=== PATIENT | male | born 1955 | race Caucasian/White ===

== ENCOUNTER 2016-07-27 09:09 | Inpatient (IN) | payer MEDICARE, BC ==
[2016-07-27] MEDS ORDERED: LORazepam 2 MG/ML SYRINGE IV STA ×2 (09:24→11:32)
[2016-07-27] MEDS ORDERED: SODIUM CHLORIDE 0.9% 1,000 ML IV STA ×2 (09:24)
[2016-07-27] MEDS ORDERED: SODIUM CHLORIDE 0.9% 500 ML IV STA ×2 (09:24→11:32)
[2016-07-27] MEDS ORDERED: THIAMINE 100 MG/ML 2 ML VIAL IVPB STA (09:24)
[2016-07-27] MEDS ORDERED: ONDANSETRON 4 MG/2 ML VIAL IVP STA (09:25)
[2016-07-27] MEDS ORDERED: PANTOPRAZOLE 40 MG/10 ML VIAL IVP STA (09:25)
[2016-07-27] MEDS ORDERED: DILTIAZEM 5 MG/ML 5 ML VIAL IVP STA ×2 (09:27→11:32)
--- NOTE | 2016-07-27 09:27 | ED ---
General Adult HPI - General Chief complaint: Alcohol Stated complaint: Depression Time Seen by Provider: 07/27/16 09:23 Source: patient, EMS, RN notes reviewed, old records reviewed Mode of arrival: EMS Limitations: no limitations - History of Present Illness Initial comments: This is a 61-year-old male to the ER for evaluation of occult withdrawal. Patient states he wants help with his drinking. Not feeling well nausea vomiting that eating well - Related Data Home Medications Medication Instructions Recorded Confirmed Allopurinol [Zyloprim] 300 mg PO DAILY 05/17/16 07/27/16 PARoxetine HCL [Paxil] 40 mg PO DAILY 05/17/16 07/27/16 Pantoprazole Sodium [Protonix] 40 mg PO DAILY 05/17/16 07/27/16 Tamsulosin HCl [Flomax] 0.4 mg PO HS 05/17/16 07/27/16 Colchicine [Colcrys] 0.6 mg PO DAILY 07/27/16 07/27/16 Diazepam [Valium] 10 mg PO DAILY PRN 07/27/16 07/27/16 Fluticasone Nasal [place] [Flonase 1 spr EA NOSTRIL DAILY PRN 07/27/16 07/27/16 Nasal [place]] Hydrochlorothiazide [Hydrodiuril] 25 mg PO DAILY 07/27/16 07/27/16 LORazepam [Ativan] 1 mg PO DAILY PRN 07/27/16 07/27/16 Lisinopril [Zestril] 40 mg PO DAILY 07/27/16 07/27/16 Meloxicam [Mobic] 15 mg PO DAILY 07/27/16 07/27/16 Metoprolol Tartrate [Lopressor] 50 mg PO DAILY 07/27/16 07/27/16 Pravastatin Sodium [Pravachol] 40 mg PO HS 07/27/16 07/27/16 Tamsulosin HCl [Flomax] 0.4 mg PO DAILY 07/27/16 07/27/16 Venlafaxine HCl [Effexor] 100 mg PO BID 07/27/16 07/27/16 tiZANidine HCL [Zanaflex] 2 mg PO TID PRN 07/27/16 07/27/16 traZODone HCL [Desyrel] 100 mg PO BID 07/27/16 07/27/16 Previous Rx's Medication Instructions Recorded LORazepam [Ativan] 1 mg PO Q4HR PRN #30 tab 05/21/16 Allergies Allergy/AdvReac Type Severity Reaction Status Date / Time No Known Allergies Allergy Verified 07/27/16 09:19 Review of Systems ROS Statement: Those systems with pertinent positive or pertinent negative responses have been documented in the HPI. ROS Other: All systems not noted in ROS Statement are negative. Past Medical History Past Medical History: Hyperlipidemia, Hypertension Additional Past Medical History / Comment(s): ETOH History of Any Multi-Drug Resistant Organisms: None Reported Past Surgical History: Back Surgery, Orthopedic Surgery Additional Past Surgical History / Comment(s): hernia repair umbilical and inguinal Past Psychological History: Anxiety, Depression Smoking Status: Former smoker Past Alcohol Use History: Daily, Heavy Past Drug Use History: None Reported General Exam Limitations: no limitations General appearance: alert, in no apparent distress, anxious Head exam: Present: atraumatic, normocephalic, normal inspection Eye exam: Present: normal appearance, PERRL, EOMI. Absent: scleral icterus, conjunctival injection, periorbital swelling ENT exam: Present: mucous membranes dry, mucous membranes moist Neck exam: Present: normal inspection. Absent: tenderness, meningismus, lymphadenopathy Respiratory exam: Present: normal lung sounds bilaterally. Absent: respiratory distress, wheezes, rales, rhonchi, stridor Cardiovascular Exam: Present: tachycardia, irregular rhythm, normal heart sounds. Absent: systolic murmur, diastolic murmur, rubs, gallop, clicks GI/Abdominal exam: Present: soft, normal bowel sounds. Absent: distended, tenderness, guarding, rebound, rigid Extremities exam: Present: normal inspection, full ROM, normal capillary refill. Absent: tenderness, pedal edema, joint swelling, calf tenderness Back exam: Present: normal inspection Neurological exam: Present: alert, oriented X3, CN II-XII intact Psychiatric exam: Present: normal affect, normal mood Skin exam: Present: warm, dry, intact, normal color. Absent: rash Course Vital Signs 07/27/16 07/27/16 07/27/16 09:14 09:43 10:03 Temperature 97.2 F L Pulse Rate 157 H 153 H 144 H Respiratory 0 L 20 22 Rate Blood Pressure 167/117 227/94 129/79 O2 Sat by Pulse 96 96 96 Oximetry - Reevaluation(s) Reevaluation #1: 07/27/16 11:40 Patient remained in A. fib with RVR, heart rate in the 150s, agitated with full body pain. EKG Findings - EKG Comments: EKG Findings:: EKG shows A. fib with RVR rate of 137, QRS 82, QTC 422 Medical Decision Making - Medical Decision Making 61 male here for evaluation of weakness, restlessness, lying to quit alcohol, patient is still with elevated alcohol level but noted palpitations with A. fib with RVR, patient will be admitted for evaluation of A. fib with RVR pending alcohol withdrawal DTs, patient's placed on rate control medication as well as anticoagulation, patient will be admitted for cardiopulmonary resuscitation and hemodynamic monitoring - Lab Data Result diagrams: 07/27/16 09:20 07/27/16 10:10 Lab Results 07/27/16 07/27/16 07/27/16 Range/Units 09:20 10:10 10:10 WBC 7.8 (3.8-10.6) k/uL RBC 5.42 (4.30-5.90) m/uL Hgb 16.7 (13.0-17.5) gm/dL Hct 51.3 (39.0-53.0) % MCV 94.8 (80.0-100.0) fL MCH 30.9 (25.0-35.0) pg MCHC 32.6 (31.0-37.0) g/dL RDW 16.2 H (11.5-15.5) % Plt Count 164 (150-450) k/uL Neutrophils % 68 % Lymphocytes % 20 % Monocytes % 7 % Eosinophils % 2 % Basophils % 1 % Neutrophils # 5.3 (1.3-7.7) k/uL Lymphocytes # 1.5 (1.0-4.8) k/uL Monocytes # 0.5 (0-1.0) k/uL Eosinophils # 0.2 (0-0.7) k/uL Basophils # 0.1 (0-0.2) k/uL Anisocytosis Slight PT 11.6 (9.0-12.0) sec INR 1.2 (<1.1) APTT 28.9 (22.0-30.0) sec Sodium 148 H (137-145) mmol/L Potassium 4.0 (3.5-5.1) mmol/L Chloride 106 (98-107) mmol/L Carbon Dioxide 18 L (22-30) mmol/L Anion Gap 24 mmol/L BUN 11 (9-20) mg/dL Creatinine 0.80 (0.66-1.25) mg/dL Est GFR (MDRD) Af Amer >60 (>60 ml/min/1.73 sqM) Est GFR (MDRD) Non-Af >60 (>60 ml/min/1.73 sqM) Glucose 94 (74-99) mg/dL Calcium 8.8 (8.4-10.2) mg/dL Magnesium 1.7 (1.6-2.3) mg/dL Total Bilirubin 1.2 (0.2-1.3) mg/dL AST 37 (17-59) U/L ALT 43 (21-72) U/L Alkaline Phosphatase 87 (38-126) U/L Total Protein 7.7 (6.3-8.2) g/dL Albumin 4.8 (3.5-5.0) g/dL Lipase 54 (23-300) U/L Serum Alcohol 125 mg/dL - Radiology Data Radiology results: report reviewed (Chest x-ray is negative for acute disease), image reviewed Critical Care Time Critical Care Time: Yes Total Critical Care Time: 31 Disposition Clinical Impression: Alcohol withdrawal syndrome, Atrial fibrillation with RVR Disposition: ADMITTED IP TO THIS [facility] Condition: Serious Referrals: Harvey Kumari MD [Primary Care Provider] - 1-2 days
[2016-07-27] MEDS ORDERED: MULTIVITAMINS, THERA 1 EACH TAB PO STA (09:29)
[2016-07-27 09:48] LABS: Anisocytosis Slight; Basophils # (A) 0.1 k/uL (0-0.2); Basophils % (A) 1 %; CH 31.5; CHCM 33.5; Eosinophils # (A) 0.2 k/uL (0-0.7); Eosinophils % (A) 2 %; HCT 51.3 % (39.0-53.0); HDW 3.31; HGB 16.7 gm/dL (13.0-17.5); Luc % (Auto) 3; Lymphocytes # (A) 1.5 k/uL (1.0-4.8); Lymphocytes % (A) 20 %; MCH 30.9 pg (25.0-35.0); MCHC 32.6 g/dL (31.0-37.0); MCV 94.8 fL (80.0-100.0); Mean Platelet Volume 8.6; Monocytes # (A) 0.5 k/uL (0-1.0); Monocytes % (A) 7 %; Neutrophils # (A) 5.3 k/uL (1.3-7.7); Neutrophils % (A) 68 %; RBC 5.42 m/uL (4.30-5.90); RDW 16.2 % (11.5-15.5); WBC 7.8 k/uL (3.8-10.6); WBC (Perox) 7.85
[2016-07-27] MEDS ORDERED: MORPHINE SULFATE 4 MG/ML SYRINGE IVP STA (09:49)
[2016-07-27] MEDS ORDERED: THIAMINE 100 MG/ML 2 ML VIAL IVP STA (09:59)
[2016-07-27 10:43] LABS: INR 1.2 (<1.1); Partial Thromboplastin Time 28.9 sec (22.0-30.0); Prothrombin Time 11.6 sec (9.0-12.0)
[2016-07-27 10:47] LABS: ALT 43 U/L (21-72); AST 37 U/L (17-59); Alkaline Phosphatase 87 U/L (38-126); Anion Gap 24 mmol/L; Blood Urea Nitrogen 11 mg/dL (9-20); Calcium 8.8 mg/dL (8.4-10.2); Carbon Dioxide 18 mmol/L (22-30); Chloride 106 mmol/L (98-107); Glucose 94 mg/dL (74-99); Magnesium 1.7 mg/dL (1.6-2.3); Non-African American GFR(MDRD) >60 (>60 ml/min/1.73 sqM); Sodium 148 mmol/L (137-145); Total Bilirubin 1.2 mg/dL (0.2-1.3); Total Protein 7.7 g/dL (6.3-8.2)
[2016-07-27 10:50] LABS: Alcohol 125 mg/dL
--- NOTE | 2016-07-27 11:14 | XR ---
EXAMINATION TYPE: XR chest 2V DATE OF EXAM: 07/27/2016 10:54 AM COMPARISON: None HISTORY: 61-year-old male low back pain TECHNIQUE: Frontal and lateral views FINDINGS: Heart is upper limits of normal in size. Mild interstitial prominence main part relate to technique. No consolidation or pleural effusion. IMPRESSION: Suspect some underlying senescent changes, possible chronic bronchitis/asthma. Otherwise, no acute pr ocess seen.
[2016-07-27] MEDS ORDERED: DILTIAZEM 125 MG in SODIUM CHLORIDE 0.9% 100 ML IV ONE (11:33)
[2016-07-27] MEDS ORDERED: ASPIRIN 81 MG CHEW PO STA (11:35)
[2016-07-27] MEDS ORDERED: MORPHINE SULFATE 4 MG/ML SYRINGE IV PRN (11:35)
[2016-07-27] MEDS ORDERED: HEPARIN SODIUM,PORCINE 5,000 UNIT/ML 1 ML VIAL IV ONE (11:35)
[2016-07-27] MEDS ORDERED: LORazepam 2 MG/ML SYRINGE IV PRN (11:38)
[2016-07-27] MEDS ORDERED: THIAMINE 100 MG/ML 2 ML VIAL IM STA (11:38)
[2016-07-27] MEDS ORDERED: HEPARIN SODIUM,PORCINE/D5W PMX 25,000 UNIT in DEXTROSE/WATER 1 500ML.BAG IV SCH (11:45)
[2016-07-27] MEDS ORDERED: DIAZEPAM 5 MG/ML 2 ML SYRINGE IVP SCH (12:00)
[2016-07-27] MEDS: SODIUM CHLORIDE 0.9% 1,000 ML IV SCH ×2 (12:15→21:02)
--- NOTE | 2016-07-27 13:56 | P.PN ---
Progress Note - Text this is an addendum to the dictated cardiology consultation. The patient has a history of hypertension and unfortunately chronic alcohol abuse who presented with symptoms of chest discomfort and was found to be in atrial fibrillation and rapid ventricular response. He is back in sinus mechanism at this time.he denies any prior cardiac history. He has mild dyspnea on exertion related to a sinus but he has no history of exertional chest discomfort and no knowledge of prior arrhythmia. He drinks on a daily basis up to a fifth a day. His physical examination shows no evidence of lung congestion, he is in sinus mechanism. His EKG is consistent with atrial fibrillation rapid ventricle response with nonspecific ST-T wave changes. I discussed with him the importance of alcohol cessation. I would increase the dose of his beta austen and stop his IV Cardizem. We will obtain an echocardiogram with Doppler. At this time I will withhold anticoagulation because of the history of chronic alcoholism. Depending on the results of his lab data and his echocardiogram further recommendations will be made. Thank you for this consult we will follow with you.
--- NOTE | 2016-07-27 13:56 | P.CRDCN ---
History of Present Illness Consult date: 07/27/16 Requesting physician: Jim Huggins Consult reason: atrial fibrillation Chief complaint: Chest pain and heart racing History of present illness: This is a 61-year-old gentleman with history of hypertension, hyperlipidemia, family history of premature coronary artery disease, anxiety and depression, EtOH abuse, who presented to the hospital with symptoms of chest pain, and feeling his heart racing fast. Overall he states he hasn't been feeling well, having episodes of nausea and vomiting. Patient states that he drinks a fifth of alcohol a day and has been doing this for quite some time. His alcohol level on admission was 125. EKG on arrival atrial fibrillation with a rapid ventricular response, initiated on IV heparin and Cardizem, has now converted to normal sinus rhythm. Chest x-ray reveals some underlying senescent changes, possible chronic bronchitis/asthma. Laboratory data was reviewed, WBC 7.8, hemoglobin 16.7, platelet count 164. Sodium 148, potassium 4.0, BUN 11, creatinine 0.8. The pressure on arrival 167/117, heart rate on arrival 150s, heart rate currently 90 normal sinus rhythm. Past Medical History Past Medical History: Hyperlipidemia, Hypertension, Osteoarthritis (OA), Prostate Disorder Additional Past Medical History / Comment(s): Alcoholism, bronchitis, ulcerative colitis, rectal bleed, gout in bilateral feet, unsteady gait, balance issues, "blppd shot" eyes which he has been told is dur to dry eyes, arthritis multiple joints, BPH. History of Any Multi-Drug Resistant Organisms: None Reported Past Surgical History: Back Surgery, Hernia Repair, Joint Replacement, Orthopedic Surgery, Tonsillectomy Additional Past Surgical History / Comment(s): Lumbar back surgery x 3, total L knee, hernia repair umbilical and left inguinal, colonoscopy. Past Anesthesia/Blood Transfusion Reactions: No Reported Reaction, Motion Sickness Additional Past Anesthesia/Blood Transfusion Reaction / Comment(s): Pt gets sea sick. Past Psychological History: Anxiety, Depression Additional Psychological History / Comment(s): t resides alone. He uses a walker to ambulate. He drives. He states he has hx of depression and it has been more severe over the past few weeks. He states he recently got after 33 yrs of marriage and his kids "won't talk to me." He stated that over the past two weeks he has had brief thoughts of suicide but no plan and states he is not suicidal at this time. " I want to live." He stated that when he is feeting this emotional, he stops taking his medication and drinks alcohol more. Smoking Status: Former smoker Past Alcohol Use History: Daily, Heavy Additional Past Alcohol Use History / Comment(s): Pt states he started smoking in 1968 and was a 3-4 ppd smoker. He quit smoking in 1978. He states he drinks 1/5 of whiskey mixed with coke each day. Past Drug Use History: None Reported - Past Family History Mother Additional Family Medical History / Comment(s): Mother "battled" depression all of her life. She was 82 yrs old when she . Father Additional Family Medical History / Comment(s): Father was an alcoholic. He at the age of 72 yrs. Medications and Allergies Home Medications Medication Instructions Recorded Confirmed Type Allopurinol [Zyloprim] 300 mg PO DAILY 05/17/16 07/27/16 History PARoxetine HCL [Paxil] 40 mg PO DAILY 05/17/16 07/27/16 History Pantoprazole Sodium [Protonix] 40 mg PO DAILY 05/17/16 07/27/16 History Tamsulosin HCl [Flomax] 0.4 mg PO HS 05/17/16 07/27/16 History Colchicine [Colcrys] 0.6 mg PO DAILY 07/27/16 07/27/16 History Diazepam [Valium] 10 mg PO DAILY PRN 07/27/16 07/27/16 History Fluticasone Nasal [place] [Flonase 1 spr EA NOSTRIL DAILY PRN 07/27/16 07/27/16 History Nasal [place]] Hydrochlorothiazide [Hydrodiuril] 25 mg PO DAILY 07/27/16 07/27/16 History LORazepam [Ativan] 1 mg PO DAILY PRN 07/27/16 07/27/16 History Lisinopril [Zestril] 40 mg PO DAILY 07/27/16 07/27/16 History Meloxicam [Mobic] 15 mg PO DAILY 07/27/16 07/27/16 History Metoprolol Tartrate [Lopressor] 50 mg PO DAILY 07/27/16 07/27/16 History Pravastatin Sodium [Pravachol] 40 mg PO HS 07/27/16 07/27/16 History Tamsulosin HCl [Flomax] 0.4 mg PO DAILY 07/27/16 07/27/16 History Venlafaxine HCl [Effexor] 100 mg PO BID 07/27/16 07/27/16 History tiZANidine HCL [Zanaflex] 2 mg PO TID PRN 07/27/16 07/27/16 History traZODone HCL [Desyrel] 100 mg PO BID 07/27/16 07/27/16 History Allergies Allergy/AdvReac Type Severity Reaction Status Date / Time No Known Allergies Allergy Verified 07/27/16 09:19 Physical Exam Vitals: Vital Signs Temp Pulse Pulse Resp BP BP Pulse Ox 07/27/16 12:45 97.3 F L 87 18 175/79 97 07/27/16 12:28 98.4 F 92 18 152/74 94 L 07/27/16 12:15 94 18 143/77 94 L Intake and Output 07/26/16 07/27/16 07/27/16 22:59 06:59 14:59 Intake Total 1999 Balance 1999 Intake: Amount of Fluid Infused ( 2000 ml) PHYSICAL EXAMINATION: HEENT: [Head is atraumatic, normocephalic. Pupils equal, round. Neck is supple. There is no elevated jugular venous pressure.] HEART EXAMINATION: [Heart S1, S2 normal. No murmur or gallop heard.] CHEST EXAMINATION:[ Lungs are clear to auscultation and precussion. No chest wall tenderness is noted on palpation or with deep breathing.] ABDOMEN: [ Soft, nontender. Bowel sounds are heard. No organomegaly noted]. EXTREMITIES:[ 2+ peripheral pulses with no evidence of peripheral edema and no calf tenderness noted]. NEUROLOGIC [patient is awake, alert and oriented -3.] . Results 07/27/16 09:20 07/27/16 10:10 Current Medications Generic Name Dose Route Start Last Admin Trade Name Freq PRN Reason Stop Dose Admin Aspirin 325 mg 07/28/16 09:00 Aspirin PO DAILY WALKER Diazepam 5 mg 07/27/16 12:00 07/27/16 13:26 Valium IVP Not Given Q8HR [facility] Heparin Sodium (Porcine) 0 unit 07/27/16 18:00 Heparin IV Q6HR PRN Low PTT Protocol Sodium Chloride 1,000 mls @ 100 mls/hr 07/27/16 09:24 07/27/16 11:56 Saline 0.9% IV 07/27/16 19:23 100 mls/hr .Q10H STA Administration Diltiazem HCl 125 mg/ Sodium 125 mls @ 5 mls/hr 07/27/16 11:33 07/27/16 12:03 Chloride IV 07/28/16 11:32 5 mg/hr .Q24H ONE 5 mls/hr 5 MG/HR Administration Heparin Sodium/Dextrose 25,000 500 mls @ 20 mls/hr 07/27/16 11:45 07/27/16 12 :13 unit/ IV Solution IV 7.6 units/kg/hr .Q24H WALKER 19.99 mls/hr Protocol Administration Sodium Chloride 1,000 mls @ 100 mls/hr 07/27/16 11:45 07/27/16 12:15 Saline 0.9% IV 100 mls/hr .Q10H WALKER Administration Lorazepam 1 mg 07/27/16 11:38 Ativan IV Q2HR PRN CIWA 8 or 9 Lorazepam 1 mg 07/27/16 11:38 Ativan IV Q1HR PRN CIWA 10 to 15 Lorazepam 2 mg 07/27/16 11:38 Ativan IV Q1HR PRN CIWA 16 or higher Morphine Sulfate 4 mg 07/27/16 11:35 Morphine Sulfate (Inj) IV Q4HR PRN Chest Pain Thiamine HCl 100 mg 07/27/16 17:00 Vitamin B-1 PO BID@1200,1700 WALKER Intake and Output 07/26/16 07/27/16 07/27/16 22:59 06:59 14:59 Intake Total 1999 Balance 1999 Intake: Amount of Fluid Infused ( 2000 ml) EKG Interpretations (text) EKG on admission showed atrial fibrillation with a rapid ventricular response Assessment and Plan Plan: Assessment and plan #1 atrial fibrillation with rapid ventricular response, paroxysmal, new onset, currently in normal sinus rhythm. #2 hypertension #3 hyperlipidemia #4 family history of premature coronary artery disease #5 EtOH abuse Plan We will obtain an echocardiogram with Doppler study along with free T4 and TSH. IV Cardizem drip has been discontinued. Dose of beta austen has been increased to 50 mg one tablet by mouth twice a day. Patient has been advised regarding the importance of EtOH cessation. Not a candidate for anticoagulation because of the EtOH abuse. Further recommendations to follow. DNP note has been reviewed, I agree with a documented findings and plan of care. Patient was seen and examined.
[2016-07-27 14:58] VITALS: BMI 40.4
[2016-07-27] MEDS: LORazepam 2 MG/ML SYRINGE IV PRN ×5 (14:59→23:39)
[2016-07-27] MEDS: LISINOPRIL 20 MG TAB PO SCH (15:00)
[2016-07-27] MEDS: THIAMINE 100 MG TAB PO SCH (15:00)
[2016-07-27 15:24] LABS: Troponin I 0.012 ng/mL (0.000-0.034)
[2016-07-27 15:29] LABS: Creatine Kinase MB 8.5 ng/mL (0.0-2.4)
[2016-07-27 15:39] LABS: Amorphous Sediment,Urine Rare /hpf; Appearance,Urine Clear (Clear); Bilirubin,Urine Negative (Negative); Glucose,Urine (UA) Negative (Negative); Ketones,Urine 2+ (Negative); Leukocyte Esterase,Urine Negative (Negative); Mucus,Urine Occasional /hpf; Nitrite,Urine Negative (Negative); PH, Urine 5.5 (5.0-8.0); Particle Count 3042; Protein,Urine 2+ (Negative); RBC,Urine 1 /hpf (0-5); Specific Gravity,Urine 1.013 (1.001-1.035); Squamous Epithelial Cell,Urine 1 /hpf (0-4); UA Billing (MACRO vs. MICRO) MICRO; Urobilinogen,Urine <2.0 mg/dL (<2.0); WBC,Urine 6 /hpf (0-5)
[2016-07-27 16:35] LABS: Troponin I 0.028 ng/mL (0.000-0.034)
[2016-07-27 16:38] LABS: Creatine Kinase MB 11.2 ng/mL (0.0-2.4)
[2016-07-27] MEDS ORDERED: HEPARIN SODIUM,PORCINE 5,000 UNIT/ML 1 ML VIAL IV PRN (18:00)
[2016-07-27] MEDS: METOPROLOL TARTRATE 50 MG TAB PO SCH (21:01)
[2016-07-27] MEDS: PRAVASTATIN SODIUM 40 MG TAB PO SCH (21:01)
[2016-07-27 23:23] LABS: Troponin I 0.038 ng/mL (0.000-0.034)
[2016-07-27 23:24] LABS: Creatine Kinase MB 8.1 ng/mL (0.0-2.4)
[2016-07-28] MEDS: LORazepam 2 MG/ML SYRINGE IV PRN ×4 (04:29→21:08)
[2016-07-28 05:59] LABS: Mean Platelet Volume 6.6
[2016-07-28 06:10] LABS: Cholesterol 222 mg/dL (<200); HDL Cholesterol 75 mg/dL (40-60); Triglycerides 103 mg/dL (<150)
[2016-07-28] MEDS ORDERED: ASPIRIN 325 MG TAB PO SCH (09:00)
[2016-07-28] MEDS: METOPROLOL TARTRATE 50 MG TAB PO SCH ×2 (09:06→21:08)
[2016-07-28] MEDS: LISINOPRIL 20 MG TAB PO SCH (09:06)
[2016-07-28] MEDS: SODIUM CHLORIDE 0.9% 1,000 ML IV SCH ×2 (09:07→18:08)
[2016-07-28] MEDS: amLODIPine 5 MG TAB PO SCH (10:53)
--- NOTE | 2016-07-28 11:16 | ECHOF ---
Referral Reason:afib MEASUREMENTS -------- HEIGHT: 180.3 cm WEIGHT: 131.5 kg BP: 175/79 RVIDd: 2.6 cm (< 3.3) IVSd: 1.1 cm (0.6 - 1.1) LVIDd: 5.1 cm (3.9 - 5.3) LVPWd: 1.2 cm (0.6 - 1.1) IVSs: 2.2 cm LVIDs: 3.4 cm LVPWs: 1.8 cm LA Diam: 3.2 cm (2.7 - 3.8) LAESV Index (A-L): 16.49 ml/m Ao Diam: 3.3 cm (2.0 - 3.7) AV Cusp: 1.9 cm (1.5 - 2.6) LA Diam: 3.1 cm (2.7 - 3.8) MV EXCURSION: 12.148 mm (> 18.000) MV EF SLOPE: 39 mm/s (70 - 150) EPSS: 1.0 cm MV E Santo: 1.02 m/s MV DecT: 240 ms MV A Santo: 0.94 m/s MV E/A Ratio: 1.08 FINDINGS -------- Undetermined rhythm. This was a technically adequate study. There is borderline concentric left ventricular hypertrophy. Overall left ventricular systolic function is normal with, an EF between 55 - 60 %. The right ventricle is normal in size. Normal LA size by volume 22+/-6 ml/m2. The right atrium is normal in size. Aortic valve is trileaflet and is mildly thickened. Mild mitral annular calcification present. There is trace mitral regurgitation. Trace tricuspid regurgitation present. Right ventricular systolic pressure is normal at < 35 mmHg. Pulmonic valve appears structurally normal. The aortic root size is normal. Normal inferior vena cava with normal inspiratory collapse consistent with estimated right atrial pressure of 5 mmHg. There is a small, generalized pericardial effusion present. CONCLUSIONS -------- 1. Undetermined rhythm. 2. There is trace mitral regurgitation. 3. Trace tricuspid regurgitation present. 4. Right ventricular systolic pressure is normal at < 35 mmHg. 5. Pulmonic valve appears structurally normal. 6. The aortic root size is normal. 7. There is a small, generalized pericardial effusion present. 8. This was a technically adequate study. 9. There is borderline concentric left ventricular hypertrophy. 10. Overall left ventricular systolic function is normal with, an EF between 55 - 60 %. 11. The right ventricle is normal in size. 12. Normal LA size by volume 22+/-6 ml/m2. 13. The right atrium is normal in size. 14. Aortic valve is trileaflet and is mildly thickened. 15. Mild mitral annular calcification present. HAND CROWN POUNCER: Quyen Krishna RDCS
[2016-07-28] MEDS ORDERED: LORazepam 1 MG TAB PO PRN (11:36)
[2016-07-28] MEDS ORDERED: PARoxetine 20 MG TAB PO SCH (11:45)
[2016-07-28] MEDS ORDERED: traZODone HCL 100 MG TAB PO SCH ×2 (11:45→21:00)
[2016-07-28] MEDS ORDERED: TAMSULOSIN 0.4 MG CAP.ER.24H PO SCH ×2 (11:45→21:00)
[2016-07-28] MEDS: DIAZEPAM 5 MG TAB PO SCH ×3 (13:08→23:02)
[2016-07-28] MEDS: HYDROCHLOROTHIAZIDE 25 MG TAB PO SCH (13:09)
[2016-07-28] MEDS: PANTOPRAZOLE 40 MG TABLET PO SCH (13:10)
[2016-07-28] MEDS: THIAMINE 100 MG TAB PO SCH ×2 (13:10→16:01)
[2016-07-28] MEDS: ALLOPURINOL 300 MG TAB PO SCH (13:10)
--- NOTE | 2016-07-28 13:15 | HP ---
DATE OF ADMISSION: 07/27/2016 PRESENTING COMPLAINT: Shaky and anxious. HISTORY OF PRESENTING COMPLAINT: This is a 61-year-old of Dr. Kumari. Patient's chronic stable medical conditions include: Benign prostatic hypertrophy, depression, hyperuricemia, hypertension, chronic alcohol use. The patient in middle of May was in the psychiatry unit and diagnosed to have major depressive disorder. Patient drinks 1 to 2 pints whiskey a day. Lasting for 2 days ago. Patient started feeling very shaky. Heart rate racing. Not feeling well. Decided to come in, depressed, found to have A. fib with rapid ventricular rate. Patient in the ER was given IV Cardizem and some Ativan and admitted to the medical floor. Overnight patient switched over to sinus rhythm. Patient is still very depressed, shaky and was concerned about his family. He lost his family especially his kids after a divorce. Patient's other chronic ( ) patient's blood pressure is running a bit high this morning and was started on Norvasc. REVIEW OF SYSTEMS: CONSTITUTIONAL: Tired. HEENT: None. RESPIRATORY: None. CARDIOVASCULAR: Heart racing. GASTROINTESTINAL: None. GENITOURINARY: None. MUSCULOSKELETAL: None. Dermatologic: None. HEMATOLOGIC: None. LYMPHATIC: None. PSYCHIATRY: Anxiety, depressed. NEUROLOGICAL: Numbness, tingling in hands and feet. Past medical history of major depression, benign prostatic hypertrophy, peripheral neuropathy, alcoholism, hypertension. PAST SURGICAL HISTORY: Back surgery, hernia repair, joint replacement, tonsillectomy, lumbar back surgery x3. Left knee surgery, umbilical, left and right umbilical hernia repair. SOCIAL HISTORY: Recently got after 32 years of marriage. The patient smoked for 10 years; stopped in 1978. He drinks at least a fifth of whiskey mixed with coke every day. FAMILY HISTORY: Reviewed, noncontributory to the presentation. HOME MEDICATIONS: 1. Effexor 100 mg p.o. b.i.d. 2. Flomax 0.4 mg p.o. daily. 3. Zanaflex 2 mg p.o. daily p.r.n. 4. Desyrel 100 mg p.o. b.i.d. 5. Flomax 0.4 mg p.o. q.h.s. 6. Pravachol 40 mg q.h.s. 7. Protonix 40 mg p.o. daily. 8. Paxil 40 mg daily. 9. Lopressor 50 mg p.o. daily. 10. Mobic 15 mg p.o. daily. 11. Zestril 40 mg p.o. daily. 12. Ativan q.4 1 mg p.r.n. 13. Hydrochlorothiazide 25 mg daily. 14. Flonase one spray each nostril daily p.r.n. 15. Valium 10 mg daily p.r.n. 16. Colchicine 0.6 mg p.o. daily. 17. Allopurinol 300 mg daily. ALLERGIES: None. On examination vital signs on presentation: Temperature 97.4, pulse 90, respiration 18, blood pressure initially was 165/85, pulse ox 97% on room air and then gone up 190/91. GENERAL APPEARANCE: Obese; morbidly obese, BMI 40.5, sitting up, tired -appearing. EYES: Pupils equal. Conjunctivae normal. HEENT: External appearance of nose and ears normal. Oral cavity normal. NECK: JVD not raised. Mass not palpable. RESPIRATORY: Effort normal. LUNGS: Slightly decreased breath sounds. CARDIOVASCULAR: First and second sounds normal. No edema. ABDOMEN: Distended. Soft. Liver and spleen not palpable. LYMPHATIC: No lymph nodes palpable in neck or axillae. PSYCHIATRY: Alert and oriented x3. Mood and affect depressed appearing. NEUROLOGICAL: Pupils equal. Cranial nerves grossly intact. Power and sensation grossly intact. INVESTIGATIONS: White count 7.8, hemoglobin 16.5. Potassium 4.9. BUN and creatinine are normal. ( ) normal 1.2. Urine drug screen positive for opiates and benzodiazepine. Serum alcohol 125. EKG atrial fibrillation with rapid ventricular response. ASSESSMENT: 1. Paroxysmal atrial fibrillation with rapid ventricular rate, lasting for less than 24 hours in a patient who is an alcoholic. Given history of alcoholism, the patient may not be the best candidate for anticoagulation. 2. Alcohol withdrawal manifesting as tachycardia, high blood pressure. Patient also somewhat shaky. 3. Major depression with probable recurrence and anxiety. 4. Chronic alcohol dependence. 5. Morbid obesity. Body mass index 40.5. 6. Peripheral neuropathy from chronic alcoholism. 7. Essential hypertension. 8. Benign prostatic hypertrophy. PLAN: For alcohol withdrawal we will start the patient on the Valium 5 mg q.8. The patient blood pressures are being adjusted. We will get psychiatry involved. Home medications are resumed. We will cut back the dose of aspirin to 81 mg. I do not think patient is a good candidate for anticoagulation given his social situation and his mental status and he continues to drink. Cardiology was consulted. The patient wants to move to a family doctor closer to the [facility] as he lives in [place] and is requesting for one and we will discuss this with the patient again. Copy to Dr. Kumari.
--- NOTE | 2016-07-28 15:34 | P.PN ---
Subjective Principal diagnosis: Kinjal le This is a 61-year-old gentleman with history of hypertension, hyperlipidemia, family history of premature coronary artery disease, anxiety and depression, EtOH abuse, who presented to the hospital with symptoms of chest pain, and feeling his heart racing fast. Overall he states he hasn't been feeling well, having episodes of nausea and vomiting. Patient states that he drinks a fifth of alcohol a day and has been doing this for quite some time. His alcohol level on admission was 125. EKG on arrival atrial fibrillation with a rapid ventricular response Objective - Vital Signs Vital signs: Vital Signs Temp 98.4 F 07/28/16 12:00 Pulse 74 07/28/16 12:00 Resp 18 07/28/16 12:00 BP 190/92 07/28/16 12:00 Pulse Ox 97 07/28/16 12:00 Intake & Output 07/27/16 07/28/16 07/28/16 18:59 06:59 18:59 Intake Total 2100 480 840 Output Total 2193 1600 450 Balance -93 -1120 390 Weight 131.542 kg 131.7 kg Intake: IV 600 Sodium Chloride 0.9% 1, 600 000 ml @ 100 mls/hr IV . Q10H WALKER Rx#:[id number] Amount of Fluid Infused ( 2000 ml) Oral 100 480 240 Output: Urine 1200 1600 450 Straight 1200 800 Post Void Residual 993 Other: Voiding Method Urinal Urinal Urinal # Voids 0 1 # Bowel Movements 1 - Exam PHYSICAL EXAMINATION: HEENT: [Head is atraumatic, normocephalic. Pupils equal, round. Neck is supple. There is no elevated jugular venous pressure.] HEART EXAMINATION: [Heart S1, S2 normal. No murmur or gallop heard.] CHEST EXAMINATION:[ Lungs are clear to auscultation and precussion. No chest wall tenderness is noted on palpation or with deep breathing.] ABDOMEN: [ Soft, nontender. Bowel sounds are heard. No organomegaly noted]. EXTREMITIES:[ 2+ peripheral pulses with no evidence of peripheral edema and no calf tenderness noted]. NEUROLOGIC [patient is awake, alert and oriented -3.] . - Labs CBC & Chem 7: 07/28/16 05:29 07/27/16 10:10 Labs: Abnormal Lab Results - Last 24 Hours (Table) 07/27/16 07/27/1607/27/17 Range/Units 15:10 15:36 22:25 Plt Count (150-450) k/uL Total Creatine Kinase 551 H 487 H (55-170) U/L CK-MB (CK-2) 11.2 H* 8.1 H* (0.0-2.4) ng/mL Troponin I 0.038 H* (0.000-0.034) ng/mL Cholesterol (<200) mg/dL LDL Cholesterol, Calc (0-99) mg/dL HDL Cholesterol (40-60) mg/dL Urine Protein 2+ H (Negative) Urine Ketones 2+ H (Negative) Urine Blood Moderate H (Negative) Urine WBC 6 H (0-5) /hpf Amorphous Sediment Rare H (None) /hpf Hyaline Casts 23 H (0-2) /lpf Urine Mucus Occasional H (None) /hpf Urine Opiates Screen Detected H (NotDetected) U Benzodiazepines Scrn Detected H (NotDetected) 07/28/16 07/28/16 Range/Units 05:29 05:29 Plt Count 148 L (150-450) k/uL Total Creatine Kinase (55-170) U/L CK-MB (CK-2) (0.0-2.4) ng/mL Troponin I (0.000-0.034) ng/mL Cholesterol 222 H (<200) mg/dL LDL Cholesterol, Calc 126 H (0-99) mg/dL HDL Cholesterol 75 H (40-60) mg/dL Urine Protein (Negative) Urine Ketones (Negative) Urine Blood (Negative) Urine WBC (0-5) /hpf Amorphous Sediment (None) /hpf Hyaline Casts (0-2) /lpf Urine Mucus (None) /hpf Urine Opiates Screen (NotDetected) U Benzodiazepines Scrn (NotDetected) Assessment and Plan Plan: Assessment and plan #1 atrial fibrillation with rapid ventricular response, paroxysmal, new onset, currently in normal sinus rhythm. #2 hypertension #3 hyperlipidemia #4 family history of premature coronary artery disease #5 EtOH abuse Plan Echocardiogram with Doppler study was performed today which revealed an ejection fraction of 55-60%. Blood pressure 190/90. Norvasc 5 mg daily along with hydrochlorothiazide has been added to the medication regime. Free T4 and TSH were normal. We will continue to monitor blood pressure for another 24 hours. plastics worker consultation regarding patient's EtOH abuse also requested. DNP note has been reviewed, I agree with a documented findings and plan of care. Patient was seen and examined.
[2016-07-28] MEDS: TAMSULOSIN 0.4 MG CAP.ER.24H PO SCH (19:04)
--- NOTE | 2016-07-28 20:44 | CONS ---
DATE OF CONSULTATION: REASON FOR CONSULTATION: Depression. I did review the medical record and I had interviewed the patient. HISTORY OF PRESENT ILLNESS: Patient is 61 -year-old white male who was currently living on his own, has extensive history of alcohol abuse and chronic depression due to his drinking as he said, "I know that my alcohol is not helping my depression". Patient stated that he did stop the antidepressant medication as he was getting nausea especially with his daily alcohol use. He did try different antidepressant medication :Trazodone ,Paxil , his primary care physician started him on Effexor, but he did admit that he has been noncompliant with the medication as prescribed. Patient stated that he has been feeling lonely, easily agitated, and he is not able to stop drinking. Patient stated that he is missing his children as there is no contact with them since the divorce "because of my drinking, I lost my marriage and also the children does not want to check on me." Past Psychiatric History: Patient was hospitalized in psychiatric unit 3 times and the last admission was here on the mental health unit in May 18, 2016. Prior to this there is two admissions at [facility]. Each time he did verbalize suicidal ideation while he was intoxicated. He stated that he did try multiple antidepressant medication, but he never had been compliant with it as prescribed. Vital signs at the time of the admission: Temperature 97.2 pulse 157, respirations 22, blood pressure 167/117. Allergies. There is no known allergy. His home medications: 1. Paxil 40 mg daily. 2. Allopurinol 300 mg daily. 3. ( ). 4. Flomax. 5. Colchicine. 6. Valium 10 mg p.r.n. 7. Ativan 1 mg daily p.r.n. 8. Zestril. 9. Mobic. 10. Lopressor. 11. Pravachol. 12. Trazodone 100 mg twice a day. 13. Zanaflex. 14. Effexor 100 mg twice a day. Substance abuse history: According to the patient, he started drinking at age 5. He stated that he did taste it when his father was drinking in front of him. He stated he is able to tolerate up to a pint of hard liquor a day. Since his divorce 9 years ago he has been drinking on a daily basis. He never had been in any rehab program. According to him he did go to AA meeting. He describes that he has withdrawal symptoms in the form of a lot of tremors, feeling shaky. Family history of psychiatric illness. Patient's father was alcoholic. Mother had history of depression. There is no history of suicide in the family. SOCIAL HISTORY: Patient is the second of four siblings. Patient graduated from high school. 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 He was for almost 31 years and ended by divorce 9 years ago and he has 3 grownup children, as he said one daughter is an lease out man, the other is chemical process engineer and the third did not finish high school and she is working in fast food restaurant. Currently he is living on his own. Very limited social support system due to his drinking. He stated that he moved to [place] from [place] to be close to his siblings. MENTAL STATUS EXAMINATION: Patient is overweight white male who is cooperative. Good eye contact. He was depressed and tearful throughout the interview. He did admit that his drinking is not helping his depression. He denied any hypomanic symptoms. He denied any psychotic symptoms. He denied any active suicidal or homicide ideation. Stated mood is depressed and anxious. Memory is grossly intact, insight and judgment are fair. DISCHARGE DIAGNOSES: 1. Major depression, recurrent, mild to moderate without psychotic feature. 2. Alcohol abuse and dependence. 3. Rule out mood disorder due to substance abuse. PLAN: Currently I will put the patient on one antidepressant and I will continue him on Paxil 30 mg a day and trazodone only as needed for sleep. We will continue alcohol detox. I will continue to follow up to see the patient. Currently he denied any suicidal or homicide ideation. Patient does not meet criteria for the inpatient hospitalization. I do recommend inpatient substance abuse as he has extensive history of alcohol abuse for more than 40 years. Thank you for the consultation. JUNO
[2016-07-28] MEDS ORDERED: FUROSEMIDE 10 MG/ML 4 ML VIAL IV STA (20:59)
[2016-07-28] MEDS ORDERED: VENLAFAXINE HCL 50 MG TAB PO SCH (21:00)
[2016-07-28] MEDS: PRAVASTATIN SODIUM 40 MG TAB PO SCH (21:08)
[2016-07-29] MEDS: LORazepam 2 MG/ML SYRINGE IV PRN (05:56)
[2016-07-29 07:33] VITALS: BP 158/77; PULSE 65; RESP 16; TEMP 97.1
[2016-07-29] MEDS: METOPROLOL TARTRATE 50 MG TAB PO SCH (07:54)
[2016-07-29] MEDS: LISINOPRIL 20 MG TAB PO SCH (07:54)
[2016-07-29] MEDS: PANTOPRAZOLE 40 MG TABLET PO SCH (07:54)
[2016-07-29] MEDS: amLODIPine 5 MG TAB PO SCH (07:55)
[2016-07-29] MEDS: ALLOPURINOL 300 MG TAB PO SCH (07:55)
[2016-07-29] MEDS: HYDROCHLOROTHIAZIDE 25 MG TAB PO SCH (07:56)
[2016-07-29 07:57] LABS: Mean Platelet Volume 7.5
[2016-07-29] MEDS: DIAZEPAM 5 MG TAB PO SCH (07:58)
[2016-07-29] MEDS ORDERED: PARoxetine 10 MG TAB PO SCH (09:00)
[2016-07-29] MEDS: THIAMINE 100 MG TAB PO SCH ×2 (12:54→16:41)
[2016-07-29] MEDS ORDERED: DIAZEPAM 5 MG TAB PO SCH (13:32)
[2016-07-29] MEDS ORDERED: DIAZEPAM 5 MG TAB PO STA (13:37)
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
[2016-07-29] MEDS: TAMSULOSIN 0.4 MG CAP.ER.24H PO SCH (16:41)
[2016-07-29] MEDS ORDERED: MIRTAZAPINE 15 MG TAB PO SCH (21:00)
--- NOTE | 2016-07-30 20:12 | DS ---
DATE OF ADMISSION: 07/27/2016 DATE OF DISCHARGE: 07/29/2016 FINAL DIAGNOSES: 1. Paroxysmal atrial fibrillation with rapid ventricular rate, lasting less than 24 hours, present on admission. 2. Alcohol withdrawal syndrome, present on admission. 3. Major depression, recurrent, with element of anxiety. 4. Chronic alcohol dependence. 5. Morbid obesity, body mass index 40.5. 6. Peripheral neuropathy from chronic alcoholism. 7. Essential hypertension. 8. Benign prostatic hypertrophy. HOSPITAL COURSE: This patient is having family issues. Present depressed with alcohol withdrawal symptoms, hypoxic respiratory fibrillation, atrial fibrillation that went back into sinus rhythm. Patient was put on Valium. The patient was seen by Dr. Forrest who adjusted his medication. Also seen by Cardiology, Dr. Forrest. The patient's 2-D echocardiogram showed preserved LV function. I did want to keep the patient one more day, but seemed extremely anxious to go home, actually wanted to go home and drink alcohol. I told her the importance of staying away from alcohol and starting tapering dose of Valium. On examination: LUNGS: Fair air entry. CARDIOVASCULAR: First and second sounds are normal. DISCHARGE MEDICATIONS: 1. Allopurinol 300 mg a day. 2. Paxil 40 mg a day. 3. Protonix 40 mg a day. 4. Colchicine 0.6 mg a day. 5. Hydrochlorothiazide 25 mg a day. 6. Ativan 1 mg b.i.d. p.r.n. 7. Zestril 40 mg daily. 8. Mobic 50 mg a day. 9. Pravachol 40 mg at bedtime. 10. Zanaflex 2 mg p.o. t.i.d. p.r.n. 11. Valium taper. 12. Lopressor 50 mg p.o. t.i.d. 13. Remeron 15 mg at bedtime. 14. Flomax 0.8 mg at bedtime. 15. Norvasc 5 mg a day. Follow up with the psychiatrist in one week, follow up with Dr. Althea Kumari in 2 days. Patient was told again not to drink alcohol. Discharge planning more than 35 minutes.
== END 2016-07-29 18:30 | disposition home or self-care (01) | DRG 309 ==
LOC: EC 09:09 → 6SEL 11:38 → 5MS5E 07-28 18:22
PROVIDERS: ADMIT Hospitalist; ATTEND Hospitalist
DX: I48.0 Paroxysmal atrial fibrillation (principal); F10.239 Alcohol dependence with withdrawal, unspecified; R45.851 Suicidal ideations; F33.1 Major depressive disorder, recurrent, moderate; K51.90 Ulcerative colitis, unspecified, without complications; I10 Essential (primary) hypertension; E78.5 Hyperlipidemia, unspecified; F41.9 Anxiety disorder, unspecified; G62.9 Polyneuropathy, unspecified; M10.9 Gout, unspecified; N40.0 Benign prostatic hyperplasia without lower urinary tract symptoms; Y90.6 Blood alcohol level of 120-199 mg/100 ml; Z79.899 Other long term (current) drug therapy; Z81.1 Family history of alcohol abuse and dependence; Z81.8 Family history of other mental and behavioral disorders; Z82.49 Family history of ischemic heart disease and other diseases of the circulatory system; Z87.891 Personal history of nicotine dependence; Z91.14 Patient's other noncompliance with medication regimen; R09.02 Hypoxemia
CPT/HCPCS: 36415; 71020; 80053; 80061; 80306; 80320; 81001; 82075; 82550; 82553; 83690; 83735; 84439; 84443; 84484; 85025; 85049; 85610; 85730; 93005; 93306; 96361; 96365; 96367; 96375; 96376; 99285

== ENCOUNTER 2016-08-18 09:51 | Inpatient (IN) | payer MEDICARE, BC ==
[2016-08-18] MEDS ORDERED: KETOROLAC 60 MG/2 ML VIAL IM STA (10:16)
--- NOTE | 2016-08-18 10:30 | ED ---
General Adult HPI - General Chief complaint: Psychiatric Symptoms Stated complaint: Suicidal Time Seen by Provider: 08/18/16 10:00 Source: patient, EMS, RN notes reviewed Mode of arrival: EMS - History of Present Illness Initial comments: This is a 61-year-old male presents emergency Department complaining of chronic back pain. Patient states she's medicating himself with alcohol because of back pain is so bad. Patient states today he told his sister to be better off because the pain is too much for him to handle. Patient states he has been drinking heavily and he has taken some [place] as well. Patient states he thinks of acute rib pain he might not be so depressed. Patient states he also is supposed to have past but has not taken it. Patient denies any other physical complaints today. Patient denies any numbness weakness. Patient denies any difficulty urinating or urinary incontinence. Patient denies any recent fever or chills or cough. Patient denies any chest pain difficulty breathing or shortness of breath. Patient denies any abdominal pain. Patient denies headache patient denies numbness weakness - Related Data Home Medications Medication Instructions Recorded Confirmed Allopurinol [Zyloprim] 300 mg PO DAILY 05/17/16 08/18/16 PARoxetine HCL [Paxil] 40 mg PO DAILY 05/17/16 08/18/16 Pantoprazole Sodium [Protonix] 40 mg PO DAILY 05/17/16 08/18/16 Colchicine [Colcrys] 0.6 mg PO DAILY 07/27/16 08/18/16 Hydrochlorothiazide [Hydrodiuril] 25 mg PO DAILY 07/27/16 08/18/16 LORazepam [Ativan] 1 mg PO DAILY PRN 07/27/16 08/18/16 Lisinopril [Zestril] 40 mg PO DAILY 07/27/16 08/18/16 Meloxicam [Mobic] 15 mg PO DAILY 07/27/16 08/18/16 Pravastatin Sodium [Pravachol] 40 mg PO HS 07/27/16 08/18/16 tiZANidine HCL [Zanaflex] 2 mg PO TID PRN 07/27/16 08/18/16 Diazepam [Valium] 5 mg PO BID PRN 08/18/16 08/18/16 Previous Rx's Medication Instructions Recorded Metoprolol Tartrate [Lopressor] 50 mg PO BID #0 07/29/16 Mirtazapine [Remeron] 15 mg PO HS #30 tab 07/29/16 Tamsulosin HCl [Flomax] 0.4 mg PO HS #30 cap.er.24h 07/29/16 amLODIPine [Norvasc] 5 mg PO DAILY #30 tab 07/29/16 Allergies Allergy/AdvReac Type Severity Reaction Status Date / Time No Known Allergies Allergy Verified 08/18/16 11:16 Review of Systems ROS Statement: Those systems with pertinent positive or pertinent negative responses have been documented in the HPI. ROS Other: All systems not noted in ROS Statement are negative. Past Medical History Past Medical History: Hyperlipidemia, Hypertension, Osteoarthritis (OA), Prostate Disorder Additional Past Medical History / Comment(s): Alcoholism, bronchitis, ulcerative colitis, rectal bleed, gout in bilateral feet, unsteady gait, balance issues, "blppd shot" eyes which he has been told is dur to dry eyes, arthritis multiple joints, BPH. History of Any Multi-Drug Resistant Organisms: None Reported Past Surgical History: Back Surgery, Hernia Repair, Joint Replacement, Orthopedic Surgery, Tonsillectomy Additional Past Surgical History / Comment(s): Lumbar back surgery x 3, total L knee, hernia repair umbilical and left inguinal, colonoscopy. Past Anesthesia/Blood Transfusion Reactions: No Reported Reaction, Motion Sickness Additional Past Anesthesia/Blood Transfusion Reaction / Comment(s): Pt gets sea sick. Past Psychological History: Anxiety, Depression Additional Psychological History / Comment(s): t resides alone. He uses a walker to ambulate. He drives. He states he has hx of depression and it has been more severe over the past few weeks. He states he recently got after 33 yrs of marriage and his kids "won't talk to me." He stated that over the past two weeks he has had brief thoughts of suicide but no plan and states he is not suicidal at this time. " I want to live." He stated that when he is feeting this emotional, he stops taking his medication and drinks alcohol more. Smoking Status: Former smoker Past Alcohol Use History: Daily, Heavy Additional Past Alcohol Use History / Comment(s): Pt states he started smoking in 1968 and was a 3-4 ppd smoker. He quit smoking in 1978. He states he drinks 1/5 of whiskey mixed with coke each day. Past Drug Use History: None Reported - Past Family History Mother Additional Family Medical History / Comment(s): Mother "battled" depression all of her life. She was 82 yrs old when she . Father Additional Family Medical History / Comment(s): Father was an alcoholic. He at the age of 72 yrs. General Exam - General Exam Comments Initial Comments: GENERAL: Patient is well-developed and well-nourished. Patient is nontoxic and well- hydrated and is in no acute distress. ENT: Neck is soft and supple. No significant lymphadenopathy is noted. Oropharynx is clear. Moist mucous membranes. Neck has full range of motion without eliciting any pain. EYES: The sclera were anicteric and conjunctiva were pink and moist. Extraocular movements were intact and pupils were equal round and reactive to light. Eyelids were unremarkable. PULMONARY: Unlabored respirations. Good breath sounds bilaterally. No audible rales rhonchi or wheezing was noted. CARDIOVASCULAR: There is a regular rate and rhythm without any murmurs gallops or rubs. ABDOMEN: Soft and nontender with normal bowel sounds. No palpable organomegaly was noted. There is no palpable pulsatile mass. SKIN: Skin is clear with no lesions or rashes and otherwise unremarkable. NEUROLOGIC: Patient is alert and oriented x3. Cranial nerves II through XII are grossly intact. Motor and sensory are also intact. Normal speech, volume and content. Symmetrical smile. MUSCULOSKELETAL: Normal extremities with adequate strength and full range of motion. No lower extremity swelling or edema. No calf tenderness. LYMPHATICS: No significant lymphadenopathy is noted PSYCHIATRIC: Patient does appear depressed in somewhat tearful during the conversation. Patient states he admitted in stating that he would rather be earlier in the day. She states she's not sure if he still feels that way but the back pain is was hurting him. Course Vital Signs 08/18/16 09:52 Temperature 97.3 F L Pulse Rate 89 Respiratory 20 Rate Blood Pressure 187/96 O2 Sat by Pulse 97 Oximetry Medical Decision Making - Medical Decision Making EPS came down and evaluated the patient and decided to admit the patient. - Lab Data Lab Results 08/18/16 Range/Units 14:58 Urine Opiates Screen Detected H (NotDetected) Ur Oxycodone Screen Not Detected (NotDetected) Urine Methadone Screen Not Detected (NotDetected) Ur Propoxyphene Screen Not Detected (NotDetected) Ur Barbiturates Screen Not Detected (NotDetected) U Tricyclic Antidepress Not Detected (NotDetected) Ur Phencyclidine Scrn Not Detected (NotDetected) Ur Amphetamines Screen Not Detected (NotDetected) U Methamphetamines Scrn Not Detected (NotDetected) U Benzodiazepines Scrn Detected H (NotDetected) Urine Cocaine Screen Not Detected (NotDetected) U Marijuana (THC) Screen Not Detected (NotDetected) Disposition Clinical Impression: Suicidal ideation, Depression, Alcohol intoxication Disposition: ADMITTED IP TO THIS HOSP Time of Disposition: 15:35
[2016-08-18] MEDS ORDERED: HYDROcodone/APAP 5-325MG 1 EACH TAB PO STA (14:38)
[2016-08-18] MEDS ORDERED: MAGNESIUM HYDROXIDE 2,400 MG/10 ML CUP PO PRN (16:27)
[2016-08-18] MEDS ORDERED: ACETAMINOPHEN TAB 325 MG TAB PO PRN (16:27)
[2016-08-18] MEDS ORDERED: MAG HYDROX/AL HYDROX/SIMETH 30 ML CUP PO PRN (16:27)
[2016-08-18] MEDS ORDERED: LORazepam 1 MG TAB PO PRN (16:38)
[2016-08-18] MEDS ORDERED: ZIPRASIDONE 20 MG VIAL IM PRN (16:42)
[2016-08-18] MEDS ORDERED: LORazepam 2 MG/ML SYRINGE IM SCH (16:45)
[2016-08-18 16:48] LABS: Appearance,Urine Clear (Clear); Bacteria,Urine Rare /hpf; Bilirubin,Urine Negative (Negative); Glucose,Urine (UA) Negative (Negative); Ketones,Urine 2+ (Negative); Leukocyte Esterase,Urine Negative (Negative); Mucus,Urine Rare /hpf; Nitrite,Urine Negative (Negative); Particle Count 1935; Protein,Urine 2+ (Negative); RBC,Urine 1 /hpf (0-5); Specific Gravity,Urine 1.014 (1.001-1.035); UA Billing (MACRO vs. MICRO) MICRO; Urobilinogen,Urine <2.0 mg/dL (<2.0); WBC,Urine 1 /hpf (0-5)
[2016-08-18] MEDS: LORazepam 1 MG TAB PO SCH ×2 (17:09→20:30)
[2016-08-18] MEDS ORDERED: LORazepam 1 MG TAB PO STA (18:37)
[2016-08-18] MEDS ORDERED: LOPERAMIDE 2 MG CAP PO PRN (18:38)
[2016-08-18] MEDS: METOPROLOL TARTRATE 50 MG TAB PO SCH (20:30)
[2016-08-18] MEDS: TAMSULOSIN 0.4 MG CAP.ER.24H PO SCH (20:30)
[2016-08-18] MEDS: PRAVASTATIN SODIUM 40 MG TAB PO SCH (20:30)
[2016-08-18] MEDS ORDERED: MIRTAZAPINE 15 MG TAB PO SCH (21:00)
[2016-08-19] MEDS: MELOXICAM 7.5 MG TAB PO SCH (08:39)
[2016-08-19] MEDS: PANTOPRAZOLE 40 MG TABLET PO SCH (08:39)
[2016-08-19] MEDS: LORazepam 1 MG TAB PO SCH (08:39)
[2016-08-19] MEDS: COLCHICINE 0.6 MG TAB PO SCH ×2 (08:39→08:53)
[2016-08-19] MEDS: LISINOPRIL 20 MG TAB PO SCH (08:39)
[2016-08-19] MEDS: amLODIPine 5 MG TAB PO SCH (08:41)
[2016-08-19] MEDS: HYDROCHLOROTHIAZIDE 25 MG TAB PO SCH (08:41)
[2016-08-19] MEDS: METOPROLOL TARTRATE 50 MG TAB PO SCH ×2 (08:41→21:22)
[2016-08-19] MEDS: ALLOPURINOL 300 MG TAB PO SCH ×2 (08:41→08:52)
[2016-08-19] MEDS: FOLIC ACID-VIT B COMPLEX-VIT C 1 CAP PO SCH (08:42)
[2016-08-19] MEDS ORDERED: ONDANSETRON 4 MG TAB PO PRN (08:52)
[2016-08-19] MEDS ORDERED: PARoxetine 20 MG TAB PO SCH (09:00)
[2016-08-19] MEDS: DULoxetine HCL 30 MG CAPSULE.DR PO SCH (09:59)
[2016-08-19 10:25] LABS: Basophils # (A) 0.1 k/uL (0-0.2); Basophils % (A) 1 %; CH 32.1; CHCM 33.9; Eosinophils # (A) 0.1 k/uL (0-0.7); Eosinophils % (A) 1 %; HCT 49.9 % (39.0-53.0); HDW 2.81; HGB 16.5 gm/dL (13.0-17.5); Luc % (Auto) 1; Lymphocytes # (A) 0.6 k/uL (1.0-4.8); Lymphocytes % (A) 9 %; MCH 31.4 pg (25.0-35.0); MCV 95.3 fL (80.0-100.0); Mean Platelet Volume 7.2; Monocytes # (A) 0.3 k/uL (0-1.0); Monocytes % (A) 4 %; Neutrophils # (A) 5.9 k/uL (1.3-7.7); Neutrophils % (A) 84 %; RBC 5.24 m/uL (4.30-5.90); RDW 15.4 % (11.5-15.5); WBC 7.1 k/uL (3.8-10.6); WBC (Perox) 7.29
[2016-08-19 10:51] LABS: Anion Gap 19 mmol/L; Calcium 9.3 mg/dL (8.4-10.2); Carbon Dioxide 25 mmol/L (22-30); Chloride 95 mmol/L (98-107); Glucose 190 mg/dL (74-99); Non-African American GFR(MDRD) >60 (>60 ml/min/1.73 sqM); Sodium 139 mmol/L (137-145); Total Bilirubin 3.5 mg/dL (0.2-1.3)
[2016-08-19 11:21] LABS: Potassium 4.5 mmol/L (3.5-5.1)
[2016-08-19 11:22] LABS: ALT 113 U/L (21-72); AST 84 U/L (17-59); Alkaline Phosphatase 74 U/L (38-126); Blood Urea Nitrogen 16 mg/dL (9-20); Total Protein 8.4 g/dL (6.3-8.2)
[2016-08-19] MEDS: THIAMINE 100 MG TAB PO SCH (12:05)
--- NOTE | 2016-08-19 13:15 | CONS ---
DATE OF CONSULTATION: 08/19/2016 REASON FOR CONSULTATION: Medical management requested by Dr. Pugh. CONSULTATION: This is a 61-year-old patient of Dr. Kumari known to me from prior admissions. Patient's chronic stable medical conditions include atrial fibrillation, peripheral nephropathy, hypertension, BPH. The patient has had 2 or 3 lower back surgeries out of [place]. Patient for 2 weeks has been having increasingly low back pain and patient tried to drink for the same. Patient apparently states he apparently did go to his family doctor, but he is not happy about certain situation about the same. He is not clear about it and became very depressed about the whole situation. Patient's last alcohol about a fifth was yesterday. Patient told his sister he felt he is better off as pain is becoming too much for him to handle and he started drinking heavily. He started taking his [place] and patient, hence, was brought in through the ER. REVIEW OF SYSTEMS: CONSTITUTIONAL: Tired. HEENT: None. RESPIRATORY: None. CARDIOVASCULAR: None. GASTROINTESTINAL: None. GENITOURINARY: None. MUSCULOSKELETAL: Back pain in the left hip area. LYMPHATIC: None. PSYCHIATRY: Very depressed. NEUROLOGICAL: Numbness and tingling in the feet. Past medical history of hyperlipidemia, hypertension, osteoarthritis, prostate disorder, chronic alcoholism, ulcerative colitis, gout, arthritis, BPH. PAST SURGICAL HISTORY: Back surgery x2 or 3, joint replacement, tonsillectomy, lumbar back surgery x3, left total knee, hernia repair umbilical and left inguinal hernia repair. SOCIAL HISTORY: Lives alone, uses a walker. Patient got recently after 33 years of marriage and children will not talk to him. Patient smoked for about 30 years about 3 to 4 packs a day; stopped in 1978. He is drinking at least one fifth of whiskey with coke every day. FAMILY HISTORY: Mother had depression. HOME MEDICATIONS: 1. Zanaflex 2 mg p.o. t.i.d. p.r.n. 2. Norvasc 5 mg p.o. daily. 3. Flomax 0.4 mg p.o. q.h.s. 4. Pravachol 40 mg p.o. q.h.s. 5. Protonix 40 mg p.o. daily. 6. Paxil 40 mg p.o. daily. 7. Remeron 15 mg p.o. q.h.s. 8. Lopressor 50 mg p.o. b.i.d. 9. Mobic 15 mg p.o. daily. 10. Zestril 40 mg p.o. daily. 11. Ativan 1 mg p.o. daily p.r.n. 12. Hydrochlorothiazide 25 mg p.o. daily. 13. Valium 5 mg p.o. b.i.d. p.r.n. 14. Colchicine 0.6 mg p.o. daily. 15. Allopurinol 300 mg p.o. daily. ALLERGIES: None. ON EXAMINATION: VITAL SIGNS ON PRESENTATION: Temperature 97.3, pulse 89, respiration 20, blood pressure 187/96, pulse ox 97% on room air. Repeat blood pressure 157/99. GENERAL APPEARANCE: Well built, BMI of 37.7, sitting up on chair, tired appearing. EYES: Pupils equal. Conjunctivae normal. HENT: External appearance of nose and ears normal. Oral cavity normal. NECK: JVD not raised. Mass not palpable. RESPIRATORY: Effort normal. LUNGS: Diminished breath sounds. CARDIOVASCULAR: First and second sounds normal. No edema. ABDOMEN: Soft, nontender. Liver and spleen not palpable. LYMPHATIC: No lymph node palpable in neck or axillae. PSYCHIATRY: Alert and oriented x3. Mood and affect low appearing. NEUROLOGICALLY: Pupils equal. Cranial nerves grossly intact. Power and sensation decreased distally. MUSCULOSKELETAL: Patient has got incision of the lower spine and patient points to tenderness in the left sacroiliac area. INVESTIGATIONS: White count 7.1, hemoglobin 16.5. Potassium 4.5. AST 84, ALT 113. Urine drug screen positive for opiates and benzodiazepines. ASSESSMENT: 1. Major depression, recurrent. No evidence of psychosis. 2. Obesity, body mass index of 37.7. 3. Paroxysmal atrial fibrillation. 4. Chronic alcohol dependence. 5. Alcoholic hepatitis. 6. Peripheral neuropathy from probably chronic alcoholism. 7. Gait dysfunction from arthritis. Patient uses a walker. 8. Essential hypertension. 9. Benign prostatic hypertrophy. PLAN: Patient's home medications will be resumed. Will consult Dr. James from orthopedics given history of surgical interventions in the past. Patient is only taking Mobic at home. Watch for DTs. Patient ( ) Ativan. If patient has breakthrough then Valium could be used as longer acting. Care was discussed with the patient. The patient is contemplating changing his family doctor because of driving inconvenience. Thank you, Dr. Pugh.
--- NOTE | 2016-08-19 14:49 | HP ---
DATE OF ADMISSION: IDENTIFYING DATA: Patient is a 61, male, currently living on his own in his own apartment. Patient presented to the unit on voluntary basis for suicidal ideation. HISTORY OF PRESENT ILLNESS: Patient presented to the emergency room with chief complaint of "I'm drinking heavily and I don't care about living or not." Patient stated that yesterday he told his sister that he will be better off because the pain is too much for him to handle. Patient was recently at [facility] for alcohol abuse and rehab for 28 days and he just was released a couple of days ago. He stated that he did relapse right away after his discharge. Patient was not able to come to my office, so I saw him in his room. He has a lot of physical complaints, upset stomach, nausea, tremors in both hands. However, he was able to cooperate with the interview. Patient endorses poor sleep, increased appetite, feeling lonely, hopeless, helpless, easily agitated, feeling that "no one cares about me." Patient also stated that he does not have any pleasure to do any activity. He is tired and fatigued most of the daytime. He denied any auditory or visual hallucination. He denied any idea of reference or focus broadcasting, but he describes increased anxiety characterized by racing thought, restless feeling, irritability and feeling on edge. He denied any symptoms of panic attack. He denied any obsessive or compulsive behavior. He stated that he is very disappointed as he is not able to stop drinking and he describes that he has been drinking on a daily basis since he was discharged from [facility]. He was somewhat vague about the amount and frequency of his alcohol use for the last couple of days, but he has been complaining of alcohol withdrawal symptoms including increased heart beat, hand tremors, increased sweating, and nausea. PAST PSYCHIATRIC HISTORY: Patient is known to me as I saw him in consultation liaison in July 2016 and I did refer him to inpatient substance abuse at [facility]. This is his fourth psychiatric hospitalization for depression. Prior to this he was here in May 18, 2016 on the mental health unit for suicidal ideation. Patient has history of poor compliance with antidepressant medication. According to him, "nothing did help me except Ativan." Patient tried Effexor, Paxil, trazodone, Remeron. He does not have any outpatient counseling and his primary care physician is the one prescribing the psychotropic medication. His home medication: 1. Allopurinol 300 mg daily. 2. Paxil 40 mg daily. 3. Protonix 40 mg daily. 4. Colchicine 0.6 mg daily. 5. Hydrochlorothiazide 25 mg daily. 6. Ativan 1 mg daily p.r.n. 7. Zestril 40 mg daily. 8. Mobic 15 mg daily. 9. Pravachol 40 mg at bedtime. 10. Zanaflex 2 mg 3 times a day p.r.n. 11. Valium 5 mg twice a day p.r.n. ALLERGIES: There is no drug allergy. PAST MEDICAL HISTORY: Hyperlipidemia, hypertension, osteoarthritis, ulcerative colitis, gout in bilateral feet, unsteady gait or balance issue, benign prostatic hypertrophy. PAST SURGICAL HISTORY: Back surgery, hernia repair, joint replacement. Patient has 3 lumbar back surgeries. Patient uses a walker to ambulate. SUBSTANCE ABUSE HISTORY: 1. Alcohol. He started drinking at age 5. Patient did attend at least 3 substance abuse rehab inpatient 4 weeks each and he never had been able to maintain his sobriety. He is able to tolerate up to 1 pint of hard liquor a day. The longest period of sobriety was 9 months just prior to his divorce, but since his divorce, he stated that he never had been able to stay clean. He was recently discharged from 28 day inpatient chemical dependency at [facility]. He denied having DT, but he described having "bad withdrawal symptoms in the form of tremor, shaky, increased sweating and nausea." 2. Sedative hypnotic. Patient has been on two benzodiazepines prescribed by his primary care physician, Valium as muscle relaxant and Ativan p.r.n. for anxiety and he did admit that he has been using at times, especially Ativan more than prescribed. Family history of psychiatric illness: Father was alcoholic. Mother had history of depression. There is no history of suicide in the family. SOCIAL HISTORY: Patient is the second of 4 siblings. Patient graduated from high school. He used to work as a field machinist. Patient moved to [facility] from [place] to be close to his sister who is his main support. Patient was for almost 31 years and ended by divorce 9 years ago due to his drinking. Patient has 3 grownup children but he does not have any contact with them due to his drinking. Patient denied any legal problem. MENTAL STATUS EXAMINATION: Patient is morbid, obese, male who was sitting on his recliner, very cooperative, has good eye contact, has a lot of withdrawal symptoms from alcohol and from benzodiazepine. He made good eye contact and he appeared to attend to the interview. He had a distressed facial expression. He was alert, oriented to the person, place and time. His speech is nonspontaneous. His affect was dysphoric with mixture of anxiety and depression. He described passive suicidal ideation and wish. He denied any homicidal ideation. He expressed depressive features including feeling lonely, helpless, and worthless. He did not express any hallucination or idea of reference or paranoia. His thinking is concrete. His insight regarding his extensive history of alcohol abuse is slightly better than my previous encounter as he stated that he is willing to go to extended residential treatment when he is medically cleared. COGNITIVE FUNCTION: Patient is alert, oriented to person, place and time. He did recall 2 from 3 objects after a couple of minutes. INTELLECTUAL FUNCTION: Average. STRENGTHS: Patient has his own income. WEAKNESS: Limited social support system. Substance abuse problems and poor compliance with medication. DIAGNOSES: 1. Major depression, recurrent, without psychotic feature, moderate to severe. 2. Alcohol use disorder, continuous. 3. Chronic pain syndrome. 4. Psychosocial dysfunction due to symptoms of depression, alcohol use and chronic pain. PLAN: The patient has been admitted to the mental health unit on a voluntary basis. I did review his symptoms with him and the medication option. He did agree to discontinue his current antidepressant including Paxil and Remeron and to start him on Cymbalta to target his pain and his depression. I will cover him for alcohol detox. Will request a routine medical consultation. [employer] will meet with his sister for collateral information and to begin discharge planning. Patient did agree when he is stable and not suicidal and less depressed to pursue a long-term inpatient residential treatment for alcohol abuse. Will monitor him for safety and encourage him to participate in group.
[2016-08-19] MEDS: LORazepam 0.5 MG TAB PO SCH ×2 (15:17→21:22)
--- NOTE | 2016-08-19 18:50 | XR ---
EXAMINATION TYPE: XR pelvis AP view DATE OF EXAM: 08/19/2016 6:45 PM COMPARISON: NONE HISTORY: Pain and weakness TECHNIQUE: 1 AP view FINDINGS: The bones and joints and soft tissues are unremarkable. IMPRESSION: Negative examination.
--- NOTE | 2016-08-19 18:54 | XR ---
EXAMINATION TYPE: XR lumbar spine 2 or 3V DATE OF EXAM: 08/19/2016 6:45 PM COMPARISON: NONE HISTORY: Pain and weakness TECHNIQUE: 3 views FINDINGS: The orthopedic hardware is intact. There is no fracture or focal skeletal finding. The bowel gas pattern is markedly prominent - with gas dilation of at least 2 large loops of bowel., with etiology unclear. Would recommend abdominal pelvic CT at this time. This can be obtained without contrast, all with intravenous contrast alone. IMPRESSION: ABNORMAL BOWEL GAS PATTERN FOR WHICH CT IS RECOMMENDED AT THIS TIME.
[2016-08-19] MEDS: predniSONE 20 MG TAB PO SCH (19:13)
--- NOTE | 2016-08-19 19:31 | P.CNOR ---
History of Present Illness - [facility] Consult date: 08/19/16 Requesting physician: Jim Huggins Consult reason: low back pain (Exacerbation of chronic low back pain) History of present illness: Patient is a pleasant 61-year-old male who is seen and examined in the psychiatric department after we are consulted for exacerbation of chronic low back pain. Patient is known to have previously undergone 3 lumbar surgeries in [place], [place]. The last was performed approximately 5 years ago. He states he is unsure exactly what his surgeries were, but states he does have hardware in his lumbar spine. Following his last surgical intervention, he states he has had some residual ongoing low back pain and bilateral lower extremity numbness and tingling with generalized weakness. He states over the past 3 weeks his symptoms have been worsening with no known injury. His low back pain is most significant on the left and at the left sacroiliac joint. He states his lower extremity radiculopathy and weakness is general. He ambulates in a flexed forward position and ambulates with the assistance of a walker. He states he was previously prescribed Petroleum months ago by his primary care provider but rarely takes them. He states rather than narcotic pain medication , he heavily relies on alcohol to mask his pain. He states he drinks the fifth of alcohol every day and has been doing so for significant period of time. He states he knows this is not an appropriate thing to do but he is not sure how also deal with this pain. His symptoms became so severe yesterday he took some Petroleum while drinking a 5th of alcohol and told his sister he would be better off . He then voluntarily presented to the emergency department for further evaluation. Patient states while drinking, if his back pain is not controlled, he feels one more drink may help control the pain. Lately, he has been unable to control his pain. He states he's had some difficulty seeing his primary care provider because his office is in [place]. He states he lives on [facility] [address] and is looking for a primary care provider who is more local and easier for him to see for appointments. He states he is not currently working due to low back pain and depression. He states his chronic low back pain has been quite depressing and he has had difficulty dealing with it. He states he has not recently had any further treatment in regards to his lumbar spine. He states he previously took a steroid taper, but it was significant period of time ago. He denies diabetes but states he does have some decreased sensation below the knees bilaterally. Denies any recent falls, accidents, or injuries. He has not consulted with pain management or undergone any injections to the lumbosacral spine following his last lumbar surgery approximate 5 years ago. He denies having a pacemaker. Per the H&P note, he recently was at [facility] for alcohol abuse and rehab for approximately 28 days and was released. He has been unable to stop drinking alcohol even with rehab. He has a history of a previous left total knee arthroplasty. He is starting to have some alcohol withdrawal symptoms. Past Medical History Past Medical History: Hyperlipidemia, Hypertension, Osteoarthritis (OA), Prostate Disorder Additional Past Medical History / Comment(s): Alcoholism, bronchitis, ulcerative colitis, rectal bleed, gout in bilateral feet, unsteady gait, balance issues, "blppd shot" eyes which he has been told is dur to dry eyes, arthritis multiple joints, BPH. History of Any Multi-Drug Resistant Organisms: None Reported Past Surgical History: Back Surgery, Hernia Repair, Joint Replacement, Orthopedic Surgery, Tonsillectomy Additional Past Surgical History / Comment(s): Lumbar back surgery x 3, total L knee, hernia repair umbilical and left inguinal, colonoscopy. Past Anesthesia/Blood Transfusion Reactions: No Reported Reaction, Motion Sickness Additional Past Anesthesia/Blood Transfusion Reaction / Comm: Pt gets sea sick. Past Psychological History: Anxiety, Depression Additional Psychological History / Comment(s): t resides alone. He uses a walker to ambulate. He drives. He states he has hx of depression and it has been more severe over the past few weeks. He states he recently got after 33 yrs of marriage and his kids "won't talk to me." He stated that over the past two weeks he has had brief thoughts of suicide but no plan and states he is not suicidal at this time. " I want to live." He stated that when he is feeting this emotional, he stops taking his medication and drinks alcohol more. Smoking Status: Former smoker Past Alcohol Use History: Daily, Heavy Additional Past Alcohol Use History / Comment(s): Pt states he started smoking in 1968 and was a 3-4 ppd smoker. He quit smoking in 1978. He states he drinks 1/5 of whiskey mixed with coke each day. Past Drug Use History: None Reported - Past Family History Mother Additional Family Medical History / Comment(s): Mother "battled" depression all of her life. She was 82 yrs old when she . Father Additional Family Medical History / Comment(s): Father was an alcoholic. He at the age of 72 yrs. Medications and Allergies Home Medications Medication Instructions Recorded Confirmed Type Allopurinol [Zyloprim] 300 mg PO DAILY 05/17/16 08/18/16 History PARoxetine HCL [Paxil] 40 mg PO DAILY 05/17/16 08/18/16 History Pantoprazole Sodium [Protonix] 40 mg PO DAILY 05/17/16 08/18/16 History Colchicine [Colcrys] 0.6 mg PO DAILY 07/27/16 08/18/16 History Hydrochlorothiazide [Hydrodiuril] 25 mg PO DAILY 07/27/16 08/18/16 History LORazepam [Ativan] 1 mg PO DAILY PRN 07/27/16 08/18/16 History Lisinopril [Zestril] 40 mg PO DAILY 07/27/16 08/18/16 History Meloxicam [Mobic] 15 mg PO DAILY 07/27/16 08/18/16 History Pravastatin Sodium [Pravachol] 40 mg PO HS 07/27/16 08/18/16 History tiZANidine HCL [Zanaflex] 2 mg PO TID PRN 07/27/16 08/18/16 History Diazepam [Valium] 5 mg PO BID PRN 08/18/16 08/18/16 History Allergies Allergy/AdvReac Type Severity Reaction Status Date / Time No Known Allergies Allergy Verified 08/18/16 11:16 Physical Examination Physical exam: Patient is awake, alert, and oriented 3 Vital signs stable; patient is visibly sweating Good chest excursion with deep inspiration and expiration Abdomen soft nontender Examination of lumbar spine reveals skin is intact with no abrasions, lacerations, or bruises; no erythema, purulence or signs of infection Evidence of a large well-healed incision along the midline of the lumbar spine Pain with palpation along the midline of the lumbar spine and over the left sacroiliac joint Dorsiflexion, plantarflexion, and extensor hallucis longus positive sustained bilaterally Significant bilateral weakness with hip flexion, knee abduction, and knee abduction No lower extremity hyperreflexia bilaterally Straight leg test negative bilateral lower extremities Negative Lasegue's test bilaterally No signs or symptoms of DVT; no calf pain Decreased sensation of the bilateral lower extremities from the bilateral knees distally Evidence of a a well-healed incision over the left knee No pain with internal and external rotation of the hips bilaterally Neurovascularly intact Patient stands any flex forward position and uses a wheeled walker to aid in ambulation Results Pertinent studies: X-rays lumbar spine taken on 08/19/2016: Jacob and screws appear to be in good alignment and good position and L34 and L4-5; transforaminal lumbar interbody fusions appear to be in good placement and L3-4 and L4-5; no evidence of hardware fracture, loosening, or fatigue; evidence of good bony fusion in the lateral gutter; overall alignment of the lumbosacral spine appears to be at the maintained; adjacent levels appear to be adequate the maintained without significant degenerative disc disease; no evidence of vertebral body compression fracture; bowel gas pattern is markedly prominent with gas dilation of at least 2 large loops of bowel with etiology unclear and would recommend abdominal pelvic CT at this time X-ray of the pelvis taken on 08/19/2016: X-rays spacing the sacroiliac joint space appears to be adequately maintained bilaterally; no evidence of fracture or dislocation - Labs Labs: Abnormal Lab Results - Last 24 Hours (Table) 08/19/16 08/19/16 Range/Units 09:45 09:45 Lymphocytes # 0.6 L (1.0-4.8) k/uL Chloride 95 L (98-107) mmol/L Glucose 190 H (74-99) mg/dL Total Bilirubin 3.5 H (0.2-1.3) mg/dL AST 84 H (17-59) U/L ALT 113 H (21-72) U/L Total Protein 8.4 H (6.3-8.2) g/dL Albumin 5.1 H (3.5-5.0) g/dL H & H 08/19/16 Range/Units 09:45 Hgb 16.5 (13.0-17.5) gm/dL Hct 49.9 (39.0-53.0) % Result Diagrams: 08/19/16 09:45 08/19/16 09:45 Assessment and Plan (1) Chronic low back pain Status: Acute (2) Muscle weakness of lower extremity Status: Acute (3) Numbness and tingling of both legs Status: Acute (4) Alcohol abuse Status: Acute (5) Alcohol dependency Status: Acute (6) History of lumbar surgery Status: Acute (7) Depression Status: Acute (8) Suicidal ideation Status: Acute (9) Alcohol withdrawal syndrome Status: Acute Plan: Assessment: Exacerbation of chronic low back pain Generalized lower extremity weakness Lower extremity numbness and tingling Left sacroiliac pain Alcohol abuse and dependency Alcohol withdrawal syndrome Depression History of multiple lumbar surgeries Suicidal ideation Markedly prominent bowel gas pattern with at least 2 large loops of bowel Plan: 1. Currently there is no imaging in the system in regards to his lumbosacral spine. We will currently planned to obtain x-rays the lumbar spine as well as the pelvis for further evaluation. Imaging has become available during dictation. Jacob and screws and transforaminal lumbar interbody fusions appear to be in good alignment and good position and L3-4 and L4-5 with good bony fusion. There is not obvious evidence of lumbar malalignment or fracture. Adjacent levels appear to be intact. I also discussed this patient detail with Dr. Luciano James and discussed the imaging as well. We will plan to obtain a CT of the lumbar spine for further evaluation and will plan consultation with pain management to discuss further treatment options including the possibility of injections. Patient is also unable to be started on Solu-Medrol IV while in the psychiatric department. We'll plan to start him on a 12 day prednisone taper. 2. Lumbar x-rays also show evidence of a markedly prominent bowel gas pattern with unknown etiology with gas dilation at least 2 large loops of bowel and are recommending abdominal pelvic CT. The psychiatric unit has been called and these imaging results have been discussed with the department who will plan to talk to Dr. Huggins about these findings to discuss whether he like to plan to obtain a CT of the abdomen and pelvis. 3. Dr. Huggins in medicine will continue following the patient 4. We will continue to follow patient closely; we will follow up with further recommendations following his CT of the lumbar spine 5. Patient has been discussed in detail with Dr. Luciano James and he agrees with this plan Time with Patient: Greater than 30
--- NOTE | 2016-08-19 20:33 | CT ---
EXAMINATION TYPE: CT LUMBAR SPINE WO CON DATE OF EXAM: 08/19/2016 8:13 PM HISTORY: Low back pain and Abdominal distension TECHNIQUE: Departmental lumbar spine technique. In addition, to evaluate the bowel seen on lumbar spi ne radiographs, a full field of view which were constructed for an additional axial sequence. CT DLP : 1001 mGycm. Automated exposure control for dose reduction was used. FINDINGS: Hollow viscera: The dilated loops of bowel seen on radiographs earlier today corresponds to dilated t ransverse colon which measures 7 to 8 cm caliber (top normal caliber being 6 mm). There is no associa pily transverse colon mural thickening, no pneumatosis, and no transverse mesocolon edematous change. There is no pneumoperitoneum or ascites. Notwithstanding the absence of these pertinent negatives, cl inical exclusion of toxic megacolon is requested. Lumbar spine evaluation: There is no spinal malalignment. The bilateral three-level pedicle fixation screw orthopedic hardware is intact. Postfusion and posterior spinal unroofing changes are appreciate d. There are no periprosthesis lucencies. There are no lumbar spine or paraspinal abnormal fluid or g as collections. No focal disc extrusion or protrusion or advanced spinal stenosis, and no candidate f or nerve root impingement. IMPRESSION: 1. NO ACUTE LUMBAR SPINE OR PARASPINAL FINDING. 2. DILATED TRANSVERSE COLON NOTED, CLINICAL EXCLUSION OF TOXIC MEGACOLON IS REQUESTED.
[2016-08-19] MEDS: PRAVASTATIN SODIUM 40 MG TAB PO SCH (21:22)
[2016-08-19] MEDS: traZODone HCL 50 MG TAB PO SCH (21:22)
[2016-08-19] MEDS: TAMSULOSIN 0.4 MG CAP.ER.24H PO SCH (21:22)
[2016-08-20] MEDS: PANTOPRAZOLE 40 MG TABLET PO SCH (09:35)
[2016-08-20] MEDS: predniSONE 20 MG TAB PO SCH (09:35)
[2016-08-20] MEDS ORDERED: RX INFO: IV CONTRAST WAS GIVEN 1 EACH MISC MISCELLANE PRN (09:37)
[2016-08-20] MEDS: amLODIPine 5 MG TAB PO SCH (09:51)
[2016-08-20] MEDS: ALLOPURINOL 300 MG TAB PO SCH (09:51)
[2016-08-20] MEDS: COLCHICINE 0.6 MG TAB PO SCH (09:52)
[2016-08-20] MEDS: DULoxetine HCL 30 MG CAPSULE.DR PO SCH (09:53)
[2016-08-20] MEDS: HYDROCHLOROTHIAZIDE 25 MG TAB PO SCH (09:53)
[2016-08-20] MEDS: LISINOPRIL 20 MG TAB PO SCH (10:02)
[2016-08-20] MEDS: FOLIC ACID-VIT B COMPLEX-VIT C 1 CAP PO SCH (10:02)
[2016-08-20] MEDS: METOPROLOL TARTRATE 50 MG TAB PO SCH ×2 (10:03→20:43)
[2016-08-20] MEDS: MELOXICAM 7.5 MG TAB PO SCH (10:03)
[2016-08-20] MEDS: LORazepam 0.5 MG TAB PO SCH ×3 (10:05→20:43)
--- NOTE | 2016-08-20 10:54 | P.PN ---
Progress Note - Text Interval history: The patient came to office ,walking with a walker ,wearing hospital gown ,patient endorses poor restless sleep ,helpless and hopeless feeling ,was crying through session talking about his chronic pain and lacking support system ,rates his depression and pain ,both 7 or 8/10 ,10 being the worse He is still having withdrawals symptoms :sweating and palpitation ,he appears he did shower this morning. Appetite is reported stable ,he had three bowels movement since yesterday He is willing to participate in inpatient chemical dependency residential treatment ,also asked to be referred to pain management Patient was seen by DR Huggins who ordered orthoepedic ,Abhilash Dykes according to assessment and plan"Plan: 1. Currently there is no imaging in the system in regards to his lumbosacral spine. We will currently planned to obtain x-rays the lumbar spine as well as the pelvis for further evaluation. Imaging has become available during dictation. Jacob and screws and transforaminal lumbar interbody fusions appear to be in good alignment and good position and L3-4 and L4-5 with good bony fusion. There is not obvious evidence of lumbar malalignment or fracture. Adjacent levels appear to be intact. I also discussed this patient detail with Dr. Luciano James and discussed the imaging as well. We will plan to obtain a CT of the lumbar spine for further evaluation and will plan consultation with pain management to discuss further treatment options including the possibility of injections. Patient is also unable to be started on Solu-Medrol IV while in the psychiatric department. We'll plan to start him on a 12 day prednisone taper. 2. Lumbar x-rays also show evidence of a markedly prominent bowel gas pattern with unknown etiology with gas dilation at least 2 large loops of bowel and are recommending abdominal pelvic CT. The psychiatric unit has been called and these imaging results have been discussed with the department who will plan to talk to Dr. Huggins about these findings to discuss whether he like to plan to obtain a CT of the abdomen and pelvis. 3. Dr. Huggins in medicine will continue following the patient 4. We will continue to follow patient closely; we will follow up with further recommendations following his CT of the lumbar spine VITALS ARE STABLE Mental status exam: The patient is alert there is some psychomotor slowing. He is dressed in hospital gown hygiene ,walking with walker,steady but slow gait Eye contact is intermittent. He was tearful through session ,reports feeling helpless and overwhelmed with his medical problems He reports no suicidal or homicidal ideation.,denies any psychosis or manic features .NO hands tremors Insight and judgment are fair He demonstrates no verbal or physical aggressiveness. Plan: The patient is demonstrating slow clinical improvement. He still has depression ,anxiety and pain ,increase Cymbalta,was started on Solu-Medrol that might increase his anxiety. We will continue to monitor him for safety he will continue on alcohol withdrawal protocol. Continue medical management by Dr Huggins
--- NOTE | 2016-08-20 11:43 | P.GSCN ---
<Johanne Vilchis - Last Filed: 08/20/16 11:25> History of Present Illness Consult date: 08/20/16 Reason for Consult: This is a 61-year-old male being seen on the mental health unit per request of the attending for surgical eval for concerns of a dilated transverse colon noted clinical exclusion of toxic megacolon could not be excluded. As noted on the CT of the lumbar spine . Currently the patient is denying any abdominal pain chief complaint is lower back pain. Patient reports that he has had 3 painless bowel movements since midnight there is no blood noted in the stool. Patient states he's been told in the past that he had a bowel blockage is vague on the details. Patient gives a past surgical history of having an umbilical hernia repair 5 years prior. Patient stated a year ago he had a colonoscopy done was told was normal the colonoscopy was done in [facility]. Patient states he is new to the area moved here in January from home [facility]. Additionally patient states he does not have issues with chronic constipation and rarely takes pain medication at home has not noted any unintentional weight loss. States he has not had any blood noted in his stool there's been no nausea vomiting. And since midnight has had 3 loose watery stools no blood noted no pain no abdominal cramping the abdomen is not distended patient states he's able to eat without any difficulty Patient's initial presentation was to the emergency room to be evaluated for the chronic lower back pain. Patient states he drinks alcohol daily because of back pain is so severe. Patient was expressing suicidal ideation in the emergency room patient stated that because of the back pain he had been having poor quality of sleep felt overwhelmed felt hopeless is crying felt like he couldn't tolerate chronic lower back pain he has a lack of support. Given the above clinical presentation patient was admitted to the mental health unit. Patient was seen by orthopedic associate the lumbar spine workup in progress. The lumbar spine CT showed concerns of a dilated transverse colon toxic megacolon cannot be excluded. Orthopedics indicates that there is no surgical intervention or revision of his lumbar spine this time. They feel the patient would be best suited for interventional pain management for possible epidural steroid injections this could be deferred to the attending to address Review of Systems Reviewed essentially unremarkable except as mentioned in the present illness Past Medical History Past Medical History: Hyperlipidemia, Hypertension, Osteoarthritis (OA), Prostate Disorder Additional Past Medical History / Comment(s): Alcoholism, bronchitis, ulcerative colitis, rectal bleed, gout in bilateral feet, unsteady gait, balance issues, "blppd shot" eyes which he has been told is dur to dry eyes, arthritis multiple joints, BPH. History of Any Multi-Drug Resistant Organisms: None Reported Past Surgical History: Back Surgery, Hernia Repair, Joint Replacement, Orthopedic Surgery, Tonsillectomy Additional Past Surgical History / Comment(s): Lumbar back surgery x 3, total L knee, hernia repair umbilical and left inguinal, colonoscopy. Past Anesthesia/Blood Transfusion Reactions: No Reported Reaction, Motion Sickness Additional Past Anesthesia/Blood Transfusion Reaction / Comm: Pt gets sea sick. Past Psychological History: Anxiety, Depression Additional Psychological History / Comment(s): t resides alone. He uses a walker to ambulate. He drives. He states he has hx of depression and it has been more severe over the past few weeks. He states he recently got after 33 yrs of marriage and his kids "won't talk to me." He stated that over the past two weeks he has had brief thoughts of suicide but no plan and states he is not suicidal at this time. " I want to live." He stated that when he is feeting this emotional, he stops taking his medication and drinks alcohol more. Smoking Status: Former smoker Past Alcohol Use History: Daily, Heavy Additional Past Alcohol Use History / Comment(s): Pt states he started smoking in 1968 and was a 3-4 ppd smoker. He quit smoking in 1978. He states he drinks 1/5 of whiskey mixed with coke each day. Past Drug Use History: None Reported - Past Family History Mother Additional Family Medical History / Comment(s): Mother "battled" depression all of her life. She was 82 yrs old when she . Father Additional Family Medical History / Comment(s): Father was an alcoholic. He at the age of 72 yrs. Medications and Allergies Home Medications Medication Instructions Recorded Confirmed Type Allopurinol [Zyloprim] 300 mg PO DAILY 05/17/16 08/18/16 History PARoxetine HCL [Paxil] 40 mg PO DAILY 05/17/16 08/18/16 History Pantoprazole Sodium [Protonix] 40 mg PO DAILY 05/17/16 08/18/16 History Colchicine [Colcrys] 0.6 mg PO DAILY 07/27/16 08/18/16 History Hydrochlorothiazide [Hydrodiuril] 25 mg PO DAILY 07/27/16 08/18/16 History LORazepam [Ativan] 1 mg PO DAILY PRN 07/27/16 08/18/16 History Lisinopril [Zestril] 40 mg PO DAILY 07/27/16 08/18/16 History Meloxicam [Mobic] 15 mg PO DAILY 07/27/16 08/18/16 History Pravastatin Sodium [Pravachol] 40 mg PO HS 07/27/16 08/18/16 History tiZANidine HCL [Zanaflex] 2 mg PO TID PRN 07/27/16 08/18/16 History Diazepam [Valium] 5 mg PO BID PRN 08/18/16 08/18/16 History Allergies Allergy/AdvReac Type Severity Reaction Status Date / Time No Known Allergies Allergy Verified 08/18/16 11:16 Surgical - Exam Vital Signs Temp Pulse Resp BP Pulse Ox 97.3 F L 89 20 187/96 97 08/18/16 09:52 08/18/16 09:52 08/18/16 09:52 08/18/16 09:52 08/18/16 09:52 GENERAL APPEARANCE: 61-year-old male patient is alert, oriented, in no acute distress. Opp talkative pleasant cooperative states what is bothering him the most is the back pain he feels that physical therapy and massage would help " VITAL SIGNS: Reviewed HEENT: Head is normocephalic and atraumatic. Pupils are equal and reactive. The nares are patent. Oropharynx is clear without lesions. NECK: Supple without lymphadenopathy. Traches midline. HEART: S1, S2. Regular rate and rhythm. No murmur noted denying chest pain LUNGS: No crackles or wheezes are heard. Essentially clear with adequate air movement ABDOMEN: Obese Soft, nontender, nondistended active bowel tones noted. No peritoneal signs. No palpable organomegaly or masses. Small surgical scar umbilical area states urinating no difficulty states has had 3 stools since midnight states he felt like he had adequate emptying no abdominal cramping EXTREMITIES: Normal skin color and turgor. No cyanosis, rash, ulceration, clubbing or edema. Radial pedal pulses are 2/4 bilaterally. NEUROLOGICAL: No focal deficits. Strength and sensation are grossly intact. Results - Labs 08/19/16 09:45 08/19/16 09:45 Assessment and Plan Plan: Impression Present on admission persistent intractable lower back pain felt to be chronic CAT scan of the lumbar spine without contrast shows dilated transverse colon clinical exclusion of toxic megacolon cannot be excluded Chronic alcoholism Anxiety depressive disorder nonspecified Obesity BMI 37 Per self-report history of a colonoscopy 1 year prior with no acute findings A recent admission at [facility] for alcohol abuse and rehab just released Alcohol disuse continues Chronic pain syndrome Major depressive disorder recurrent without psychiatric features moderate to severe Plan Dr. Bedolla will review the CAT scan of the abdomen pelvis with further recommendations after reviewing the imaging Continue with mental health management as ordered Further recommendations pending after reviewing the abdominal pelvis CT scan <Ambika Bedolla - Last Filed: 08/20/16 17:42> Review of Systems CONSTITUTIONAL: Denies any fever or chills. HEENT: Denies any trouble with vision, hearing or nosebleeds. No difficulty swallowing. LYMPHATIC: The patient denies any lumps and bumps around the neck. ENDOCRINE: Denies any thyroid disorders. Denies any blood sugar glucose intolerance. RESPIRATORY: Denies pneumonia. Denies any troubles with breathing or dyspnea on exertion. CARDIOVASCULAR: Denies any chest pain, palpitations, or recent heart attacks. Has hypertension. GASTROINTESTINAL: Has intermittent constipation. No reports of blood in his stools. Last colonoscopy 2-3 years ago. Has previous history of umbilical hernia repair including inguinal hernia repair. He does report change in caliber of stools however he is passing moderate flatus. GENITOURINARY: Denies any blood in urine or increased urinary frequency. MUSCULOSKELETAL: Reports back pain, stiffness and joint arthritis. NEUROLOGIC: Denies any numbness or tingling along the distal extremities. No seizure disorders or headaches. PSYCHIATRIC: Has depression with suidical ideation and heavy alcoholism. HEMATOLOGIC: Denies any abnormal bleeding or bruising. Surgical - Exam Vital Signs Temp Pulse Resp BP Pulse Ox 97.3 F L 89 20 187/96 97 08/18/16 09:52 08/18/16 09:52 08/18/16 09:52 08/18/16 09:52 08/18/16 09:52 GENERAL: Well developed and in no acute distress. Pleasant. HEENT: No sclera icterus. Extraocular movements grossly intact. Moist buccal mucosa. Head is atraumatic, normocephalic. Hears conversational speech. No nasal drainage. NECK: Supple without lymphadenopathy. No JV distention. CHEST: Non-labored respirations and equal bilateral excursions. CARDIOVASCULAR: Regular rate and rhythm. Palpable 2+ radial pulses. ABDOMEN: Soft, nontender. Mild distention. No peritoneal signs. On percussion , no moderate tympany. MUSCULOSKELETAL: No clubbing, cyanosis or edema. NEUROLOGIC: No focal or lateralizing signs. PSYCH: Appropriate affect. Alert and oriented to person, place and time. Results - Labs 08/19/16 09:45 08/19/16 09:45 Abnormal Lab Results - Last 24 Hours (Table) 08/20/16 Range/Units 11:46 Uric Acid 9.5 H (3.5-8.5) mg/dL - Imaging CT scan - abdomen: report reviewed, image reviewed US - abdomen: report reviewed (Has focal distention along the transverse colon. No evidence of perforation or small bowel obstruction.), image reviewed Assessment and Plan (1) Abnormal CT of the abdomen Status: Acute (2) Alcohol abuse Status: Acute (3) Alcohol dependency Status: Acute (4) Chronic low back pain Status: Acute (5) Depression Status: Acute (6) Suicidal ideation Status: Acute Plan: 1. On exam, he has no evidence of toxic megacolon or clinical picture associated with toxic megacolon. 2. Clinically he is stable. No acute surgical intervention needed. 3. May benefit from outpatient colonoscopy as reports change in bowel habits. 4. He has history of alcoholism and recommend check of his thiamine for thiamine deficiency which may exacerbate his symptoms. 5. Gen. surgery will follow as needed. Thank you for this kind consultation.
--- NOTE | 2016-08-20 12:20 | CT ---
EXAMINATION TYPE: CT abdomen pelvis w con DATE OF EXAM: 08/20/2016 11:25 AM COMPARISON: NONE HISTORY: 61-year-old male abdominal pain, LLQ pain, question megacolon. TECHNIQUE: Contiguous axial scanning of the abdomen and pelvis following administration of 100 ml Omn ipaque 300 IV contrast. Delayed images through the kidneys and coronal/sagittal reconstructions perf ormed. CT DLP: 2085.4 mGycm Automated exposure control for dose reduction was used. FINDINGS: The heart is normal size without pericardial effusion. Lung bases clear without pleural effusion. Low density of the liver compatible with fatty infiltration liver is borderline enlarged measuring 17 .8 cm craniocaudal. Portal venous system is patent no biliary ductal dilatation. Gallbladder, adrenal glands, kidneys, spleen, and pancreas appear within normal limits. Mild atherosclerotic calcifications within the abdominal aorta. No dilated bowel, free fluid, or free air. Mild sigmoid diverticulosis without acute diverticulitis. Normal appendix. The cecum is abnormally dilated up to 10 cm. However, just prior to the hepatic flexure, there is abr upt caliber change now with collapsed colon, axial image 36. There is again, caliber change at the level of the proximal transverse colon, axial image 24, with di lated transverse colon measuring up to 9 cm, coronal image 9 and caliber change again at the distal t ransverse colon, axial image 17. The splenic flexure and remainder of the colon is collapsed. At the distal transverse colon, there is a collapsed double lumen appearance for a span of 7 cm proba keysha due to excessive bowel wall redundancy, axial image 17 and 18. No discrete mass is identified. No mesenteric or retroperitoneal lymphadenopathy. Mild symmetric bladder wall thickening. Patulous right inguinal canal. Phleboliths in the pelvis. Rec armani appears normal. No abnormal fluid collection the pelvis or pelvic lymphadenopathy. Bones: No osseous destructive process. There are posterior and interbody lumbar fusion changes from L 3 to L5 levels. IMPRESSION: 1. SEGMENTAL COLONIC DILATATION PARTICULARLY INVOLVING THE CECUM/LOWER ASCENDING COLON AND THEN THE M IDSEGMENT OF THE TRANSVERSE COLON WHICH ARE ABNORMALLY DILATED MEASURING UP TO 10 CM AND 9 CM, RESPEC TIVELY. 2. UNCERTAIN IF THIS IS DUE TO SOME TYPE OF PSEUDOOBSTRUCTION OR UNDERLYING COLONIC STRICTURES. NO EV IDENT MASS IS SEEN. CONSIDER COLONOSCOPIC EVALUATION. 3. JUST PRIOR TO THE SPLENIC FLEXURE, A 7 CM LENGTH OF COLLAPSED COLON HAS A DOUBLE-LUMEN APPEARANCE SUSPECTED TO BE DUE TO EXCESSIVE WALL REDUNDANCY. THIS CAN BE CONFIRMED ON DIRECT VISUALIZATION. 4. MILD SIGMOID DIVERTICULOSIS WITHOUT ACUTE DIVERTICULITIS. 5. HEPATIC STEATOSIS. 6. MILD CIRCUMFERENTIAL BLADDER WALL THICKENING COULD REPRESENT BLADDER WALL HYPERTROPHY OR CYSTITIS.
[2016-08-20] MEDS: THIAMINE 100 MG TAB PO SCH (12:51)
--- NOTE | 2016-08-20 17:44 | P.PN ---
Progress Note - Text Patient seen and evaluated. Clinically he is stable. CT of the abdomen and pelvis demonstrates a focal abdominal distention however clinically stable. No evidence of toxic megacolon. Management for suicide and depression advised. With his history of alcoholism, recommend check of thiamine for thiamine deficiency. No acute surgical intervention. We'll follow as needed.
[2016-08-20] MEDS: TAMSULOSIN 0.4 MG CAP.ER.24H PO SCH (20:43)
[2016-08-20] MEDS: traZODone HCL 50 MG TAB PO SCH (20:43)
[2016-08-20] MEDS: PRAVASTATIN SODIUM 40 MG TAB PO SCH (20:43)
--- NOTE | 2016-08-21 07:00 | PN ---
DATE OF SERVICE: 08/20/2016 PRESENTING COMPLAINT: Tired. INTERVAL HISTORY: This is a patient admitted with depression, lower back pain, was seen by Dr. James. Patient's lumbar spine CT showed some bowel dilatation. CT scan of the abdomen and pelvis was done. Patient is tolerating a diet, having a couple of bowel movements, not felt to be acute as evaluated by Dr. Bedolla and I agree with the same. Patient otherwise comfortable. No nausea or vomiting. Review of systems done for constitutional, cardiovascular, GI, pulmonary; relevant findings as above. Current medications are reviewed. On examination, temperature 97.3, pulse 73, respirations 18, blood pressure 96/52, pulse ox ( ). GENERAL APPEARANCE: Lying in the bed, quiet, comfortable. EYES: Pupils equal. Conjunctivae normal. NECK: JVD not raised. Mass not palpable. RESPIRATORY: Effort normal. LUNGS: Diminished breath sounds. CARDIOVASCULAR: First and second sounds normal. No edema. ABDOMEN: Slightly distended, soft. Liver and spleen not palpable. Bowel sounds are present. PSYCHIATRY: Alert and oriented x3. Mood and affect actually better. INVESTIGATIONS: Uric acid 9.5. ASSESSMENT: 1. Major depression, recurrent, no evidence of psychosis. 2. Obesity, body mass index of 37.7. 3. Paroxysmal atrial fibrillation. 4. Chronic alcohol dependence. 5. Alcoholic hepatitis. 6. Peripheral neuropathy probably from chronic alcoholism. 7. Gait dysfunction of arthritis. Patient uses a walker. 8. Essential hypertension. 9. Benign prostatic hypertrophy. 10. Dilated colon, but clinically patient has no evidence of nausea, vomiting, keep a close eye. 11. Hyperuricemia. PLAN: Follow with Dr. Bedolla from general surgery. For hyperuricemia, the patient will be started on allopurinol and uric acid level needs to be checked every week until the numbers come to be more acceptable. In fact, patient is already on allopurinol and colchicine will have no effect on the liver per se as there is no acute flare-up.
[2016-08-21] MEDS: FOLIC ACID-VIT B COMPLEX-VIT C 1 CAP PO SCH (08:49)
[2016-08-21] MEDS: amLODIPine 5 MG TAB PO SCH (08:49)
[2016-08-21] MEDS: ALLOPURINOL 300 MG TAB PO SCH (08:49)
[2016-08-21] MEDS: LISINOPRIL 20 MG TAB PO SCH (08:49)
[2016-08-21] MEDS: predniSONE 20 MG TAB PO SCH (08:49)
[2016-08-21] MEDS: COLCHICINE 0.6 MG TAB PO SCH (08:49)
[2016-08-21] MEDS: HYDROCHLOROTHIAZIDE 25 MG TAB PO SCH (08:50)
[2016-08-21] MEDS: METOPROLOL TARTRATE 50 MG TAB PO SCH ×2 (08:50→20:09)
[2016-08-21] MEDS: PANTOPRAZOLE 40 MG TABLET PO SCH (08:50)
[2016-08-21] MEDS: MELOXICAM 7.5 MG TAB PO SCH (08:50)
[2016-08-21] MEDS: LORazepam 0.5 MG TAB PO SCH ×3 (08:50→20:09)
[2016-08-21] MEDS ORDERED: DULoxetine HCL 60 MG CAPSULE.DR PO SCH (09:00)
[2016-08-21 10:07] LABS: Magnesium 1.9 mg/dL (1.6-2.3)
[2016-08-21] MEDS: THIAMINE 100 MG TAB PO SCH (10:45)
[2016-08-21] MEDS: HYDROcodone/APAP 5-325MG 1 EACH TAB PO PRN ×2 (10:46→15:46)
--- NOTE | 2016-08-21 10:57 | P.PN ---
Progress Note - Text Interval history: The patient was seen in his room ,was laying on his recliner , having difficulty to ambulate today ,describe his mood as "Terrible because of pain",wearing hospital gown ,patient endorses restless sleep ,helpless and hopeless feeling , ,rates his depression and pain ,both 8/10 ,10 being the worse Appetite is reported stable , He is willing to participate in inpatient chemical dependency residential treatment ,also asked to be referred to pain management PER NURSING STAFF: CIWA:1 ,vitals signs:WNL ,reports 6 hours sleep Was seen by By DR SANDOVAL regarding high uric acid ,no new recommendation,has to continue on Colchicine and Allopurinol Seen by surgery team :no need for acute surgical intervention ,ordered Thiamine level Mental status exam: The patient is alert there is some psychomotor slowing. He is dressed in hospital gown hygiene ,laying on his reclinerEye contact is intermittent. He has distressed facial affect,reports feeling helpless and overwhelmed with his medical problems He reports no suicidal or homicidal ideation.,denies any psychosis or manic features .NO hands tremors Insight and judgment are fair He demonstrates no verbal or physical aggressiveness. Plan: The patient is demonstrating slow clinical improvement.I will start low dose of [place] ,was started on Solu-Medrol by ortho. He still has depression , anxiety and pain ,increase Cymbalta to 90 mg We will continue to monitor him for safety
--- NOTE | 2016-08-21 13:04 | P.PN ---
Progress Note - Text 61-year-old being seen on the mental health unit in his room's resting in a recliner. Patient states he does not have any abdominal pain he continues to have persistent lower back pain. Abdomen soft not distended states had a bowel movement this morning tolerating a diet this been no reports of nausea vomiting. continues to be no need for an acute surgical intervention at this time we'll sign off and re-eval as needed
[2016-08-21] MEDS: PRAVASTATIN SODIUM 40 MG TAB PO SCH (20:09)
[2016-08-21] MEDS: TAMSULOSIN 0.4 MG CAP.ER.24H PO SCH (20:09)
[2016-08-21] MEDS: traZODone HCL 50 MG TAB PO SCH (20:09)
--- NOTE | 2016-08-21 20:20 | P.PN ---
Subjective Principal diagnosis: Patient denies any troubles with abdominal pain appearance passing flatus and having bowel movement. Objective - Vital Signs Vital signs: Vital Signs Temp 98 F 08/21/16 06:42 Pulse 76 08/21/16 20:14 Resp 16 08/21/16 20:14 BP 128/68 08/21/16 20:14 Pulse Ox 94 L 08/21/16 20:14 - Exam GENERAL: Well developed and in no acute distress. Pleasant. HEENT: No sclera icterus. Extraocular movements grossly intact. Moist buccal mucosa. Head is atraumatic, normocephalic. Hears conversational speech. No nasal drainage. NECK: Supple without lymphadenopathy. No JV distention. CHEST: Non-labored respirations and equal bilateral excursions. CARDIOVASCULAR: Regular rate and rhythm. Palpable 2+ radial pulses. ABDOMEN: Soft, nontender. Decreased distention. MUSCULOSKELETAL: No clubbing, cyanosis or edema. NEUROLOGIC: No focal or lateralizing signs. PSYCH: Appropriate affect. Alert and oriented to person, place and time. - Labs CBC & Chem 7: 08/19/16 09:45 08/19/16 09:45 Assessment and Plan (1) Abnormal CT of the abdomen Status: Acute (2) Alcohol abuse Status: Acute (3) Alcohol dependency Status: Acute (4) Chronic low back pain Status: Acute (5) Depression Status: Acute (6) Suicidal ideation Status: Acute Plan: 1. Patient clinically stable. 2. Recommend management of lower back pain. 3. Also recommend any correction of electrode dyscrasias. 4. Patient has no acute surgical abdomen. 5. We'll follow as as needed.
[2016-08-22] MEDS: ALLOPURINOL 300 MG TAB PO SCH (09:19)
[2016-08-22] MEDS: DULoxetine HCL 30 MG CAPSULE.DR PO SCH (09:20)
[2016-08-22] MEDS: amLODIPine 5 MG TAB PO SCH (09:20)
[2016-08-22] MEDS: COLCHICINE 0.6 MG TAB PO SCH (09:20)
[2016-08-22] MEDS: MELOXICAM 7.5 MG TAB PO SCH (09:21)
[2016-08-22] MEDS: predniSONE 20 MG TAB PO SCH (09:21)
[2016-08-22] MEDS: PANTOPRAZOLE 40 MG TABLET PO SCH (09:24)
[2016-08-22] MEDS: FOLIC ACID-VIT B COMPLEX-VIT C 1 CAP PO SCH (09:24)
[2016-08-22] MEDS: LISINOPRIL 20 MG TAB PO SCH (09:24)
[2016-08-22] MEDS: METOPROLOL TARTRATE 50 MG TAB PO SCH ×2 (09:24→21:29)
[2016-08-22] MEDS: HYDROCHLOROTHIAZIDE 25 MG TAB PO SCH (09:25)
[2016-08-22] MEDS: LORazepam 0.5 MG TAB PO SCH ×3 (09:25→21:30)
[2016-08-22] MEDS: HYDROcodone/APAP 5-325MG 1 EACH TAB PO PRN ×2 (09:26→15:14)
--- NOTE | 2016-08-22 12:43 | P.PN ---
Progress Note - Text Interval history: Patient is seen in cross coverage today for Dr. Forrest. He reports that he is dealing with a lot of back pain. He relays that he had been having thoughts of suicide related to his level of pain. He also relays that he would tend to self medicate with alcohol for pain. He is currently on Cymbalta 90 mg daily. He is also on Burtrum as needed for pain which he says helps his pain somewhat. He describes the relation of his depression and his pain. Mental status exam: He is found in his room. He is cooperative with the interview. His mood is depressed. His affect is tearful. He denies any current thoughts of suicide. He does not show any active evidence of psychosis or significant agitation. Thought processes are organized. Plan: We'll maintain Cymbalta as current. We'll monitor for any medication side effects. Continue to monitor regarding any suicidal ideations. We'll monitor his ongoing response to treatment. He is given encouragement and support. We'll continue to cover this patient for Dr. Forrest through the weekend.
[2016-08-22] MEDS: THIAMINE 100 MG TAB PO SCH (13:09)
[2016-08-22] MEDS: traZODone HCL 50 MG TAB PO SCH (21:29)
[2016-08-22] MEDS: TAMSULOSIN 0.4 MG CAP.ER.24H PO SCH (21:29)
[2016-08-22] MEDS: PRAVASTATIN SODIUM 40 MG TAB PO SCH (21:29)
[2016-08-23] MEDS: ALLOPURINOL 300 MG TAB PO SCH (09:03)
[2016-08-23] MEDS: MELOXICAM 7.5 MG TAB PO SCH (09:03)
[2016-08-23] MEDS: predniSONE 20 MG TAB PO SCH (09:04)
[2016-08-23] MEDS: amLODIPine 5 MG TAB PO SCH (09:04)
[2016-08-23] MEDS: LORazepam 0.5 MG TAB PO SCH ×3 (09:04→20:50)
[2016-08-23] MEDS: PANTOPRAZOLE 40 MG TABLET PO SCH (09:04)
[2016-08-23] MEDS: DULoxetine HCL 30 MG CAPSULE.DR PO SCH (09:04)
[2016-08-23] MEDS: LISINOPRIL 20 MG TAB PO SCH (09:04)
[2016-08-23] MEDS: FOLIC ACID-VIT B COMPLEX-VIT C 1 CAP PO SCH (09:04)
[2016-08-23] MEDS: HYDROCHLOROTHIAZIDE 25 MG TAB PO SCH (09:05)
[2016-08-23] MEDS: COLCHICINE 0.6 MG TAB PO SCH (09:05)
[2016-08-23] MEDS: METOPROLOL TARTRATE 50 MG TAB PO SCH ×2 (09:05→20:50)
[2016-08-23] MEDS: HYDROcodone/APAP 5-325MG 1 EACH TAB PO PRN ×2 (09:05→21:01)
[2016-08-23] MEDS: THIAMINE 100 MG TAB PO SCH (12:36)
[2016-08-23 14:28] VITALS: BMI 37.9
--- NOTE | 2016-08-23 17:12 | P.PN ---
Progress Note - Text Interval history: Patient seen in [facility] [place] today for Dr. Vincent. He reports that his pain is doing better today and his mood also is feeling better compared to yesterday. He didn't sleep that well last night and he did miss breakfast this morning but he did eat lunch. He plans on eating dinner. He seems motivated for outpatient treatment. Mental status exam: He is alert and cooperative with the interview. His speech is fluent, not rapid or pressured. Thought processes organized. He does show range of affect today. His mood is improved. He does not verbalize any thoughts of harm to self or others, no evidence of psychosis. He does not show any agitation. Plan: Maintain current psychotropic medication regimen. Monitor for any medication side effects. Monitor for ongoing improved status with his mood.
[2016-08-23] MEDS: PRAVASTATIN SODIUM 40 MG TAB PO SCH (20:50)
[2016-08-23] MEDS: TAMSULOSIN 0.4 MG CAP.ER.24H PO SCH (20:50)
[2016-08-23] MEDS: traZODone HCL 50 MG TAB PO SCH (20:50)
[2016-08-24] MEDS: DULoxetine HCL 30 MG CAPSULE.DR PO SCH (09:17)
[2016-08-24] MEDS: ALLOPURINOL 300 MG TAB PO SCH (09:17)
[2016-08-24] MEDS: COLCHICINE 0.6 MG TAB PO SCH (09:17)
[2016-08-24] MEDS: LORazepam 0.5 MG TAB PO SCH (09:18)
[2016-08-24] MEDS: FOLIC ACID-VIT B COMPLEX-VIT C 1 CAP PO SCH (09:18)
[2016-08-24] MEDS: MELOXICAM 7.5 MG TAB PO SCH (09:18)
[2016-08-24] MEDS: LISINOPRIL 20 MG TAB PO SCH (09:18)
[2016-08-24] MEDS: HYDROCHLOROTHIAZIDE 25 MG TAB PO SCH (09:18)
[2016-08-24] MEDS: PANTOPRAZOLE 40 MG TABLET PO SCH (09:19)
[2016-08-24] MEDS: predniSONE 20 MG TAB PO SCH (09:19)
[2016-08-24] MEDS: amLODIPine 5 MG TAB PO SCH (09:19)
[2016-08-24] MEDS: METOPROLOL TARTRATE 50 MG TAB PO SCH ×2 (09:19→21:10)
--- NOTE | 2016-08-24 11:15 | P.CON ---
Consult Note - . Consult date: 08/24/16 Assessment/Plan:: Patient seen and examined, medical/surgical/social/family history and allergies reviewed in EMR. Mr. Cedillo is a 61-year-old male with a history of a previous lumbar spinal fusion in XX who has had a long history of chronic back pain. He was seen and evaluated by Erika who ordered lumbar spine CT showing no acute changes from his previous back surgery. Pain service is consulted for possible epidural injections to assist with chronic pain. Patient is currently being prescribed [place] in the hospital, but has a long history of alcohol abuse and self- medication with ETOH in the past. Physical exam demonstrates a well-developed, overweight male of stated age, vital signs WNL. He does have positive straight leg raise LLE, neg RLE. + facet loading bilateral, L > R, neg SIJ tenderness bilateral. Assessment: 1. Postlaminectomy syndrome 2. alcohol abuse 3. myofascial pain syndrome Plan: Patient is not interested in pursuing any interventional therapies whatsoever at this time. He does have some muscle spasms in his low back on the left side , and may benefit from some muscle relaxants such as Zanaflex (6-8 mg BID) or Baclofen (10 mg BID); I will start some Zanaflex for him today. Given the patient's severe history of alcohol abuse, he may be a good candidate for suboxone therapy in the future, and I would exercise caution in prescribing other opioids for him given the EtOH abuse. That said, that decision is best made by the psychiatrists taking care of him in the mental health unit. Please call back with any further questions.
[2016-08-24] MEDS ORDERED: BACLOFEN 10 MG TAB PO PRN (11:45)
[2016-08-24] MEDS: THIAMINE 100 MG TAB PO SCH (13:30)
[2016-08-24] MEDS: HYDROcodone/APAP 5-325MG 1 EACH TAB PO PRN ×2 (13:30→20:46)
[2016-08-24] MEDS: LORazepam 0.5 MG TAB PO PRN (13:31)
--- NOTE | 2016-08-24 13:34 | P.PN ---
Progress Note - Text Interval history: Patient was dressed in his clothing ,walking with walker , came landscape engineer asking to talk to me ,patient demanding to be discharged "I have lot of bills to pay"He stated that he does not experience any withdrawals symptom and does not want to pursue inpatient chemical dependency. He reports that he is dealing with a lot of back pain. He relays that he had been missing his children ,feeling abandoned by them ,tried to reconnect with youngest one without success. He also relays that he would tend to self medicate with alcohol for pain and for his loss .Patient stated that he has one friend who is alcoholic He is currently on Cymbalta 90 mg daily. He is also on [place] as needed for pain which he says helps his pain somewhat. He is willing to be refer to pain management clinic and dual DX outpatient counseling Mental status exam: Was seen in my office. He is cooperative with the interview. His mood is depressed. His affect is tearful. He denies any current thoughts of suicide,denies any homicidal thought He does not show any evidence of psychosis or significant agitation. Thought processes are organized. Plan: Continue Cymbalta ,increase Trazodone to 100 mg instead of 50 mg,change scheduled Ativan to PRN,SW to contact his sister to remove firearms from patient apartment We'll monitor for any medication side effects. Continue to monitor regarding any suicidal ideation. We'll monitor his ongoing response to treatment. He is given encouragement and support.
[2016-08-24] MEDS: TAMSULOSIN 0.4 MG CAP.ER.24H PO SCH (20:46)
[2016-08-24] MEDS: PRAVASTATIN SODIUM 40 MG TAB PO SCH (20:46)
[2016-08-24] MEDS: traZODone HCL 100 MG TAB PO SCH (20:46)
[2016-08-25] MEDS: PANTOPRAZOLE 40 MG TABLET PO SCH (08:44)
[2016-08-25] MEDS: COLCHICINE 0.6 MG TAB PO SCH (08:51)
[2016-08-25] MEDS: ALLOPURINOL 300 MG TAB PO SCH (08:52)
[2016-08-25] MEDS: DULoxetine HCL 30 MG CAPSULE.DR PO SCH (08:52)
[2016-08-25] MEDS: HYDROCHLOROTHIAZIDE 25 MG TAB PO SCH (08:53)
[2016-08-25] MEDS: amLODIPine 5 MG TAB PO SCH ×2 (08:53→10:30)
[2016-08-25] MEDS: MELOXICAM 7.5 MG TAB PO SCH (08:53)
[2016-08-25] MEDS: FOLIC ACID-VIT B COMPLEX-VIT C 1 CAP PO SCH (08:53)
[2016-08-25] MEDS: predniSONE 20 MG TAB PO SCH (09:01)
[2016-08-25] MEDS: METOPROLOL TARTRATE 50 MG TAB PO SCH ×2 (09:01→21:25)
[2016-08-25] MEDS: HYDROcodone/APAP 5-325MG 1 EACH TAB PO PRN ×2 (09:02→18:56)
[2016-08-25] MEDS: LISINOPRIL 20 MG TAB PO SCH (10:31)
[2016-08-25] MEDS: THIAMINE 100 MG TAB PO SCH (12:20)
--- NOTE | 2016-08-25 12:27 | P.PN ---
Progress Note - Text Interval history: Patient was dressed in his clothing ,walking with walker , reports that he had been able to participate in groups therapy and was able to share his feeling ,motivated to write letters to his three daughters ,talked about his nephews and nieces "THEY ARE VERY SUPPORTIVE",able to sleep better with higher dose of Trazodone ,denies any hopeless or helpless feeling "I AM TRYING TO THINK POSITIVE" He reports that he is dealing with a lot of back pain and was neglecting his medical needs for PT and pain management "I WAS THINKING THAT ALCOHOL WILL SOLVE MY PROBLEMS",discussed negative impact of alcohol on his mental and physical health and patient verbalized understanding and willing to go to AA meetings after discharge Mental status exam: Was seen in my office. He is cooperative with the interview. Patient was not tearful as yesterday ,smiling and pleasant ,good eyes contact ,speech is coherent and goal directed He denies any current thoughts of suicide,denies any homicidal thought He does not show any evidence of psychosis or lashaun ,insight and judgment improving Plan: Continue current medications,PRN NORCO for pain , We'll monitor for any medication side effects. Continue to monitor regarding any suicidal ideation. We'll monitor his ongoing response to treatment. He is given encouragement and support.
[2016-08-25] MEDS: LORazepam 0.5 MG TAB PO PRN (18:56)
[2016-08-25] MEDS: TAMSULOSIN 0.4 MG CAP.ER.24H PO SCH (21:25)
[2016-08-25] MEDS: traZODone HCL 100 MG TAB PO SCH (21:25)
[2016-08-25] MEDS: PRAVASTATIN SODIUM 40 MG TAB PO SCH (21:25)
[2016-08-26] MEDS: ALLOPURINOL 300 MG TAB PO SCH (09:19)
[2016-08-26] MEDS: COLCHICINE 0.6 MG TAB PO SCH (09:19)
[2016-08-26] MEDS: HYDROCHLOROTHIAZIDE 25 MG TAB PO SCH (09:20)
[2016-08-26] MEDS: DULoxetine HCL 30 MG CAPSULE.DR PO SCH (09:20)
[2016-08-26] MEDS: LISINOPRIL 20 MG TAB PO SCH (09:20)
[2016-08-26] MEDS: MELOXICAM 7.5 MG TAB PO SCH (09:20)
[2016-08-26] MEDS: FOLIC ACID-VIT B COMPLEX-VIT C 1 CAP PO SCH (09:20)
[2016-08-26] MEDS: predniSONE 20 MG TAB PO SCH (09:21)
[2016-08-26] MEDS: PANTOPRAZOLE 40 MG TABLET PO SCH (09:21)
[2016-08-26] MEDS: METOPROLOL TARTRATE 50 MG TAB PO SCH ×2 (09:21→21:02)
[2016-08-26] MEDS: HYDROcodone/APAP 5-325MG 1 EACH TAB PO PRN ×2 (09:22→17:33)
--- NOTE | 2016-08-26 13:18 | P.PN ---
Progress Note - Text Interval history: Patient was dressed in his clothing ,walking with walker , reports that he had been able to participate in groups therapy and was able to share his feeling ,did write letters to his three daughters ,,able to sleep better with higher dose of Trazodone ,denies any hopeless or helpless feeling ", discussed negative impact of alcohol on his mental and physical health and patient verbalized understanding and willing to go to AA meetings after discharge Patient is still struggling with chronic pain and having difficulty to be active physically as before ,stated that he was down after was seen by pain physician because "I do not want injection ,I am not drug addict ,everyone assuming that I will abuse pain medications " Mental status exam: Was seen in my office. He is cooperative with the interview. Patient was not tearful ,underlying frustration due to his pain , good eyes contact ,speech is coherent and goal directed He denies any current thoughts of suicide,denies any homicidal thought He does not show any evidence of psychosis or lashaun ,insight and judgment improving Plan: Continue current medications,PRN NORCO for pain , We'll monitor for any medication side effects. Continue to monitor regarding any suicidal ideation. We'll monitor his ongoing response to treatment. He is given encouragement and support. Will start Baclofen ,regular scheduled Patient was seen for pain management by DR GARCIA ,please refer to his note below : Plan: Patient is not interested in pursuing any interventional therapies whatsoever at this time. He does have some muscle spasms in his low back on the left side , and may benefit from some muscle relaxants such as Zanaflex (6-8 mg BID) or Baclofen (10 mg BID); I will start some Zanaflex for him today. Given the patient's severe history of alcohol abuse, he may be a good candidate for suboxone therapy in the future, and I would exercise caution in prescribing other opioids for him given the EtOH abuse. That said, that decision is best made by the psychiatrists taking care of him in the mental health unit. Please call back with any further questions.)))
[2016-08-26] MEDS: THIAMINE 100 MG TAB PO SCH (13:44)
[2016-08-26] MEDS: hydrOXYzine PAMOATE 25 MG CAP PO PRN (17:32)
[2016-08-26] MEDS: TAMSULOSIN 0.4 MG CAP.ER.24H PO SCH (21:02)
[2016-08-26] MEDS: BACLOFEN 10 MG TAB PO SCH (21:03)
[2016-08-26] MEDS: traZODone HCL 100 MG TAB PO SCH (21:03)
[2016-08-26] MEDS: PRAVASTATIN SODIUM 40 MG TAB PO SCH (21:03)
[2016-08-27] MEDS: HYDROcodone/APAP 5-325MG 1 EACH TAB PO PRN ×3 (00:11→20:04)
[2016-08-27] MEDS: COLCHICINE 0.6 MG TAB PO SCH (08:45)
[2016-08-27] MEDS: MELOXICAM 7.5 MG TAB PO SCH (08:46)
[2016-08-27] MEDS: DULoxetine HCL 30 MG CAPSULE.DR PO SCH (08:46)
[2016-08-27] MEDS: HYDROCHLOROTHIAZIDE 25 MG TAB PO SCH (08:46)
[2016-08-27] MEDS: predniSONE 20 MG TAB PO SCH (08:46)
[2016-08-27] MEDS: BACLOFEN 10 MG TAB PO SCH ×2 (08:46→20:04)
[2016-08-27] MEDS: PANTOPRAZOLE 40 MG TABLET PO SCH (08:46)
[2016-08-27] MEDS: FOLIC ACID-VIT B COMPLEX-VIT C 1 CAP PO SCH (08:46)
[2016-08-27] MEDS: ALLOPURINOL 300 MG TAB PO SCH (08:47)
[2016-08-27] MEDS: LIDOCAINE 5% PATCH TOPICAL SCH (10:16)
--- NOTE | 2016-08-27 10:31 | P.PN ---
Progress Note - Text Interval history: Patient was dressed in his clothing ,was laying on his recliner as he was dizzy and having neck pain ,he talked about yesterday family meeting and he felt that was productive ,was not upset about removing all his guns from his place ,does not feel lonely as before "Really my sister and her are very supportive",patient is motivated to attend AA meetings after discharge Patient is still struggling with chronic pain and having difficulty to be active physically as before ,reports having difficulties to take medications as Rx "Sometimes I forgot" Mental status exam:Patient is wearing his clothing He is cooperative with the interview. Patient was smiling and pleasant,good eyes contact ,speech is coherent and goal directed He denies any current thoughts of suicide,denies any homicidal thought He does not show any evidence of psychosis or lashaun ,insight and judgment improving Plan: Continue current medications,PRN NORCO for pain , add lidocaine patch We' ll monitor for any medication side effects. We'll monitor his ongoing response to treatment. He is given encouragement and support. Likely discharge tomorrow with home care
[2016-08-27] MEDS: LISINOPRIL 20 MG TAB PO SCH (11:02)
[2016-08-27] MEDS: METOPROLOL TARTRATE 50 MG TAB PO SCH (11:02)
[2016-08-27] MEDS: hydrOXYzine PAMOATE 25 MG CAP PO PRN (12:21)
[2016-08-27] MEDS: THIAMINE 100 MG TAB PO SCH (12:29)
[2016-08-27] MEDS: traZODone HCL 100 MG TAB PO SCH (20:04)
[2016-08-27] MEDS: PRAVASTATIN SODIUM 40 MG TAB PO SCH (20:04)
[2016-08-27] MEDS: TAMSULOSIN 0.4 MG CAP.ER.24H PO SCH (20:04)
--- NOTE | 2016-08-27 23:28 | PN ---
DATE OF SERVICE: 08/27/2016 PRESENTING COMPLAINT: Psych issues. INTERVAL HISTORY: Patient with multiple problems admitted to the psych unit with depression. Patient's blood pressure is running on the lower side, probably related after she was hypertensive from DTs. I had cut back on blood pressure medication yesterday and was called again, blood pressure is running low about 110 by manual blood pressure. Review of systems done for constitutional, cardiovascular, GI, pulmonary, musculoskeletal: The patient still has some low back pain, but better than before. Patient appetite is better. Patient looks much more relaxed. Current medications are reviewed. On examination, temperature 97.3, pulse 56, respiration 16, blood pressure 99/52, pulse ox 99% on room air. GENERAL APPEARANCE: Sitting up, comfortable. EYES: Pupils equal. Conjunctivae normal. NECK: JVD not raised. Mass not palpable. RESPIRATORY: Effort normal. Lungs are clear. CARDIOVASCULAR: First and second sounds normal. No edema. ABDOMEN: Soft, nontender. Liver and spleen not palpable. PSYCHIATRY: Alert and oriented x3. Mood and affect normal. INVESTIGATIONS: No blood work from today. ASSESSMENT: 1. Major depression, recurrent, no evidence of psychosis. 2. Obesity; body mass index 37.7. 3. Paroxysmal atrial fibrillation. 4. Chronic alcohol dependence. 5. Alcoholic hepatitis. 6. Peripheral neuropathy from chronic alcoholism. 7. Gait dysfunction from arthritis, uses a walker. 8. Essential hypertension. 9. Benign prostatic hypertrophy. 10. Blood pressure is running in the lower side, we will discontinue the patient's blood pressure medications for now and see how this goes. 11. Other medication and treatment plan is to continue.
[2016-08-28 06:07] VITALS: TEMP 97.5
[2016-08-28] MEDS: COLCHICINE 0.6 MG TAB PO SCH (08:30)
[2016-08-28] MEDS: ALLOPURINOL 300 MG TAB PO SCH (08:30)
[2016-08-28] MEDS: BACLOFEN 10 MG TAB PO SCH (08:30)
[2016-08-28] MEDS: DULoxetine HCL 30 MG CAPSULE.DR PO SCH (08:31)
[2016-08-28] MEDS: FOLIC ACID-VIT B COMPLEX-VIT C 1 CAP PO SCH (08:31)
[2016-08-28] MEDS: HYDROCHLOROTHIAZIDE 25 MG TAB PO SCH (08:31)
[2016-08-28] MEDS: hydrOXYzine PAMOATE 25 MG CAP PO PRN ×2 (08:31→16:21)
[2016-08-28] MEDS: LIDOCAINE 5% PATCH TOPICAL SCH (08:32)
[2016-08-28] MEDS: MELOXICAM 7.5 MG TAB PO SCH (08:33)
[2016-08-28] MEDS: PANTOPRAZOLE 40 MG TABLET PO SCH (08:34)
[2016-08-28] MEDS: HYDROcodone/APAP 5-325MG 1 EACH TAB PO PRN ×2 (08:34→16:22)
[2016-08-28] MEDS: predniSONE 20 MG TAB PO SCH (08:34)
[2016-08-28 11:11] VITALS: RESP 20
[2016-08-28] MEDS: THIAMINE 100 MG TAB PO SCH (12:41)
[2016-08-28 14:34] VITALS: BP 145/79; PULSE 79
--- NOTE | 2016-08-29 12:05 | DS ---
DATE OF ADMISSION: 08/18/2016 DATE OF DISCHARGE: 08/28/2016 CONSULTING PHYSICIANS: Dr. Jim Huggins for medical consultation, who did recommend orthopedic consultation and patient was seen by Dr. James. According to the orthopedic surgeon's plan, he did order lumbar x-ray. Also, he did order CT of the abdomen and pelvis. 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 Surgical consultation Dr. Bedolla, who stated if the patient does not have any symptoms, patient can pursue outpatient colonoscopy and there is no acute surgical intervention. Also we did consult pain specialist and he was seen by Dr. Abhishek Rehman who did recommend epidural injection for the patient's chronic back pain. Initially patient was resistant; however, when I did discuss with him, patient did agree to pursue epidural injection. BRIEF SUMMARY OF THE ADMISSION NOTES: Please refer to my complete history and physical exam on August 19, as the patient was admitted on voluntary basis for depression and suicidal ideation. SUMMARY OF THE HOSPITAL COURSE: The patient was admitted to the mental health unit on voluntary basis. We did have 4 different consultations as I mentioned before for his multiple medical problems. At the time of the admission, his uric acid was high at 9.4; however, patient was drinking on a daily basis prior to his admission. I did recheck his uric acid after 10 days and it came within normal, 4.9. During his stay here, patient was running low in his blood pressure, especially after he finished the CIWA protocol and we re-consulted Dr. Huggins, who recommended we discontinue all his blood pressure medication except we kept him on Lasix. Vital signs at the time of his discharge were temperature 97.5, pulse 60, respirations 17 blood pressure 158/82. I discussed with the patient his symptoms and his psychiatric medication and patient did agree to start Cymbalta, so I discontinued his previous psychotropic medications that included Paxil and Remeron and I gradually titrated Cymbalta up to 90 mg to treat his chronic pain and his depression. Patient was complaining of trouble sleeping, so we did initiate trazodone 50 mg at bedtime and we increased it to 100 to help the patient to restore his sleep. Patient was participating in group therapy as much as he can. He was moving with his walker. At times, he was still having chronic back pain and I did start him on baclofen 10 mg twice a day. He was already on [place] prescribed by his primary care physician. He was not asking for more than once or twice a day and even he stated that he tries to avoid any pain medication because he did realize the cross addiction between the alcohol and the opium pain medication. At the time of the admission, patient was taking 2 different benzodiazepines: Valium as muscle relaxant and Ativan at night for sleep, so I discontinued all the benzodiazepines the first 5 days of his admission and patient was able to tolerate the detox very successfully. I did discuss with him that he can use Vistaril p.r.n. for anxiety or insomnia instead of abusing benzodiazepine, especially there high risk for falling between the alcohol and the benzodiazepine. The orthopedic surgeon started the patient on prednisone as an anti-inflammatory and he asked to be weaned off slowly up to August 31. Then he will discontinue prednisone. Patient has been very pleasant, cooperative during his stay, very compliant with our recommendations, much better insight to his alcohol abuse and he stated that he would start attending AA meetings, at least 4 to 5 a week. Our psychotherapist social worker had a family meeting with his sister and we did instruct them to remove all the guns from the patient's apartment and they did 3 days prior to his discharge. Patient felt very comfortable during the family meeting and he felt that his family has been very supportive. In the individual session, I did explore his past history of depression, especially for the last 10 years since the end of his marriage and having estranged relationship with his 3 daughters. He did admit that he has been drinking more often than usual since his divorce, but he was able to grieve the loss of his kids, especially as they are very reluctant to contact him. Patient did agree to write a letter to each one of them as a way to reconnect with them. MENTAL STATUS EXAMINATION: At the time of the discharge, the patient is alert, walking with a walker, good eye contact, appropriate in hygiene and grooming. Speech is spontaneous, nonpressured. Thought process is linear and goal directed. He is reporting no homicidal or suicidal ideation, intent or plan. He does not feel hopeless or helpless. There is no evidence of hypomania or lashaun. There is no evidence of psychosis. Insight and judgment regarding his history of alcohol abuse much improved. Cognitive ability has remained stable across his hospitalization. There is no verbal or physical aggression observed. DISCHARGE DIAGNOSES: 1. Major depression disorder, recurrent, severe, without psychotic feature in early remission or partial remission. 2. Alcohol use disorder. 3. Chronic pain syndrome. PLAN: 1. The patient will be discharged from the mental health unit today to return back home. I did order home care for him, including psych nurse. 2. Patient will see his primary care physician, Dr. Gabriel, within 1 week. Also I did make an appointment with the pain clinic for epidural injection. 3. Discharge medications: a. Patient was given 1-month supply for Cymbalta 90 mg daily. b. Trazodone 100 mg at bedtime for sleep. c. Baclofen 10 mg twice a day as muscle relaxant. d. Vistaril 25 mg as needed for anxiety. e. Also was given prednisone 20 mg for the next 5 days, then discontinue. 4. Patient was instructed to maintain his abstinence and sobriety from alcohol and to attend AA meeting and work on his recovery. Patient will follow up with pain management regarding his chronic back pain. I do recommend to not start him again on any benzodiazepine and to use baclofen or Zanaflex as muscle relaxant instead of Valium. I did discuss the possibility of him to discontinue the pain medication, but he feels that his back pain is so severe to tolerate it, so he was instructed to use the medications only as prescribed and he did agree about this. The patient denied any feeling hopeless or helpless. No suicidal ideation. No access to any firearms. There is no imminent safety risk and he is appropriate for transition to outpatient care. Patient condition at the time of the discharge is stable.
--- NOTE | 2016-08-29 22:59 | PN ---
DATE OF SERVICE: 08/28/2016 PRESENTING COMPLAINT: Blood pressure issues. INTERVAL HISTORY: This patient seen by me yesterday in the psych unit on 08/28/2016. Computers were down so I could not dictate. Overall the patient is doing better. Blood pressure is being monitored closely, tolerating a diet. Walking better. Review of systems done for constitutional, cardiovascular, GI, pulmonary, musculoskeletal; relevant findings as above. Current medications are reviewed. On examination, temperature 97.5, pulse 50, respirations 16, blood pressure 138/100, pulse ox noted. Repeat blood pressure before discharged was 144/79. GENERAL APPEARANCE: Sitting up in a chair, comfortable. EYES: Pupils equal. Conjunctivae normal. NECK: JVD not raised. Mass not palpable. RESPIRATORY: Effort normal. Lungs are clear. CARDIOVASCULAR: First and second sounds normal. No edema. ABDOMEN: Soft, nontender. Liver and spleen not palpable. PSYCHIATRY: Alert and oriented x3. Mood and affect normal. ASSESSMENT: 1. Major depression, recurrent, no evidence of psychosis. 2. Obesity, body mass index of 37.7. 3. Paroxysmal atrial fibrillation. 4. Chronic alcohol dependence. 5. Alcoholic hepatitis. 6. Peripheral neuropathy from chronic alcoholism. 7. Gait dysfunction from arthritis, uses a walker. 8. Essential hypertension. 9. Benign prostatic hypertrophy. 10. Essential hypertension. PLAN: The patient will be discharged on Norvasc 5 mg, Lopressor 12.5. As per patient request, patient's family doctor is being changed to, patient should follow up with Dr. Jaimes. This was discussed with the patient. Thank you, Dr. Vincent.
== END 2016-08-28 17:29 | disposition home or self-care (01) | DRG 885 ==
LOC: EC 09:51 → 3MHU 15:00
PROVIDERS: ADMIT Psychiatry & Neurology Psychiatry; ATTEND Psychiatry & Neurology Psychiatry
DX: F33.2 Major depressive disorder, recurrent severe without psychotic features (principal); F10.231 Alcohol dependence with withdrawal delirium; K59.39 Other megacolon; G62.1 Alcoholic polyneuropathy; I48.0 Paroxysmal atrial fibrillation; K51.90 Ulcerative colitis, unspecified, without complications; R45.851 Suicidal ideations; E66.01 Morbid (severe) obesity due to excess calories; I10 Essential (primary) hypertension; K70.10 Alcoholic hepatitis without ascites; G89.4 Chronic pain syndrome; M96.1 Postlaminectomy syndrome, not elsewhere classified; M79.1 Myalgia; F41.9 Anxiety disorder, unspecified; M19.91 Primary osteoarthritis, unspecified site; E78.5 Hyperlipidemia, unspecified; M10.9 Gout, unspecified; N40.0 Benign prostatic hyperplasia without lower urinary tract symptoms; F17.200 Nicotine dependence, unspecified, uncomplicated; Z63.8 Other specified problems related to primary support group; Z96.652 Presence of left artificial knee joint; Z98.1 Arthrodesis status; Z68.37 Body mass index [BMI] 37.0-37.9, adult; Z79.899 Other long term (current) drug therapy; Z81.1 Family history of alcohol abuse and dependence; Z81.8 Family history of other mental and behavioral disorders
CPT/HCPCS: 51798; 72100; 72131; 72170; 74177; 80053; 80306; 81001; 82075; 82140; 82607; 83735; 84425; 84443; 84550; 85025; 87086; 96372; 99285

== ENCOUNTER 2016-12-09 12:06 | Emergency (ER) | payer MEDICARE, BC ==
[2016-12-09 12:12] VITALS: PULSE 84
--- NOTE | 2016-12-09 12:53 | ED ---
General Adult HPI - General Chief complaint: Extremity Injury, Lower Stated complaint: back & leg pain Time Seen by Provider: 12/09/16 12:21 Source: patient, EMS, RN notes reviewed Mode of arrival: EMS Limitations: no limitations - History of Present Illness Initial comments: Patient is a pleasant 61-year-old male presenting to the emergency Department with chronic pain. Patient has chronic bilateral knee pain and chronic back pain and chronic leg pain. Patient is an alcoholic. Patient also believes he has neuropathy. Back pain starts in the lower left back and does radiate. The pain is right greater than The left. No leg swelling. No injury. No weakness. No loss of sensation. No incontinence or retention of bowel or bladder. Patient takes morphine from his primary care physician. Patient admits to drinking alcohol this morning. Patient has had 3 previous back surgeries. - Related Data Home Medications Medication Instructions Recorded Confirmed Allopurinol [Zyloprim] 300 mg PO DAILY 05/17/16 08/18/16 Pantoprazole Sodium [Protonix] 40 mg PO DAILY 05/17/16 08/18/16 Colchicine [Colcrys] 0.6 mg PO DAILY 07/27/16 08/18/16 Hydrochlorothiazide [Hydrodiuril] 25 mg PO DAILY 07/27/16 08/18/16 Meloxicam [Mobic] 15 mg PO DAILY 07/27/16 08/18/16 Pravastatin Sodium [Pravachol] 40 mg PO HS 07/27/16 08/18/16 Previous Rx's Medication Instructions Recorded Tamsulosin HCl [Flomax] 0.4 mg PO HS #30 cap.er.24h 07/29/16 amLODIPine [Norvasc] 5 mg PO DAILY #30 tab 07/29/16 Baclofen [Lioresal] 10 mg PO BID 30 Days 08/28/16 DULoxetine HCL [Cymbalta] 90 mg PO DAILY 30 Days 08/28/16 Folic Acid-Vit B Complex-Vit C 1 each PO DAILY 30 Days 08/28/16 [Nephrocaps] HYDROcodone/APAP 5-325MG [[place] 1 each PO Q6HR PRN #0 tab 08/28/16 5-325] Metoprolol Tartrate [Lopressor] 12.5 mg PO BID #60 dose 08/28/16 Thiamine [Vitamin B-1] 100 mg PO DAILY@1200 30 Days 08/28/16 hydrOXYzine PAMOATE [Vistaril] 25 mg PO Q8HR PRN #21 cap 08/28/16 predniSONE 20 mg PO DAILY 5 Days 08/28/16 traZODone HCL [Desyrel] 100 mg PO HS 30 Days 08/28/16 Cyclobenzaprine [Flexeril] 10 mg PO TID PRN #12 tablet 12/09/16 Allergies Allergy/AdvReac Type Severity Reaction Status Date / Time No Known Allergies Allergy Verified 08/18/16 11:16 Review of Systems ROS Statement: Those systems with pertinent positive or pertinent negative responses have been documented in the HPI. ROS Other: All systems not noted in ROS Statement are negative. Constitutional: Denies: fever Eyes: Denies: eye pain ENT: Denies: ear pain Respiratory: Denies: cough Cardiovascular: Denies: chest pain Endocrine: Denies: fatigue Gastrointestinal: Denies: abdominal pain Genitourinary: Denies: dysuria Musculoskeletal: Reports: back pain Skin: Denies: rash Neurological: Denies: weakness Past Medical History Past Medical History: Hyperlipidemia, Hypertension, Musculoskeletal Disorder, Osteoarthritis (OA), Prostate Disorder Additional Past Medical History / Comment(s): Alcoholism, bronchitis, ulcerative colitis, rectal bleed, gout in bilateral feet, unsteady gait, balance issues, "blood shot" eyes which he has been told is dur to dry eyes, arthritis multiple joints, BPH. History of Any Multi-Drug Resistant Organisms: None Reported Past Surgical History: Back Surgery, Hernia Repair, Joint Replacement, Orthopedic Surgery, Tonsillectomy Additional Past Surgical History / Comment(s): Lumbar back surgery x 3, total L knee, hernia repair umbilical and left inguinal, colonoscopy. Past Anesthesia/Blood Transfusion Reactions: No Reported Reaction, Motion Sickness Additional Past Anesthesia/Blood Transfusion Reaction / Comment(s): Pt gets sea sick. Past Psychological History: Anxiety, Depression Smoking Status: Former smoker Past Alcohol Use History: Abuse, Daily Past Drug Use History: None Reported - Past Family History Mother Additional Family Medical History / Comment(s): Mother "battled" depression all of her life. She was 82 yrs old when she . Father Additional Family Medical History / Comment(s): Father was an alcoholic. He at the age of 72 yrs. General Exam Limitations: no limitations General appearance: alert, in no apparent distress Head exam: Present: atraumatic Eye exam: Present: normal appearance, PERRL ENT exam: Present: normal oropharynx Neck exam: Present: normal inspection Respiratory exam: Present: normal lung sounds bilaterally Cardiovascular Exam: Present: regular rate, normal rhythm Expanded Peripheral pulses: 2+: Dorsalis Pedis (R), Dorsalis Pedis (L) GI/Abdominal exam: Present: soft. Absent: tenderness Extremities exam: Present: normal inspection, full ROM. Absent: tenderness Back exam: Present: tenderness (Mild tenderness left lumbar) Neurological exam: Present: alert. Absent: motor sensory deficit Expanded Sensory exam: Lower Extremity Light Touch: Normal Motor strength exam: RLE: 5, LLE: 5 Psychiatric exam: Present: depressed Skin exam: Present: normal color Course Vital Signs 12/09/16 12:07 Temperature 97.6 F Pulse Rate 84 Respiratory 20 Rate Blood Pressure 186/88 O2 Sat by Pulse 96 Oximetry Medical Decision Making - Medical Decision Making Patient is explained that feel comfortable at this time treating his chronic pain secondary to alcohol intoxication. Patient will be given a short course of Flexeril and advised close follow-up with his doctor. Disposition Clinical Impression: Chronic low back pain, Alcohol abuse Disposition: HOME SELF-CARE Condition: Stable Instructions: Chronic Back Pain (ED), Abuse of Alcohol (ED) Additional Instructions: Discontinue alcohol use. Please follow-up with your primary care physician tomorrow. Return for weakness, loss of control of bowel or bladder, worsening symptoms or change in symptoms or other concerns. Prescriptions: Cyclobenzaprine [Flexeril] 10 mg PO TID PRN #12 tablet PRN Reason: Pain Referrals: Harvey Kumari MD [Primary Care Provider] - 1-2 days Time of Disposition: 12:52
[2016-12-09 13:06] VITALS: BP 179/82; RESP 16; TEMP 98.3
== END 2016-12-09 13:41 | disposition home or self-care (01) ==
LOC: EC 12:06
DX: M54.5 Low back pain (principal); G89.29 Other chronic pain; F10.10 Alcohol abuse, uncomplicated; M25.562 Pain in left knee; M25.561 Pain in right knee; I10 Essential (primary) hypertension; E78.5 Hyperlipidemia, unspecified; M19.90 Unspecified osteoarthritis, unspecified site; M10.9 Gout, unspecified; Z87.891 Personal history of nicotine dependence; Z79.1 Long term (current) use of non-steroidal anti-inflammatories (NSAID); Z79.899 Other long term (current) drug therapy
CPT/HCPCS: 82075; 99284

== ENCOUNTER 2017-06-24 06:24 | Emergency (ER) | payer MEDICARE, BC ==
[2017-06-24 06:37] VITALS: TEMP 97.4
--- NOTE | 2017-06-24 07:30 | XR ---
PROCEDURE: FILM RIGHT WRIST HISTORY: 62-year-old male with right upper extremity pain. COMPARISON: None TECHNIQUE: Frontal, lateral, oblique, and scaphoid views of the right wrist were obtained. FINDINGS: Bony structures are intact. Joint spaces are preserved. Mild soft tissue swelling. Atherosclerotic arterial calcifications. IMPRESSION: Mild soft tissue swelling.
--- NOTE | 2017-06-24 08:16 | ED ---
General Adult HPI - General Chief complaint: Extremity Injury, Upper Stated complaint: wrist pain Time Seen by Provider: 06/24/17 07:24 Source: patient, RN notes reviewed, old records reviewed Mode of arrival: ambulatory Limitations: no limitations - History of Present Illness Initial comments: This is a 62-year-old male the ER with right wrist pain and injury. Patient states she has a history of right wrist issues, sec the stem from a fall with wrist fracture. Patient occasionally does get a stiff wrist swollen and painful. Usually takes Motrin Tylenol without good success, patient states he woke up 2 days ago with pain in his right wrist and decreased range of motion, and has persisted and the pain is just increasing. Patient denies fever or injury - Related Data Home Medications Medication Instructions Recorded Confirmed Latanoprost [Xalatan 0.005%] 1 drop BOTH EYES HS 06/24/17 06/24/17 Metoprolol/Hydrochlorothiazide 1 tab PO DAILY 06/24/17 06/24/17 [Lopressor Hct 100-25 mg Tab] PARoxetine HCL [Paxil] 40 mg PO DAILY 06/24/17 06/24/17 Timolol 0.5% Ophth Soln [Timoptic 1 drop BOTH EYES BID 06/24/17 06/24/17 0.5% Ophth Soln] traZODone HCL [Desyrel] 200 mg PO HS 06/24/17 06/24/17 Previous Rx's Medication Instructions Recorded hydrOXYzine PAMOATE [Vistaril] 25 mg PO Q8HR PRN #21 cap 08/28/16 Allergies Allergy/AdvReac Type Severity Reaction Status Date / Time No Known Allergies Allergy Verified 06/24/17 07:53 Review of Systems ROS Statement: Those systems with pertinent positive or pertinent negative responses have been documented in the HPI. ROS Other: All systems not noted in ROS Statement are negative. Past Medical History Past Medical History: Hyperlipidemia, Hypertension, Musculoskeletal Disorder, Osteoarthritis (OA), Prostate Disorder Additional Past Medical History / Comment(s): Alcoholism, bronchitis, ulcerative colitis, rectal bleed, gout in bilateral feet, unsteady gait, balance issues, "blood shot" eyes which he has been told is dur to dry eyes, arthritis multiple joints, BPH. History of Any Multi-Drug Resistant Organisms: None Reported Past Surgical History: Back Surgery, Hernia Repair, Joint Replacement, Orthopedic Surgery, Tonsillectomy Additional Past Surgical History / Comment(s): Lumbar back surgery x 3, total L knee, hernia repair umbilical and left inguinal, colonoscopy. Past Anesthesia/Blood Transfusion Reactions: No Reported Reaction, Motion Sickness Additional Past Anesthesia/Blood Transfusion Reaction / Comment(s): Pt gets sea sick. Past Psychological History: Anxiety, Depression Smoking Status: Former smoker Past Alcohol Use History: Abuse, Daily Past Drug Use History: None Reported - Past Family History Mother Additional Family Medical History / Comment(s): Mother "battled" depression all of her life. She was 82 yrs old when she . Father Additional Family Medical History / Comment(s): Father was an alcoholic. He at the age of 72 yrs. General Exam - General Exam Comments Initial Comments: Right wrist is swollen and edematous, with decreased range of motion, no evidence of erythema warmth or infection Limitations: no limitations General appearance: alert, in no apparent distress Head exam: Present: atraumatic, normocephalic, normal inspection Eye exam: Present: normal appearance, PERRL, EOMI. Absent: scleral icterus, conjunctival injection, periorbital swelling ENT exam: Present: normal exam, mucous membranes moist Neck exam: Present: normal inspection. Absent: tenderness, meningismus, lymphadenopathy Respiratory exam: Present: normal lung sounds bilaterally. Absent: respiratory distress, wheezes, rales, rhonchi, stridor Cardiovascular Exam: Present: regular rate, normal rhythm, normal heart sounds. Absent: systolic murmur, diastolic murmur, rubs, gallop, clicks GI/Abdominal exam: Present: soft, normal bowel sounds. Absent: distended, tenderness, guarding, rebound, rigid Extremities exam: Present: normal inspection, full ROM, normal capillary refill. Absent: tenderness, pedal edema, joint swelling, calf tenderness Back exam: Present: normal inspection Neurological exam: Present: alert, oriented X3, CN II-XII intact Psychiatric exam: Present: normal affect, normal mood Skin exam: Present: warm, dry, intact, normal color. Absent: rash Course Vital Signs 06/24/17 06:34 Temperature 97.4 F L Pulse Rate 75 Respiratory 20 Rate Blood Pressure 180/83 O2 Sat by Pulse 97 Oximetry Medical Decision Making - Medical Decision Making 59 male the ER status post wrist injury. X-rays negative for fracture, patient does have swollen right wrist with decreased range of motion, patient will follow up with primary care, patient given pain control can be discharged home - Radiology Data Radiology results: report reviewed (X-ray right wrist is negative), image reviewed Disposition Clinical Impression: Right wrist sprain Disposition: HOME SELF-CARE Condition: Good Instructions: Wrist Injury (ED), Hand Sprain (ED) Referrals: Harvey Kumari MD [Primary Care Provider] - 1-2 days
[2017-06-24 08:34] VITALS: BP 182/86; PULSE 64; RESP 15
== END 2017-06-24 08:30 | disposition home or self-care (01) ==
LOC: EC 06:24
DX: S63.501A Unspecified sprain of right wrist, initial encounter (principal); I10 Essential (primary) hypertension; F32.9 Major depressive disorder, single episode, unspecified; F41.9 Anxiety disorder, unspecified; Z87.891 Personal history of nicotine dependence; Z79.899 Other long term (current) drug therapy; Z86.69 Personal history of other diseases of the nervous system and sense organs; X58.XXXA Exposure to other specified factors, initial encounter
CPT/HCPCS: 99284

== ENCOUNTER 2017-09-28 18:48 | Inpatient (IN) | payer MEDICARE, BC ==
--- NOTE | 2017-09-28 19:23 | ED ---
General Adult HPI - General Source: patient, RN notes reviewed Mode of arrival: EMS Limitations: no limitations <Benson Joya - Last Filed: 09/29/17 03:51> <Jermaine Garcia - Last Filed: 09/29/17 04:21> - General Chief complaint: Psychiatric Symptoms Stated complaint: Mental Health Time Seen by Provider: 09/28/17 18:57 - History of Present Illness Initial comments: Patient 62-year-old male presenting to the emergency room today with chief complaint suicidal ideation. He denies any specific plan. He does admit that he was talking to his sister yesterday and was discussing plans to set up for cremation for himself. Patient does admit that his best friend recently one week ago. He states is very sad about this and was at the everyone told him what a great ollie he is. This made him feel even worse. Patient does admit that is been admitted to psych in the past. He also admits to some cough congestion just over the last 2 days since were not bronchitis. Denies any other complaints or symptoms at this time. Patient denies any recent fever, chills, shortness of breath, chest pain, back pain, abdominal pain, nausea or vomiting, numbness or tingling, headaches or visual changes, or any other complaints. (Benson Joya) - Related Data Home Medications Medication Instructions Recorded Confirmed Latanoprost [Xalatan 0.005%] 1 drop BOTH EYES HS 06/24/17 09/28/17 Metoprolol/Hydrochlorothiazide 1 tab PO DAILY 06/24/17 09/28/17 [Lopressor Hct 100-25 mg Tab] PARoxetine HCL [Paxil] 40 mg PO DAILY 06/24/17 09/28/17 Timolol 0.5% Ophth Soln [Timoptic 1 drop BOTH EYES BID 06/24/17 09/28/17 0.5% Ophth Soln] traZODone HCL [Desyrel] 200 mg PO HS 06/24/17 09/28/17 DULoxetine HCL [Cymbalta] 60 mg PO DAILY 09/28/17 09/28/17 Hydrochlorothiazide [Hydrodiuril] 25 mg PO DAILY 09/28/17 09/28/17 Sertraline [Zoloft] 50 mg PO DAILY 09/28/17 09/28/17 Tamsulosin HCl [Flomax] 0.4 mg PO DAILY 09/28/17 09/28/17 hydrOXYzine HCL [Atarax] 25 mg PO TID 09/28/17 09/28/17 Previous Rx's Medication Instructions Recorded Naproxen [Naprosyn] 500 mg PO Q12HR PRN #30 tab 06/24/17 Allergies Allergy/AdvReac Type Severity Reaction Status Date / Time No Known Allergies Allergy Verified 09/28/17 19:17 Review of Systems ROS Other: All systems not noted in ROS Statement are negative. <Benson Joya - Last Filed: 09/29/17 03:51> ROS Other: All systems not noted in ROS Statement are negative. <Jermaine Garcia - Last Filed: 09/29/17 04:21> ROS Statement: Those systems with pertinent positive or pertinent negative responses have been documented in the HPI. Past Medical History Past Medical History: Hyperlipidemia, Hypertension, Musculoskeletal Disorder, Osteoarthritis (OA), Prostate Disorder Additional Past Medical History / Comment(s): Alcoholism, bronchitis, ulcerative colitis, rectal bleed, gout in bilateral feet, unsteady gait, balance issues, "blood shot" eyes which he has been told is dur to dry eyes, arthritis multiple joints, BPH. History of Any Multi-Drug Resistant Organisms: None Reported Past Surgical History: Back Surgery, Hernia Repair, Joint Replacement, Orthopedic Surgery, Tonsillectomy Additional Past Surgical History / Comment(s): Lumbar back surgery x 3, total L knee, hernia repair umbilical and left inguinal, colonoscopy. Past Anesthesia/Blood Transfusion Reactions: No Reported Reaction, Motion Sickness Additional Past Anesthesia/Blood Transfusion Reaction / Comment(s): Pt gets sea sick. Past Psychological History: Anxiety, Depression Smoking Status: Former smoker Past Alcohol Use History: Abuse, Daily Past Drug Use History: None Reported - Past Family History Mother Additional Family Medical History / Comment(s): Mother "battled" depression all of her life. She was 82 yrs old when she . Father Additional Family Medical History / Comment(s): Father was an alcoholic. He at the age of 72 yrs. <Benson Joya - Last Filed: 09/29/17 03:51> General Exam Limitations: no limitations <Benson Joya - Last Filed: 09/29/17 03:51> <Jermaine Garcia - Last Filed: 09/29/17 04:21> - General Exam Comments Initial Comments: General: The patient is awake and alert, in no distress, and does not appear acutely ill. Eye: Pupils are equal, round and reactive to light, extra-ocular movements are intact. No nystagmus. There is normal conjunctiva bilaterally. No signs of icterus. Ears, nose, mouth and throat: There are moist mucous membranes and no oral lesions. Neck: The neck is supple, there is no tenderness or JVD. Cardiovascular: There is a regular rate and rhythm. No murmur, rub or gallop is appreciated. Respiratory: Mild expiratory wheeze on the left. respirations are non-labored, breath sounds are equal. No wheezes, stridor, rales, or rhonchi. Musculoskeletal: Normal ROM, no tenderness. Strength 5/5. Sensation intact. Pulses equal bilaterally 2+. Neurological: A&O x 3. CN II-XII intact, There are no obvious motor or sensory deficits. Coordination appears grossly intact. Speech is normal. Skin: Skin is warm and dry and no rashes or lesions are noted. Psychiatric: Cooperative (Benson Joya) Course <Benson Joya - Last Filed: 09/29/17 03:51> <Jermaine Garcia - Last Filed: 09/29/17 04:21> Vital Signs 09/28/17 09/28/17 18:54 21:18 Temperature 97.1 F L Pulse Rate 95 88 Respiratory 18 18 Rate Blood Pressure 194/97 168/88 O2 Sat by Pulse 94 L 96 Oximetry - Reevaluation(s) Reevaluation #1: 09/29/17 03:51 Patient has been evaluated by mental health here in the emergency room. Currently awaiting their recommendation. Case was discussed and signed out to attending physician Dr. Garcia. (Benson Joya) Medical Decision Making <Benson Joya - Last Filed: 09/29/17 03:51> <Jermaine Garcia - Last Filed: 09/29/17 04:21> - Medical Decision Making 61-year-old male evaluated for suicidal ideation. Patient is seen by EPS in the emergency department, he will be admitted for further psychiatric evaluation and treatment. She is agreeable with this plan. (Jermaine Garcia ) - Lab Data Lab Results 09/28/17 Range/Units 23:43 Urine Opiates Screen Not Detected (NotDetected) Ur Oxycodone Screen Not Detected (NotDetected) Urine Methadone Screen Not Detected (NotDetected) Ur Propoxyphene Screen Not Detected (NotDetected) Ur Barbiturates Screen Not Detected (NotDetected) U Tricyclic Antidepress Not Detected (NotDetected) Ur Phencyclidine Scrn Not Detected (NotDetected) Ur Amphetamines Screen Not Detected (NotDetected) U Methamphetamines Scrn Not Detected (NotDetected) U Benzodiazepines Scrn Not Detected (NotDetected) Urine Cocaine Screen Not Detected (NotDetected) U Marijuana (THC) Screen Not Detected (NotDetected) Disposition <Benson Joya - Last Filed: 09/29/17 03:51> Is patient prescribed a controlled substance at d/c from ED?: No Decision to Admit Reason: Admit from EC Decision Date: 09/29/17 Decision Time: 04:20 <Jermaine Garcia - Last Filed: 09/29/17 04:21> Clinical Impression: Depression, Suicidal ideation Disposition: ADMITTED IP TO THIS [facility] Condition: Stable Referrals: Nonstaff,Physician [REFERRING] - 1-2 days
--- NOTE | 2017-09-28 19:41 | XR ---
EXAMINATION TYPE: XR chest 2V DATE OF EXAM: 09/28/2017 COMPARISON: 07/27/2016 HISTORY: Cough TECHNIQUE: Frontal and lateral views of the chest are obtained. FINDINGS: Heart and mediastinum are normal. Lungs are clear. Diaphragm is normal. Bony thorax is int act. IMPRESSION: Normal chest. No change.
[2017-09-28] MEDS ORDERED: IBUPROFEN 600 MG TAB PO STA (20:56)
[2017-09-28] MEDS ORDERED: LORazepam 1 MG TAB PO STA (23:05)
[2017-09-29 00:07] LABS: Amphetamine Screen,Urine Not Detected (NotDetected); Barbiturate Screen,Urine Not Detected (NotDetected); Benzodiazepines Screen,Urine Not Detected (NotDetected); Cocaine Screen,Urine Not Detected (NotDetected); Methadone Screen, Urine Not Detected (NotDetected); Opiate Screen,Urine Not Detected (NotDetected); Oxycodone Screen, Urine Not Detected (NotDetected); Phencyclidine Screen,Urine Not Detected (NotDetected); Tricyclic Antidepressant,Urine Not Detected (NotDetected); Urn Cannabinoid Scrn Not Detected (NotDetected)
[2017-09-29] MEDS ORDERED: LORazepam 1 MG TAB PO STA (03:26)
[2017-09-29] MEDS ORDERED: ACETAMINOPHEN TAB 325 MG TAB PO STA (03:26)
[2017-09-29] MEDS ORDERED: ZIPRASIDONE 20 MG VIAL IM PRN (05:18)
[2017-09-29] MEDS ORDERED: ACETAMINOPHEN TAB 325 MG TAB PO PRN (05:18)
[2017-09-29] MEDS: LORazepam 1 MG TAB PO PRN ×3 (05:40→19:05)
--- NOTE | 2017-09-29 07:11 | P.PN ---
Progress Note - Text Progress Note Date: 09/29/17 I went to see the patient at 6 in the morning upon RN request for new consult for medical management. Patient was sleeping he was easily arousable but he kept drifting back into sleep. RN was concerned regarding abdominal distention where he was evaluated on prior admissions for toxic megacolon, patient also is a heavy drinker. I was unable to get any meaningful information from the patient as he shakes his head for any questions that I ask him and he drifts back to sleep. I asked for permission to do a physical exam but I got no answer. I tried to examine his abdomen but the patient seemed to be irritated. His abdomen seems to be distended however it was soft to the touch. Abdominal x-ray will be ordered and will be signed up for to the morning team
[2017-09-29] MEDS ORDERED: TAMSULOSIN 0.4 MG CAP.ER.24H PO SCH (09:00)
[2017-09-29] MEDS ORDERED: NICOTINE 14MG/24HR PATCH TRANSDERM SCH (09:00)
[2017-09-29] MEDS ORDERED: TIMOLOL 0.5% OPHTH DROPS 5 ML BTL BOTH EYES SCH (09:00)
[2017-09-29] MEDS: LORazepam 1 MG TAB PO SCH ×3 (09:17→16:52)
[2017-09-29 10:42] LABS: Basophils % (A) 1 %; Eosinophils # (A) 0.1 k/uL (0-0.7); Eosinophils % (A) 1 %; HGB 15.5 gm/dL (13.0-17.5); Lymphocytes # (A) 0.7 k/uL (1.0-4.8); Lymphocytes % (A) 16 %; MCH 29.9 pg (25.0-35.0); MCHC 33.6 g/dL (31.0-37.0); Mean Platelet Volume 6.2; Monocytes # (A) 0.2 k/uL (0-1.0); Monocytes % (A) 5 %; Neutrophils # (A) 3.5 k/uL (1.3-7.7); Neutrophils % (A) 75 %; Platelet Count 157 k/uL (150-450); RBC 5.17 m/uL (4.30-5.90); RDW 14.7 % (11.5-15.5); WBC 4.6 k/uL (3.8-10.6)
[2017-09-29 10:50] LABS: ALT 124 U/L (21-72); AST 125 U/L (17-59); Albumin 5.3 g/dL (3.5-5.0); Alkaline Phosphatase 78 U/L (38-126); Anion Gap 25 mmol/L; Blood Urea Nitrogen 7 mg/dL (9-20); Calcium 9.5 mg/dL (8.4-10.2); Carbon Dioxide 22 mmol/L (22-30); Chloride 98 mmol/L (98-107); Cholesterol 282 mg/dL (<200); Glucose 87 mg/dL (74-99); Sodium 145 mmol/L (137-145); Total Protein 7.9 g/dL (6.3-8.2); Triglycerides 119 mg/dL (<150)
[2017-09-29 10:52] LABS: Potassium 3.8 mmol/L (3.5-5.1)
[2017-09-29 10:59] LABS: LDL Cholesterol,Calculated 136 mg/dL (0-99)
[2017-09-29 11:15] LABS: HDL Cholesterol 122 mg/dL (40-60)
--- NOTE | 2017-09-29 12:25 | P.HP ---
Psychiatric H&P - . H&P Date: 09/29/17 History & Physical: Allergies Allergy/AdvReac Type Severity Reaction Status Date / Time No Known Allergies Allergy Verified 09/28/17 19:17 Vital Signs Temp 97.1 F L 09/29/17 05:26 Pulse 84 09/29/17 08:13 Resp 16 09/29/17 08:13 BP 184/94 09/29/17 08:13 Pulse Ox 96 09/29/17 08:13 Intake & Output 09/28/17 09/29/17 09/29/17 18:59 06:59 18:59 Weight 131.542 kg 123.405 kg Laboratory Last Values WBC 4.6 k/uL (3.8-10.6) 09/29/17 10:03 RBC 5.17 m/uL (4.30-5.90) 09/29/17 10:03 Hgb 15.5 gm/dL (13.0-17.5) 09/29/17 10:03 Hct 46.0 % (39.0-53.0) 09/29/17 10:03 MCV 89.0 fL (80.0-100.0) 09/29/17 10:03 MCH 29.9 pg (25.0-35.0) 09/29/17 10:03 MCHC 33.6 g/dL (31.0-37.0) 09/29/17 10:03 RDW 14.7 % (11.5-15.5) 09/29/17 10:03 Plt Count 157 k/uL (150-450) 09/29/17 10:03 Neutrophils % 75 % 09/29/17 10:03 Lymphocytes % 16 % 09/29/17 10:03 Monocytes % 5 % 09/29/17 10:03 Eosinophils % 1 % 09/29/17 10:03 Basophils % 1 % 09/29/17 10:03 Neutrophils # 3.5 k/uL (1.3-7.7) 09/29/17 10:03 Lymphocytes # 0.7 k/uL (1.0-4.8) L 09/29/17 10:03 Monocytes # 0.2 k/uL (0-1.0) 09/29/17 10:03 Eosinophils # 0.1 k/uL (0-0.7) 09/29/17 10:03 Basophils # 0.0 k/uL (0-0.2) 09/29/17 10:03 Sodium 145 mmol/L (137-145) 09/29/17 10:03 Potassium 3.8 mmol/L (3.5-5.1) 09/29/17 10:03 Chloride 98 mmol/L (98-107) 09/29/17 10:03 Carbon Dioxide 22 mmol/L (22-30) 09/29/17 10:03 Anion Gap 25 mmol/L 09/29/17 10:03 BUN 7 mg/dL (9-20) L 09/29/17 10:03 Creatinine 0.72 mg/dL (0.66-1.25) 09/29/17 10:03 Est GFR (CKD-EPI)AfAm >90 (>60 ml/min/1.73 sqM) 09/29/17 10:03 Est GFR (CKD-EPI)NonAf >90 (>60 ml/min/1.73 sqM) 09/29/17 10:03 Glucose 87 mg/dL (74-99) 09/29/17 10:03 Calcium 9.5 mg/dL (8.4-10.2) 09/29/17 10:03 Total Bilirubin 2.0 mg/dL (0.2-1.3) H 09/29/17 10:03 AST 125 U/L (17-59) H 09/29/17 10:03 ALT 124 U/L (21-72) H 09/29/17 10:03 Alkaline Phosphatase 78 U/L (38-126) 09/29/17 10:03 Total Protein 7.9 g/dL (6.3-8.2) 09/29/17 10:03 Albumin 5.3 g/dL (3.5-5.0) H 09/29/17 10:03 Triglycerides 119 mg/dL (<150) 09/29/17 10:03 Cholesterol 282 mg/dL (<200) H 09/29/17 10:03 LDL Cholesterol, Calc 136 mg/dL (0-99) H 09/29/17 10:03 HDL Cholesterol 122 mg/dL (40-60) H 09/29/17 10:03 TSH 1.310 mIU/L (0.465-4.680) 09/29/17 10:03 Urine Opiates Screen Not Detected (NotDetected) 09/28/17 23:43 Ur Oxycodone Screen Not Detected (NotDetected) 09/28/17 23:43 Urine Methadone Screen Not Detected (NotDetected) 09/28/17 23:43 Ur Propoxyphene Screen Not Detected (NotDetected) 09/28/17 23:43 Ur Barbiturates Screen Not Detected (NotDetected) 09/28/17 23:43 U Tricyclic Antidepress Not Detected (NotDetected) 09/28/17 23:43 Ur Phencyclidine Scrn Not Detected (NotDetected) 09/28/17 23:43 Ur Amphetamines Screen Not Detected (NotDetected) 09/28/17 23:43 U Methamphetamines Scrn Not Detected (NotDetected) 09/28/17 23:43 U Benzodiazepines Scrn Not Detected (NotDetected) 09/28/17 23:43 Urine Cocaine Screen Not Detected (NotDetected) 09/28/17 23:43 U Marijuana (THC) Screen Not Detected (NotDetected) 09/28/17 23:43 09/29/17 12:11 Identification: Patient is a 62-year-old male who states that he called EMS to come to the hospital because he had suicidal thoughts without a plan because the pain level from his hip was increasing History of Present Illness: Patient states that he was at home and had been on morphine for the pain in his left hip which began about a year ago and states that he had not been taking that any longer and the pain increased and he started to have suicidal thoughts and so called to come to the hospital. Patient states that he's been on Paxil but discontinued it from his primary care physician and has also been taking on a hit and miss basis Zoloft 50 mg Cymbalta 60 mg and trazodone 200 mg. Patient states that he does not take these on a regular basis and has not been compliant with follow-up care after his discharge from the psychiatric unit in August 2016. Patient states that he has been depressed all of his life and is currently on Social Security disability due to his depression. He states that years ago was the first time he was ever treated for depression when he was going through a divorce and was placed on medication at that time. At patient is unable to tell me all of the different medications he has been treated with. He states that he has been at [facility] 3-4 times as well as here once in 2017. Patient states these of all been for suicidal ideation with no attempts and alcohol. Patient reports that he uses a fifth of alcohol a day and has for the last 10 years. Patient reports that he is feeling depressed and suicidal mostly related to his pain, difficulty taking care of himself at home. Patient states that he is also been taking his medications for his high blood pressure, glaucoma on a hit and miss basis. Patient states that he was seeing a primary care physician but recently got into a disagreement with him and has been going to a clinic the name of which she is unable to recall. Patient states that he has balance problems and his legs are weak and that he is fallen twice recently at home. Patient also reported to me that he thought his belly was larger than it was a week ago, he reports that he's been moving his bowels and has not had any abdominal pain. Patient does not endorse any symptoms of lashaun, he does not endorse any auditory hallucinations, no visual hallucinations and no history of anxiety. Patient does not report any seizures or delirium when withdrawing from alcohol. Past Psychiatric History: Patient has had at least 5 prior psychiatric admissions due to alcohol and suicidal ideation and his last admission was here in August 2016. Patient states that he may followed up for a month or so after his discharge but has been receiving psychotropic medication from his primary care physician. Patient was currently prescribed Zoloft 50 mg daily, Cymbalta 60 mg daily, trazodone 200 mg at bedtime and he states he discontinued the Paxil 40 mg daily that had been prescribed. Past Medical/Surgical History: Patient reported a history of glaucoma, hypertension, status post hernia repair and 3 prior back surgeries and he was unable to tell me other medical conditions that he may have had in the past. Family History: Patient states that his mother was diagnosed with depression and his father for alcohol use disorder. And he has a maternal cousin who did complete suicide. Social History: Patient was born and raised in [place] and both of his parents are he has 1 brother and 2 sisters. 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 Patient states he was and 10 years ago and has 3 daughters from that marriage whom he has no contact. Patient lives alone in a ranch house and states that he has assistance cleaning the house and states that he does not do much cooking for himself either making sandwiches or heating something in a microwave. As stated before the patient states he is fallen twice at home once down a small step and once tripping when he got out of the chair. He states that he spends most of his time at home watching TV and does still drive to the bar. He reports no financial difficulties and no abuse history. Substance Use History: Patient states he began using alcohol at the age of 13 and has consistently been drinking since that time and for the last 10 years is been drinking a fifth a day. He states that 1 year has been his longest sobriety. Patient denies any prior or current drug use no IV drug use and no tobacco use Legal History: Patient was arrested for a DUI when he was 18 years of age Mental status: Appearance/Attitude: Patient was found in his room, he is using a walker to ambulate and walked with a wide-based gait, he made intermittent eye contact and was cooperative Behavior: Patient did not display any psychomotor agitation or retardation, some tremulousness of his hands was noted Speech/Language: Patient's speech was spontaneous and normal volume and rhythm and he was coherent Thought Process: Patient was goal-directed but had difficulty in giving much historical detail stating that he couldn't recall some things no evidence of loose association or flight of ideas Thought Content: Patient denied auditory or visual hallucinations and no delusions or paranoid ideation were elicited. Patient states that he was feeling suicidal at home due to increasing pain in his left hip. Patient states that he was taking his medications for depression and anxiety on a hit and miss basis. Patient reports that he was sleeping and eating at home. Suicidal/Homicidal Ideation: Patient reports he still feeling suicidal but has no plan to act or intent to act and no current homicidal ideation Sensorium/Cognition: Patient is alert and oriented to person, place, and time and his recent and remote memory were not tested at this time Mood/Affect: Patient's mood is slightly depressed and his affect is appropriate to his mood Insight/Judgment: Patient's insight and judgment are fair Intellectual Functioning: Patient's intellectual functioning appears average Strength/Weakness: Patient has housing, financial support/use of alcohol, lack of compliance with medication and follow-up care Assessment: Patient presents with a history of alcohol use of a fifth a day for last 10 years, he states that he became suicidal at home because of increasing pain in his left hip which is been going on for over a year. Patient has not been compliant with outpatient psychiatric care after his discharge last August the psychiatric unit for similar complaints. Patient has been taking his medications on a hit and miss basis both for his medical problems as well as for his psychiatric ones being prescribed multiple antidepressants simultaneously. Patient presents currently complaining of suicidal ideation, feeling depressed as well as physical complaints of his belly increasing, left hip pain. 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 Patient had routine laboratory studies, and EKG, and abdominal flat plate as well as a chest x-ray and medical consultation. Patient was placed on Ativan 1 mg 3 times a day and a scheduled basis to prevent alcohol withdrawal symptoms. Patient's blood pressure is elevated and will discuss with the medical record retrieval specialist as the patient has not been compliant with his medications on an outpatient basis. Patient was continued on his medications for BPH as well as for glaucoma. No antidepressants were begun at this time until the patient has stabilized from his alcohol withdrawal. Patient and I discussed not beginning any antidepressants at this time, we will wait for the patient's withdrawal from alcohol to subside and reassess the need at that time.
[2017-09-29] MEDS ORDERED: CYCLOBENZAPRINE 5 MG TAB PO PRN (12:58)
[2017-09-29] MEDS ORDERED: NAPROXEN 250 MG TAB PO SCH (13:00)
--- NOTE | 2017-09-29 13:00 | P.HPMEDMHU ---
History of Present Illness H&P Date: 09/29/17 Chief Complaint: Consult for HPI The patient is a 62-year-old obese male with a past medical history of chronic alcoholism, depression, chronic pain was admitted to the mental health unit reports of suicidal ideation without a plan secondary to increasing left hip pain. Apparently the patient reports this is been there intermittently for the last year, he does report 3 falls in the last 3 months, the patient reports increased trouble with ambulation feels unsteady and weak on his legs, apparently he drinks a fifth of whiskey daily and reports his last drink was yesterday morning. He denies any chest pain but does report, ongoing exertional dyspnea and a productive cough that began 2 days ago. The patient denies any abdominal pain but does report increasing abdominal distention and fullness over the last 2 weeks with some intermittent episodes of diarrhea, he denies any nausea, constipation, bright red blood or dark tarry stools. He does report that he does get jittery when he does not have alcohol but denies any alcohol related seizures or hallucinations, the patient reports that he did have a shot in his left hip in this past May that improved his pain. Review of Systems All 14 point review of systems negative except per HPI Past Medical History Past Medical History: Hyperlipidemia, Hypertension, Musculoskeletal Disorder, Osteoarthritis (OA), Prostate Disorder Additional Past Medical History / Comment(s): Alcoholism, bronchitis, ulcerative colitis, rectal bleed, gout in bilateral feet, unsteady gait, balance issues, "blood shot" eyes which he has been told is dur to dry eyes, arthritis multiple joints, BPH. History of Any Multi-Drug Resistant Organisms: None Reported Past Surgical History: Back Surgery, Hernia Repair, Joint Replacement, Orthopedic Surgery, Tonsillectomy Additional Past Surgical History / Comment(s): Lumbar back surgery x 3, total L knee, hernia repair umbilical and left inguinal, colonoscopy. Past Anesthesia/Blood Transfusion Reactions: No Reported Reaction, Motion Sickness Additional Past Anesthesia/Blood Transfusion Reaction / Comment(s): Pt gets sea sick. Past Psychological History: Anxiety, Depression Smoking Status: Former smoker Past Alcohol Use History: Abuse, Daily Past Drug Use History: None Reported - Past Family History Mother Additional Family Medical History / Comment(s): Mother "battled" depression all of her life. She was 82 yrs old when she . Father Additional Family Medical History / Comment(s): Father was an alcoholic. He at the age of 72 yrs. Medications and Allergies Home Medications Medication Instructions Recorded Confirmed Type Latanoprost [Xalatan 0.005%] 1 drop BOTH EYES HS 06/24/17 09/29/17 History Metoprolol/Hydrochlorothiazide 1 tab PO DAILY 06/24/17 09/29/17 History [Lopressor Hct 100-25 mg Tab] Naproxen [Naprosyn] 500 mg PO Q12HR PRN #30 tab 06/24/17 09/29/17 Rx PARoxetine HCL [Paxil] 40 mg PO DAILY 06/24/17 09/29/17 History Timolol 0.5% Ophth Soln [Timoptic 1 drop BOTH EYES BID 06/24/17 09/29/17 History 0.5% Ophth Soln] traZODone HCL [Desyrel] 200 mg PO HS 06/24/17 09/29/17 History DULoxetine HCL [Cymbalta] 60 mg PO DAILY 09/28/17 09/29/17 History Hydrochlorothiazide [Hydrodiuril] 25 mg PO DAILY 09/28/17 09/29/17 History Sertraline [Zoloft] 50 mg PO DAILY 09/28/17 09/29/17 History Tamsulosin HCl [Flomax] 0.4 mg PO DAILY 09/28/17 09/29/17 History hydrOXYzine HCL [Atarax] 25 mg PO TID 09/28/17 09/29/17 History Allergies Allergy/AdvReac Type Severity Reaction Status Date / Time No Known Allergies Allergy Verified 09/29/17 21:24 Physical Exam Vitals: Vital Signs Temp Pulse Pulse Resp BP BP Pulse Ox 09/29/17 08:13 84 16 184/94 96 09/29/17 05:26 97.1 F L 80 16 191/91 95 09/29/17 04:20 83 18 183/62 97 09/28/17 21:18 88 18 168/88 96 09/28/17 18:54 97.1 F L 95 18 194/97 94 L Intake and Output 09/28/17 09/29/17 09/29/17 22:59 06:59 14:59 Other: Weight 131.542 kg 123.405 kg Constitutional: No acute distress, conversant, pleasant Eyes: Anicteric sclerae, moist conjunctiva, no lid-lag, PERRLA ENMT: NC/AT,Oropharynx clear, no erythema, exudates Neck:Supple, FROM, no masses, or JVD, No carotid bruits; No thyromegaly Lungs: Clear to auscultation, Clear to percussion, Normal respiratory effort, no accessory muscle use Cardiovascular: Heart regular in rate and rhythm, No murmurs, gallops, or rubs no peripheral edema Abdominal: Soft Nontender, nom distended, no guarding, no rebound or rigidity, Normoactive bowel sounds No hepatomegaly, No splenomegaly, No palpable mass No abdominal wall hernia noted Skin: Normal temperature, tone, texture, turgor, No induration No subcutaneous nodules, No rash, lesions, No ulcers Extremities:No digital cyanosis No clubbing, Pedal pulses intact and symmetrical Radial pulses intact and symmetrical Normal gait and station, No calf tenderness Psychiatric: Alert and oriented to person, place and time, Appropriate affect Intact judgement Neuro: Muscles Strength 5/5 in all 4 extremities, Sensation to light touch grossly present throughout, Cranial nerves II-XII grossly intact. No focal sensory deficits Cranial Nerve Examination - Cranial Nerves Cranial Nerve II- Optic: Intact Cranial Nerve III- Oculomotor: Intact Cranial Nerve IV- Trochlear: Intact Cranial Nerve V- Trigeminal: Intact Cranial Nerve - Abducens: Intact Cranial Nerve VII- Facial: Intact Cranial Nerve VIII- Auditory: Intact Cranial Nerve IX- Glossopharyngeal: Intact Cranial Nerve X- Vagus: Intact Cranial Nerve XI- Accessory: Intact Cranial Nerve XII- Hypoglossal: Intact Results CBC & Chem 7: 09/29/17 10:03 09/29/17 10:03 Labs: Abnormal Lab Results - Last 24 Hours (Table) 09/29/17 09/29/17 Range/Units 10:03 10:03 Lymphocytes # 0.7 L (1.0-4.8) k/uL BUN 7 L (9-20) mg/dL Total Bilirubin 2.0 H (0.2-1.3) mg/dL AST 125 H (17-59) U/L ALT 124 H (21-72) U/L Albumin 5.3 H (3.5-5.0) g/dL Cholesterol 282 H (<200) mg/dL LDL Cholesterol, Calc 136 H (0-99) mg/dL HDL Cholesterol 122 H (40-60) mg/dL Assessment and Plan (1) Left hip pain Status: Acute Code(s): M25.552 - PAIN IN LEFT HIP SNOMED Code(s): 18152596 (2) Hypertensive urgency Status: Acute Code(s): I16.0 - HYPERTENSIVE URGENCY SNOMED Code(s): 689450091 (3) Abdominal distention Status: Acute Code(s): R14.0 - ABDOMINAL DISTENSION (GASEOUS) SNOMED Code(s) : 88427510 (4) Transaminitis Status: Acute Code(s): R74.0 - NONSPEC ELEV OF LEVELS OF TRANSAMNS & LACTIC ACID DEHYDRGNSE SNOMED Code(s): 415596384 (5) Chronic alcohol dependence, continuous Status: Acute Code(s): F10.20 - ALCOHOL DEPENDENCE, UNCOMPLICATED SNOMED Code(s): 616649777 (6) Prolonged QT interval Status: Acute Code(s): R94.31 - ABNORMAL ELECTROCARDIOGRAM [ECG] [EKG] SNOMED Code(s): 313202072 (7) Suicidal ideation Status: Acute Code(s): R45.851 - SUICIDAL IDEATIONS SNOMED Code(s): 2928118 (8) Depression Status: Acute Code(s): F32.9 - MAJOR DEPRESSIVE DISORDER, SINGLE EPISODE, UNSPECIFIED SNOMED Code(s): 82085612 Plan: The patient is admitted to the medical health unit for suicidal ideation depression will defer to psychiatry team regarding psychotropic medical therapy patient will likely need ongoing CBT. The patient does have a history of chronic alcoholism and does have complaints of increasing abdominal distention, also has chronic pain with intermittent left hip pain we'll order a CT abdomen and pelvis given history of received recent falls. The patient is also have some transaminitis with hyperbilirubinemia and there is concern for alcoholic liver disease, we'll order PT INR. We'll start the patient on naproxen and Flexeril for his left hip pain and consult orthopedic service to evaluate the patient for left hip intra-articular injection. Continue symptom triggered CIWA etoh withdrawal protocol with Ativan when necessary and also prn clonidine and restart his home antihypertensive regimen in addition to stat dose of Metoprolol and Norvasc. The patient is noted to have prolonged QT on his EKG, will recommend avoiding psychotropic medications that would prolong his QT. We' ll continue to follow the patient's clinical course will also order PT OT
[2017-09-29] MEDS ORDERED: METOPROLOL TARTRATE 50 MG TAB PO STA (13:10)
[2017-09-29] MEDS ORDERED: amLODIPine 5 MG TAB PO STA (13:11)
[2017-09-29 13:49] LABS: INR 1.2 (<1.2); Prothrombin Time 11.3 sec (9.0-12.0)
[2017-09-29] MEDS ORDERED: cloNIDine HCL 0.1 MG TAB PO PRN (14:59)
--- NOTE | 2017-09-29 15:47 | CT ---
EXAMINATION TYPE: CT abdomen pelvis wo con DATE OF EXAM: 09/29/2017 COMPARISON: 08/20/2016 HISTORY: Upper abdominal pain for [address] DLP: 1352 mGycm Automated exposure control for dose reduction was used. TECHNIQUE: Helical acquisition of images was performed from the lung bases through the pelvis. FINDINGS: LUNG BASES: No significant abnormality is appreciated. LIVER/GB: Hepatic parenchyma is diffusely hypoattenuated in comparison to that of the spleen, most co mmonly seen in hepatic steatosis. This finding limits evaluation for hepatic masses. No gross evidenc e of hepatic mass is seen. No intrahepatic biliary ductal dilatation. No cholelithiasis PANCREAS: No significant abnormality is seen. SPLEEN: No significant abnormality is seen. ADRENALS: No thickening or nodularity. KIDNEYS: No nephrolithiasis or hydronephrosis. FREE AIR: No free air is visualized ADENOPATHY: No greater than 1 cm short axis lymph nodes are seen within the abdomen or pelvis. REPRODUCTIVE ORGANS: No significant abnormality is seen URINARY BLADDER: No significant abnormality is seen. OSSEOUS STRUCTURES: Postsurgical changes of the lower lumbar spine are noted. BOWEL: The transverse colon is extensively dilated measuring up to 12.5 cm. Within the sigmoid colon there is a long segment area of bowel wall thickening without focal stenosis although there is sligh t luminal caliber narrowing. This is seen on series 3 image 73 sternum numerous diverticula. No peric olonic fat stranding or diverticular fat stranding. There is loss of haustration of the transverse co delfino. Air and stool are noted within the rectum. There is decompression of the ascending colon and cec um with mild pericolonic fat stranding. Terminal ileum and appendix are filled and within normal limi ts. Small bowel is nondilated. OTHER: There is a small fat filled right inguinal hernia noted. IMPRESSION: 1. FINDINGS FAVORING SEVERE COLONIC ILEUS. THERE IS EXTENSIVE DILATATION OF THE TRANSVERSE COLON EVELIO URING UP TO 12.5 CENTIMETERS IN TRANSVERSE DIMENSION WITH LACK OF HAUSTRATION. DISTAL TO THIS THE BOW EL IS AIR-FILLED WITHOUT EVIDENCE OF OBSTRUCTION. AIR AND STOOL ARE NOTED WITHIN THE RECTUM. VERY MIL D SIGMOID COLONIC THICKENING IS SEEN WITHIN A LONG SEGMENT THAT RESULTS IN MINIMAL LUMINAL NARROWING. COLONOSCOPY COULD BE PERFORMED IF NOT RECENTLY PERFORMED ALTHOUGH FINDINGS GIVEN THE LONG SEGMENT CO ULD REPRESENT SEQUELA OF CHRONIC DIVERTICULOSIS/DIVERTICULITIS. NO ACUTE DIVERTICULITIS SEEN. DEGREE OF COLONIC DILATATION IS GREATER THAN ON THE PRIOR EXAM. 2. DECOMPRESSION AND MINIMAL PERICOLONIC FAT STRANDING OF THE ASCENDING COLON SUGGESTING MILD COLITIS .
[2017-09-29] MEDS ORDERED: BISACODYL 10 MG SUPP RECTAL STA (17:55)
[2017-09-29 18:05] VITALS: BP 186/88; PULSE 84; RESP 20; TEMP 98
--- NOTE | 2017-09-29 18:21 | P.GSCN ---
History of Present Illness Consult date: 09/29/17 History of present illness: 62-year-old male that is a poor historian. He is admitted to the mental health unit with reports of suicidal ideation. He is known to have chronic all call is a man depression. The patient denies any abdominal pain but reports an increased amount of abdominal distention. He states he does not remember when his last bowel movement was. He states that he is passing gas. He is currently confused on where he is at an time, but he is oriented to person. Per chart review, the patient did have a similar presentation approximately 1 year ago in which she was found to have a dilated transverse colon and was evaluated by surgery at that time. He states that he does not remember being evaluated at that time. He denies any nausea or vomiting. Since his admission he has been tolerating a regular diet. He states that he has had a colonoscopy within the last 5 years and states that it was normal. He denies any fevers, chills, chest pain or shortness of breath. Past Medical History Past Medical History: Hyperlipidemia, Hypertension, Musculoskeletal Disorder, Osteoarthritis (OA), Prostate Disorder Additional Past Medical History / Comment(s): Alcoholism, bronchitis, ulcerative colitis, rectal bleed, gout in bilateral feet, unsteady gait, balance issues, "blood shot" eyes which he has been told is dur to dry eyes, arthritis multiple joints, BPH. History of Any Multi-Drug Resistant Organisms: None Reported Past Surgical History: Back Surgery, Hernia Repair, Joint Replacement, Orthopedic Surgery, Tonsillectomy Additional Past Surgical History / Comment(s): Lumbar back surgery x 3, total L knee, hernia repair umbilical and left inguinal, colonoscopy. Past Anesthesia/Blood Transfusion Reactions: No Reported Reaction, Motion Sickness Additional Past Anesthesia/Blood Transfusion Reaction / Comm: Pt gets sea sick. Past Psychological History: Anxiety, Depression Smoking Status: Former smoker Past Alcohol Use History: Abuse, Daily Past Drug Use History: None Reported - Past Family History Mother Additional Family Medical History / Comment(s): Mother "battled" depression all of her life. She was 82 yrs old when she . Father Additional Family Medical History / Comment(s): Father was an alcoholic. He at the age of 72 yrs. Medications and Allergies Home Medications Medication Instructions Recorded Confirmed Type Latanoprost [Xalatan 0.005%] 1 drop BOTH EYES HS 06/24/17 09/28/17 History Metoprolol/Hydrochlorothiazide 1 tab PO DAILY 06/24/17 09/28/17 History [Lopressor Hct 100-25 mg Tab] Naproxen [Naprosyn] 500 mg PO Q12HR PRN #30 tab 06/24/17 09/28/17 Rx PARoxetine HCL [Paxil] 40 mg PO DAILY 06/24/17 09/28/17 History Timolol 0.5% Ophth Soln [Timoptic 1 drop BOTH EYES BID 06/24/17 09/28/17 History 0.5% Ophth Soln] traZODone HCL [Desyrel] 200 mg PO HS 06/24/17 09/28/17 History DULoxetine HCL [Cymbalta] 60 mg PO DAILY 09/28/17 09/28/17 History Hydrochlorothiazide [Hydrodiuril] 25 mg PO DAILY 09/28/17 09/28/17 History Sertraline [Zoloft] 50 mg PO DAILY 09/28/17 09/28/17 History Tamsulosin HCl [Flomax] 0.4 mg PO DAILY 09/28/17 09/28/17 History hydrOXYzine HCL [Atarax] 25 mg PO TID 09/28/17 09/28/17 History Allergies Allergy/AdvReac Type Severity Reaction Status Date / Time No Known Allergies Allergy Verified 09/28/17 19:17 Surgical - Exam Osteopathic Statement: *. No significant issues noted on an osteopathic structural exam other than those noted in the History and Physical/Consult. Vital Signs Temp Pulse Resp BP Pulse Ox 97.1 F L 95 18 194/97 94 L 09/28/17 18:54 09/28/17 18:54 09/28/17 18:54 09/28/17 18:54 09/28/17 18:54 - General well nourished, no distress - Eyes normal ocular movement - ENT normal mucosa, no hearing loss - Neck trachea midline - Respiratory No difficulty with respiration - Abdomen Soft, nontender, moderate distention, no rebound, no guarding, no palpable organomegaly - Integumentary no rash, no growths - Neurologic normal sensation - Psychiatric Confused to time and place, oriented with person Results - Labs 09/29/17 10:03 04/25/18 10:03 Abnormal Lab Results - Last 24 Hours (Table) 09/29/17 09/29/17 09/29/17 Range/Units 10:03 10:03 13:02 Lymphocytes # 0.7 L (1.0-4.8) k/uL INR 1.2 H (<1.2) BUN 7 L (9-20) mg/dL Total Bilirubin 2.0 H (0.2-1.3) mg/dL AST 125 H (17-59) U/L ALT 124 H (21-72) U/L Albumin 5.3 H (3.5-5.0) g/dL Cholesterol 282 H (<200) mg/dL LDL Cholesterol, Calc 136 H (0-99) mg/dL HDL Cholesterol 122 H (40-60) mg/dL Diabetes panel 09/29/17 Range/Units 10:03 Sodium 145 (137-145) mmol/L Potassium 3.8 (3.5-5.1) mmol/L Chloride 98 (98-107) mmol/L Carbon Dioxide 22 (22-30) mmol/L BUN 7 L (9-20) mg/dL Creatinine 0.72 (0.66-1.25) mg/dL Glucose 87 (74-99) mg/dL Calcium 9.5 (8.4-10.2) mg/dL AST 125 H (17-59) U/L ALT 124 H (21-72) U/L Alkaline Phosphatase 78 (38-126) U/L Total Protein 7.9 (6.3-8.2) g/dL Albumin 5.3 H (3.5-5.0) g/dL Triglycerides 119 (<150) mg/dL HDL Cholesterol 122 H (40-60) mg/dL Thyroid panel 09/29/17 Range/Units 10:03 TSH 1.310 (0.465-4.680) mIU/L Calcium panel 09/29/17 Range/Units 10:03 Calcium 9.5 (8.4-10.2) mg/dL Albumin 5.3 H (3.5-5.0) g/dL Pituitary panel 09/29/17 Range/Units 10:03 Sodium 145 (137-145) mmol/L Potassium 3.8 (3.5-5.1) mmol/L Chloride 98 (98-107) mmol/L Carbon Dioxide 22 (22-30) mmol/L BUN 7 L (9-20) mg/dL Creatinine 0.72 (0.66-1.25) mg/dL Glucose 87 (74-99) mg/dL Calcium 9.5 (8.4-10.2) mg/dL TSH 1.310 (0.465-4.680) mIU/L Adrenal panel 09/29/17 Range/Units 10:03 Sodium 145 (137-145) mmol/L Potassium 3.8 (3.5-5.1) mmol/L Chloride 98 (98-107) mmol/L Carbon Dioxide 22 (22-30) mmol/L BUN 7 L (9-20) mg/dL Creatinine 0.72 (0.66-1.25) mg/dL Glucose 87 (74-99) mg/dL Calcium 9.5 (8.4-10.2) mg/dL Total Bilirubin 2.0 H (0.2-1.3) mg/dL AST 125 H (17-59) U/L ALT 124 H (21-72) U/L Alkaline Phosphatase 78 (38-126) U/L Total Protein 7.9 (6.3-8.2) g/dL Albumin 5.3 H (3.5-5.0) g/dL - Imaging CT scan - abdomen: report reviewed, image reviewed CT scan - pelvis: report reviewed, image reviewed (CT of the abdomen and pelvis was reviewed. There is noted distention of his transverse colon.) Assessment and Plan (1) Abdominal distention Narrative/Plan: 62-year-old male with abdominal distention, colonic ileus - After reviewing records, this appears to be a chronic problem for the patient. Currently he is in no pain and having flatus. He was tolerating a regular diet. - Lab values were reviewed, no leukocytosis - No tachycardia - I have made the patient's diet clear liquid diet and nothing by mouth after midnight. Consult placed to gastroenterology for any recommendations on endoscopy. - No acute surgical intervention planned, will continue to follow the patient's clinical course and make recommendations accordingly. Thank you for this consultation. I look forward in providing in this patient's care. Current Visit: Yes Status: Acute Code(s): R14.0 - ABDOMINAL DISTENSION ( GASEOUS) SNOMED Code(s): 73478814
--- NOTE | 2017-09-29 18:36 | CT ---
EXAMINATION TYPE: CT hip LT wo con DATE OF EXAM: 09/29/2017 COMPARISON: NONE HISTORY: Left hip pain. CT DLP: 1352 mGycm Automated exposure control for dose reduction was used. FINDINGS: Multiple axial sections were obtained from the left iliac crest to the subtrochanteric femur with no contrast. FINDINGS: The left sacroiliac joint is intact. The proximal left femur is intact. Hip joint spaces fairly catracho l. There is mild acetabular spurring. There is no evidence of a pelvic mass. Acetabulum is intact. I see no focal bone destruction. There is some atherosclerotic vascular calcification. The visualized s acrum appears intact. IMPRESSION: THE IMAGES FAILED TO DEMONSTRATE A DEFINITE FRACTURE. MILD ACETABULAR SPURRING.
[2017-09-29] MEDS ORDERED: SENNOSIDES 8.6 MG TAB PO SCH (21:00)
[2017-09-29] MEDS ORDERED: LATANOPROST 0.005% OPHTH DROPS 2.5 ML BTL BOTH EYES SCH (21:00)
[2017-09-30] MEDS ORDERED: HYDROCHLOROTHIAZIDE 25 MG TAB PO SCH (09:00)
[2017-09-30] MEDS ORDERED: METOPROLOL TARTRATE 50 MG TAB PO SCH (09:00)
== END 2017-09-29 20:54 | disposition short-term general hospital (02) | DRG 897 ==
LOC: EC 18:48 → 3MHU 09-29 04:21
PROVIDERS: ADMIT Psychiatry & Neurology Psychiatry; ATTEND Psychiatry & Neurology Psychiatry
DX: F10.24 Alcohol dependence with alcohol-induced mood disorder (principal); K56.7 Ileus, unspecified; R45.851 Suicidal ideations; E78.5 Hyperlipidemia, unspecified; F10.239 Alcohol dependence with withdrawal, unspecified; H40.9 Unspecified glaucoma; I10 Essential (primary) hypertension; N40.0 Benign prostatic hyperplasia without lower urinary tract symptoms; F41.9 Anxiety disorder, unspecified; H04.123 Dry eye syndrome of bilateral lacrimal glands; M10.9 Gout, unspecified; M19.90 Unspecified osteoarthritis, unspecified site; M25.552 Pain in left hip; R26.81 Unsteadiness on feet; Z79.899 Other long term (current) drug therapy; Z91.14 Patient's other noncompliance with medication regimen; Z87.891 Personal history of nicotine dependence; Z91.19 Patient's noncompliance with other medical treatment and regimen; Z96.60 Presence of unspecified orthopedic joint implant; Z81.1 Family history of alcohol abuse and dependence; Z81.8 Family history of other mental and behavioral disorders
CPT/HCPCS: 71046; 74176; 80053; 80061; 80306; 82075; 83036; 84443; 85025; 85610; 93005; 99285

== ENCOUNTER 2017-09-29 20:34 | Inpatient (IN) | payer MEDICARE, BC ==
[2017-09-29] MEDS ORDERED: THIAMINE 100 MG/ML 2 ML VIAL IM STA (21:17)
[2017-09-29] MEDS ORDERED: LORazepam 2 MG/ML INJ IV PRN (21:17)
[2017-09-29] MEDS ORDERED: NALOXONE 0.4 MG/ML 1 ML VIAL IV PRN (21:18)
--- NOTE | 2017-09-29 21:29 | P.PN ---
Progress Note - Text Progress Note Date: 09/29/17 Admission note 62-year-old male with past medical history of chronic alcoholism, depression, chronic pain was admitted to the mental health unit due to suicidal ideation which he claims to be due to severe left hip pain which he has been suffering from off/on for the past year. He claims that the pain started to affect his daily activity , feeling unsteady to walk , and resulted in falls couple times over the past few months. He admits to heavy drinking about a fifth of whiskey daily and reports his last drink was 09/28/2017 in the morning. He has history of alcohol withdrawal in the past but does not recall any withdrawal seizures. Patient noticed increased abd distention over the past few weeks, denies constipation, admits to diarrhea, and continues to pass gasses, he is tolerating diet, and denies any nausea, vomiting, rectal bleeding, or abd pain. General surgery evaluated the patient earlier, and performed CT of the abd, which showed severe colonic ileus, surgery thought this is chronic with some acute worsening, but there were no immediate recommendations for surgical intervention, however, recommended Clear liquid diet for now, and NPO after midnight for further evaluation by general surgery and GI team for possible need for colonoscopy. He The Psychiatry team found that patient is requiring high doses of Ativan almost every hour, and continues to score high on the CIWA scale (12) despite receiving 2 mg of Ativan an hour ago. His blood pressure continues to be high with systolic pressure ranging between 180s-200. For which further medical evaluation was requested for consideration to transfer the patient to the medical floor . physical exam vital signs Temp 98.0 F oral, BP 186/88, pulse rate 84, respiratory rate 20, on room air Constitutional: No acute distress, conversant, pleasant Eyes: Anicteric sclerae, moist conjunctiva, no lid-lag Pupils equal round reactive to light ENMT: NC/AT Oropharynx clear, no erythema, or exudates Neck: Supple, FROM, no masses, or JVD No carotid bruits No thyromegaly Lungs: Clear to auscultation Clear to percussion Normal respiratory effort, no accessory muscle use Cardiovascular: Heart regular in rate and rhythm, No murmurs, gallops, or rubs No peripheral edema Abdominal: severely distended, BS positive, Soft Nontender, no guarding, rebound or rigidity Abdomen moving with respiration No hepatomegaly, No splenomegaly No palpable mass Periumbilical hernia, not tender to palpation, no erythema Skin: Normal temperature, tone, texture, turgor No induration No subcutaneous nodules No rash, lesions No ulcers Extremities: No digital cyanosis No clubbing Pedal pulses intact and symmetrical Radial pulses intact and symmetrical No calf tenderness Psychiatric: Alert and oriented to person, place flat affect poor judgement Neuro Muscles Strength 4/5 in all 4 extremities Sensation to light touch grossly present throughout Cranial nerves II-XII grossly intact No focal sensory deficits Lymphatics: no palpable cervical or supraclavicular , or inguinal lymph nodes Assessment and plan 62-year-old male with history of alcohol abuse presented to the hospital voluntarily due to suicidal ideation which she claims due to severe left hip pain, patient was evaluated by psychiatry and deemed him not suicidal at this time and upon further discussion with the psychiatry team there were no recommendations for one-on-one safety bedside sitter. Upon psychiatry team request for further evaluation of the patient due to severe alcohol withdrawal symptoms and uncontrolled blood pressure patient will be transferred to the medical floor for further management. Patient was also complaining of abdominal distention for which general surgery evaluated the patient and there were no recommendations for immediate surgical intervention #Severe alcohol withdrawal syndrome Continue with Ativan when necessary for alcohol withdrawal symptoms CIWA scale Thiamine and folic acid Patient counseled to quit drinking IV fluid hydration Fall precautions Seizure precautions #Hypertensive urgency Most likely secondary to autonomic response from alcohol withdrawal Continue with clonidine when necessary for systolic blood pressure above 170 Continue with amlodipine and hydrochlorothiazide #Severe colonic ileus Nothing by mouth after midnight IV fluid hydration General surgery and GI following #Suicidal ideation, currently resolved, cleared by psychiatry Psychiatry following #Alcoholic hepatitis Patient counseled to abstain from alcohol Continue to monitor liver enzymes #Severe left hip pain Imaging did not show any acute fractures Pain control Outpatient follow-up with orthopedics #Prolonged QT interval Avoid psychotropic medications for now Check electrolytes and correct as necessary Continue with cardiac monitoring #BPH Continue with Flomax #DVT prophylaxis heparin subcu 3 times a day
[2017-09-29] MEDS: THIAMINE 100 MG TAB PO SCH (22:10)
[2017-09-29] MEDS: HEPARIN SODIUM,PORCINE 5,000 UNIT/ML 1 ML VIAL SQ SCH (22:12)
[2017-09-29] MEDS: SODIUM CHLORIDE 0.9% 1,000 ML IV SCH (22:12)
[2017-09-29] MEDS: LORazepam 2 MG/ML INJ IV PRN (22:32)
[2017-09-30] MEDS: SODIUM CHLORIDE 0.9% 1,000 ML IV SCH ×3 (04:09→18:25)
[2017-09-30] MEDS: traMADol 50 MG TAB PO PRN (06:19)
[2017-09-30 06:40] LABS: Basophils % (A) 1 %; Eosinophils # (A) 0.2 k/uL (0-0.7); Eosinophils % (A) 4 %; HCT 40.2 % (39.0-53.0); HGB 14.2 gm/dL (13.0-17.5); Lymphocytes # (A) 0.9 k/uL (1.0-4.8); Lymphocytes % (A) 22 %; MCH 31.4 pg (25.0-35.0); MCHC 35.3 g/dL (31.0-37.0); MCV 89.1 fL (80.0-100.0); Mean Platelet Volume 6.6; Monocytes # (A) 0.2 k/uL (0-1.0); Monocytes % (A) 4 %; Neutrophils # (A) 2.8 k/uL (1.3-7.7); Neutrophils % (A) 68 %; Platelet Count 125 k/uL (150-450); RBC 4.52 m/uL (4.30-5.90); RDW 14.7 % (11.5-15.5); WBC 4.1 k/uL (3.8-10.6)
[2017-09-30 06:44] LABS: ALT 93 U/L (21-72); AST 86 U/L (17-59); Albumin 4.3 g/dL (3.5-5.0); Alkaline Phosphatase 62 U/L (38-126); Anion Gap 15 mmol/L; Blood Urea Nitrogen 10 mg/dL (9-20); Calcium 9.2 mg/dL (8.4-10.2); Carbon Dioxide 30 mmol/L (22-30); Chloride 98 mmol/L (98-107); Glucose 115 mg/dL (74-99); Magnesium 1.6 mg/dL (1.6-2.3); Potassium 3.5 mmol/L (3.5-5.1); Sodium 143 mmol/L (137-145); Total Bilirubin 1.8 mg/dL (0.2-1.3); Total Protein 6.6 g/dL (6.3-8.2)
[2017-09-30] MEDS ORDERED: POTASSIUM CHLORIDE ER 20 MEQ TAB.ER PO STA (07:02)
[2017-09-30] MEDS ORDERED: MAGNESIUM SULFATE-D5W PMX 1 GM in DEXTROSE/WATER 1 100ML.BAG IVPB ONE (08:00)
[2017-09-30] MEDS: METOPROLOL SUCCINATE (ER) 100 MG TAB.ER.24H PO SCH (08:40)
[2017-09-30] MEDS: amLODIPine 5 MG TAB PO SCH (08:40)
[2017-09-30] MEDS: HEPARIN SODIUM,PORCINE 5,000 UNIT/ML 1 ML VIAL SQ SCH ×2 (08:40→17:26)
[2017-09-30] MEDS: FAMOTIDINE 20 MG TAB PO SCH ×2 (08:40→20:32)
[2017-09-30] MEDS: LORazepam 2 MG/ML INJ IV PRN ×3 (08:40→20:15)
[2017-09-30] MEDS: TIMOLOL 0.5% OPHTH DROPS 5 ML BTL BOTH EYES SCH ×2 (08:41→20:15)
[2017-09-30] MEDS: TAMSULOSIN 0.4 MG CAP.ER.24H PO SCH (08:41)
[2017-09-30] MEDS ORDERED: HYDROCHLOROTHIAZIDE 25 MG TAB PO SCH (09:00)
--- NOTE | 2017-09-30 11:09 | P.CONS ---
History of Present Illness - Reason for Consult Consult date: 09/30/17 Colonic ileus Requesting physician: Jaylan Carter - History of Present Illness 62-year-old male with a history of suicidal ideations depression EtOH abuse chronic back hip pain and chronic dilation of colon admitted 2 days ago with suicidal ideations. Consult requested for colonic ileus. Patient has a history of chronic dilation of colon. He is passing flatus and bowel movements. Patient states he drinks alcohol to help with his chronic pain. Denies fever or chills hematemesis hematochezia melena. His last colonoscopy was approximately 5 years ago in [place] to his memory may be a few polyps were removed. Denies abdominal pain. No emesis. CT abdomen reported severe colonic ileus with extensive dilation of the transverse colon measuring up to 12.5 cm without evidence of obstruction. Colonic diverticular disease without diverticulitis. Previous CT August 2016 reported similar findings of segmental colonic dilatation involving the cecum and ascending admitted segment of the transverse colon measuring up to 10 cm. Mild sigmoid diverticulosis. He was evaluated at that time by general surgery with no surgical intervention planned. Current white count 4.1. Hemoglobin 14.2. Platelet 125. INR 1.2. Total bilirubin 1.8-2.0. AST 86-125. ALT 93-124. AP 62-78. Review of Systems Constitutional: Denies fever, chills, sweats, weight gain, or loss. HEENT: Negative for migraines, blurred vision or loss, earaches, drainage, tinnitus, oral mucosal lesions, dysphagia, or odynophagia. Cardiac: Hyperlipidemia. Hypertension. Negative for chest pain, arrhythmias, or palpitation. Respiratory: Negative for shortness of breath, hemoptysis, cough, or sputum production. Gastrointestinal: See HPI for pertinent findings. Genitourinary: Negative for hematuria, urgency, frequency, polyuria, dysuria, or penile discharge. Musculoskeletal: Chronic hip back pain. Neurologic: Negative for stroke or TIA. Endocrine: Negative for thyroid problems. Skin: Negative for rash or itching. Psychiatric: History of suicidal ideations depression. Past Medical History Past Medical History: Hyperlipidemia, Hypertension, Musculoskeletal Disorder, Osteoarthritis (OA), Prostate Disorder Additional Past Medical History / Comment(s): Alcoholism, bronchitis, ulcerative colitis, rectal bleed, gout in bilateral feet, unsteady gait, balance issues, "blood shot" eyes which he has been told is dur to dry eyes, arthritis multiple joints, BPH. History of Any Multi-Drug Resistant Organisms: None Reported Past Surgical History: Back Surgery, Hernia Repair, Joint Replacement, Orthopedic Surgery, Tonsillectomy Additional Past Surgical History / Comment(s): Lumbar back surgery x 3, total L knee, hernia repair umbilical and left inguinal, colonoscopy. Past Anesthesia/Blood Transfusion Reactions: No Reported Reaction, Motion Sickness Additional Past Anesthesia/Blood Transfusion Reaction / Comm: Pt gets sea sick. Past Psychological History: Anxiety, Depression Additional Psychological History / Comment(s): t resides alone. He uses a walker to ambulate. He drives. He states he has hx of depression and it has been more severe over the past few weeks. He states he recently got after 33 yrs of marriage and his kids "won't talk to me." He stated that over the past two weeks he has had brief thoughts of suicide but no plan and states he is not suicidal at this time. " I want to live." He stated that when he is feeting this emotional, he stops taking his medication and drinks alcohol more. Smoking Status: Never smoker Past Alcohol Use History: Abuse, Daily Additional Past Alcohol Use History / Comment(s): Pt states he started smoking in 1968 and was a 3-4 ppd smoker. He quit smoking in 1978. He states he drinks 1/5 of whiskey mixed with coke each day. Past Drug Use History: None Reported - Past Family History Mother Additional Family Medical History / Comment(s): Mother "battled" depression all of her life. She was 82 yrs old when she . Father Additional Family Medical History / Comment(s): Father was an alcoholic. He at the age of 72 yrs. Medications and Allergies Home Medications Medication Instructions Recorded Confirmed Type Latanoprost [Xalatan 0.005%] 1 drop BOTH EYES HS 06/24/17 09/29/17 History Metoprolol/Hydrochlorothiazide 1 tab PO DAILY 06/24/17 09/29/17 History [Lopressor Hct 100-25 mg Tab] Naproxen [Naprosyn] 500 mg PO Q12HR PRN #30 tab 06/24/17 09/29/17 Rx PARoxetine HCL [Paxil] 40 mg PO DAILY 06/24/17 09/29/17 History Timolol 0.5% Ophth Soln [Timoptic 1 drop BOTH EYES BID 06/24/17 09/29/17 History 0.5% Ophth Soln] traZODone HCL [Desyrel] 200 mg PO HS 06/24/17 09/29/17 History DULoxetine HCL [Cymbalta] 60 mg PO DAILY 09/28/17 09/29/17 History Hydrochlorothiazide [Hydrodiuril] 25 mg PO DAILY 09/28/17 09/29/17 History Sertraline [Zoloft] 50 mg PO DAILY 09/28/17 09/29/17 History Tamsulosin HCl [Flomax] 0.4 mg PO DAILY 09/28/17 09/29/17 History hydrOXYzine HCL [Atarax] 25 mg PO TID 09/28/17 09/29/17 History Allergies Allergy/AdvReac Type Severity Reaction Status Date / Time No Known Allergies Allergy Verified 09/29/17 21:24 Physical Exam Vitals: Vital Signs Temp Pulse Resp BP Pulse Ox 09/30/17 04:00 98.1 F 79 18 154/88 95 09/29/17 23:34 98.4 F 70 18 169/82 96 09/29/17 23:31 75 09/29/17 21:02 98.2 F 75 18 165/77 97 Intake and Output 09/29/17 09/30/17 09/30/17 22:59 06:59 14:59 Intake Total 950 Output Total 425 Balance 525 Intake: Intake, IV Titration 950 Amount Sodium Chloride 0.9% 1, 950 000 ml @ 150 mls/hr IV . Q6H40M [facility] Rx#:[id number] Output: Urine 425 Other: # Voids 0 1 Weight 122.47 kg 122.9 kg General appearance: The patient is alert, oriented, in no acute distress. HET: Head is normocephalic and atraumatic. Pupils are equal and reactive. Oropharynx is clear without lesions. Neck: Supple without lymphadenopathy. Trachea midline. Heart: S1 S2. Regular rate and rhythm. Lungs: No crackles or wheezes are heard. Abdomen: Soft, distended tympanic bowel sounds no rebound or guarding. No peritoneal signs. No palpable organomegaly or masses. Extremities: Normal skin color and turgor. No cyanosis, rash, ulceration, clubbing, or edema. Radial and pedal pulses are 2/4 bilaterally. Neurological: No focal deficits. Strength and sensation are grossly intact. Results CBC & Chem 7: 09/30/17 05:47 09/30/17 05:47 Labs: Abnormal Lab Results - Last 24 Hours (Table) 09/30/17 09/30/17 Range/Units 05:47 05:47 Plt Count 125 L (150-450) k/uL Lymphocytes # 0.9 L (1.0-4.8) k/uL Glucose 115 H (74-99) mg/dL Total Bilirubin 1.8 H (0.2-1.3) mg/dL AST 86 H (17-59) U/L ALT 93 H (21-72) U/L CT scan - abdomen: report reviewed (Dr. Wells) Assessment and Plan (1) Abdominal distention Narrative/Plan: Chronic megacolon without peritonitis etiology unclear. No radiographic evidence of obstruction. Last colonoscopy screening 5 years ago. Current Visit: No Status: Acute Code(s): R14.0 - ABDOMINAL DISTENSION ( GASEOUS) SNOMED Code(s): 89322289 (2) Chronic alcohol dependence, continuous Current Visit: No Status: Acute Code(s): F10.20 - ALCOHOL DEPENDENCE, UNCOMPLICATED SNOMED Code(s): 454768194 (3) Depression Current Visit: No Status: Acute Code(s): F32.9 - MAJOR DEPRESSIVE DISORDER, SINGLE EPISODE, UNSPECIFIED SNOMED Code(s): 74021328 (4) Alcoholic hepatitis Current Visit: Yes Status: Acute Code(s): K70.10 - ALCOHOLIC HEPATITIS WITHOUT ASCITES SNOMED Code(s): 737053382 (5) Chronic pain Current Visit: Yes Status: Chronic Code(s): G89.29 - OTHER CHRONIC PAIN SNOMED Code(s): 61578080 (6) Suicidal ideation Current Visit: Yes Status: Acute Code(s): R45.851 - SUICIDAL IDEATIONS SNOMED Code(s): 4399033 Plan: 1. At this time patient does not evidence of peritonitis. Dilation of bowel appears to be chronic in nature. He is presently passing flatus and bowel movements without blood. He is requesting further evaluation of his chronic hip back pain. 2. Inpatient vs outpatient colonoscopy was discussed and recommended; last colonoscopy 5 years ago. Patient is agreeable with inpatient colonoscopy. Case was discussed with attending Dr. Butts he is providing medical clearance for colonoscopy tomorrow. 3. Continue with supportive measures. CIWA protcol. Thank you for this kind referral and the opportunity to participate in the care of your patient. This consultation was discussed with Dr. Wells. The impression and plan of care have been directed as dictated.
--- NOTE | 2017-09-30 11:34 | P.GSCN ---
History of Present Illness Consult date: 09/30/17 History of present illness: 62-year-old male that was transferred from the mental health unit to the general medical floor yesterday. He was seen yesterday by me. He was initially admitted to the mental health unit with reports of suicidal ideation. He is known to have chronic alcoholism and depression. The patient continues to deny any abdominal pain and denied any abdominal pain yesterday. He states that his abdominal distention today is slightly improved from yesterday. He states he does not remember meeting me yesterday. He no longer has confusion with person or place. He denies any nausea or vomiting. He did have bowel function today and has been passing gas. He has had nonbloody stool. As an previous documentation, the patient has similar presentation approximately 1 year ago and was noted to have a dilated transverse colon. He continues to have a benign abdomen with no evidence of peritonitis. He denies any fevers, chills, chest pain or shortness of breath. He states his last colonoscopy was within the last 5 years but does not remember the exact time. He was tolerating a regular diet prior to this abdominal distention. Review of Systems All systems: negative Past Medical History Past Medical History: Hyperlipidemia, Hypertension, Musculoskeletal Disorder, Osteoarthritis (OA), Prostate Disorder Additional Past Medical History / Comment(s): Alcoholism, bronchitis, ulcerative colitis, rectal bleed, gout in bilateral feet, unsteady gait, balance issues, "blood shot" eyes which he has been told is dur to dry eyes, arthritis multiple joints, BPH. History of Any Multi-Drug Resistant Organisms: None Reported Past Surgical History: Back Surgery, Hernia Repair, Joint Replacement, Orthopedic Surgery, Tonsillectomy Additional Past Surgical History / Comment(s): Lumbar back surgery x 3, total L knee, hernia repair umbilical and left inguinal, colonoscopy. Past Anesthesia/Blood Transfusion Reactions: No Reported Reaction, Motion Sickness Additional Past Anesthesia/Blood Transfusion Reaction / Comm: Pt gets sea sick. Past Psychological History: Anxiety, Depression Additional Psychological History / Comment(s): t resides alone. He uses a walker to ambulate. He drives. He states he has hx of depression and it has been more severe over the past few weeks. He states he recently got after 33 yrs of marriage and his kids "won't talk to me." He stated that over the past two weeks he has had brief thoughts of suicide but no plan and states he is not suicidal at this time. " I want to live." He stated that when he is feeting this emotional, he stops taking his medication and drinks alcohol more. Smoking Status: Never smoker Past Alcohol Use History: Abuse, Daily Additional Past Alcohol Use History / Comment(s): Pt states he started smoking in 1968 and was a 3-4 ppd smoker. He quit smoking in 1978. He states he drinks 1/5 of whiskey mixed with coke each day. Past Drug Use History: None Reported - Past Family History Mother Additional Family Medical History / Comment(s): Mother "battled" depression all of her life. She was 82 yrs old when she . Father Additional Family Medical History / Comment(s): Father was an alcoholic. He at the age of 72 yrs. Medications and Allergies Home Medications Medication Instructions Recorded Confirmed Type Latanoprost [Xalatan 0.005%] 1 drop BOTH EYES HS 06/24/17 09/29/17 History Metoprolol/Hydrochlorothiazide 1 tab PO DAILY 06/24/17 09/29/17 History [Lopressor Hct 100-25 mg Tab] PARoxetine HCL [Paxil] 40 mg PO DAILY 06/24/17 09/29/17 History RX: Naproxen [Naprosyn] 500 mg PO Q12HR PRN #30 tab 06/24/17 09/29/17 Rx RX: traZODone HCL [Desyrel] 200 mg PO HS 06/24/17 09/29/17 History Timolol 0.5% Ophth Soln [Timoptic 1 drop BOTH EYES BID 06/24/17 09/29/17 History 0.5% Ophth Soln] DULoxetine HCL [Cymbalta] 60 mg PO DAILY 09/28/17 09/29/17 History Hydrochlorothiazide [Hydrodiuril] 25 mg PO DAILY 09/28/17 09/29/17 History Sertraline [Zoloft] 50 mg PO DAILY 09/28/17 09/29/17 History Tamsulosin HCl [Flomax] 0.4 mg PO DAILY 09/28/17 09/29/17 History hydrOXYzine HCL [Atarax] 25 mg PO TID 09/28/17 09/29/17 History Allergies Allergy/AdvReac Type Severity Reaction Status Date / Time No Known Allergies Allergy Verified 09/29/17 21:24 Surgical - Exam Osteopathic Statement: *. No significant issues noted on an osteopathic structural exam other than those noted in the History and Physical/Consult. Vital Signs Temp Pulse Resp BP Pulse Ox 98.2 F 75 18 165/77 97 09/29/17 21:02 09/29/17 21:02 09/29/17 21:02 09/29/17 21:02 09/29/17 21:02 - General well nourished, no distress - Eyes normal ocular movement - ENT normal mucosa, no hearing loss - Neck trachea midline - Respiratory No difficulty with respiration - Abdomen Soft, nontender, moderate distention, no rebound, no guarding - Neurologic normal sensation - Psychiatric oriented to person, oriented to place Results - Labs 09/30/17 05:47 09/30/17 05:47 Abnormal Lab Results - Last 24 Hours (Table) 09/30/17 09/30/17 Range/Units 05:47 05:47 Plt Count 125 L (150-450) k/uL Lymphocytes # 0.9 L (1.0-4.8) k/uL Glucose 115 H (74-99) mg/dL Total Bilirubin 1.8 H (0.2-1.3) mg/dL AST 86 H (17-59) U/L ALT 93 H (21-72) U/L Diabetes panel 09/30/17 Range/Units 05:47 Sodium 143 (137-145) mmol/L Potassium 3.5 (3.5-5.1) mmol/L Chloride 98 (98-107) mmol/L Carbon Dioxide 30 (22-30) mmol/L BUN 10 (9-20) mg/dL Creatinine 0.76 (0.66-1.25) mg/dL Glucose 115 H (74-99) mg/dL Calcium 9.2 (8.4-10.2) mg/dL AST 86 H (17-59) U/L ALT 93 H (21-72) U/L Alkaline Phosphatase 62 (38-126) U/L Total Protein 6.6 (6.3-8.2) g/dL Albumin 4.3 (3.5-5.0) g/dL Calcium panel 09/30/17 Range/Units 05:47 Calcium 9.2 (8.4-10.2) mg/dL Phosphorus 3.0 (2.5-4.5) mg/dL Albumin 4.3 (3.5-5.0) g/dL Pituitary panel 09/30/17 Range/Units 05:47 Sodium 143 (137-145) mmol/L Potassium 3.5 (3.5-5.1) mmol/L Chloride 98 (98-107) mmol/L Carbon Dioxide 30 (22-30) mmol/L BUN 10 (9-20) mg/dL Creatinine 0.76 (0.66-1.25) mg/dL Glucose 115 H (74-99) mg/dL Calcium 9.2 (8.4-10.2) mg/dL Adrenal panel 09/30/17 Range/Units 05:47 Sodium 143 (137-145) mmol/L Potassium 3.5 (3.5-5.1) mmol/L Chloride 98 (98-107) mmol/L Carbon Dioxide 30 (22-30) mmol/L BUN 10 (9-20) mg/dL Creatinine 0.76 (0.66-1.25) mg/dL Glucose 115 H (74-99) mg/dL Calcium 9.2 (8.4-10.2) mg/dL Total Bilirubin 1.8 H (0.2-1.3) mg/dL AST 86 H (17-59) U/L ALT 93 H (21-72) U/L Alkaline Phosphatase 62 (38-126) U/L Total Protein 6.6 (6.3-8.2) g/dL Albumin 4.3 (3.5-5.0) g/dL Assessment and Plan (1) Abdominal distention Narrative/Plan: 62-year-old male with abdominal distention and colonic ileus - Continue to attempt prokinetics as tolerated - No evidence of peritonitis, no leukocytosis on most recent blood work - No hypotension or tachycardia are noted - Will advance diet to clear liquid diet - GI recommendations - I will continue to follow this patient and make recommendations per his clinical course Thank you for this consultation, I look forward in providing in this patient's care Current Visit: No Status: Acute Code(s): R14.0 - ABDOMINAL DISTENSION ( GASEOUS) SNOMED Code(s): 97800878
[2017-09-30] MEDS: cloNIDine HCL 0.2 MG TAB PO PRN ×2 (12:08→22:05)
--- NOTE | 2017-09-30 12:18 | P.PN ---
Subjective Progress Note Date: 09/30/17 The patient is pretty emotional complain of hip and lower back pain, generalized weakness worsen his lower extremities, denies any abdominal pain, reports passing gas and has had few episodes of diarrhea. Denies any nausea. Patient seems to think that he is doing okay with his alcohol withdrawal denies being anxious or jittery, but does appear emotional and tearful. Patient having ongoing elevated blood pressures since yesterday SBP 160s-180. Patient seen by internet marketing consultant Dr. Vega surgery, no acute events overnight Objective - Vital Signs Vital signs: Vital Signs Temp 98.4 F 09/30/17 08:00 Pulse 77 09/30/17 08:00 Resp 20 09/30/17 08:00 BP 181/104 09/30/17 08:00 Pulse Ox 95 09/30/17 08:00 Intake & Output 09/29/17 09/30/17 09/30/17 18:59 06:59 18:59 Intake Total 950 Output Total 425 Balance 525 Weight 122.9 kg Intake: Intake, IV Titration 950 Amount Sodium Chloride 0.9% 1, 950 000 ml @ 150 mls/hr IV . Q6H40M [facility] Rx#:[id number] Output: Urine 425 Other: # Voids 1 0 # Bowel Movements 0 - Exam Constitutional: No acute distress, conversant, pleasant Eyes: Anicteric sclerae, moist conjunctiva, no lid-lag, PERRLA ENMT: NC/AT,Oropharynx clear, no erythema, exudates Neck:Supple, FROM, no masses, or JVD, No carotid bruits; No thyromegaly Lungs: Clear to auscultation, Clear to percussion, Normal respiratory effort, no accessory muscle use Cardiovascular: Heart regular in rate and rhythm, No murmurs, gallops, or rubs no peripheral edema Abdominal: Soft Nontender, moderately distended, no guarding, no rebound or rigidity, Normoactive bowel sounds No hepatomegaly, No splenomegaly, No palpable mass No abdominal wall hernia noted Skin: Normal temperature, tone, texture, turgor, No induration No subcutaneous nodules, No rash, lesions, No ulcers Extremities:No digital cyanosis No clubbing, Pedal pulses intact and symmetrical Radial pulses intact and symmetrical Normal gait and station, No calf tenderness Psychiatric: Alert and oriented to person, place and time, Appropriate affect Intact judgement Neuro: Muscles Strength 5/5 in all 4 extremities, Sensation to light touch grossly present throughout, Cranial nerves II-XII grossly intact. No focal sensory deficits - Labs CBC & Chem 7: 09/30/17 05:47 10/01/17 06:28 Labs: Abnormal Lab Results - Last 24 Hours (Table) 09/30/17 09/30/17 Range/Units 05:47 05:47 Plt Count 125 L (150-450) k/uL Lymphocytes # 0.9 L (1.0-4.8) k/uL Glucose 115 H (74-99) mg/dL Total Bilirubin 1.8 H (0.2-1.3) mg/dL AST 86 H (17-59) U/L ALT 93 H (21-72) U/L Assessment and Plan (1) Ileus, unspecified Narrative/Plan: * Patient also seen by general surgery Dr. Vega and after reviewing records it appears that the patient's colonic dilatation is chronic in nature, the patient was made nothing by mouth and placed on prokinetic agents * Patient seen by GI doctor Priscilla At this time patient does not evidence of peritonitis. Dilation of bowel appears to be chronic in nature. He is presently passing flatus and bowel movements without blood. 5 years ago is when he had his last colonoscopy, patient will need bowel prep this evening is GI is planning colonoscopy tomorrow Current Visit: Yes Status: Acute Code(s): K56.7 - ILEUS, UNSPECIFIED SNOMED Code(s): 76444062 (2) Alcohol withdrawal syndrome Narrative/Plan: * Continuous symptom triggered CIWA withdrawal protocol with when necessary Ativan Current Visit: No Status: Acute Code(s): F10.239 - ALCOHOL DEPENDENCE WITH WITHDRAWAL, UNSPECIFIED SNOMED Code(s): 329000533 (3) Depression Narrative/Plan: * Patient transferred from psychiatric unit we'll consult psych to see him while inpatient Current Visit: No Status: Acute Code(s): F32.9 - MAJOR DEPRESSIVE DISORDER, SINGLE EPISODE, UNSPECIFIED SNOMED Code(s): 03659036 (4) Hypertensive urgency Narrative/Plan: * Likely secondary to alcohol withdrawal * Continue to monitor blood pressure continue with his home regimen metoprolol/ Norvasc and start HCTZ 25 mg by mouth daily continue with when necessary clonidine Current Visit: No Status: Acute Code(s): I16.0 - HYPERTENSIVE URGENCY SNOMED Code(s): 653976853 (5) Left hip pain Narrative/Plan: * Orthopedic consultation placed also consult pain management Current Visit: No Status: Deleted Code(s): M25.552 - PAIN IN LEFT HIP SNOMED Code(s): 69653330
[2017-09-30] MEDS ORDERED: HYDROCHLOROTHIAZIDE 25 MG TAB PO ONE (12:24)
[2017-09-30] MEDS: THIAMINE 100 MG TAB PO SCH ×2 (13:03→17:38)
[2017-09-30] MEDS: FOLIC ACID 1 MG TAB PO SCH (13:03)
[2017-09-30] MEDS ORDERED: PEG 3350-NA SULF,BICARB,CL/KCL 4,000 ML BOTTLE PO ONE ×2 (15:00→20:16)
--- NOTE | 2017-09-30 15:09 | P.CN ---
Psychiatric Consult - . Consult date: 09/30/17 Consult:: 09/30/17 14:57 Identification: Patient is a 62-year-old male who had been admitted to the inpatient psychiatric unit after he presented to the emergency room because he had suicidal thoughts without a plan as well as the pain from his hip was increasing. Reason for Consult: Suicidal thoughts, depression History of Present Illness: Patient presented to the emergency room stating that he was feeling suicidal without a plan because of the pain in his hip. Patient was admitted to the psychiatric unit and while there was discovered that the patient had megacolon, his blood pressure was being poorly controlled and he was transferred to the medical floor. Patient was also withdrawing from alcohol. Patient reported that for about a year now his pain in his hip has increased and he stated on admission to the psychiatric unit that he could not take it any longer and started to have suicidal thoughts and so called EMS to bring him to the hospital. Patient had been on Paxil from his primary care physician but he discontinued it and on a hit and miss basis he been taking Zoloft 50 mg Cymbalta 60 mg and trazodone 200 mg. He also has not been compliant with his follow-up care after his discharge from the psychiatric unit in August 2016. He reported feeling depressed all his life and is currently on Social Security disability due to his depression. He states that years ago was the first time he was ever treated for depression when he was going through a divorce and was placed on medication at that time. He states that he had been admitted to [facility] 4 times in the past as well as here once in 2017. All of these admissions were have been for suicidal ideation with no attempts and alcohol. Patient reports using a fifth of alcohol a day and has the last 10 years. Patient reported that he was feeling depressed and suicidal mostly related to his pain, and difficulty taking care of himself at home. Patient also reports that he has not been taking his medications for his high blood pressure, glaucoma on a regular basis. He has gotten into a disagreement with his primary care physician and was going to a different clinic. He also reported to me on admission to the psychiatric unit that he thought his belly was larger than it was a week ago. Patient is seen now up on the medical floor and he reports to me that he feels that he is doing a little better, he states that he was able to eat and that made him feel better and he was no longer feeling shaky or sweaty. Patient stated to me that his hip pain continues to be the cause of his suicidal thoughts. He states he is not currently suicidal but states that if his hip pain isn't treated he may become suicidal again. Patient insists that his hip pain needs to be resolved. Patient and I discussed possible referral for inpatient alcohol rehab treatment once he is cleared medically and he stated that he would consider that but only of his hip pain has been treated. Past Psychiatric History: Patient has had at least 5 prior psychiatric admissions due to alcohol and suicidal ideation and his last admission was here in August 2016. Patient states that he may followed up for a month or so after his discharge but has been receiving psychotropic medication from his primary care physician. Patient was currently prescribed Zoloft 50 mg daily, Cymbalta 60 mg daily, trazodone 200 mg at bedtime and he states he discontinued the Paxil 40 mg daily that had been prescribed. Past Medical/Surgical History: Patient reported a history of glaucoma, hypertension, status post hernia repair and 3 prior back surgeries and he was unable to tell me other medical conditions that he may have had in the past. Family History: Patient states that his mother was diagnosed with depression and his father for alcohol use disorder. And he has a maternal cousin who did complete suicide. Social History: Patient was born and raised in [place] and both of his parents are he has 1 brother and 2 sisters. 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 Patient states he was and 10 years ago and has 3 daughters from that marriage whom he has no contact. Patient lives alone in a ranch house and states that he has assistance cleaning the house and states that he does not do much cooking for himself either making sandwiches or heating something in a microwave. As stated before the patient states he is fallen twice at home once down a small step and once tripping when he got out of the chair. He states that he spends most of his time at home watching TV and does still drive to the bar. He reports no financial difficulties and no abuse history. Substance Use History: [atient states he began using alcohol at the age of 13 and has consistently been drinking since that time and for the last 10 years is been drinking a fifth a day. He states that 1 year has been his longest sobriety. Patient denies any prior or current drug use no IV drug use and no tobacco use Legal History: Patient was arrested for a DUI when he was 18 years of age Mental status: Appearance/Attitude: Patient is lying in a hospital bed, in no acute distress and reports that he is no longer feeling shaky or sweaty and is cooperative and makes good eye contact Behavior: Patient does not exhibit any psychomotor agitation or retardation. Speech/Language: Patient's speech is spontaneous of normal volume and rhythm and he is coherent Thought Process: Patient is goal-directed there is no evidence of loose association or flight of ideas Thought Content: Patient denies auditory or visual hallucinations no delusions or paranoid ideation is elicited. Patient states that he is feeling better today after he ate. Patient reported to me that his hip pain is still the biggest problem for him and he stated to me that "if my hip pain isn't treated I may become suicidal again". Patient reports that he is sleeping well and his appetite was good today. Suicidal/Homicidal Ideation: Patient denies current suicidal or homicidal ideation and again states that the hip pain as the cause of his feeling suicidal and that he needs to be treated before he can consider anything else Sensorium/Cognition: Patient was alert and oriented to month, year, location and his recent and remote memory were grossly intact Mood/Affect: Patient's mood was pleasant and his affect is appropriate Insight/Judgment: Patient's insight and judgment Assessment:Patient presents with a history of alcohol use of a fifth a day for last 10 years, he states that he became suicidal at home because of increasing pain in his left hip which is been going on for over a year. Patient has not been compliant with outpatient psychiatric care after his discharge last August the psychiatric unit for similar complaints. Patient has been taking his medications on a hit and miss basis both for his medical problems as well as for his psychiatric ones being prescribed multiple antidepressants simultaneously. Patient was seen and he continues to report left hip pain being the biggest problem for him and stated that if it isn't corrected he probably will become suicidal again. Patient and I discussed referral to inpatient alcohol rehab programs once he is medically stable and he stated he would consider them only if his hip pain is being treated. Diagnosis: Alcohol induced depressive disorder with use, severe Plan: Patient at this time is not expressing any current suicidal ideation, and does not need to be on suicide precautions. He is reporting that his hip pain is his biggest concern and will not discuss further care such as inpatient alcohol rehab until his hip pain is treated. I discussed with the patient that I thought inpatient alcohol rehab would be an appropriate choice for him. I am not going to begin any antidepressant medication at this time. I will follow the patient in the hospital, he is scheduled to have a colonoscopy tomorrow and will discuss with the patient again a referral for inpatient alcohol rehab. 09/30/17 15:08
[2017-09-30] MEDS ORDERED: LIDOCAINE 2% INJ 20 MG/ML (20 ML MDV) SQ STA (16:22)
[2017-09-30] MEDS ORDERED: methylPREDNISolone ACETATE 40 MG/ML 1 ML VIAL INTRABURSA STA (16:23)
--- NOTE | 2017-09-30 16:25 | P.CNOR ---
History of Present Illness - [facility] Consult date: 09/30/17 Consult reason: joint pain (left hip pain) History of present illness: The patient is a 62 y/o male who presented to the psychiatric unit with suicidal ideations and a long history of depression. He was found to have a distended abdomen and was transferred to [facility] for further evaluation and treatment. We were consulted for further evaluation for left hip pain. The patient has been seen by Dr. James for low back pain last year and also saw Dr. Meneses for epidural injections in his lumbar spine in September 2016. He has a history of multiple lumbar spine surgeries in the past in [place]. The patient states he wants to pursue treatment on his back due to the ongoing pain. He is also experiencing pain down the lateral left hip and down the leg as well. He denies left groin pain. The patient is currently drinking bowel prep and is scheduled for a colonoscopy tomorrow. Review of Systems Constitutional: Denies chills, Denies fever, Denies lethargy Gastrointestinal: Reports abdominal pain, Denies diarrhea, Denies nausea, Denies vomiting Musculoskeletal: Reports leg numbness/tingling, Reports low back pain, Reports shooting leg pain Musculoskeletal: left: hip pain Psychiatric: Reports depression, Reports suicidal ideation Past Medical History Past Medical History: Hyperlipidemia, Hypertension, Musculoskeletal Disorder, Osteoarthritis (OA), Prostate Disorder Additional Past Medical History / Comment(s): Alcoholism, bronchitis, ulcerative colitis, rectal bleed, gout in bilateral feet, unsteady gait, balance issues, "blood shot" eyes which he has been told is dur to dry eyes, arthritis multiple joints, BPH. History of Any Multi-Drug Resistant Organisms: None Reported Past Surgical History: Back Surgery, Hernia Repair, Joint Replacement, Orthopedic Surgery, Tonsillectomy Additional Past Surgical History / Comment(s): Lumbar back surgery x 3, total L knee, hernia repair umbilical and left inguinal, colonoscopy. Past Anesthesia/Blood Transfusion Reactions: No Reported Reaction, Motion Sickness Additional Past Anesthesia/Blood Transfusion Reaction / Comm: Pt gets sea sick. Past Psychological History: Anxiety, Depression Additional Psychological History / Comment(s): t resides alone. He uses a walker to ambulate. He drives. He states he has hx of depression and it has been more severe over the past few weeks. He states he recently got after 33 yrs of marriage and his kids "won't talk to me." He stated that over the past two weeks he has had brief thoughts of suicide but no plan and states he is not suicidal at this time. " I want to live." He stated that when he is feeting this emotional, he stops taking his medication and drinks alcohol more. Smoking Status: Never smoker Past Alcohol Use History: Abuse, Daily Additional Past Alcohol Use History / Comment(s): Pt states he started smoking in 1968 and was a 3-4 ppd smoker. He quit smoking in 1978. He states he drinks 1/5 of whiskey mixed with coke each day. Past Drug Use History: None Reported - Past Family History Mother Additional Family Medical History / Comment(s): Mother "battled" depression all of her life. She was 82 yrs old when she . Father Additional Family Medical History / Comment(s): Father was an alcoholic. He at the age of 72 yrs. Medications and Allergies Home Medications Medication Instructions Recorded Confirmed Type Latanoprost [Xalatan 0.005%] 1 drop BOTH EYES HS 06/24/17 09/29/17 History Metoprolol/Hydrochlorothiazide 1 tab PO DAILY 06/24/17 09/29/17 History [Lopressor Hct 100-25 mg Tab] Naproxen [Naprosyn] 500 mg PO Q12HR PRN #30 tab 06/24/17 09/29/17 Rx PARoxetine HCL [Paxil] 40 mg PO DAILY 06/24/17 09/29/17 History Timolol 0.5% Ophth Soln [Timoptic 1 drop BOTH EYES BID 06/24/17 09/29/17 History 0.5% Ophth Soln] traZODone HCL [Desyrel] 200 mg PO HS 06/24/17 09/29/17 History DULoxetine HCL [Cymbalta] 60 mg PO DAILY 09/28/17 09/29/17 History Hydrochlorothiazide [Hydrodiuril] 25 mg PO DAILY 09/28/17 09/29/17 History Sertraline [Zoloft] 50 mg PO DAILY 09/28/17 09/29/17 History Tamsulosin HCl [Flomax] 0.4 mg PO DAILY 09/28/17 09/29/17 History hydrOXYzine HCL [Atarax] 25 mg PO TID 09/28/17 09/29/17 History Allergies Allergy/AdvReac Type Severity Reaction Status Date / Time No Known Allergies Allergy Verified 09/29/17 21:24 Physical Examination The patient is a 62 y/o male who is in no acute distress. He is alert and oriented x3. Exam of the left hip reveals no obvious deformity or open wounds. There is pain over the trochantric bursa. Full and painless left hip and knee motion. There is also pain the SI joint and lumbar spine with some paraspinal spasm. There is good foot and ankle motion. Knee is non-tender. Bilateral calves are soft and non-tender. EHL is intact but weak (+3/5) on the left. Neurological and circulatory status is intact. Results - Labs Labs: Abnormal Lab Results - Last 24 Hours (Table) 09/30/17 09/30/17 Range/Units 05:47 05:47 Plt Count 125 L (150-450) k/uL Lymphocytes # 0.9 L (1.0-4.8) k/uL Glucose 115 H (74-99) mg/dL Total Bilirubin 1.8 H (0.2-1.3) mg/dL AST 86 H (17-59) U/L ALT 93 H (21-72) U/L H & H 09/30/17 Range/Units 05:47 Hgb 14.2 (13.0-17.5) gm/dL Hct 40.2 (39.0-53.0) % Result Diagrams: 09/30/17 05:47 09/30/17 05:47 - Diagnostic results Hip CT: image reviewed (No fractures seen. ) Assessment and Plan (1) Trochanteric bursitis Current Visit: Yes Status: Acute Code(s): M70.60 - TROCHANTERIC BURSITIS, UNSPECIFIED HIP SNOMED Code(s): 1960393 (2) Suicidal ideation Current Visit: Yes Status: Acute Code(s): R45.851 - SUICIDAL IDEATIONS SNOMED Code(s): 8852877 (3) Abdominal distention Current Visit: No Status: Acute Code(s): R14.0 - ABDOMINAL DISTENSION ( GASEOUS) SNOMED Code(s): 93512923 (4) Depression Current Visit: No Status: Acute Code(s): F32.9 - MAJOR DEPRESSIVE DISORDER, SINGLE EPISODE, UNSPECIFIED SNOMED Code(s): 91662516 (5) History of lumbar surgery Current Visit: No Status: Acute Code(s): Z98.890 - OTHER SPECIFIED POSTPROCEDURAL STATES SNOMED Code(s): 649037003 (6) Left hip pain Current Visit: No Status: Acute Code(s): M25.552 - PAIN IN LEFT HIP SNOMED Code(s): 36426000 Plan: The clinical and hip CT findings were discussed with the patient. The case was discussed with Dr. Felder. We are recommending cortisone injection to the left trochantric bursa. Most of his symptoms appear to be lumbar related. We will consult Dr. James for re-evaluation of the patient and further recommendations for his lumbar spine. The patient agrees with the plan and will proceed with cortisone injection today. Procedure: Injection site verified with the patient. The left lateral hip was prepped with alcohol. Using a 25g 1 1/2 needle, 2 mL of 2% plain lidocaine and 40 mg of Depomedrol was injected into the left trochantric bursa. No issues on administration. Bandaid applied. Patient tolerated the procedure well. He may experience increased pain in the hip tonight and/or tomorrow. Ice may be applied to the hip as needed for pain. This pain should resolve in the 1-2 days. We will await further recommendations from Dr. James.
[2017-09-30] MEDS: LATANOPROST 0.005% OPHTH DROPS 2.5 ML BTL BOTH EYES SCH (20:15)
[2017-10-01] MEDS: SODIUM CHLORIDE 0.9% 1,000 ML IV SCH ×4 (00:04→23:03)
[2017-10-01] MEDS: LORazepam 2 MG/ML INJ IV PRN ×4 (00:04→23:32)
[2017-10-01] MEDS: HEPARIN SODIUM,PORCINE 5,000 UNIT/ML 1 ML VIAL SQ SCH ×4 (00:04→23:01)
[2017-10-01 07:13] LABS: Anion Gap 15 mmol/L; Blood Urea Nitrogen 5 mg/dL (9-20); Calcium 8.5 mg/dL (8.4-10.2); Carbon Dioxide 25 mmol/L (22-30); Chloride 101 mmol/L (98-107); Glucose 117 mg/dL (74-99); Potassium 3.6 mmol/L (3.5-5.1); Sodium 141 mmol/L (137-145)
--- NOTE | 2017-10-01 09:24 | P.CNOR ---
History of Present Illness - [facility] Consult date: 10/01/17 Requesting physician: Lili Strauss Consult reason: low back pain History of present illness: Patient is a pleasant 62-year-old male who is seen and examined at the bedside after consultation was placed in regards to his chronic low back pain. She has been seen and examined previously and imaging has been reviewed as well. Patient has not had significant changes in his overall symptoms since being seen examined in August 2016. Patient is known to have previously undergone 3 lumbar surgeries in [place], [place]. The last was performed approximately 6 years ago. He states he is unsure exactly what his surgeries were, but states he does have hardware in his lumbar spine. Following his last surgical intervention, he states he has had some residual ongoing low back pain and bilateral lower extremity numbness and tingling with generalized weakness. He continues to have some pain over the left sacroiliac joint and also complains of significant pain at his left hip. He was seen and examined yesterday by L[facility] Steele and had an injection of his left trochanteric bursa. He states he has had some improvement of his left hip pain since that time but continues to have significant pain. He complains of left lateral lumbar pain today as well. He does have some decreased sensation below the knees bilaterally. Denies any recent falls, accidents, or injuries. He continues to rely heavily on alcohol to mask his pain. He states he drinks the fifth of alcohol every day and has been doing so for significant period of time. He states he knows this is not an appropriate thing to do but he is not sure how also deal with this pain. He was recently admitted to the psychiatric department for depression and suicidal ideation. Psychology consultation note states patient has been admitted at least 5 times for these diagnoses. Patient has been able to be transferred from the psychiatric unit and to [facility]. Medicine feels the patient's alcohol withdrawal symptoms are currently controlled. Patient is currently being treated for an ileus. He underwent bowel prep yesterday and is currently scheduled for colonoscopy today. Patient states he does not feel consultation with pain management while in the hospital will be very beneficial due to his significant abdominal difficulties. He has previously seen and was treated by Dr. Meneses last year in regards to his lumbar spine and chronic pain. He states he would like to follow-up with him in the outpatient setting. He does admit he has not been very good patient. He also admits that if his pain does not become better controlled he would have to continue to rely on heavy drinking to help mask the pain. He states he does not wish to take medication to cover his pain but is looking for a more permanent solution. He has a history of a previous left total knee arthroplasty. No new imaging in regards to his lumbosacral spine was performed at this admittance. Patient states he does not have significant change in regards to his chronic lumbar pain but is complaining of significant left lateral hip pain. Past Medical History Past Medical History: Hyperlipidemia, Hypertension, Musculoskeletal Disorder, Osteoarthritis (OA), Prostate Disorder Additional Past Medical History / Comment(s): Alcoholism, bronchitis, ulcerative colitis, rectal bleed, gout in bilateral feet, unsteady gait, balance issues, "blood shot" eyes which he has been told is dur to dry eyes, arthritis multiple joints, BPH. History of Any Multi-Drug Resistant Organisms: None Reported Past Surgical History: Back Surgery, Hernia Repair, Joint Replacement, Orthopedic Surgery, Tonsillectomy Additional Past Surgical History / Comment(s): Lumbar back surgery x 3, total L knee, hernia repair umbilical and left inguinal, colonoscopy. Past Anesthesia/Blood Transfusion Reactions: No Reported Reaction, Motion Sickness Additional Past Anesthesia/Blood Transfusion Reaction / Comm: Pt gets sea sick. Past Psychological History: Anxiety, Depression Additional Psychological History / Comment(s): t resides alone. He uses a walker to ambulate. He drives. He states he has hx of depression and it has been more severe over the past few weeks. He states he recently got after 33 yrs of marriage and his kids "won't talk to me." He stated that over the past two weeks he has had brief thoughts of suicide but no plan and states he is not suicidal at this time. " I want to live." He stated that when he is feeting this emotional, he stops taking his medication and drinks alcohol more. Smoking Status: Never smoker Past Alcohol Use History: Abuse, Daily Additional Past Alcohol Use History / Comment(s): Pt states he started smoking in 1968 and was a 3-4 ppd smoker. He quit smoking in 1978. He states he drinks 1/5 of whiskey mixed with coke each day. Past Drug Use History: None Reported - Past Family History Mother Additional Family Medical History / Comment(s): Mother "battled" depression all of her life. She was 82 yrs old when she . Father Additional Family Medical History / Comment(s): Father was an alcoholic. He at the age of 72 yrs. Medications and Allergies Home Medications Medication Instructions Recorded Confirmed Type Latanoprost [Xalatan 0.005%] 1 drop BOTH EYES HS 06/24/17 09/29/17 History Metoprolol/Hydrochlorothiazide 1 tab PO DAILY 06/24/17 09/29/17 History [Lopressor Hct 100-25 mg Tab] Naproxen [Naprosyn] 500 mg PO Q12HR PRN #30 tab 06/24/17 09/29/17 Rx PARoxetine HCL [Paxil] 40 mg PO DAILY 06/24/17 09/29/17 History Timolol 0.5% Ophth Soln [Timoptic 1 drop BOTH EYES BID 06/24/17 09/29/17 History 0.5% Ophth Soln] traZODone HCL [Desyrel] 200 mg PO HS 06/24/17 09/29/17 History DULoxetine HCL [Cymbalta] 60 mg PO DAILY 09/28/17 09/29/17 History Hydrochlorothiazide [Hydrodiuril] 25 mg PO DAILY 09/28/17 09/29/17 History Sertraline [Zoloft] 50 mg PO DAILY 09/28/17 09/29/17 History Tamsulosin HCl [Flomax] 0.4 mg PO DAILY 09/28/17 09/29/17 History hydrOXYzine HCL [Atarax] 25 mg PO TID 09/28/17 09/29/17 History Allergies Allergy/AdvReac Type Severity Reaction Status Date / Time No Known Allergies Allergy Verified 09/29/17 21:24 Physical Examination Physical exam: Patient is awake, alert, and oriented 3 Vital signs stable; patient is visibly sweating Good chest excursion with deep inspiration and expiration Abdomen somewhat distended and firm with palpation Examination of lumbar spine reveals skin is intact with no abrasions, lacerations, or bruises; no erythema, purulence or signs of infection Evidence of a large well-healed incision along the midline of the lumbar spine Pain with palpation along the midline of the lumbar spine and over the left sacroiliac joint Dorsiflexion and plantarflexion positive sustained bilaterally Patient is unable to perform extensor hallucis longus on the right Extensor hallucis longus strength 5/5 on the left Generalized bilateral weakness with hip flexion, knee abduction, and knee abduction No lower extremity hyperreflexia bilaterally Straight leg test negative bilateral lower extremities No signs or symptoms of DVT; no calf pain Decreased sensation of the bilateral lower extremities from the bilateral knees distally Evidence of a a well-healed incision over the left knee No pain with internal and external rotation of the hips bilaterally Neurovascularly intact Results Pertinent studies: X-rays lumbar spine taken on 08/19/2016: Jacob and screws appear to be in good alignment and good position and L34 and L4-5; transforaminal lumbar interbody fusions appear to be in good placement and L3-4 and L4-5; no evidence of hardware fracture, loosening, or fatigue; evidence of good bony fusion in the lateral gutter; overall alignment of the lumbosacral spine appears to be at the maintained; adjacent levels appear to be adequate the maintained without significant degenerative disc disease; no evidence of vertebral body compression fracture; bowel gas pattern is markedly prominent with gas dilation of at least 2 large loops of bowel with etiology unclear and would recommend abdominal pelvic CT at this time X-ray of the pelvis taken on 08/19/2016: X-rays spacing the sacroiliac joint space appears to be adequately maintained bilaterally; no evidence of fracture or dislocation - Labs Labs: Abnormal Lab Results - Last 24 Hours (Table) 10/01/17 Range/Units 06:28 BUN 5 L (9-20) mg/dL Creatinine 0.64 L (0.66-1.25) mg/dL Glucose 117 H (74-99) mg/dL H & H 09/30/17 Range/Units 05:47 Hgb 14.2 (13.0-17.5) gm/dL Hct 40.2 (39.0-53.0) % Result Diagrams: 09/30/17 05:47 10/01/17 06:28 Assessment and Plan Assessment: Assessment: Left hip pain Ileus Chronic low back pain Generalized lower extremity weakness Lower extremity numbness and tingling Left sacroiliac pain Alcohol abuse and dependency Alcohol withdrawal syndrome Depression History of multiple lumbar surgeries Suicidal ideation at admission (1) Chronic low back pain Current Visit: Yes Status: Acute Code(s): M54.5 - LOW BACK PAIN; G89.29 - OTHER CHRONIC PAIN SNOMED Code(s): 673112669 (2) Ileus, unspecified Current Visit: Yes Status: Acute Code(s): K56.7 - ILEUS, UNSPECIFIED SNOMED Code(s): 80401457 (3) Trochanteric bursitis Current Visit: Yes Status: Acute Code(s): M70.60 - TROCHANTERIC BURSITIS, UNSPECIFIED HIP SNOMED Code(s): 5895900 (4) Alcohol dependency Current Visit: No Status: Acute Code(s): F10.20 - ALCOHOL DEPENDENCE, UNCOMPLICATED SNOMED Code(s): 12530780 (5) Alcohol withdrawal syndrome Current Visit: No Status: Acute Code(s): F10.239 - ALCOHOL DEPENDENCE WITH WITHDRAWAL, UNSPECIFIED SNOMED Code(s): 311274300 (6) Depression Current Visit: No Status: Acute Code(s): F32.9 - MAJOR DEPRESSIVE DISORDER, SINGLE EPISODE, UNSPECIFIED SNOMED Code(s): 06239833 (7) History of lumbar surgery Current Visit: No Status: Acute Code(s): Z98.890 - OTHER SPECIFIED POSTPROCEDURAL STATES SNOMED Code(s): 014914782 (8) Left hip pain Current Visit: No Status: Acute Code(s): M25.552 - PAIN IN LEFT HIP SNOMED Code(s): 75109048 (9) Suicidal ideation Current Visit: No Status: Acute Code(s): R45.851 - SUICIDAL IDEATIONS SNOMED Code(s): 5426411 Plan: Plan: 1. We do not currently have any change in her plan of care as previously set forth in August 2016. Imaging was taken at that time and was reviewed. Jacob and screws and transforaminal lumbar interbody fusions appear to be in good alignment and good position and L3-4 and L4-5 with good bony fusion. There is not obvious evidence of lumbar malalignment or fracture. Adjacent levels appear to be intact. I also discussed this patient detail with Dr. Luciano James previously and he reviewed the imaging as well. Patient has previously follow with Dr. Meneses in pain management at [facility]. We' ll plan to have him follow up with him again once discharged for further evaluation discuss further treatment options. We discussed the be difficult to determine if further surgical intervention in regards to his lumbosacral spine will provide significant improvement of his symptoms. We discussed she should continue with conservative treatment and exhaust all conservative treatment options. If he were to fail epidural injections and facet injections, he could be a candidate for a neurostimulator. 2. Patient will continue to be examined and treated in regards to his ileus; patient is scheduled to undergo colonoscopy this morning 3. Patient will plan to follow with Dr. Felder in the outpatient setting for further evaluation treatment in regards to his left hip pain and trochanteric bursitis; underwent a left trochanteric bursa injection yesterday with some improvement of left hip pain 4. Medicine to continue following the patient closely for his other medical diagnoses including alcohol dependence and alcohol withdrawal syndrome 5. Patient has been discussed in detail with Dr. Luciano James and he agrees with this plan Time with Patient: Less than 30
[2017-10-01] MEDS ORDERED: amLODIPine 5 MG TAB PO STA (10:28)
[2017-10-01] MEDS: FOLIC ACID 1 MG TAB PO SCH (10:51)
[2017-10-01] MEDS: TAMSULOSIN 0.4 MG CAP.ER.24H PO SCH (10:52)
[2017-10-01] MEDS: FAMOTIDINE 20 MG TAB PO SCH ×2 (10:52→19:42)
[2017-10-01] MEDS: THIAMINE 100 MG TAB PO SCH ×2 (10:52→15:02)
[2017-10-01] MEDS: HYDROCHLOROTHIAZIDE 25 MG TAB PO SCH (10:52)
[2017-10-01] MEDS: METOPROLOL SUCCINATE (ER) 100 MG TAB.ER.24H PO SCH (10:52)
[2017-10-01] MEDS: TIMOLOL 0.5% OPHTH DROPS 5 ML BTL BOTH EYES SCH ×2 (10:53→19:47)
--- NOTE | 2017-10-01 10:54 | P.HPIM ---
History of Present Illness H&P Date: 09/29/17 The patient is a 62-year-old obese male with a past medical history of chronic alcoholism, depression, chronic pain was admitted to the mental health unit reports of suicidal ideation without a plan secondary to increasing left hip pain. Apparently the patient reports this is been there intermittently for the last year, he does report 3 falls in the last 3 months, the patient reports increased trouble with ambulation feels unsteady and weak on his legs, apparently he drinks a fifth of whiskey daily and reports his last drink was yesterday morning. He denies any chest pain but does report, ongoing exertional dyspnea and a productive cough that began 2 days ago. The patient denies any abdominal pain but does report increasing abdominal distention and fullness over the last 2 weeks with some intermittent episodes of diarrhea, he denies any nausea, constipation, bright red blood or dark tarry stools. He does report that he does get jittery when he does not have alcohol but denies any alcohol related seizures or hallucinations, the patient reports that he did have a shot in his left hip in this past May that improved his pain. The patient began having alcohol-related hypertensive urgency with systolic blood pressures in the 160s to 200 range despite being on alcohol withdrawal protocol, and despite receiving when necessary clonidine and his regular metoprolol and Norvasc for his blood pressures, the patient had a CT abdomen and pelvis that showed findings suggestive of colonic ileus, review of the patient's previous CT it appeared that the patient's abnormal CAT scan findings were chronic and the patient did not have an acute abdomen. Gen. surgery saw the patient and recommended a clear liquid diet, started the patient on prokinetic medications and recommended a GI consult for colonoscopy. Given the patient's ongoing hip pain orthopedics was also consulted, given the patient's multiple medical issues that needed to be addressed. I agree that it was reasonable to transfer the patient to the medical floor at the request of psychiatry team. Review of Systems Other 14 point review of systems negative except per HPI Past Medical History Past Medical History: Hyperlipidemia, Hypertension, Musculoskeletal Disorder, Osteoarthritis (OA), Prostate Disorder Additional Past Medical History / Comment(s): Alcoholism, bronchitis, ulcerative colitis, rectal bleed, gout in bilateral feet, unsteady gait, balance issues, "blood shot" eyes which he has been told is dur to dry eyes, arthritis multiple joints, BPH. History of Any Multi-Drug Resistant Organisms: None Reported Past Surgical History: Back Surgery, Hernia Repair, Joint Replacement, Orthopedic Surgery, Tonsillectomy Additional Past Surgical History / Comment(s): Lumbar back surgery x 3, total L knee, hernia repair umbilical and left inguinal, colonoscopy. Past Anesthesia/Blood Transfusion Reactions: No Reported Reaction, Motion Sickness Additional Past Anesthesia/Blood Transfusion Reaction / Comment(s): Pt gets sea sick. Past Psychological History: Anxiety, Depression Additional Psychological History / Comment(s): t resides alone. He uses a walker to ambulate. He drives. He states he has hx of depression and it has been more severe over the past few weeks. He states he recently got after 33 yrs of marriage and his kids "won't talk to me." He stated that over the past two weeks he has had brief thoughts of suicide but no plan and states he is not suicidal at this time. " I want to live." He stated that when he is feeting this emotional, he stops taking his medication and drinks alcohol more. Smoking Status: Never smoker Past Alcohol Use History: Abuse, Daily Additional Past Alcohol Use History / Comment(s): Pt states he started smoking in 1968 and was a 3-4 ppd smoker. He quit smoking in 1978. He states he drinks 1/5 of whiskey mixed with coke each day. Past Drug Use History: None Reported - Past Family History Mother Additional Family Medical History / Comment(s): Mother "battled" depression all of her life. She was 82 yrs old when she . Father Additional Family Medical History / Comment(s): Father was an alcoholic. He at the age of 72 yrs. Medications and Allergies Home Medications Medication Instructions Recorded Confirmed Type Latanoprost [Xalatan 0.005%] 1 drop BOTH EYES HS 06/24/17 09/29/17 History Metoprolol/Hydrochlorothiazide 1 tab PO DAILY 06/24/17 09/29/17 History [Lopressor Hct 100-25 mg Tab] Naproxen [Naprosyn] 500 mg PO Q12HR PRN #30 tab 06/24/17 09/29/17 Rx PARoxetine HCL [Paxil] 40 mg PO DAILY 06/24/17 09/29/17 History Timolol 0.5% Ophth Soln [Timoptic 1 drop BOTH EYES BID 06/24/17 09/29/17 History 0.5% Ophth Soln] traZODone HCL [Desyrel] 200 mg PO HS 06/24/17 09/29/17 History DULoxetine HCL [Cymbalta] 60 mg PO DAILY 09/28/17 09/29/17 History Hydrochlorothiazide [Hydrodiuril] 25 mg PO DAILY 09/28/17 09/29/17 History Sertraline [Zoloft] 50 mg PO DAILY 09/28/17 09/29/17 History Tamsulosin HCl [Flomax] 0.4 mg PO DAILY 09/28/17 09/29/17 History hydrOXYzine HCL [Atarax] 25 mg PO TID 09/28/17 09/29/17 History Allergies Allergy/AdvReac Type Severity Reaction Status Date / Time No Known Allergies Allergy Verified 09/29/17 21:24 Physical Exam Vitals: Vital Signs Temp Pulse Resp BP Pulse Ox 10/01/17 04:00 97.8 F 72 18 171/97 98 09/30/17 23:50 96.9 F L 71 18 170/99 96 09/30/17 19:55 97.6 F 73 18 175/100 97 09/30/17 16:00 98.5 F 91 18 187/85 97 09/30/17 12:00 98.8 F 71 18 171/90 96 Intake and Output 09/30/17 10/01/17 10/01/17 22:59 06:59 14:59 Output Total 3 5 Balance -3 -5 Output: Urine/Stool Mix 3 5 Other: Voiding Method Bedside Commode Bedside Commode # Voids 1 # Bowel Movements 1 # Emeses 1 Weight 125.1 kg Constitutional: No acute distress, conversant, pleasant Eyes: Anicteric sclerae, moist conjunctiva, no lid-lag, PERRLA ENMT: NC/AT,Oropharynx clear, no erythema, exudates Neck:Supple, FROM, no masses, or JVD, No carotid bruits; No thyromegaly Lungs: Clear to auscultation, Clear to percussion, Normal respiratory effort, no accessory muscle use Cardiovascular: Heart regular in rate and rhythm, No murmurs, gallops, or rubs no peripheral edema Abdominal: Soft Nontender, nom distended, no guarding, no rebound or rigidity, Normoactive bowel sounds No hepatomegaly, No splenomegaly, No palpable mass No abdominal wall hernia noted Skin: Normal temperature, tone, texture, turgor, No induration No subcutaneous nodules, No rash, lesions, No ulcers Extremities:No digital cyanosis No clubbing, Pedal pulses intact and symmetrical Radial pulses intact and symmetrical, the SI joint and lumbar spine with some paraspinal spasm. There is good foot and ankle motion. Knee is non- tender. Bilateral calves are soft and non-tender. EHL is intact but weak (+3/5 ) on the left, No calf tenderness Psychiatric: Alert and oriented to person, place and time, Appropriate affect Intact judgement Neuro: Muscles Strength 5/5 in all 4 extremities, Sensation to light touch grossly present throughout, Cranial nerves II-XII grossly intact. No focal sensory deficits Results CBC & Chem 7: 09/30/17 05:47 10/01/17 06:28 Labs: Abnormal Lab Results - Last 24 Hours (Table) 10/01/17 Range/Units 06:28 BUN 5 L (9-20) mg/dL Creatinine 0.64 L (0.66-1.25) mg/dL Glucose 117 H (74-99) mg/dL Thrombosis Risk Factor Assmnt - Choose All That Apply Each Risk Factor Represents 2 Points: Age 61-74 years Thrombosis Risk Factor Assessment Total Risk Factor Score: 2 Thrombosis Risk Factor Assessment Level: Low Risk Assessment and Plan Assessment: Chronic medical conditions Chronic pain syndrome Essential hypertension Chronic alcohol dependence (1) Ileus, unspecified Current Visit: Yes Status: Acute Code(s): K56.7 - ILEUS, UNSPECIFIED SNOMED Code(s): 70424966 (2) Alcohol withdrawal syndrome Current Visit: No Status: Acute Code(s): F10.239 - ALCOHOL DEPENDENCE WITH WITHDRAWAL, UNSPECIFIED SNOMED Code(s): 268443768 (3) Depression Current Visit: No Status: Acute Code(s): F32.9 - MAJOR DEPRESSIVE DISORDER, SINGLE EPISODE, UNSPECIFIED SNOMED Code(s): 30510253 (4) Hypertensive urgency Current Visit: No Status: Acute Code(s): I16.0 - HYPERTENSIVE URGENCY SNOMED Code(s): 581384019 (5) Left hip pain Current Visit: No Status: Acute Code(s): M25.552 - PAIN IN LEFT HIP SNOMED Code(s): 92285835 Plan: Patient is admitted to the inpatient medical floor anticipated greater than 2 midnight stay for alcohol withdrawal without any delirium and alcohol withdrawal related hypertensive urgency patient's antihypertensive regimen was titrated up will continue when necessary clonidine, Norvasc and metoprolol will continue to monitor his blood pressures closely. Given the patient's abnormal CT abdomen and pelvis and findings suggestive of colonic ileus, unclear appreciate general surgery Dr. lobato's recommendations and plan to proceed with GI consult for colonoscopy, patient made nothing by mouth with plans for colonoscopy The patient does not have an acute abdomen but does have noted moderate abdominal distention. We'll place the orthopedic consult for the patient's left hip pain, patient has previously had epidural injections in his back last September from Dr. Meneses. We'll also place PT OT consult given the patient's complaints of weakness, we'll also have the patient followed on the medical side by inpatient psychiatry Dr. España. We'll continue to follow the patient's clinical course and follow recommendations of the consultants
[2017-10-01] MEDS ORDERED: CYCLOBENZAPRINE 5 MG TAB PO PRN (10:57)
--- NOTE | 2017-10-01 11:06 | P.PN ---
Subjective Progress Note Date: 10/01/17 Patient appears much more comfortable and relaxed today, reports that he is in better spirits since receiving his left hip injection. Patient complaining that he wants to eat, but does realize that he must have his colonoscopy prior to the resumption of any diet. Patient does not have any other complaints today , Reports from the nursing staff indicates that the patient's blood pressure is still elevated, otherwise no acute events overnight Objective - Vital Signs Vital signs: Vital Signs Temp 97.8 F 10/01/17 04:00 Pulse 72 10/01/17 04:00 Resp 18 10/01/17 04:00 BP 171/97 10/01/17 04:00 Pulse Ox 98 10/01/17 04:00 Intake & Output 09/30/17 10/01/17 10/01/17 18:59 06:59 18:59 Output Total 8 Balance -8 Weight 125.1 kg Output: Urine/Stool Mix 8 Other: Voiding Method Bedside Commode # Voids 1 # Bowel Movements 1 # Emeses 1 - Exam Constitutional: No acute distress, conversant, pleasant Eyes: Anicteric sclerae, moist conjunctiva, no lid-lag, PERRLA ENMT: NC/AT,Oropharynx clear, no erythema, exudates Neck:Supple, FROM, no masses, or JVD, No carotid bruits; No thyromegaly Lungs: Clear to auscultation, Clear to percussion, Normal respiratory effort, no accessory muscle use Cardiovascular: Heart regular in rate and rhythm, No murmurs, gallops, or rubs no peripheral edema Abdominal: Soft Nontender, nom distended, no guarding, no rebound or rigidity, Normoactive bowel sounds No hepatomegaly, No splenomegaly, No palpable mass No abdominal wall hernia noted Skin: Normal temperature, tone, texture, turgor, No induration No subcutaneous nodules, No rash, lesions, No ulcers Extremities:No digital cyanosis No clubbing, Pedal pulses intact and symmetrical Radial pulses intact and symmetrical, No calf tenderness Psychiatric: Alert and oriented to person, place and time, Appropriate affect Intact judgement Neuro: Muscles Strength 5/5 in all 4 extremities, Sensation to light touch grossly present throughout, Cranial nerves II-XII grossly intact. No focal sensory deficits - Labs CBC & Chem 7: 09/30/17 05:47 10/01/17 06:28 Labs: Abnormal Lab Results - Last 24 Hours (Table) 10/01/17 Range/Units 06:28 BUN 5 L (9-20) mg/dL Creatinine 0.64 L (0.66-1.25) mg/dL Glucose 117 H (74-99) mg/dL Assessment and Plan (1) Ileus, unspecified Narrative/Plan: * Patient also seen by general surgery Dr. Vega and after reviewing records it appears that the patient's colonic dilatation is chronic in nature, the patient was made nothing by mouth and placed on prokinetic agents * Patient seen by GI doctor Priscilla At this time patient does not evidence of peritonitis. Dilation of bowel appears to be chronic in nature. He is presently passing flatus and bowel movements without blood. 5 years ago is when he had his last colonoscopy, * scheduled to have colonoscopy today Current Visit: Yes Status: Acute Code(s): K56.7 - ILEUS, UNSPECIFIED SNOMED Code(s): 76167107 (2) Alcohol withdrawal syndrome Narrative/Plan: * Continuous symptom triggered CIWA withdrawal protocol with when necessary Ativan Current Visit: No Status: Acute Code(s): F10.239 - ALCOHOL DEPENDENCE WITH WITHDRAWAL, UNSPECIFIED SNOMED Code(s): 943949199 (3) Depression Narrative/Plan: * Patient has been cleared by psychiatry as a patient is denying any suicidal ideation now that his pain is now improved * Recommending inpatient alcohol rehab, however the patient has not receptive to this at this point Current Visit: No Status: Acute Code(s): F32.9 - MAJOR DEPRESSIVE DISORDER, SINGLE EPISODE, UNSPECIFIED SNOMED Code(s): 79998632 (4) Hypertensive urgency Narrative/Plan: * Likely secondary to alcohol withdrawal * Blood pressure still elevated but improved * Continue to monitor blood pressure continue with his home regimen metoprolol/ Norvasc and continue HCTZ 25 mg by mouth daily continue with when necessary clonidine, titrate up patient's Norvasc to 10 mg by mouth daily Current Visit: No Status: Acute Code(s): I16.0 - HYPERTENSIVE URGENCY SNOMED Code(s): 130708326 (5) Trochanteric bursitis of left hip Narrative/Plan: * Computed tomography scan of the left hip negative for acute fracture, only mild acetabular spurring * Patient seen by orthopedic surgery and was given a steroid injection in the left trochanteric bursa, likely source of this patient's pain * Continue current pain regimen will add Flexeril * PTOT has been consulted Current Visit: Yes Status: Acute Code(s): M70.62 - TROCHANTERIC BURSITIS, LEFT HIP SNOMED Code(s): 2896979
[2017-10-01] MEDS: cloNIDine HCL 0.2 MG TAB PO PRN (11:53)
[2017-10-01] MEDS ORDERED: IV FLUID CONTINUATION 1,000 ML IV ONE (13:33)
[2017-10-01] MEDS ORDERED: PROPOFOL 10 MG/ML 20 ML VIAL IV ONE (13:33)
--- NOTE | 2017-10-01 13:46 | P.PN ---
Progress Note - Text Progress Note Date: 10/01/17 Interval History: Patient is a 62-year-old male who was seen today and he reports that after having his hip injected his pain has decreased somewhat. He states that he is hungry as he is awaiting his colonoscopy today. Patient reports that he is not having any suicidal ideation and states that his depression is improved because his hip pain has decreased. Patient and I discussed again referral for inpatient alcohol rehab once he is medically stable and he said he would consider it again with the caveat of "if my hip is and hurting". Mental Status: Appearance/Attitude: Patient is lying in a hospital bed, in no acute distress and he makes good eye contact and was cooperative. Behavior: The patient does not exhibit any psychomotor agitation or retardation. Speech/Language: Patient's speech is spontaneous of normal rhythm and volume and he is coherent Thought Process: Patient is goal-directed there is no evidence of loose association or flight of ideas Thought Content: Patient denies any auditory or visual hallucinations and no delusions or paranoid ideation or elicited. Patient states that since his hip pain has been decreased after receiving an injection he is feeling less depressed and no longer having suicidal thoughts. Patient states that he is feeling comfortable reports no tremors or shakiness and no episodes of sweating. Patient states that he is hungry and reports that his sleep is fair. Suicidal/Homicidal Ideation: Patient denies any current suicidal or homicidal ideation Sensorium/Cognition: Patient is alert and oriented to person, place, and time and his recent and remote memory are grossly intact Mood/Affect: Patient's mood is pleasant and his affect is appropriate, patient states to me that he is not feeling as depressed as he was on admission because his hip pain has decreased but if his hip pain should increase he feels his depression will increase. Insight/Judgment: Patient's insight and judgment are fair Assessment: Patient was seen today and I again discussed with the patient referral for inpatient alcohol rehab and he states that he would consider it now that his hip pain has been decreased but states that if it should improve increase he feels sure his depression will also increase and he does not think that he would consider inpatient rehab at that time. I discussed again with the patient the fact that his use of alcohol will cause depression and anxiety, recommend that he remain sober and consider seriously going to inpatient alcohol rehab. Plan: I will not begin any antidepressants at this time, the patient is no longer reporting suicidal ideation and he is not reporting depressive or anxiety symptoms. Patient states that he is agreeable to a referral for inpatient alcohol rehab and only if his hip pain is controlled as he again stated to me that when his hip is hurting his depression worsens. I reviewed again with the patient that the use of alcohol can cause anxiety and depressive symptoms. Patient is not currently suicidal and does not require transfer back to the inpatient psychiatric unit. At the time of the patient being ready for discharge please contact social work to discuss inpatient at alcohol rehab programs with the patient. If there are any further questions or concerns please contact me, I will sign off the case.
--- NOTE | 2017-10-01 14:28 | P.PCN ---
Date of Procedure: 10/01/17 Procedure(s) Performed: BRIEF HISTORY: Patient is a 62-year-old pleasant male, scheduled for a colonoscopy as a part of evaluation of abdominal distention and dilated white colon noted and CAT scan of the abdomen. He denies any abdominal pain but has some constipation. Never had a colonoscopy with past. PROCEDURE PERFORMED: Colonoscopy. PREOPERATIVE DIAGNOSIS: Abdominal distention and dilated white colon on recent CAT scan of the abdomen. IV sedation per Anesthesia. PROCEDURE: After informed consent was obtained, the patient, was brought into the endoscopy unit. IV sedation was administered by Anesthesia under continuous monitoring. Digital rectal examination was normal. Initially the Olympus CF- 160 flexible video colonoscope was then inserted in the rectum, gradually advanced into the cecum without any difficulty. Careful examination was performed as the scope was gradually being withdrawn. Ileocecal valve and the appendiceal orifice were visualized and appeared normal. Prep was excellent. Mucosa of the cecum, ascending colon, transverse colon, appeared normal however the colon appeared very distended. The descending colon, sigmoid colon, and rectum appeared normal. Retroflexion was performed in the rectum and grade 2 internal hemorrhoids were seen. The patient tolerated the procedure well. IMPRESSION: Distended right colon but no evidence of colorectal neoplasia. Grade 2 internal hemorrhoids. RECOMMENDATIONS: Findings of this examination were discussed with the patient. Diet will be advanced as tolerated. Use osmotic laxatives as needed for chronic constipation..
[2017-10-01] MEDS: LATANOPROST 0.005% OPHTH DROPS 2.5 ML BTL BOTH EYES SCH (19:42)
[2017-10-02] MEDS: LORazepam 2 MG/ML INJ IV PRN ×4 (01:31→23:43)
[2017-10-02] MEDS: SODIUM CHLORIDE 0.9% 1,000 ML IV SCH ×2 (03:00→09:47)
[2017-10-02 06:01] LABS: Basophils % (A) 1 %; Eosinophils # (A) 0.2 k/uL (0-0.7); Eosinophils % (A) 4 %; HCT 38.9 % (39.0-53.0); HGB 13.8 gm/dL (13.0-17.5); Hyperchromasia Slight; Lymphocytes # (A) 0.8 k/uL (1.0-4.8); Lymphocytes % (A) 21 %; MCH 31.1 pg (25.0-35.0); MCHC 35.5 g/dL (31.0-37.0); MCV 87.6 fL (80.0-100.0); Mean Platelet Volume 6.8; Monocytes # (A) 0.1 k/uL (0-1.0); Monocytes % (A) 3 %; Neutrophils # (A) 2.6 k/uL (1.3-7.7); Neutrophils % (A) 70 %; Platelet Count 100 k/uL (150-450); RBC 4.44 m/uL (4.30-5.90); RDW 15.4 % (11.5-15.5); WBC 3.7 k/uL (3.8-10.6)
[2017-10-02 06:14] LABS: Anion Gap 17 mmol/L; Blood Urea Nitrogen 8 mg/dL (9-20); Calcium 8.5 mg/dL (8.4-10.2); Carbon Dioxide 22 mmol/L (22-30); Chloride 99 mmol/L (98-107); Glucose 111 mg/dL (74-99); Potassium 3.4 mmol/L (3.5-5.1); Sodium 138 mmol/L (137-145)
[2017-10-02] MEDS ORDERED: POTASSIUM BICARBONATE/CIT AC 20 MEQ TABLET.EFF PO ONE (07:30)
--- NOTE | 2017-10-02 09:00 | P.PN ---
Subjective Progress Note Date: 10/02/17 Patient seen and examined at bedside. He states he is feeling better. His abdominal distention has decreased. He is tolerating a regular diet. He is having bowel function. Objective - Vital Signs Vital signs: Vital Signs Temp 97.2 F L 10/02/17 03:49 Pulse 63 10/02/17 03:51 Resp 18 10/02/17 03:51 BP 155/80 10/02/17 03:49 Pulse Ox 95 10/02/17 08:51 Intake & Output 10/01/17 10/02/17 10/02/17 18:59 06:59 18:59 Intake Total 1380 200 Output Total 1800 Balance 1380 -1600 Weight 123.6 kg Intake: IV 300 Intake, IV Titration 900 Amount Sodium Chloride 0.9% 1, 900 000 ml @ 150 mls/hr IV . Q6H40M [facility] Rx#:[id number] Oral 180 200 Output: Urine 1800 Other: Voiding Method Bedside Commode Bedside Commode Urinal # Voids 4 # Bowel Movements 4 - Constitutional General appearance: Present: cooperative, disheveled - EENT ENT: Present: hearing grossly normal - Neck Neck: Present: normal ROM - Respiratory Details: No difficulty with respiration - Gastrointestinal Gastrointestinal Comment(s): Soft, nontender, mild distention, no rebound, no guarding - Musculoskeletal Musculoskeletal: Present: generalized weakness - Labs CBC & Chem 7: 10/02/17 05:42 10/02/17 05:42 Labs: Abnormal Lab Results - Last 24 Hours (Table) 10/02/17 10/02/17 Range/Units 05:42 05:42 WBC 3.7 L (3.8-10.6) k/uL Hct 38.9 L (39.0-53.0) % Plt Count 100 L (150-450) k/uL Lymphocytes # 0.8 L (1.0-4.8) k/uL Potassium 3.4 L (3.5-5.1) mmol/L BUN 8 L (9-20) mg/dL Creatinine 0.60 L (0.66-1.25) mg/dL Glucose 111 H (74-99) mg/dL Assessment and Plan (1) Abdominal distention Narrative/Plan: 62-year-old male with abdominal distention and colonic ileus - Reviewed endoscopy by GI, distention of right colon with no evidence of neoplasia - Continue to advance patient's diet as tolerated - No plan for surgical intervention. Current Visit: No Status: Acute Code(s): R14.0 - ABDOMINAL DISTENSION ( GASEOUS) SNOMED Code(s): 41176504
[2017-10-02] MEDS: HEPARIN SODIUM,PORCINE 5,000 UNIT/ML 1 ML VIAL SQ SCH ×3 (09:46→23:07)
[2017-10-02] MEDS: TIMOLOL 0.5% OPHTH DROPS 5 ML BTL BOTH EYES SCH ×2 (09:46→20:55)
[2017-10-02] MEDS: FAMOTIDINE 20 MG TAB PO SCH ×2 (09:47→20:53)
[2017-10-02] MEDS: FOLIC ACID 1 MG TAB PO SCH (09:47)
[2017-10-02] MEDS: METOPROLOL SUCCINATE (ER) 100 MG TAB.ER.24H PO SCH (09:47)
[2017-10-02] MEDS: HYDROCHLOROTHIAZIDE 25 MG TAB PO SCH (09:47)
[2017-10-02] MEDS: TAMSULOSIN 0.4 MG CAP.ER.24H PO SCH (09:48)
[2017-10-02] MEDS: amLODIPine 10 MG TAB PO SCH (09:48)
[2017-10-02] MEDS: THIAMINE 100 MG TAB PO SCH ×2 (09:48→17:30)
--- NOTE | 2017-10-02 11:12 | PN ---
PROGRESS NOTE DATE OF CONSULTATION: October 02, 2017 Patient is a 62-year-old pleasant white male admitted to hospital because of abdominal distention and constipation. CT scan showed dilated colon and hence he underwent a colonoscopy yesterday that showed significant dilation of the colon on the right side, but no obstructing lesion and small internal hemorrhoids were noted. The patient was started on a regular diet, tolerating well. He denies any symptoms. He reports no abdominal pain. Had a bowel movement this morning. No fever, chills, night sweats. PHYSICAL EXAMINATION: Appears comfortable. Blood pressure is 155/80, pulse rate 65, temperature 97.2. HEENT examination unremarkable. Conjunctivae pink. Sclerae anicteric. Oral cavity no lesions. Neck: No JVD or lymph node enlargement. Chest was clear to auscultation. HEART: Regular rate and rhythm. ABDOMEN: Soft, it was slightly distended. Bowel sounds are positive. No organomegaly. Extremities: No pedal edema. Skin no rashes. NEUROLOGIC: Alert and oriented x3. No focal deficits. LABS: No labs done today. IMPRESSION: Abdominal distention secondary to chronic colonic distention. Colonoscopy yesterday did not reveal any obstructive pathology and in fact colonoscopy was normal. RECOMMENDATIONS: Advised to increase fiber in the diet and use of osmotic laxative as needed over-the- counter if he has constipation. At this time we will sign off. Thank you for this consultation. MMPERIL / IJN: [id number] /
[2017-10-02] MEDS: traMADol 50 MG TAB PO PRN (12:40)
--- NOTE | 2017-10-02 13:03 | P.PN ---
Subjective Progress Note Date: 10/02/17 Principal diagnosis: hip pain, DTs Patient is a 62-year-old male with a past medical history of chronic alcoholism, depression, and chronic pain who was initially admitted to the mental health unit due to suicidal ideation. He stated that his suicidal ideation was due to severe left hip pain which he has been suffering on-and-off for from the last year. Was admitted to the psychiatry unit there was concern for increasing CIWA socres and requiring Ativan almost every hour. He also continued to have high blood pressures in the 180s to 200s which necessitated the need for transfer to the medical floor. He was also noted to have increasing abdominal distention and had been being evaluated by GI on the psychiatric floor. He was subsequently admitted to the general medical floor. He was maintained on CIWA protocol. GI and general surgery were again consulted. Orthopedics was consulted for his left hip pain can undergone a CT of the hip which demonstrated mild acetabular spurring. He was diagnosed with trochanteric bursitis or so and underwent injection of Depo-Medrol and lidocaine. There is concern that some of this pain may be coming from his back and Dr. James was consulted. Dr. James's group did not see any need for additional surgical intervention due to his low back pain. They did recommend following up with Dr. Meneses at their group for pain management as the patient has follow-up with this in the past. He also underwent a CT of the abdomen and pelvis on the psychiatry unit which showed a dilated colon. He therefore underwent a colonoscopy which showed distended right colon but no evidence of colorectal neoplasm and grade 2 internal hemorrhoids. It was determined that he should maintain a bowel regiment that there was no need for additional intervention. He also worked with physical therapy and was able to ambulate with some degree of pain. He continued to require Ativan multiple times throughout the day on 10/01. Patient seen and examined at bedside. He continued to complain of left hip pain. He states he can't work with physical therapy as his hip feels like cement to slowly work with them. We discussed the fact that he will need continued outpatient physical therapy and possible injections. There is no surgical intervention needed for the hip but he seems fixated on this. He also continues to say that he is severely depressed. He was again cleared by psychiatry who did not note any suicidal ideation but recommended treating his pain. She also felt that his alcohol use could be contributing to his depression. He denies any chest pain, shortness of breath, and he did have a bowel movement yesterday. Objective - Vital Signs Vital signs: Vital Signs Temp 98.0 F 10/02/17 12:00 Pulse 70 10/02/17 12:00 Resp 18 10/02/17 12:00 BP 153/82 10/02/17 12:00 Pulse Ox 97 10/02/17 12:00 Intake & Output 10/01/17 10/02/17 10/02/17 18:59 06:59 18:59 Intake Total 1380 200 236 Output Total 1800 600 Balance 1380 -1600 -364 Weight 123.6 kg Intake: IV 300 Intake, IV Titration 900 Amount Sodium Chloride 0.9% 1, 900 000 ml @ 150 mls/hr IV . Q6H40M [facility] Rx#:[id number] Oral 180 200 236 Output: Urine 1800 600 Other: Voiding Method Bedside Commode Bedside Commode Bedside Commode Urinal Urinal # Voids 4 # Bowel Movements 4 - Exam General: non toxic, no distress, appears at stated age Derm: warm, dry Head: atraumatic, normocephalic, symmetric Eyes: EOMI, no lid lag, anicteric sclera Mouth: no lip lesion, mucus membranes moist Cardiovascular: S1S2 reg, no murmur, positive posterior tibial pulse bilateral, Lungs: CTA bilateral, no rhonchi, no rales , no accessory muscle use Abdominal: soft, nontender to palpation, no guarding, no appreciable organomegaly Ext: no gross muscle atrophy, no edema, no contractures Neuro: CN II-XI grossly intact, no focal neuro deficits Psych: Alert, oriented, flat affect, does not engage in eye contact - Labs CBC & Chem 7: 10/02/17 05:42 10/02/17 05:42 Labs: Abnormal Lab Results - Last 24 Hours (Table) 10/02/17 10/02/17 Range/Units 05:42 05:42 WBC 3.7 L (3.8-10.6) k/uL Hct 38.9 L (39.0-53.0) % Plt Count 100 L (150-450) k/uL Lymphocytes # 0.8 L (1.0-4.8) k/uL Potassium 3.4 L (3.5-5.1) mmol/L BUN 8 L (9-20) mg/dL Creatinine 0.60 L (0.66-1.25) mg/dL Glucose 111 H (74-99) mg/dL Assessment and Plan Assessment: Delirium tremens -Continue CIMS protocol -Thiamine and folic acid supplementation -Discussed with patient naltrexone -He does not seem to be interested in going to rehab therapy with complaints of his drinking and depression on hip pain Hypertensive urgency -Patient was given his first of hydrochlorothiazide and Norvasc today -Continue to follow blood pressures -Continue with metoprolol -Continue with and needed Catapres Left hip trochanteric bursitis -Status post steroid injection -Outpatient follow-up -Continue with therapy Chronic back pain -Continue with Ultram -Outpatient follow-up with pain management Depression -resume cymbalta as this may help with pain - would not continue with paxil and zoloft as these are both SSRI and need to be monitored closely if used together and with cymbalta for serotonin syndrome. - Does not need to go back to [facility] per psych and can be discharged home. 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 At that point in time he was also complaining of abdominal distention and underwent a CT which demonstrated ileus. He also is complaining of back and hip pain and was even seen by pain management at that point in time and referred for outpatient follow-up. Unfortunately, it does not seem that the patient wants to continue active outpatient follow-up and is expecting for all of his problems to be fixed during this hospitalization. I did discuss with him extensively that he will need continued outpatient follow-up and that his left hip pain does not want inpatient admission. DVT prophylaxis: heparin Discussed with: Patient, nursing, surgery Anticipated discharge: 24-[address]: home, still looking at custodial as well. A total of 40 minutes was spent on the care of this complex patient more than 50 % of the time was spent in counseling and care coordination.
[2017-10-02] MEDS: DULoxetine HCL 60 MG CAPSULE.DR PO SCH (17:30)
[2017-10-02] MEDS: cloNIDine HCL 0.2 MG TAB PO PRN (18:00)
[2017-10-02] MEDS: LATANOPROST 0.005% OPHTH DROPS 2.5 ML BTL BOTH EYES SCH (20:49)
[2017-10-03 07:10] LABS: Anion Gap 15 mmol/L; Blood Urea Nitrogen 14 mg/dL (9-20); Calcium 9.9 mg/dL (8.4-10.2); Carbon Dioxide 26 mmol/L (22-30); Chloride 98 mmol/L (98-107); Glucose 114 mg/dL (74-99); Potassium 3.7 mmol/L (3.5-5.1); Sodium 139 mmol/L (137-145)
[2017-10-03 07:45] LABS: HCT 43.8 % (39.0-53.0); HGB 14.9 gm/dL (13.0-17.5); MCH 30.1 pg (25.0-35.0); MCV 88.7 fL (80.0-100.0); Mean Platelet Volume 7.7; Platelet Count 127 k/uL (150-450); RBC 4.94 m/uL (4.30-5.90)
[2017-10-03] MEDS: TAMSULOSIN 0.4 MG CAP.ER.24H PO SCH (08:29)
[2017-10-03] MEDS: TIMOLOL 0.5% OPHTH DROPS 5 ML BTL BOTH EYES SCH ×2 (08:29→20:45)
[2017-10-03] MEDS: HEPARIN SODIUM,PORCINE 5,000 UNIT/ML 1 ML VIAL SQ SCH ×3 (08:29→23:21)
[2017-10-03] MEDS: THIAMINE 100 MG TAB PO SCH ×2 (08:29→14:51)
[2017-10-03] MEDS: HYDROCHLOROTHIAZIDE 25 MG TAB PO SCH (08:29)
[2017-10-03] MEDS: METOPROLOL SUCCINATE (ER) 100 MG TAB.ER.24H PO SCH (08:29)
[2017-10-03] MEDS: DULoxetine HCL 60 MG CAPSULE.DR PO SCH (08:30)
[2017-10-03] MEDS: FAMOTIDINE 20 MG TAB PO SCH ×2 (08:30→20:45)
[2017-10-03] MEDS: amLODIPine 10 MG TAB PO SCH (08:30)
[2017-10-03] MEDS: FOLIC ACID 1 MG TAB PO SCH (08:30)
[2017-10-03] MEDS: LORazepam 2 MG/ML INJ IV PRN (08:35)
--- NOTE | 2017-10-03 11:39 | P.PN ---
Subjective Progress Note Date: 10/03/17 Principal diagnosis: hip pain, DTs Patient is a 62-year-old male with a past medical history of chronic alcoholism, depression, and chronic pain who was initially admitted to the mental health unit due to suicidal ideation. He stated that his suicidal ideation was due to severe left hip pain which he has been suffering on-and-off for from the last year. Was admitted to the psychiatry unit there was concern for increasing CIWA socres and requiring Ativan almost every hour. He also continued to have high blood pressures in the 180s to 200s which necessitated the need for transfer to the medical floor. He was also noted to have increasing abdominal distention and had been being evaluated by GI on the psychiatric floor. He was subsequently admitted to the general medical floor. He was maintained on CIWA protocol. GI and general surgery were again consulted. Orthopedics was consulted for his left hip pain can undergone a CT of the hip which demonstrated mild acetabular spurring. He was diagnosed with trochanteric bursitis or so and underwent injection of Depo-Medrol and lidocaine. There is concern that some of this pain may be coming from his back and Dr. James was consulted. Dr. James's group did not see any need for additional surgical intervention due to his low back pain. They did recommend following up with Dr. Meneses at their group for pain management as the patient has follow-up with this in the past. He also underwent a CT of the abdomen and pelvis on the psychiatry unit which showed a dilated colon. He therefore underwent a colonoscopy which showed distended right colon but no evidence of colorectal neoplasm and grade 2 internal hemorrhoids. It was determined that he should maintain a bowel regiment that there was no need for additional intervention. He also worked with physical therapy and was able to ambulate with some degree of pain. He continued to require Ativan multiple times throughout the day on 10/01. He states that he is still having difficult ambulating to the bathroom and has not been up in the hallway. He wants to go to [facility] on discharge and states that he cannot take care of himself at home. Patient seen and examined at bedside. He complains of back pain that is worse today than yesterday. Also states that he cannot go without Ativan due to his withdrawal symptoms. He complains of a headache, sweating, and fidgeting. He is still having left hip pain. He had a bowel movement yesterday. He states he has been unable to ambulate in the hallways and therefore does not feel comfortable going home. We discussed with her that his back pain will increase if he does not attempt mobilization and moving around. I've discussed with nursing and have asked for him to ambulate at least twice today to determine whether or not he will be a safe discharge back to his home where he lives alone.Believes that he will have worsening withdrawal at home if he doesn't have ativan. Objective - Vital Signs Vital signs: Vital Signs Temp 96.7 F L 10/03/17 08:00 Pulse 62 10/03/17 08:00 Resp 18 10/03/17 08:00 BP 167/97 10/03/17 08:00 Pulse Ox 96 10/03/17 08:00 Intake & Output 10/02/17 10/03/17 10/03/17 18:59 06:59 18:59 Intake Total 472 Output Total 600 Balance -128 Weight 121.6 kg Intake: Oral 472 Output: Urine 600 Other: Voiding Method Bedside Commode Bedside Commode Bedside Commode Urinal Urinal Urinal # Voids 1 - Exam General: non toxic, no distress, appears at stated age, diaphoretic Derm: warm, dry Head: atraumatic, normocephalic, symmetric Eyes: EOMI, no lid lag, anicteric sclera Mouth: no lip lesion, mucus membranes moist Cardiovascular: S1S2 reg, no murmur, positive posterior tibial pulse bilateral, Lungs: CTA bilateral, no rhonchi, no rales , no accessory muscle use Abdominal: soft, nontender to palpation, no guarding, no appreciable organomegaly Ext: no gross muscle atrophy, no edema, no contractures Neuro: CN II-XI grossly intact, no focal neuro deficits Psych: Alert, oriented, flat affect, does not engage in eye contact - Labs CBC & Chem 7: 10/03/17 05:46 10/03/17 05:46 Labs: Abnormal Lab Results - Last 24 Hours (Table) 10/03/17 10/03/17 Range/Units 05:46 05:46 Plt Count 127 L (150-450) k/uL Glucose 114 H (74-99) mg/dL Assessment and Plan Assessment: Delirium tremens -Continue CIWA protocol -Thiamine and folic acid supplementation -Patient does not want naltrexone he only wants medications to help with his pain. -Does not want outpatient alcohol rehab, but does want snf at discharge. Hypertensive urgency, trends improving over all -Patient was given his first of hydrochlorothiazide and Norvasc 10/03 -Continue to follow blood pressures -Continue with metoprolol -Continue with as needed Catapres Left hip trochanteric bursitis -Status post steroid injection -Outpatient follow-up -Continue with therapy Chronic back pain -Continue with Ultram -Outpatient follow-up with pain management - Seen by Dr. Erika rosario and no plan for surgical intervention they have suggested following with pain management through their office. Depression - Cymbalta resumed 10/03 as this may help with pain - would not continue with paxil and zoloft as these are both SSRI and need to be monitored closely if used together and with cymbalta for serotonin syndrome. - Does not need to go back to [facility] per psych and can be discharged home. 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 At that point in time he was also complaining of abdominal distention and underwent a CT which demonstrated ileus. He also is complaining of back and hip pain and was even seen by pain management at that point in time and referred for outpatient follow-up. Unfortunately, it does not seem that the patient wants to continue active outpatient follow-up and is expecting for all of his problems to be fixed during this hospitalization. I did discuss with him extensively that he will need continued outpatient follow-up and that his left hip pain does not want inpatient admission. PLlan: mobilization, patient does not feel safe to return home at this time living alone and wants SNF. Asked nursing for OOB three times today and abulation in hallways. Still requiring IV ativan. Will continue to monitor DT progression. Likely can be discharged tomorrow either home or to SNF- patient aware. DVT prophylaxis: heparin Discussed with: Patient, nursing, surgery Anticipated discharge: 24-[address]: home, still looking at [facility]dc as well. A total of 25 minutes was spent on the care of this complex patient more than 50 % of the time was spent in counseling and care coordination.
[2017-10-03] MEDS: NAPROXEN 250 MG TAB PO PRN ×2 (17:19→23:20)
[2017-10-03] MEDS: LATANOPROST 0.005% OPHTH DROPS 2.5 ML BTL BOTH EYES SCH (20:44)
[2017-10-04] MEDS: traMADol 50 MG TAB PO PRN ×2 (03:00→09:18)
[2017-10-04 05:31] VITALS: RESP 18
[2017-10-04] MEDS: HEPARIN SODIUM,PORCINE 5,000 UNIT/ML 1 ML VIAL SQ SCH ×2 (09:16→17:24)
[2017-10-04] MEDS: FAMOTIDINE 20 MG TAB PO SCH (09:17)
[2017-10-04] MEDS: HYDROCHLOROTHIAZIDE 25 MG TAB PO SCH (09:17)
[2017-10-04] MEDS: amLODIPine 10 MG TAB PO SCH (09:17)
[2017-10-04] MEDS: DULoxetine HCL 60 MG CAPSULE.DR PO SCH (09:17)
[2017-10-04] MEDS: METOPROLOL SUCCINATE (ER) 100 MG TAB.ER.24H PO SCH (09:17)
[2017-10-04] MEDS: TAMSULOSIN 0.4 MG CAP.ER.24H PO SCH (09:18)
[2017-10-04] MEDS: TIMOLOL 0.5% OPHTH DROPS 5 ML BTL BOTH EYES SCH (09:18)
[2017-10-04] MEDS: amLODIPine 5 MG TAB PO SCH (09:22)
[2017-10-04 11:48] LABS: Glucose,Whole Blood 127 mg/dL (75-99)
[2017-10-04] MEDS: FOLIC ACID 1 MG TAB PO SCH (12:33)
[2017-10-04] MEDS: THIAMINE 100 MG TAB PO SCH (12:33)
--- NOTE | 2017-10-04 12:44 | P.PN ---
Subjective Progress Note Date: 10/04/17 Principal diagnosis: Back pain and depression with history of suicidal thoughts Patient is still having back pain and was requesting stronger pain medications. He is also still depressed. Objective - Vital Signs Vital signs: Vital Signs Temp 98.0 F 10/04/17 04:00 Pulse 59 L 10/04/17 04:00 Resp 18 10/04/17 04:00 BP 124/75 10/04/17 04:00 Pulse Ox 98 10/04/17 07:18 Intake & Output 10/03/17 10/04/17 10/04/17 18:59 06:59 18:59 Intake Total 732 125 Balance 732 125 Weight 121.4 kg Intake: Oral 732 125 Other: Voiding Method Bedside Commode Bedside Commode Urinal Urinal # Voids 1 1 - Exam General: non toxic, no distress, appears at stated age, diaphoretic Derm: warm, dry Head: atraumatic, normocephalic, symmetric Eyes: EOMI, no lid lag, anicteric sclera Mouth: no lip lesion, mucus membranes moist Cardiovascular: S1S2 reg, no murmur, positive posterior tibial pulse bilateral, Lungs: CTA bilateral, no rhonchi, no rales , no accessory muscle use Abdominal: soft, nontender to palpation, no guarding, no appreciable organomegaly Ext: no gross muscle atrophy, no edema, no contractures Neuro: CN II-XI grossly intact, no focal neuro deficits Psych: Alert, oriented, flat affect, does not engage in eye contact - Labs CBC & Chem 7: 10/03/17 05:46 10/03/17 05:46 Labs: Abnormal Lab Results - Last 24 Hours (Table) 09/30/17 Range/Units 23:57 POC Glucose (mg/dL) 127 H (75-99) mg/dL Assessment and Plan Plan: Delirium tremens -Resolved -Thiamine and folic acid supplementation -Patient does not want naltrexone, he only wants medications to help with his pain. -Does not want outpatient alcohol rehab, but does want [facility] at discharge. Hypertensive urgency, trends improving overall -Controlled -Patient was given his first of hydrochlorothiazide and Norvasc 10/03 -Continue with metoprolol -Continue with as needed Catapres Left hip trochanteric bursitis -Status post steroid injection -Outpatient follow-up -Continue with therapy Chronic back pain -Continue with Ultram -Outpatient follow-up with pain management -Seen by Dr. Erika rosario and no plan for surgical intervention they have suggested following with pain management through their office. Depression -Cymbalta resumed 10/03 as this may help with pain -would not continue with paxil and zoloft as these are both SSRI and need to be monitored closely if used together and with cymbalta for serotonin syndrome. -Does not need to go back to [facility] per psych and can be discharged home. 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 I discussed that with care management who is going to help making those appointments. Continue physical therapy. Plan for rehabilitation placement. Currently being evaluated by a [employer] worker. DVT prophylaxis: heparin Discussed with: Patient, care management Anticipated discharge: 24-[address]: Rehab.
[2017-10-04 15:03] VITALS: TEMP 97
[2017-10-04 18:02] VITALS: BP 148/75; PULSE 70
--- NOTE | 2017-10-05 09:41 | P.DS ---
Providers Date of admission: 09/29/17 20:58 Expected date of discharge: 10/04/17 Attending physician: Jaylan Carter MD Consults: 09/29/17 21:20 Consult Physician Routine Consulting Provider: Aby Clements Consult Reason/Comments: depression Do you want consulting provider notified?: Yes Consult Physician Routine Consulting Provider: Vernon Vega Consult Reason/Comments: severe colonic ileus Do you want consulting provider notified?: Yes 09/29/17 21:21 Consult Physician Routine Consulting Provider: Shanita Wells Consult Reason/Comments: severe colonic ileus Do you want consulting provider notified?: Yes 09/30/17 10:09 Consult Physician Routine Consulting Provider: Prabhu Felder Consult Reason/Comments: hip pain, had hip CT 09/29 seperate visit Do you want consulting provider notified?: Yes 09/30/17 21:55 Consult Physician Routine Consulting Provider: Codi James Consult Reason/Comments: chronic low back pain/ history of lumbar fusions Do you want consulting provider notified?: Already Contacted Primary care physician: Stated None Hospital Course: 62-year-old obese male with a past medical history of chronic alcoholism, depression, chronic pain was admitted to the mental health unit because of suicidal ideation secondary to increasing left hip pain. Pain has been there intermittently for the last year, he also did report 3 falls in the last 3 months due to increased trouble with ambulation and feeling of unsteadiness and weakness on his legs. He did have a shot in his left hip in this past May that improved his pain. Patient usually drinks a fifth of whiskey daily. He denied any chest pain but did report, exertional dyspnea and a productive cough that began 2 days prior to admission. He denied any abdominal pain but did report increasing abdominal distention and fullness over the last 2 weeks with some intermittent episodes of diarrhea, he denied any nausea, constipation, bright red blood or dark tarry stools. He reported that he gets jittery when he does not have alcohol but denies any alcohol related seizures or hallucinations. The patient began having alcohol-withdrawal related hypertensive urgency with systolic blood pressures in the 160s to 200 range despite being on his regular metoprolol and Norvasc. For DTs he was treated with ativan prn, thiamine and folic acid supplementation. He was offered treatment with naltrexone for his chronic alcohol abuse but he refused that treatment and was only asking for medications to help with his chronic pain. He also refused outpatient alcohol rehab. The hypertensive urgency was treated with clonidine when necessary. Subsequently because of the multiple ongoing medical issues patient was transferred to the medical floor for further medical management. Because of the abdominal distension he had a CT abdomen and pelvis that showed findings suggestive of colonic ileus. Gen. surgery saw the patient and recommended a clear liquid diet, started the patient on prokinetic medications and recommended a GI consult for colonoscopy. Because of ongoing hip pain orthopedics was also consulted, he underwent a left trochanteric bursa injection. Regarding his chronic back pain, he is status post lumbar fusion, the surgery site was checked by orthopedics service and all the hardware was in place without any malalignment, no surgical intervention was advised, patient was told to follow-up with or so as an outpatient for possible injections treatment. He was continued on Ultram as needed for pain. Physical therapy was also on board with treatment. Regarding the depression and suicidal thoughts he was evaluated by psychiatry who did not think that he needed to go back to the mental health unit for this. Patient was resumed on Cymbalta, Paxil and Zoloft were discontinued. On the day of discharge patient was asking for a solid follow-up plan, he wants a follow-up appointment with a psychiatrist as well as a pain specialist in order to get on track again. I discussed that with care management who is going to help making those appointments. Home care with physical therapy was set up for him. Patient was advised not to go back to drinking again. Discharge diagnoses: Depression with suicidal ideation Chronic hip and lower back pain Chronic ETOH abuse and delirium tremens Patient Condition at Discharge: Stable Plan - Discharge Summary Discharge Rx Participant: No New Discharge Prescriptions: New amLODIPine [Norvasc] 10 mg PO DAILY #30 tab cloNIDine HCL [Catapres] 0.2 mg PO TID PRN #30 tab PRN Reason: high blood pressure SBP>170 Cyclobenzaprine [Flexeril] 5 mg PO TID PRN #60 tab PRN Reason: Muscle Spasm Folic Acid 1 mg PO DAILY@1200 #90 tab Thiamine [Vitamin B-1] 100 mg PO BID@1200,1700 #90 tab traMADol HCl [Ultram] 50 mg PO Q6H PRN #60 tab PRN Reason: Moderate Pain Continue traZODone HCL [Desyrel] 200 mg PO HS Timolol 0.5% Ophth Soln [Timoptic 0.5% Ophth Soln] 1 drop BOTH EYES BID Metoprolol/Hydrochlorothiazide [Lopressor Hct 100-25 mg Tab] 1 tab PO DAILY Latanoprost [Xalatan 0.005%] 1 drop BOTH EYES HS Naproxen [Naprosyn] 500 mg PO Q12HR PRN #30 tab PRN Reason: Pain hydrOXYzine HCL [Atarax] 25 mg PO TID DULoxetine HCL [Cymbalta] 60 mg PO DAILY Tamsulosin HCl [Flomax] 0.4 mg PO DAILY Discharge Medication List Latanoprost [Xalatan 0.005%] 1 drop BOTH EYES HS 06/24/17 [History] Metoprolol/Hydrochlorothiazide [Lopressor Hct 100-25 mg Tab] 1 tab PO DAILY [History] Naproxen [Naprosyn] 500 mg PO Q12HR PRN #30 tab 06/24/17 [Rx] Timolol 0.5% Ophth Soln [Timoptic 0.5% Ophth Soln] 1 drop BOTH EYES BID [History] traZODone HCL [Desyrel] 200 mg PO HS 06/24/17 [History] DULoxetine HCL [Cymbalta] 60 mg PO DAILY 09/28/17 [History] Tamsulosin HCl [Flomax] 0.4 mg PO DAILY 09/28/17 [History] hydrOXYzine HCL [Atarax] 25 mg PO TID 09/28/17 [History] Cyclobenzaprine [Flexeril] 5 mg PO TID PRN #60 tab 10/04/17 [Rx] Folic Acid 1 mg PO DAILY@1200 #90 tab 10/04/17 [Rx] Thiamine [Vitamin B-1] 100 mg PO BID@1200,1700 #90 tab 10/04/17 [Rx] amLODIPine [Norvasc] 10 mg PO DAILY #30 tab 10/04/17 [Rx] cloNIDine HCL [Catapres] 0.2 mg PO TID PRN #30 tab 10/04/17 [Rx] traMADol HCl [Ultram] 50 mg PO Q6H PRN #60 tab 10/04/17 [Rx] Follow up Appointment(s)/Referral(s): [facility] [Outside] - 1 Week (Please call to make appointment. Office is closed.) Abhilash Dykes PAC [PHYSICIAN GAMB CUTTER] - As Needed (Patient may follow-up with Abhilash Dykes PA-C or Dr. Luciano James at [facility] on an as-needed basis following discharge. ) [facility], [NON-STAFF] - Ramez Meneses MD [STAFF PHYSICIAN] - 1 Week (Patient may follow-up with Dr. Meneses at [facility] in 1 week following discharge. Pain management PLEASE CALL TO MAKE APPOINTMENT ) Patient Instructions/Handouts: Colonoscopy (DC), High Fiber Diet (DC), At-Risk Alcohol Use (DC) Discharge Disposition: HOME SELF-CARE
== END 2017-10-04 17:59 | disposition home health service (06) | DRG 394 ==
LOC: 6SEL 20:58 → 4MS4W 21:17 → 6SEL 21:18
PROVIDERS: ADMIT Internal Medicine; ATTEND Internal Medicine
PROC: 3E0U33Z Introduction of Anti-inflammatory into Joints, Percutaneous Approach (ICD-10-PCS; 2017-10-01)
PROC: 3E0U3BZ Introduction of Anesthetic Agent into Joints, Percutaneous Approach (ICD-10-PCS; 2017-10-01)
PROC: 0DJD8ZZ Inspection of Lower Intestinal Tract, Via Natural or Artificial Opening Endoscopic (ICD-10-PCS; principal; 2017-10-01 16:55)
DX: K59.39 Other megacolon (principal); F10.231 Alcohol dependence with withdrawal delirium; R45.851 Suicidal ideations; F10.94 Alcohol use, unspecified with alcohol-induced mood disorder; I45.81 Long QT syndrome; G62.1 Alcoholic polyneuropathy; E66.01 Morbid (severe) obesity due to excess calories; Z68.37 Body mass index [BMI] 37.0-37.9, adult; I16.0 Hypertensive urgency; I10 Essential (primary) hypertension; F41.9 Anxiety disorder, unspecified; M70.62 Trochanteric bursitis, left hip; K70.10 Alcoholic hepatitis without ascites; K57.30 Diverticulosis of large intestine without perforation or abscess without bleeding; E78.5 Hyperlipidemia, unspecified; K59.09 Other constipation; K64.1 Second degree hemorrhoids; G89.4 Chronic pain syndrome; M54.5 Low back pain; M53.3 Sacrococcygeal disorders, not elsewhere classified; M19.91 Primary osteoarthritis, unspecified site; H40.9 Unspecified glaucoma; R26.81 Unsteadiness on feet; H04.123 Dry eye syndrome of bilateral lacrimal glands; N40.0 Benign prostatic hyperplasia without lower urinary tract symptoms; Z79.899 Other long term (current) drug therapy; Z71.3 Dietary counseling and surveillance; Z96.652 Presence of left artificial knee joint; Z87.19 Personal history of other diseases of the digestive system; Z87.891 Personal history of nicotine dependence; Z98.1 Arthrodesis status; Z91.81 History of falling; Z87.39 Personal history of other diseases of the musculoskeletal system and connective tissue; Z81.8 Family history of other mental and behavioral disorders; Z81.1 Family history of alcohol abuse and dependence
CPT/HCPCS: 45378; 80048; 80053; 83735; 84100; 85025; 85027; 94760

== ENCOUNTER 2017-11-23 12:57 | Inpatient (IN) | payer MEDICARE, BC ==
[2017-11-23] MEDS ORDERED: IBUPROFEN 600 MG TAB PO STA (14:02)
--- NOTE | 2017-11-23 14:15 | ED ---
General Adult HPI - General Source: patient, RN notes reviewed Mode of arrival: wheelchair Limitations: altered mental status, physical limitation <Farzad Starks - Last Filed: 11/23/17 20:11> <Eva Lindsey - Last Filed: 11/23/17 21:58> - General Chief complaint: Psychiatric Symptoms Stated complaint: EPS eval/ETOH Time Seen by Provider: 11/23/17 13:19 - History of Present Illness Initial comments: 62-year-old male presents to the emergency department for a chief complaint of "severe depression". Patient states he has depression because he has chronic back pain for which she is on disability. Patient is currently following up with an orthopedic surgeon and has had multiple back surgeries in the past. Patient denies any suicidal thoughts or harms of hurting himself. Patient states he did drink a few shots of whiskey today. Patient has no other complaints at this time including shortness of breath, chest pain, abdominal pain, nausea or vomiting, headache, sore throat, cough, ear pain or visual changes. (Farzad Starks) - Related Data Home Medications Medication Instructions Recorded Confirmed DULoxetine HCL [Cymbalta] 60 mg PO DAILY 09/28/17 11/23/17 cloNIDine HCL [Catapres] 0.2 mg PO DAILY 11/23/17 11/23/17 Previous Rx's Medication Instructions Recorded Naproxen [Naprosyn] 500 mg PO Q12HR PRN #30 tab 06/24/17 Cyclobenzaprine [Flexeril] 5 mg PO TID PRN #60 tab 10/04/17 Folic Acid 1 mg PO DAILY@1200 #90 tab 10/04/17 Thiamine [Vitamin B-1] 100 mg PO BID@1200,1700 #90 tab 10/04/17 amLODIPine [Norvasc] 10 mg PO DAILY #30 tab 10/04/17 Allergies Allergy/AdvReac Type Severity Reaction Status Date / Time No Known Allergies Allergy Verified 11/23/17 13:42 Review of Systems ROS Other: All systems not noted in ROS Statement are negative. <Farzad Starks - Last Filed: 11/23/17 20:11> ROS Other: All systems not noted in ROS Statement are negative. <Eva Lindsey - Last Filed: 11/23/17 21:58> ROS Statement: Those systems with pertinent positive or pertinent negative responses have been documented in the HPI. Past Medical History Past Medical History: Hyperlipidemia, Hypertension, Musculoskeletal Disorder, Osteoarthritis (OA), Prostate Disorder Additional Past Medical History / Comment(s): Alcoholism, bronchitis, ulcerative colitis, rectal bleed, gout in bilateral feet, unsteady gait, balance issues, arthritis multiple joints, BPH. History of Any Multi-Drug Resistant Organisms: None Reported Past Surgical History: Back Surgery, Hernia Repair, Joint Replacement, Orthopedic Surgery, Tonsillectomy Additional Past Surgical History / Comment(s): Lumbar back surgery x 3, total L knee, hernia repair umbilical and left inguinal, colonoscopy. Past Anesthesia/Blood Transfusion Reactions: No Reported Reaction, Motion Sickness Additional Past Anesthesia/Blood Transfusion Reaction / Comment(s): Pt gets sea sick. Past Psychological History: Anxiety, Depression Smoking Status: Never smoker Past Alcohol Use History: Abuse, Daily Past Drug Use History: None Reported - Past Family History Mother Additional Family Medical History / Comment(s): Mother "battled" depression all of her life. She was 82 yrs old when she . Father Additional Family Medical History / Comment(s): Father was an alcoholic. He at the age of 72 yrs. <Farzad Starks P - Last Filed: 11/23/17 20:11> General Exam Limitations: altered mental status, physical limitation General appearance: alert, in no apparent distress Head exam: Present: atraumatic, normocephalic, normal inspection Eye exam: Present: normal appearance, PERRL, EOMI. Absent: scleral icterus, conjunctival injection, nystagmus, periorbital swelling Pupils: Present: normal accommodation ENT exam: Present: normal exam, normal oropharynx, mucous membranes moist, TM's normal bilaterally, normal external ear exam Neck exam: Present: normal inspection, full ROM. Absent: tenderness, meningismus, lymphadenopathy Respiratory exam: Present: normal lung sounds bilaterally. Absent: respiratory distress, wheezes, rales, rhonchi, stridor Cardiovascular Exam: Present: regular rate, normal rhythm, normal heart sounds. Absent: systolic murmur, diastolic murmur, rubs, gallop, clicks GI/Abdominal exam: Present: soft, normal bowel sounds. Absent: distended, tenderness, guarding, rebound, rigid Neurological exam: Present: alert, oriented X3, CN II-XII intact Psychiatric exam: Present: depressed Skin exam: Present: warm, dry, intact, normal color. Absent: rash <Farzad Starks - Last Filed: 11/23/17 20:11> Vital Signs 11/23/17 11/23/17 11/23/17 13:04 16:32 17:00 Temperature 98.4 F Pulse Rate 88 97 92 Respiratory 18 20 Rate Blood Pressure 199/78 197/92 O2 Sat by Pulse 98 96 97 Oximetry 11/23/17 11/23/17 11/23/17 18:36 19:50 20:43 Temperature 97.9 F 98.4 F Pulse Rate 97 102 H 88 Respiratory 18 17 18 Rate Blood Pressure 198/95 212/93 183/85 O2 Sat by Pulse 96 96 95 Oximetry 11/23/17 21:34 Temperature Pulse Rate 87 Respiratory 18 Rate Blood Pressure 199/85 O2 Sat by Pulse 95 Oximetry EKG Findings - EKG Comments: EKG Findings:: normal sinus rhythm, Ventricular rate 88, DC interval 178, QRS duration 102, QT 402. <Farzad Starks P - Last Filed: 11/23/17 20:11> Medical Decision Making - Lab Data Result diagrams: 11/23/17 16:39 11/23/17 16:39 <Farzad Starks - Last Filed: 11/23/17 20:11> - Lab Data Result diagrams: 11/23/17 16:39 11/23/17 16:39 <Eva Lindsey - Last Filed: 11/23/17 21:58> - Medical Decision Making 62-year-old male presents to the emergency department for a chief complaint of depression. Patient states depression is chronic and severe. It is due to chronic pain for which she is working with an orthopedic surgeon. Patient has had multiple low back surgeries. Patient denies any other issues that are bringing on the depression severely. Patient denies suicidal thoughts or thoughts of harming himself. Patient did have a couple shots of whiskey today. Patient did have an alcohol level so was held for 3 hours before he EPS could be notified. Doing that time patient started to complain of sweating and nausea. Patient was started on the CWA scale and started on fluids. EKG was negative. Labs were within normal limits. Patient felt much better after receiving Ativan. Psych did not feel it was necessary to admit him at this time as he had no suicidal thoughts or homicidal thoughts. I discussed with patient the option of being admitted to the hospital and patient agrees. Patient will be admitted for observation. CWA scale and fluids will be continued. (Farzad Starks) - Lab Data Lab Results 11/23/17 11/23/17 11/23/17 Range/Units 15:31 15:31 16:24 WBC (3.8-10.6) k/uL RBC (4.30-5.90) m/uL Hgb (13.0-17.5) gm/dL Hct (39.0-53.0) % MCV (80.0-100.0) fL MCH (25.0-35.0) pg MCHC (31.0-37.0) g/dL RDW (11.5-15.5) % Plt Count (150-450) k/uL Neutrophils % % Lymphocytes % % Monocytes % % Eosinophils % % Basophils % % Neutrophils # (1.3-7.7) k/uL Lymphocytes # (1.0-4.8) k/uL Monocytes # (0-1.0) k/uL Eosinophils # (0-0.7) k/uL Basophils # (0-0.2) k/uL Sodium (137-145) mmol/L Potassium (3.5-5.1) mmol/L Chloride (98-107) mmol/L Carbon Dioxide (22-30) mmol/L Anion Gap mmol/L BUN (9-20) mg/dL Creatinine (0.66-1.25) mg/dL Est GFR (CKD-EPI)AfAm (>60 ml/min/1.73 sqM) Est GFR (CKD-EPI)NonAf (>60 ml/min/1.73 sqM) Glucose (74-99) mg/dL POC Glucose (mg/dL) 98 (75-99) mg/dL POC Glu Scorekeeper ID Donna Sorto Calcium (8.4-10.2) mg/dL Total Bilirubin (0.2-1.3) mg/dL AST (17-59) U/L ALT (21-72) U/L Alkaline Phosphatase (38-126) U/L Troponin I (0.000-0.034) ng/mL Total Protein (6.3-8.2) g/dL Albumin (3.5-5.0) g/dL Amylase (30-110) U/L Lipase (23-300) U/L Urine Color Yellow Urine Appearance Clear (Clear) Urine pH 6.0 (5.0-8.0) Ur Specific [place] 1.014 (1.001-1.035) Urine Protein 2+ H (Negative) Urine Glucose (UA) Negative (Negative) Urine Ketones 2+ H (Negative) Urine Blood Small H (Negative) Urine Nitrite Negative (Negative) Urine Bilirubin Negative (Negative) Urine Urobilinogen 2.0 (<2.0) mg/dL Ur Leukocyte Esterase Negative (Negative) Urine RBC 1 (0-5) /hpf Urine WBC 1 (0-5) /hpf Ur Squamous Epith Cells 1 (0-4) /hpf Amorphous Sediment Rare H (None) /hpf Urine Mucus Few H (None) /hpf Urine Opiates Screen Not Detected (NotDetected) Ur Oxycodone Screen Not Detected (NotDetected) Urine Methadone Screen Not Detected (NotDetected) Ur Propoxyphene Screen Not Detected (NotDetected) Ur Barbiturates Screen Not Detected (NotDetected) U Tricyclic Antidepress Not Detected (NotDetected) Ur Phencyclidine Scrn Not Detected (NotDetected) Ur Amphetamines Screen Not Detected (NotDetected) U Methamphetamines Scrn Not Detected (NotDetected) U Benzodiazepines Scrn Not Detected (NotDetected) Urine Cocaine Screen Not Detected (NotDetected) U Marijuana (THC) Screen Not Detected (NotDetected) 11/23/17 11/23/17 11/23/17 Range/Units 16:39 16:39 16:39 WBC 6.8 (3.8-10.6) k/uL RBC 4.88 (4.30-5.90) m/uL Hgb 14.9 (13.0-17.5) gm/dL Hct 42.8 (39.0-53.0) % MCV 87.7 (80.0-100.0) fL MCH 30.5 (25.0-35.0) pg MCHC 34.8 (31.0-37.0) g/dL RDW 14.5 (11.5-15.5) % Plt Count 214 (150-450) k/uL Neutrophils % 68 % Lymphocytes % 20 % Monocytes % 7 % Eosinophils % 2 % Basophils % 1 % Neutrophils # 4.6 (1.3-7.7) k/uL Lymphocytes # 1.4 (1.0-4.8) k/uL Monocytes # 0.5 (0-1.0) k/uL Eosinophils # 0.1 (0-0.7) k/uL Basophils # 0.0 (0-0.2) k/uL Sodium 139 (137-145) mmol/L Potassium 4.3 (3.5-5.1) mmol/L Chloride 96 L (98-107) mmol/L Carbon Dioxide 23 (22-30) mmol/L Anion Gap 20 mmol/L BUN 6 L (9-20) mg/dL Creatinine 0.70 (0.66-1.25) mg/dL Est GFR (CKD-EPI)AfAm >90 (>60 ml/min/1.73 sqM) Est GFR (CKD-EPI)NonAf >90 (>60 ml/min/1.73 sqM) Glucose 100 H (74-99) mg/dL POC Glucose (mg/dL) (75-99) mg/dL POC Glu Scorekeeper ID Calcium 9.2 (8.4-10.2) mg/dL Total Bilirubin 1.3 (0.2-1.3) mg/dL AST 51 (17-59) U/L ALT 49 (21-72) U/L Alkaline Phosphatase 71 (38-126) U/L Troponin I <0.012 (0.000-0.034) ng/mL Total Protein 7.4 (6.3-8.2) g/dL Albumin 4.9 (3.5-5.0) g/dL Amylase 54 (30-110) U/L Lipase 91 (23-300) U/L Urine Color Urine Appearance (Clear) Urine pH (5.0-8.0) Ur Specific [place] (1.001-1.035) Urine Protein (Negative) Urine Glucose (UA) (Negative) Urine Ketones (Negative) Urine Blood (Negative) Urine Nitrite (Negative) Urine Bilirubin (Negative) Urine Urobilinogen (<2.0) mg/dL Ur Leukocyte Esterase (Negative) Urine RBC (0-5) /hpf Urine WBC (0-5) /hpf Ur Squamous Epith Cells (0-4) /hpf Amorphous Sediment (None) /hpf Urine Mucus (None) /hpf Urine Opiates Screen (NotDetected) Ur Oxycodone Screen (NotDetected) Urine Methadone Screen (NotDetected) Ur Propoxyphene Screen (NotDetected) Ur Barbiturates Screen (NotDetected) U Tricyclic Antidepress (NotDetected) Ur Phencyclidine Scrn (NotDetected) Ur Amphetamines Screen (NotDetected) U Methamphetamines Scrn (NotDetected) U Benzodiazepines Scrn (NotDetected) Urine Cocaine Screen (NotDetected) U Marijuana (THC) Screen (NotDetected) Critical Care Time <Farzad Starks - Last Filed: 11/23/17 20:11> Total Critical Care Time: 30 <Eva Lindsey - Last Filed: 11/23/17 21:58> Critical Care Time: bp was noticed to be very high, labetalol 20 mg IV was given along with the Ativan and hydration. Patient's home meds include clonidine, Norvasc, not sure about the compliance blood pressure was reassessed a few times it was found to be very hard then we repeated labetalol 20 mg IV along the hydralazine 20 mg IV and benzodiazepine was added, he be admitted for further evaluation and management. alcohal withdrawal protocol is activated (Eva Lindsey) Disposition Is patient prescribed a controlled substance at d/c from ED?: No Time of Disposition: 19:41 <Farzad Starks - Last Filed: 11/23/17 20:11> <Eva Lindsey - Last Filed: 11/23/17 21:58> Clinical Impression: Alcohol withdrawal Disposition: ADMITTED IP TO THIS HOSP Condition: Good
[2017-11-23] MEDS ORDERED: methylPREDNISolone SOD SUCCI 125 MG/2 ML VIAL IM ONE (15:26)
[2017-11-23 16:00] LABS: Amphetamine Screen,Urine Not Detected (NotDetected); Barbiturate Screen,Urine Not Detected (NotDetected); Benzodiazepines Screen,Urine Not Detected (NotDetected); Cocaine Screen,Urine Not Detected (NotDetected); Methadone Screen, Urine Not Detected (NotDetected); Opiate Screen,Urine Not Detected (NotDetected); Oxycodone Screen, Urine Not Detected (NotDetected); Phencyclidine Screen,Urine Not Detected (NotDetected); Tricyclic Antidepressant,Urine Not Detected (NotDetected); Urn Cannabinoid Scrn Not Detected (NotDetected)
[2017-11-23] MEDS ORDERED: THIAMINE 100 MG/ML 2 ML VIAL IM STA (16:16)
[2017-11-23] MEDS ORDERED: LORazepam 2 MG/ML INJ IV PRN (16:16)
[2017-11-23 16:27] LABS: Glucose,Whole Blood 98 mg/dL (75-99)
[2017-11-23] MEDS ORDERED: ONDANSETRON 4 MG/2 ML VIAL IVP STA (16:51)
[2017-11-23] MEDS ORDERED: SODIUM CHLORIDE 0.9% 1,000 ML IV STA (16:51)
[2017-11-23] MEDS: LORazepam 2 MG/ML INJ IV PRN ×4 (16:57→22:52)
[2017-11-23] MEDS: THIAMINE 100 MG TAB PO SCH (16:58)
[2017-11-23 16:59] LABS: Basophils % (A) 1 %; Eosinophils # (A) 0.1 k/uL (0-0.7); Eosinophils % (A) 2 %; HCT 42.8 % (39.0-53.0); HGB 14.9 gm/dL (13.0-17.5); Lymphocytes # (A) 1.4 k/uL (1.0-4.8); Lymphocytes % (A) 20 %; MCH 30.5 pg (25.0-35.0); MCHC 34.8 g/dL (31.0-37.0); MCV 87.7 fL (80.0-100.0); Mean Platelet Volume 6.1; Monocytes # (A) 0.5 k/uL (0-1.0); Monocytes % (A) 7 %; Neutrophils # (A) 4.6 k/uL (1.3-7.7); Neutrophils % (A) 68 %; Platelet Count 214 k/uL (150-450); RBC 4.88 m/uL (4.30-5.90); RDW 14.5 % (11.5-15.5); WBC 6.8 k/uL (3.8-10.6)
[2017-11-23 17:07] LABS: Amorphous Sediment,Urine Rare /hpf; Appearance,Urine Clear (Clear); Bilirubin,Urine Negative (Negative); Blood,Urine Small (Negative); Color,Urine Yellow; Glucose,Urine (UA) Negative (Negative); Ketones,Urine 2+ (Negative); Leukocyte Esterase,Urine Negative (Negative); Mucus,Urine Few /hpf; Nitrite,Urine Negative (Negative); Protein,Urine 2+ (Negative); RBC,Urine 1 /hpf (0-5); Specific Gravity,Urine 1.014 (1.001-1.035); Squamous Epithelial Cell,Urine 1 /hpf (0-4); WBC,Urine 1 /hpf (0-5)
[2017-11-23 17:08] LABS: ALT 49 U/L (21-72); AST 51 U/L (17-59); Albumin 4.9 g/dL (3.5-5.0); Alkaline Phosphatase 71 U/L (38-126); Amylase 54 U/L (30-110); Anion Gap 20 mmol/L; Blood Urea Nitrogen 6 mg/dL (9-20); Calcium 9.2 mg/dL (8.4-10.2); Carbon Dioxide 23 mmol/L (22-30); Chloride 96 mmol/L (98-107); Glucose 100 mg/dL (74-99); Lipase 91 U/L (23-300); Potassium 4.3 mmol/L (3.5-5.1); Sodium 139 mmol/L (137-145); Total Bilirubin 1.3 mg/dL (0.2-1.3); Total Protein 7.4 g/dL (6.3-8.2)
[2017-11-23] MEDS ORDERED: LABETALOL 5 MG/ML VIAL MDV IVP STA ×2 (19:22→21:53)
[2017-11-23] MEDS ORDERED: cloNIDine HCL 0.2 MG TAB PO STA (19:23)
[2017-11-23] MEDS ORDERED: amLODIPine 10 MG TAB PO STA (19:24)
[2017-11-23] MEDS ORDERED: NALOXONE 0.4 MG/ML 1 ML VIAL IV PRN (19:39)
[2017-11-23] MEDS: SODIUM CHLORIDE 0.9% 1,000 ML IV SCH (19:58)
[2017-11-23] MEDS ORDERED: CYCLOBENZAPRINE 5 MG TAB PO PRN (21:52)
[2017-11-23] MEDS ORDERED: hydrALAZINE HCL 20 MG/ML 1 ML VIAL IVP STA (21:54)
[2017-11-24] MEDS: LORazepam 2 MG/ML INJ IV PRN ×8 (00:16→19:41)
[2017-11-24] MEDS: DULoxetine HCL 60 MG CAPSULE.DR PO SCH (08:26)
[2017-11-24] MEDS: amLODIPine 10 MG TAB PO SCH (08:26)
[2017-11-24] MEDS: SODIUM CHLORIDE 0.9% 1,000 ML IV SCH ×2 (08:27→17:00)
[2017-11-24] MEDS: cloNIDine HCL 0.2 MG TAB PO SCH (08:28)
[2017-11-24] MEDS ORDERED: hydrALAZINE HCL 25 MG TAB PO PRN (09:41)
[2017-11-24] MEDS ORDERED: HYDROcodone/APAP 7.5-325MG 1 EACH TAB PO PRN (10:12)
--- NOTE | 2017-11-24 10:15 | P.HPIM ---
History of Present Illness This is a pleasant 62 years old male with past medical history of hyperlipidemia , hypertension, musculoskeletal disorder, osteoarthritis, prostate disorder, alcoholism, bronchitis, ulcerative colitis, rectal bleed, gout in both feet, and a steady gait and balance issue, BPH, status post several back surgeries and joint replacement and he follow-up with an orthopedic surgeon, who presents because of worsening pain of his left buttock area which has been going on for a year now, patient status 3 surgery of his lower back, he follow-up with Dr. Conde orthopedic for about a year, and he is in the process of going for further evaluation. He had MRI of his lower back about 1 week ago. However over the last 3 days he is pain on the left butt area become more excruciating and he had to come to emergency room as per patient he got steroid injection and gave him partial relief and he feels better now. Also patient complains from weakness of his lower extremity over 2 years and he stated to me at baseline he uses a walker which can go as far as one block. Patient depression got worse with his painful condition. He has history of depression on Cymbalta , however he denies any suicidal at duration as patient was talking about his symptoms he starts crying. Also patient states his drinking alcohol about fifth of liquor every day since his the father had at 2002. Patient denies chest pain, no dyspnea, no change in urine or bowel habits. No fever Review of Systems CONSTITUTIONAL: No fever, no malaise, no fatigue. HEENT: No recent visual problems or hearing problems. Denied any sore throat. CARDIOVASCULAR: No orthopnea, PND, no palpitations, no syncope. PULMONARY: No shortness of breath, no cough, no hemoptysis. GASTROINTESTINAL: No diarrhea, no nausea, no vomiting, no abdominal pain. Normoactive bowel sounds. NEUROLOGICAL: No headaches, no weakness, no numbness. HEMATOLOGICAL: Denies any bleeding or petechiae. GENITOURINARY: Denies any burning micturition, frequency, or urgency. ENDOCRINE: Denies any polyuria or polydipsia. Past Medical History Past Medical History: Hyperlipidemia, Hypertension, Musculoskeletal Disorder, Osteoarthritis (OA), Prostate Disorder Additional Past Medical History / Comment(s): Alcoholism, bronchitis, ulcerative colitis, rectal bleed, gout in bilateral feet, unsteady gait, balance issues, arthritis multiple joints, BPH. History of Any Multi-Drug Resistant Organisms: None Reported Past Surgical History: Back Surgery, Hernia Repair, Joint Replacement, Orthopedic Surgery, Tonsillectomy Additional Past Surgical History / Comment(s): Lumbar back surgery x 3, total L knee, hernia repair umbilical and left inguinal, colonoscopy. Past Anesthesia/Blood Transfusion Reactions: No Reported Reaction, Motion Sickness Additional Past Anesthesia/Blood Transfusion Reaction / Comment(s): Pt gets sea sick. Past Psychological History: Anxiety, Depression Smoking Status: Never smoker Past Alcohol Use History: Abuse, Daily Past Drug Use History: None Reported - Past Family History Mother Additional Family Medical History / Comment(s): Mother "battled" depression all of her life. She was 82 yrs old when she . Father Additional Family Medical History / Comment(s): Father was an alcoholic. He at the age of 72 yrs. Medications and Allergies Home Medications Medication Instructions Recorded Confirmed Type RX: Naproxen [Naprosyn] 500 mg PO Q12HR PRN #30 tab 06/24/17 11/23/17 Rx RX: DULoxetine HCL [Cymbalta] 60 mg PO DAILY 09/28/17 11/23/17 History RX: Cyclobenzaprine [Flexeril] 5 mg PO TID PRN #60 tab 10/04/17 11/23/17 Rx RX: Folic Acid 1 mg PO DAILY@1200 #90 tab 10/04/17 11/23/17 Rx RX: Thiamine [Vitamin B-1] 100 mg PO BID@1200,1700 #90 tab 10/04/17 11/23/17 Rx RX: amLODIPine [Norvasc] 10 mg PO DAILY #30 tab 10/04/17 11/23/17 Rx RX: cloNIDine HCL [Catapres] 0.2 mg PO DAILY 11/23/17 11/23/17 History Allergies Allergy/AdvReac Type Severity Reaction Status Date / Time No Known Allergies Allergy Verified 11/23/17 13:42 Physical Exam Vitals: Vital Signs Temp Pulse Pulse Resp BP BP Pulse Ox 11/24/17 08:00 98.3 F 107 H 18 185/86 97 11/24/17 05:29 98.0 F 97 18 175/74 96 11/24/17 00:30 98.0 F 97 18 171/93 97 06/19/18 22:55 94 18 137/62 96 11/23/17 22:45 133/75 11/23/17 22:35 96 18 190/77 98 11/23/17 22:23 90 18 202/86 97 11/23/17 22:11 98.2 F 93 18 220/98 96 11/23/17 21:34 87 18 199/85 95 11/23/17 20:43 98.4 F 88 18 183/85 95 11/23/17 19:50 102 H 17 212/93 96 11/23/17 18:36 97.9 F 97 18 198/95 96 11/23/17 17:00 92 97 11/23/17 16:32 97 20 197/92 96 11/23/17 13:04 98.4 F 88 18 199/78 98 Intake and Output 11/23/17 11/24/17 11/24/17 22:59 06:59 14:59 Output Total 2250 Balance -2250 Output: Urine 2250 Straight 850 Other: Voiding Method Urinal # Voids 1 GENERAL: The patient is alert and oriented x3, not in any acute distress. Well developed, well nourished. HEENT: Pupils are round and equally reacting to light. EOMI. No scleral icterus. No conjunctival pallor. Normocephalic, atraumatic. No pharyngeal erythema. No thyromegaly. CARDIOVASCULAR: S1 and S2 present. No murmurs, rubs, or gallops. PULMONARY: Chest is clear to auscultation, no wheezing or crackles. ABDOMEN: Soft, nontender, nondistended, normoactive bowel sounds. No palpable organomegaly. MUSCULOSKELETAL: No joint swelling or deformity. -Patient has mild tenderness on the left buttock area posterolaterally EXTREMITIES: No cyanosis, clubbing, or pedal edema. NEUROLOGICAL: Gross neurological examination did not reveal any focal deficits. SKIN: No rashes. Results CBC & Chem 7: 11/23/17 16:39 11/23/17 16:39 Labs: Abnormal Lab Results - Last 24 Hours (Table) 11/23/17 11/23/17 Range/Units 15:31 16:39 Chloride 96 L (98-107) mmol/L BUN 6 L (9-20) mg/dL Glucose 100 H (74-99) mg/dL Urine Protein 2+ H (Negative) Urine Ketones 2+ H (Negative) Urine Blood Small H (Negative) Amorphous Sediment Rare H (None) /hpf Urine Mucus Few H (None) /hpf Thrombosis Risk Factor Assmnt - Choose All That Apply Each Factor Represents 1 point: Obesity (BMI >25) Each Risk Factor Represents 2 Points: Age 61-74 years Thrombosis Risk Factor Assessment Total Risk Factor Score: 3 Thrombosis Risk Factor Assessment Level: Moderate Risk Assessment and Plan Plan: -Alcohol abuse and withdrawal, continue with folate, multivitamin and thiamin. Continue with CIWA protocol. Continue with IV fluids. Call psych consult -History of depression, no suicidal ideation, continue with Cymbalta. Call psych consult -History of chronic low back pain with acute exacerbation in the left side, no history of trauma, status post several back surgery. Continue with Flexeril and pain treatment. We'll try to get MRI done last week as per patient. Call orthopedic consult. Continue with pain medication -Hypertension and tachycardia, his blood pressure is 185/86 and heart rate 107. Mostly related to his alcohol withdrawal. Continue with the clonidine, Norvasc and hydralazine when necessary -Dehydration continue with IV fluids DVT prophylaxis subcutaneous heparin GI prophylaxis Protonix PT/OT: Pending Prognosis is guarded given the severity and complex medical problems Discussed with staff
[2017-11-24 11:07] LABS: Basophils % (A) 0 %; Eosinophils % (A) 0 %; HCT 42.2 % (39.0-53.0); HGB 13.9 gm/dL (13.0-17.5); Lymphocytes # (A) 0.2 k/uL (1.0-4.8); Lymphocytes % (A) 5 %; MCH 29.6 pg (25.0-35.0); MCV 89.9 fL (80.0-100.0); Mean Platelet Volume 6.7; Monocytes # (A) 0.3 k/uL (0-1.0); Monocytes % (A) 8 %; Neutrophils # (A) 3.9 k/uL (1.3-7.7); Neutrophils % (A) 87 %; Platelet Count 205 k/uL (150-450); RDW 14.9 % (11.5-15.5); WBC 4.5 k/uL (3.8-10.6)
[2017-11-24 11:17] LABS: ALT 39 U/L (21-72); AST 36 U/L (17-59); Albumin 4.2 g/dL (3.5-5.0); Alkaline Phosphatase 57 U/L (38-126); Anion Gap 11 mmol/L; Bilirubin, Delta 0.4 mg/dL (0.0-0.2); Bilirubin,Unconjugated 0.9 mg/dL (0.0-1.1); Blood Urea Nitrogen 11 mg/dL (9-20); Calcium 9.3 mg/dL (8.4-10.2); Carbon Dioxide 26 mmol/L (22-30); Chloride 97 mmol/L (98-107); Glucose 326 mg/dL (74-99); Magnesium 1.8 mg/dL (1.6-2.3); Potassium 4.8 mmol/L (3.5-5.1); Sodium 134 mmol/L (137-145); Total Bilirubin 1.3 mg/dL (0.2-1.3); Total Protein 6.5 g/dL (6.3-8.2)
[2017-11-24] MEDS: THIAMINE 100 MG TAB PO SCH ×5 (11:58→18:21)
[2017-11-24] MEDS: FOLIC ACID 1 MG TAB PO SCH (11:58)
--- NOTE | 2017-11-24 15:45 | P.CN ---
Psychiatric Consult - . Consult date: 11/24/17 Consult:: IDENTIFYING DATA: The patient is a 62-year-old male admitted to medicine with complaints of increasing low back pain. The hospitalist submitted a psychiatric consult for evaluation of complaints of increased depression. HISTORY OF PRESENT ILLNESS: I reviewed the medical record and interviewed the patient. He is known to psychiatric service from prior psychiatric hospitalizations. He was last discharged from the psychiatric unit in September 2017 with the diagnoses of alcohol-induced depressive disorder with use, severe. He described feelings of sadness, hopelessness and helplessness but always qualified his responses. He alleges that he has been depressed for many years "possibly since I was a child". The severity of depression fluctuation in intensity and worsens in relationship to the severity of his back pain. The depression has worsened since his last discharge from psychiatric unit because the pain has worsened. He stated that he feels depressed because of the pain interferes with his ability to enjoy himself, work and engage in pleasurable activities. He feels hopeless and helpless because the pain has been persistent. He feels worthless similarly because he is unable to work and his physical activity is limited because of the pain. He expressed feelings of guilt about his alcohol use and the effects of alcohol on his marriage and his family. He denied that he felt that his depression or his alcohol use as a punishment and did not express delusions of guilt. He denied that he hears accusatory or did not see her voices or experiences threatening visual hallucinations. He denied suicidal ideation or wishes. He complains of difficulty falling asleep and staying asleep. He attributes the sleep difficulties due to the chronic and persistent pain. He complains of psychiatric anxiety. He has a history of an alcohol use disorder. He alleges that he relapsed alcohol "couple days" prior to his admission. He alleges that he was abstinent "for a couple weeks". He talked about experiencing periods of abstinence but always relapses to alcohol. Prior to admission he was drinking 1/5 of liquor per day. His drink of choice is whiskey. He described current symptoms of alcohol withdrawal including nausea, tremor, sweating, anxiety and restlessness. He denied tactile, auditory or visual disturbances. His alcohol withdrawal symptoms are currently managed using the CIWA and his scores have range from 0-12 suggesting mild symptoms of alcohol withdrawal. He attributes his alcohol use and relapse to alcohol to his chronic and severe back pain. He denied a pattern of anxiety suggestive of panic attacks. He denied obsessions or compulsions. He denied use of other drugs such as marijuana, cocaine, methamphetamine etc. to get high, help him sleep or changes mood. He denied experiencing such psychotic symptoms as auditory, visual or olfactory hallucinations ideas reference etc. PAST PSYCHIATRIC HISTORY: He has had at least 3 admissions to our psychiatric unit and several admissions to [facility] in [facility]. Following his last discharge from our psychiatric unit he met briefly with therapist at [facility]. He last met with the therapist "about 3 weeks ago" and does not have a follow-up appointment. PAST MEDICAL HISTORY: He has multiple medical problems include hyperlipidemia, hypertension, musculoskeletal disorder, asked osteoarthritis, gout and chronic low back pain. According to record, he has had 3 lumbar back surgeries. He denied a history of alcohol withdrawal delirium. ALLERGIES: NO KNOWN DRUG ALLERGIES. SUBSTANCE USE HISTORY: He began drinking alcohol in childhood. His use of alcohol resulted in marital conflict, employment problems and an OWI. His alcohol use contributed to his eventual divorce. He believes that his alcohol use has worsened since is . He is attended several substance abuse treatment programs. He had participated in [employer] and had a sponsor but has not attended meetings "in several years". FAMILY PSYCHIATRIC/SUBSTANCE USE HISTORY: He has a family history of alcohol use disorder and depression. SOCIAL HISTORY: He is second in a sibship of 4. He described a difficult childhood because his father was an alcoholic, his mother was depressed and there is ongoing marital conflict. 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 He currently receives Social Security disability. He lives alone in his own home. He was after 32 years of marriage. He is estranged from his 3 children. MENTAL STATUS EXAM: He presented as a base tremulous and diaphoretic 62-year- old male who looked in acute distress. He made intermittent eye contact and attended to the interview. He had a distressed facial expression. He was alert and oriented to person, place and time. He showed psychomotor retardation but no abnormal movements. His gait was slow and unsteady. His speech was spontaneous with decreased rate, rhythm and volume. His affect was depressed and dysphoric. He denied suicidal ideation or wishes. He denied homicidal ideation. He expressed depressive cognitions including hopelessness, helplessness and worthlessness. He did not express ideas reference, paranoid ideation or delusions. His thinking was abstract and associations were coherent and logical. He denied hallucinations and did not appear to responding to internal stimuli.. IMPRESSIONS: He is a 62-year-old man who has a history of an alcohol use disorder and depression. He presented to the hospital with complaints of increasing low back pain. He complained that when his back pain worsens he feels more depressed and his alcohol use increases. He is feeling more hopeful today because he is scheduled for a "nerve block" in the near future. He has signs and symptoms of alcohol withdrawal but is not psychotic and is alert and fully oriented. He currently is at low risk for self-harm. He should be treated as an outpatient basis in a program that offers both mental health and substance abuse services. He would also benefit from re-engagement with Alcoholics Anonymous. There is no indication for transfer to the psychiatric unit at this time. PSYCHIATRIC DIAGNOSIS: Alcohol use disorder severe, alcohol withdrawal, rule out alcohol withdrawal delirium, unspecified depressive disorder, rule out alcohol induced depressive disorder, rule out major depressive disorder PLAN: Continue the alcohol withdrawal protocol and monitor for signs and symptoms of delirium. Continue Cymbalta 60 mg daily. Refer for outpatient mental health services. Provide him with information about local alcoholic anonymous meetings. Thank you for this consult.. 11/24/17 15:16
[2017-11-25] MEDS: SODIUM CHLORIDE 0.9% 1,000 ML IV SCH ×2 (04:48→11:56)
[2017-11-25] MEDS: LORazepam 2 MG/ML INJ IV PRN ×2 (04:48→11:54)
[2017-11-25 07:36] LABS: Basophils % (A) 1 %; Eosinophils % (A) 1 %; HCT 40.3 % (39.0-53.0); HGB 13.5 gm/dL (13.0-17.5); Lymphocytes # (A) 1.1 k/uL (1.0-4.8); Lymphocytes % (A) 16 %; MCH 30.1 pg (25.0-35.0); MCHC 33.5 g/dL (31.0-37.0); MCV 90.1 fL (80.0-100.0); Mean Platelet Volume 6.6; Monocytes # (A) 0.3 k/uL (0-1.0); Monocytes % (A) 5 %; Neutrophils # (A) 5.2 k/uL (1.3-7.7); Neutrophils % (A) 78 %; Platelet Count 174 k/uL (150-450); RBC 4.47 m/uL (4.30-5.90); RDW 14.9 % (11.5-15.5); WBC 6.7 k/uL (3.8-10.6)
--- NOTE | 2017-11-25 07:54 | P.PN ---
Subjective This is a pleasant 62 years old male with past medical history of hyperlipidemia , hypertension, musculoskeletal disorder, osteoarthritis, prostate disorder, alcoholism, bronchitis, ulcerative colitis, rectal bleed, gout in both feet, and unsteady gait and balance issue, BPH, status post several back surgeries and joint replacement and he follow-up with an orthopedic surgeon, who presents because of worsening pain of his left buttock area which has been going on for a year now, patient status 3 surgery of his lower back, he follow-up with Dr. Conde orthopedic for about a year, and he is in the process of going for further evaluation. He had MRI of his lower back about 1 week ago. However over the last 3 days he is pain on the left butt area become more excruciating and he had to come to emergency room as per patient he got steroid injection and gave him partial relief and he feels better now. Also patient complains from weakness of his lower extremity over 2 years and he stated to me at baseline he uses a walker which can go as far as one block. Patient depression got worse with his painful condition. He has history of depression on Cymbalta , however he denies any suicidal ideation as patient was talking about his symptoms he starts crying. Also patient states his drinking alcohol about fifth of liquor every day since his father had in 2002. Patient denies chest pain, no dyspnea, no change in urine or bowel habits. No fever 11/25/2017 Patient was lying in bed, still have severe low back pain that limits his movements and examination. We checked the bladder scan and he has some urinary retention. Lindsey catheter is placed. MRI of the lumbar spine without contrast from 11/18/[address] Conde is in the paper chart which shows he is a status post L3-L5 fixation and interbody spacer device placement at L3-L4. With patent canal. Also he has multiple moderate spinal stenosis is at L2-L3. Patient still on pain management. He has been evaluated by psychiatrist yesterday and he recommended to continue treatment of his alcohol withdrawal with CIWA protocol and outpatient follow-up with Alcoholics Anonymous and mental health, patient informed and he agrees ROS CONSTITUTIONAL: No fever, no malaise, no fatigue. HEENT: No recent visual problems or hearing problems. Denied any sore throat. CARDIOVASCULAR: No orthopnea, PND, no palpitations, no syncope. PULMONARY: No shortness of breath, no cough, no hemoptysis. GASTROINTESTINAL: No diarrhea, no nausea, no vomiting, no abdominal pain. Normoactive bowel sounds. NEUROLOGICAL: No headaches, no weakness, no numbness. HEMATOLOGICAL: Denies any bleeding or petechiae. GENITOURINARY: Denies any burning micturition, frequency, or urgency. MUSCULOSKELETAL/RHEUMATOLOGICAL: Denies any joint pain, swelling, or any muscle pain. ENDOCRINE: Denies any polyuria or polydipsia. Objective - Vital Signs Vital signs: Vital Signs Temp 98.0 F 11/25/17 05:39 Pulse 92 11/25/17 05:39 Resp 16 11/25/17 05:39 BP 148/66 11/25/17 05:39 Pulse Ox 96 11/25/17 05:39 Intake & Output 11/24/17 11/25/17 11/25/17 18:59 06:59 18:59 Intake Total 1100 Output Total 400 Balance -400 1100 Intake: Intake, IV Titration 1100 Amount Sodium Chloride 0.9% 1, 1100 000 ml @ 100 mls/hr IV . Q10H [facility] Rx#:[id number] Output: Urine 400 Other: Voiding Method Urinal Urinal # Voids 1 1 # Bowel Movements 2 - Exam GENERAL: The patient is alert and oriented x3, not in any acute distress. Well developed, well nourished. HEENT: Pupils are round and equally reacting to light. EOMI. No scleral icterus. No conjunctival pallor. Normocephalic, atraumatic. No pharyngeal erythema. No thyromegaly. CARDIOVASCULAR: S1 and S2 present. No murmurs, rubs, or gallops. PULMONARY: Chest is clear to auscultation, no wheezing or crackles. ABDOMEN: Soft, nontender, nondistended, normoactive bowel sounds. No palpable organomegaly. MUSCULOSKELETAL: No joint swelling or deformity. -Patient has mild tenderness on the left buttock area posterolaterally EXTREMITIES: No cyanosis, clubbing, or pedal edema. NEUROLOGICAL: Gross neurological examination did not reveal any focal deficits. He doesn't show have asymmetry or weakness in his left lower extremity, however his examination is limited by his pain SKIN: No rashes. - Labs CBC & Chem 7: 11/25/17 06:52 11/24/17 10:41 Labs: Abnormal Lab Results - Last 24 Hours (Table) 11/24/17 11/24/17 Range/Units 10:41 10:41 Lymphocytes # 0.2 L (1.0-4.8) k/uL Sodium 134 L (137-145) mmol/L Chloride 97 L (98-107) mmol/L Glucose 326 H (74-99) mg/dL Delta Bilirubin 0.4 H (0.0-0.2) mg/dL Assessment and Plan Plan: -Alcohol abuse and withdrawal, continue with folate, multivitamin and thiamin. Continue with CIWA protocol. Continue with IV fluids. psych consult is appreciated and they recommended outpatient alcohol anonymous and mental health follow-up. -History of depression, no suicidal ideation, continue with Cymbalta. psych consult is appreciated and as above -History of chronic low back pain with acute exacerbation in the left side, no history of trauma, status post several back surgery. Continue with Flexeril and pain treatment. MRI of the lumbar on 11/18/2017 shows moderate spinal stenosis at L2-L3. Call orthopedic consult. Continue with pain medication -Hypertension and tachycardia, his blood pressure is better controlled. Mostly related to his alcohol withdrawal. Continue with the clonidine, Norvasc and hydralazine when necessary -Dehydration continue with IV fluids DVT prophylaxis subcutaneous heparin GI prophylaxis Protonix PT/OT: Pending Prognosis is guarded given the severity and complex medical problems Discussed with staff
[2017-11-25] MEDS ORDERED: DEXAMETHASONE SOD PHOSPHATE 10 MG/ML 1 ML VIAL IV STA (07:58)
[2017-11-25 08:04] LABS: ALT 45 U/L (21-72); AST 48 U/L (17-59); Alkaline Phosphatase 54 U/L (38-126); Anion Gap 11 mmol/L; Bilirubin, Delta 0.2 mg/dL (0.0-0.2); Bilirubin,Unconjugated 1.1 mg/dL (0.0-1.1); Blood Urea Nitrogen 11 mg/dL (9-20); Carbon Dioxide 29 mmol/L (22-30); Chloride 98 mmol/L (98-107); Glucose 126 mg/dL (74-99); Magnesium 1.8 mg/dL (1.6-2.3); Sodium 138 mmol/L (137-145); Total Bilirubin 1.3 mg/dL (0.2-1.3); Total Protein 6.2 g/dL (6.3-8.2)
[2017-11-25] MEDS: DULoxetine HCL 60 MG CAPSULE.DR PO SCH (08:19)
[2017-11-25] MEDS: cloNIDine HCL 0.2 MG TAB PO SCH (08:19)
[2017-11-25] MEDS: MORPHINE SULFATE 2 MG/ML SYRINGE IVP PRN ×3 (08:19→20:01)
[2017-11-25] MEDS: amLODIPine 10 MG TAB PO SCH (08:19)
[2017-11-25] MEDS: TAMSULOSIN 0.4 MG CAP.ER.24H PO SCH (09:32)
--- NOTE | 2017-11-25 10:01 | P.CNOR ---
History of Present Illness - [facility] Consult date: 11/25/17 Consult reason: back pain History of present illness: The patient is a 62-year-old male who was admitted to the hospital with alcohol withdrawl and low back pain. The patient is a known patient to our office and has been seen by Dr. James, Dr. Meneses, and Dr. Conde for the same low back pain. The patient underwent a lumbar MRI recently ordered by Dr. Conde and his scheduled for epidural injections next week. We were consulted for evaluation of his chronic low back pain. The patient does have a history of 3 lumbar surgeries in [place], [place]. The last procedure performed approximately 6 years ago. He is currently receiving treatment for alcohol withdrawal. He also experienced urinary retention yesterday and a Lindsey catheter was inserted. The patient's pain is controlled at this time with morphine and [place]. The patient was given a dose of steroids upon admission to the hospital some improvement of pain. However, the steroids have not been continued. Today, the patient states he is comfortable since Morphine was administered recently. He denies fever, chills, rigors, abdominal pain, shortness of breath , chest pain. Review of Systems Constitutional: Denies chills, Denies fatigue, Denies fever Cardiovascular: Denies chest pain, Denies shortness of breath Respiratory: Denies cough Gastrointestinal: Denies abdominal pain, Denies diarrhea, Denies nausea, Denies vomiting Genitourinary: Reports urinary retention Musculoskeletal: Reports low back pain Psychiatric: Reports depression Past Medical History Past Medical History: Hyperlipidemia, Hypertension, Musculoskeletal Disorder, Osteoarthritis (OA), Prostate Disorder Additional Past Medical History / Comment(s): Alcoholism, bronchitis, ulcerative colitis, rectal bleed, gout in bilateral feet, unsteady gait, balance issues, arthritis multiple joints, BPH. History of Any Multi-Drug Resistant Organisms: None Reported Past Surgical History: Back Surgery, Hernia Repair, Joint Replacement, Orthopedic Surgery, Tonsillectomy Additional Past Surgical History / Comment(s): Lumbar back surgery x 3, total L knee, hernia repair umbilical and left inguinal, colonoscopy. Past Anesthesia/Blood Transfusion Reactions: No Reported Reaction, Motion Sickness Additional Past Anesthesia/Blood Transfusion Reaction / Comm: Pt gets sea sick. Past Psychological History: Anxiety, Depression Smoking Status: Never smoker Past Alcohol Use History: Abuse, Daily Past Drug Use History: None Reported - Past Family History Mother Additional Family Medical History / Comment(s): Mother "battled" depression all of her life. She was 82 yrs old when she . Father Additional Family Medical History / Comment(s): Father was an alcoholic. He at the age of 72 yrs. Medications and Allergies Home Medications Medication Instructions Recorded Confirmed Type Naproxen [Naprosyn] 500 mg PO Q12HR PRN #30 tab 06/24/17 11/23/17 Rx DULoxetine HCL [Cymbalta] 60 mg PO DAILY 09/28/17 11/23/17 History Cyclobenzaprine [Flexeril] 5 mg PO TID PRN #60 tab 10/04/17 11/23/17 Rx Folic Acid 1 mg PO DAILY@1200 #90 tab 10/04/17 11/23/17 Rx Thiamine [Vitamin B-1] 100 mg PO BID@1200,1700 #90 tab 10/04/17 11/23/17 Rx amLODIPine [Norvasc] 10 mg PO DAILY #30 tab 10/04/17 11/23/17 Rx cloNIDine HCL [Catapres] 0.2 mg PO DAILY 11/23/17 11/23/17 History Allergies Allergy/AdvReac Type Severity Reaction Status Date / Time No Known Allergies Allergy Verified 11/23/17 13:42 Physical Examination The patient is a 62-year-old male who is in no acute distress. He is alert and oriented 3. Good chest excursion with deep inspiration and expiration. Abdomen is soft and rounded. Exam of the lumbar spine reveals skin is intact with no abrasions, lacerations, or bruises. There is evidence of a large well- healed incision along the midline of the lumbar spine. There is pain to palpation along the midline of the lumbar spine and over the left sacroiliac joint. Dorsiflexion and plantarflexion positively sustained bilaterally. Unable to perform EHL on the right. Good EHL strength on the left. There is generalized bilateral weakness with hip flexion, abduction, and abduction. Straight leg testing is negative bilaterally. Bilateral soft and nontender. There is decreased sensation to the bilateral lower extremities. Circulatory status intact. Results MRI dated 11/18/2017 at [facility] reveals status post L3-L5 posterior al and transpedicular screw fixation with posterior decompressions and interbody spacer device placement at L3-L4. Spinal canal with widely patent at the operative levels with low grade residual neural foraminal narrowing at L4-L5. Multifactorial moderate spinal stenosis at L2-L3. Multifactorial mild spinal canal stenosis at L5-S1. Multilevel degenerative changes. There is no significant interval change compared to the CT scan of the lumbar spine dated 08/19/2016. - Labs Labs: Abnormal Lab Results - Last 24 Hours (Table) 11/24/17 11/24/17 11/25/17 Range/Units 10:41 10:41 06:52 Lymphocytes # 0.2 L (1.0-4.8) k/uL Sodium 134 L (137-145) mmol/L Chloride 97 L (98-107) mmol/L Glucose 326 H 126 H (74-99) mg/dL Delta Bilirubin 0.4 H (0.0-0.2) mg/dL Total Protein 6.2 L (6.3-8.2) g/dL H & H 11/23/17 11/24/17 11/25/17 Range/Units 16:39 10:41 06:52 Hgb 14.9 13.9 13.5 (13.0-17.5) gm/dL Hct 42.8 42.2 40.3 (39.0-53.0) % Result Diagrams: 11/25/17 06:52 11/25/17 06:52 Assessment and Plan (1) Alcohol withdrawal syndrome Current Visit: Yes Status: Acute Code(s): F10.239 - ALCOHOL DEPENDENCE WITH WITHDRAWAL, UNSPECIFIED SNOMED Code(s): 444154338 (2) Alcohol dependency Current Visit: No Status: Acute Code(s): F10.20 - ALCOHOL DEPENDENCE, UNCOMPLICATED SNOMED Code(s): 78702826 (3) Chronic low back pain Current Visit: No Status: Acute Code(s): M54.5 - LOW BACK PAIN; G89.29 - OTHER CHRONIC PAIN SNOMED Code(s): 680844001 (4) Depression Current Visit: No Status: Acute Code(s): F32.9 - MAJOR DEPRESSIVE DISORDER, SINGLE EPISODE, UNSPECIFIED SNOMED Code(s): 20909052 (5) History of lumbar surgery Current Visit: No Status: Acute Code(s): Z98.890 - OTHER SPECIFIED POSTPROCEDURAL STATES SNOMED Code(s): 103619942 Plan: The clinical and MRI findings were discussed with the patient. The case was also discussed with Dr. Del Valle and Dr. Conde. We recommend continued pain control with [place] and Morphine as needed. Internal medicine has added IV and PO steriods this morning, which we agree with. The plan will be to continue medical treatment of alcohol withdrawl and maximize pain control for discharge and follow up with Dr. Conde on an outpatient basis for epidural steriod injections. Internal medicine to manage urinary retention. No other surgical intervention regarding his back is recommended at this time until all conservative measures have been exhausted. He may be a candidate for a neurostimulator if epidural and facet injections are not helpful. Dr. Conde will follow with patient on an outpatient basis. The patient is orthopedically stable for discharge once medical issues have been resolved. We will sign off at this time.
[2017-11-25] MEDS: FOLIC ACID 1 MG TAB PO SCH (11:56)
[2017-11-25] MEDS: DEXAMETHASONE 4 MG TAB PO SCH ×4 (11:56→21:51)
[2017-11-25] MEDS: THIAMINE 100 MG TAB PO SCH ×2 (11:56→17:12)
[2017-11-26] MEDS: HYDROcodone/APAP 10-325MG 1 EACH TAB PO PRN ×3 (00:01→18:10)
[2017-11-26] MEDS: HEPARIN SODIUM,PORCINE 5,000 UNIT/ML 1 ML VIAL SQ SCH ×3 (00:02→20:49)
[2017-11-26] MEDS: SODIUM CHLORIDE 0.9% 1,000 ML IV SCH ×2 (00:02→08:34)
[2017-11-26] MEDS: LIDOCAINE 5% PATCH TOPICAL SCH ×2 (00:02→08:27)
[2017-11-26] MEDS: MORPHINE SULFATE 2 MG/ML SYRINGE IVP PRN ×2 (01:22→06:03)
[2017-11-26] MEDS: TAMSULOSIN 0.4 MG CAP.ER.24H PO SCH (08:26)
[2017-11-26] MEDS: cloNIDine HCL 0.2 MG TAB PO SCH (08:26)
[2017-11-26] MEDS: DEXAMETHASONE 4 MG TAB PO SCH ×4 (08:26→20:49)
[2017-11-26] MEDS: DULoxetine HCL 60 MG CAPSULE.DR PO SCH (08:26)
[2017-11-26] MEDS: amLODIPine 10 MG TAB PO SCH (08:33)
[2017-11-26 08:50] LABS: Basophils % (A) 0 %; Eosinophils % (A) 0 %; HCT 43.3 % (39.0-53.0); HGB 14.4 gm/dL (13.0-17.5); Lymphocytes # (A) 0.4 k/uL (1.0-4.8); Lymphocytes % (A) 5 %; MCH 30.5 pg (25.0-35.0); MCHC 33.2 g/dL (31.0-37.0); MCV 91.9 fL (80.0-100.0); Mean Platelet Volume 6.4; Monocytes # (A) 0.3 k/uL (0-1.0); Monocytes % (A) 4 %; Neutrophils # (A) 6.5 k/uL (1.3-7.7); Neutrophils % (A) 90 %; Platelet Count 200 k/uL (150-450); RBC 4.71 m/uL (4.30-5.90); RDW 15.2 % (11.5-15.5); WBC 7.2 k/uL (3.8-10.6)
[2017-11-26 09:05] LABS: ALT 48 U/L (21-72); AST 38 U/L (17-59); Albumin 4.6 g/dL (3.5-5.0); Alkaline Phosphatase 64 U/L (38-126); Anion Gap 13 mmol/L; Bilirubin, Delta 0.4 mg/dL (0.0-0.2); Bilirubin,Unconjugated 1.1 mg/dL (0.0-1.1); Blood Urea Nitrogen 13 mg/dL (9-20); Calcium 9.1 mg/dL (8.4-10.2); Carbon Dioxide 26 mmol/L (22-30); Chloride 95 mmol/L (98-107); Glucose 170 mg/dL (74-99); Magnesium 1.8 mg/dL (1.6-2.3); Potassium 4.1 mmol/L (3.5-5.1); Sodium 134 mmol/L (137-145); Total Bilirubin 1.5 mg/dL (0.2-1.3)
--- NOTE | 2017-11-26 09:35 | P.PN ---
Subjective This is a pleasant 62 years old male with past medical history of hyperlipidemia , hypertension, musculoskeletal disorder, osteoarthritis, prostate disorder, alcoholism, bronchitis, ulcerative colitis, rectal bleed, gout in both feet, and unsteady gait and balance issue, BPH, status post several back surgeries and joint replacement and he follow-up with an orthopedic surgeon, who presents because of worsening pain of his left buttock area which has been going on for a year now, patient status 3 surgery of his lower back, he follow-up with Dr. Conde orthopedic for about a year, and he is in the process of going for further evaluation. He had MRI of his lower back about 1 week ago. However over the last 3 days he is pain on the left butt area become more excruciating and he had to come to emergency room as per patient he got steroid injection and gave him partial relief and he feels better now. Also patient complains from weakness of his lower extremity over 2 years and he stated to me at baseline he uses a walker which can go as far as one block. Patient depression got worse with his painful condition. He has history of depression on Cymbalta , however he denies any suicidal ideation as patient was talking about his symptoms he starts crying. Also patient states his drinking alcohol about fifth of liquor every day since his father had in 2002. Patient denies chest pain, no dyspnea, no change in urine or bowel habits. No fever 11/25/2017 Patient was lying in bed, still have severe low back pain that limits his movements and examination. We checked the bladder scan and he has some urinary retention. Lindsey catheter is placed. MRI of the lumbar spine without contrast from 11/18/[address] Conde is in the paper chart which shows he is a status post L3-L5 fixation and interbody spacer device placement at L3-L4. With patent canal. Also he has multiple moderate spinal stenosis is at L2-L3. Patient still on pain management. He has been evaluated by psychiatrist yesterday and he recommended to continue treatment of his alcohol withdrawal with CIWA protocol and outpatient follow-up with Alcoholics Anonymous and mental health, patient informed and he agrees 11/26/2017 Patient is still have low back pain, however is improving today from 10/10 to 7- 8/10, patient was able to walk with physical therapist, he still have some difficulty with pain however patient his gait is back to his baseline. His alcohol withdrawal symptoms is improving, no tremor however he had an episode of this with him this morning. He is still using IV pain medication morphine this morning, he was [place] last night. We are tapering down his IV pain medication. Patient dehydration is improved and he is eating well so stop IV fluids. Is less depressed looking today. No suicidal ideation. We started him on lidocaine patch patient states is not helping him much. He still on steroids. For his urinary retention patient doesn't want the Lindsey catheter so it going to the discontinue it and put the patient on the bladder scan ROS CONSTITUTIONAL: No fever, no malaise, no fatigue. HEENT: No recent visual problems or hearing problems. Denied any sore throat. CARDIOVASCULAR: No orthopnea, PND, no palpitations, no syncope. PULMONARY: No shortness of breath, no cough, no hemoptysis. GASTROINTESTINAL: No diarrhea, no nausea, no vomiting, no abdominal pain. Normoactive bowel sounds. NEUROLOGICAL: No headaches, no weakness, no numbness. HEMATOLOGICAL: Denies any bleeding or petechiae. GENITOURINARY: Denies any burning micturition, frequency, or urgency. MUSCULOSKELETAL/RHEUMATOLOGICAL: Denies any joint pain, swelling, or any muscle pain. ENDOCRINE: Denies any polyuria or polydipsia. Objective - Vital Signs Vital signs: Vital Signs Temp 98 F 11/26/17 06:12 Pulse 91 11/26/17 06:12 Resp 18 11/26/17 06:12 BP 139/81 11/26/17 06:12 Pulse Ox 96 11/26/17 06:12 Intake & Output 11/25/17 11/26/17 11/26/17 18:59 06:59 18:59 Intake Total 2040 1740 Output Total 3000 2300 Balance -960 -560 Weight 131.542 kg Intake: Intake, IV Titration 600 400 Amount Sodium Chloride 0.9% 1, 600 400 000 ml @ 100 mls/hr IV . Q10H WALKER Rx#:[id number] Oral 1440 1340 Output: Urine 3000 2300 Straight 1600 2300 Other: Voiding Method Urinal Indwelling Catheter # Voids 0 - Exam GENERAL: The patient is alert and oriented x3, not in any acute distress. Well developed, well nourished. HEENT: Pupils are round and equally reacting to light. EOMI. No scleral icterus. No conjunctival pallor. Normocephalic, atraumatic. No pharyngeal erythema. No thyromegaly. CARDIOVASCULAR: S1 and S2 present. No murmurs, rubs, or gallops. PULMONARY: Chest is clear to auscultation, no wheezing or crackles. ABDOMEN: Soft, nontender, nondistended, normoactive bowel sounds. No palpable organomegaly. MUSCULOSKELETAL: No joint swelling or deformity. -Patient has mild tenderness on the left buttock area posterolaterally EXTREMITIES: No cyanosis, clubbing, or pedal edema. NEUROLOGICAL: Gross neurological examination did not reveal any focal deficits. He doesn't show have asymmetry or weakness in his left lower extremity, however his examination is limited by his pain SKIN: No rashes. - Labs CBC & Chem 7: 11/26/17 08:05 11/26/17 08:05 Labs: Abnormal Lab Results - Last 24 Hours (Table) 11/26/17 11/26/17 Range/Units 08:05 08:05 Lymphocytes # 0.4 L (1.0-4.8) k/uL Sodium 134 L (137-145) mmol/L Chloride 95 L (98-107) mmol/L Glucose 170 H (74-99) mg/dL Total Bilirubin 1.5 H (0.2-1.3) mg/dL Delta Bilirubin 0.4 H (0.0-0.2) mg/dL Assessment and Plan Plan: -Alcohol abuse and withdrawal, continue with folate, multivitamin and thiamin. Continue with CIWA protocol. DC IV fluids. psych consult is appreciated and they recommended outpatient alcohol anonymous and mental health follow-up. Discussed with the patient and he agreeable to do the follow-up -History of depression, no suicidal ideation, continue with Cymbalta. psych consult is appreciated and as above -History of chronic low back pain with acute exacerbation in the left side, no history of trauma, status post several back surgery. Continue with Flexeril and pain treatment. MRI of the lumbar on 11/18/2017 shows moderate spinal stenosis at L2-L3. orthopedic consult. Improving. Physical therapy is pending their final recommendation -Hypertension and tachycardia, his blood pressure and heart rates are controlled currently. Mostly related to his alcohol withdrawal. Continue with the clonidine, Norvasc and hydralazine when necessary -Dehydration. Resolved. DC IV fluids -Urinary retention, UA is significant for infection. Patient has Lindsey catheter and he wanted to be DC'd. DC Lindsey and put him on the bladder scan DVT prophylaxis subcutaneous heparin GI prophylaxis Protonix PT/OT: Occupational therapy recommended home with home health care. Physical therapy: [facility] versus [facility], pending the final recommendation Prognosis is guarded given the severity and complex medical problems Patient informed me today he has an appointment with his pain/volunteer specialist. On 12/01/2017. However he is not sure about the date and he will check it up Discussed with staff
[2017-11-26] MEDS: FOLIC ACID 1 MG TAB PO SCH (13:26)
[2017-11-26] MEDS: THIAMINE 100 MG TAB PO SCH ×2 (13:26→18:08)
[2017-11-26] MEDS ORDERED: MORPHINE SULFATE 2 MG/ML SYRINGE IVP PRN (15:43)
[2017-11-26] MEDS: LORazepam 1 MG TAB PO PRN (16:30)
[2017-11-27] MEDS: LORazepam 1 MG TAB PO PRN ×3 (06:15→21:22)
[2017-11-27] MEDS: HYDROcodone/APAP 10-325MG 1 EACH TAB PO PRN ×2 (07:31→14:39)
[2017-11-27] MEDS: HEPARIN SODIUM,PORCINE 5,000 UNIT/ML 1 ML VIAL SQ SCH ×2 (07:31→20:02)
[2017-11-27] MEDS: cloNIDine HCL 0.2 MG TAB PO SCH (07:32)
[2017-11-27] MEDS: LIDOCAINE 5% PATCH TOPICAL SCH (07:32)
[2017-11-27] MEDS: amLODIPine 10 MG TAB PO SCH (07:32)
[2017-11-27] MEDS: TAMSULOSIN 0.4 MG CAP.ER.24H PO SCH (07:32)
[2017-11-27] MEDS: DEXAMETHASONE 4 MG TAB PO SCH ×4 (07:32→20:02)
[2017-11-27] MEDS: DULoxetine HCL 60 MG CAPSULE.DR PO SCH (07:32)
[2017-11-27 07:36] LABS: Basophils % (A) 0 %; Eosinophils % (A) 0 %; HCT 41.1 % (39.0-53.0); HGB 14.3 gm/dL (13.0-17.5); Lymphocytes # (A) 0.4 k/uL (1.0-4.8); Lymphocytes % (A) 6 %; MCH 31.6 pg (25.0-35.0); MCHC 34.9 g/dL (31.0-37.0); MCV 90.8 fL (80.0-100.0); Mean Platelet Volume 6.2; Monocytes # (A) 0.2 k/uL (0-1.0); Monocytes % (A) 4 %; Neutrophils # (A) 5.8 k/uL (1.3-7.7); Neutrophils % (A) 89 %; Platelet Count 178 k/uL (150-450); RBC 4.53 m/uL (4.30-5.90); RDW 15.6 % (11.5-15.5); WBC 6.5 k/uL (3.8-10.6)
[2017-11-27 07:46] LABS: ALT 43 U/L (21-72); AST 31 U/L (17-59); Albumin 4.4 g/dL (3.5-5.0); Alkaline Phosphatase 58 U/L (38-126); Anion Gap 12 mmol/L; Bilirubin, Delta 0.3 mg/dL (0.0-0.2); Bilirubin,Unconjugated 1.1 mg/dL (0.0-1.1); Blood Urea Nitrogen 17 mg/dL (9-20); Calcium 8.9 mg/dL (8.4-10.2); Carbon Dioxide 27 mmol/L (22-30); Chloride 94 mmol/L (98-107); Glucose 174 mg/dL (74-99); Potassium 3.9 mmol/L (3.5-5.1); Sodium 133 mmol/L (137-145); Total Bilirubin 1.4 mg/dL (0.2-1.3); Total Protein 6.6 g/dL (6.3-8.2)
[2017-11-27] MEDS: THIAMINE 100 MG TAB PO SCH ×2 (12:52→17:15)
[2017-11-27] MEDS: FOLIC ACID 1 MG TAB PO SCH (12:52)
--- NOTE | 2017-11-27 14:30 | P.PN ---
Subjective This is a pleasant 62 years old male with past medical history of hyperlipidemia , hypertension, musculoskeletal disorder, osteoarthritis, prostate disorder, alcoholism, bronchitis, ulcerative colitis, rectal bleed, gout in both feet, and unsteady gait and balance issue, BPH, status post several back surgeries and joint replacement and he follow-up with an orthopedic surgeon, who presents because of worsening pain of his left buttock area which has been going on for a year now, patient status 3 surgery of his lower back, he follow-up with Dr. Conde orthopedic for about a year, and he is in the process of going for further evaluation. He had MRI of his lower back about 1 week ago. However over the last 3 days he is pain on the left butt area become more excruciating and he had to come to emergency room as per patient he got steroid injection and gave him partial relief and he feels better now. Also patient complains from weakness of his lower extremity over 2 years and he stated to me at baseline he uses a walker which can go as far as one block. Patient depression got worse with his painful condition. He has history of depression on Cymbalta , however he denies any suicidal ideation as patient was talking about his symptoms he starts crying. Also patient states his drinking alcohol about fifth of liquor every day since his father had in 2002. Patient denies chest pain, no dyspnea, no change in urine or bowel habits. No fever 11/25/2017 Patient was lying in bed, still have severe low back pain that limits his movements and examination. We checked the bladder scan and he has some urinary retention. Lindsey catheter is placed. MRI of the lumbar spine without contrast from 11/18/[address] Conde is in the paper chart which shows he is a status post L3-L5 fixation and interbody spacer device placement at L3-L4. With patent canal. Also he has multiple moderate spinal stenosis is at L2-L3. Patient still on pain management. He has been evaluated by psychiatrist yesterday and he recommended to continue treatment of his alcohol withdrawal with CIWA protocol and outpatient follow-up with Alcoholics Anonymous and mental health, patient informed and he agrees 11/26/2017 Patient is still have low back pain, however is improving today from 10/10 to 7- 8/10, patient was able to walk with physical therapist, he still have some difficulty with pain however patient his gait is back to his baseline. His alcohol withdrawal symptoms is improving, no tremor however he had an episode of this with him this morning. He is still using IV pain medication morphine this morning, he was [place] last night. We are tapering down his IV pain medication. Patient dehydration is improved and he is eating well so stop IV fluids. Is less depressed looking today. No suicidal ideation. We started him on lidocaine patch patient states is not helping him much. He still on steroids. For his urinary retention patient doesn't want the Lindsey catheter so it going to the discontinue it and put the patient on the bladder scan ROS CONSTITUTIONAL: No fever, no malaise, no fatigue. HEENT: No recent visual problems or hearing problems. Denied any sore throat. CARDIOVASCULAR: No orthopnea, PND, no palpitations, no syncope. PULMONARY: No shortness of breath, no cough, no hemoptysis. GASTROINTESTINAL: No diarrhea, no nausea, no vomiting, no abdominal pain. Normoactive bowel sounds. NEUROLOGICAL: No headaches, no weakness, no numbness. HEMATOLOGICAL: Denies any bleeding or petechiae. GENITOURINARY: Denies any burning micturition, frequency, or urgency. MUSCULOSKELETAL/RHEUMATOLOGICAL: Denies any joint pain, swelling, or any muscle pain. ENDOCRINE: Denies any polyuria or polydipsia. Objective - Vital Signs Vital signs: Vital Signs Temp 97.7 F 11/27/17 05:00 Pulse 84 11/27/17 05:00 Resp 16 11/27/17 05:00 BP 145/85 11/27/17 05:00 Pulse Ox 96 11/27/17 05:00 Intake & Output 11/26/17 11/27/17 11/27/17 18:59 06:59 18:59 Intake Total 480 590 Output Total 2950 Balance -2470 590 Intake: Oral 480 590 Output: Urine 2950 Straight 1550 Other: Voiding Method Toilet Toilet Urinal Urinal # Voids 1 2 - Exam GENERAL: The patient is alert and oriented x3, not in any acute distress. Well developed, well nourished. HEENT: Pupils are round and equally reacting to light. EOMI. No scleral icterus. No conjunctival pallor. Normocephalic, atraumatic. No pharyngeal erythema. No thyromegaly. CARDIOVASCULAR: S1 and S2 present. No murmurs, rubs, or gallops. PULMONARY: Chest is clear to auscultation, no wheezing or crackles. ABDOMEN: Soft, nontender, nondistended, normoactive bowel sounds. No palpable organomegaly. MUSCULOSKELETAL: No joint swelling or deformity. -Patient has mild tenderness on the left buttock area posterolaterally EXTREMITIES: No cyanosis, clubbing, or pedal edema. NEUROLOGICAL: Gross neurological examination did not reveal any focal deficits. He doesn't show have asymmetry or weakness in his left lower extremity, however his examination is limited by his pain SKIN: No rashes. - Labs CBC & Chem 7: 11/27/17 07:01 11/27/17 07:01 Labs: Abnormal Lab Results - Last 24 Hours (Table) 11/27/17 11/27/17 Range/Units 07: 07:01 RDW 15.6 H (11.5-15.5) % Lymphocytes # 0.4 L (1.0-4.8) k/uL Sodium 133 L (137-145) mmol/L Chloride 94 L (98-107) mmol/L Glucose 174 H (74-99) mg/dL Total Bilirubin 1.4 H (0.2-1.3) mg/dL Delta Bilirubin 0.3 H (0.0-0.2) mg/dL Assessment and Plan Plan: -Alcohol abuse and withdrawal, continue with folate, multivitamin and thiamin. Continue with CIWA protocol. DC IV fluids. psych consult is appreciated and they recommended outpatient alcohol anonymous and mental health follow-up. Discussed with the patient and he agreeable to do the follow-up -History of depression, no suicidal ideation, continue with Cymbalta. psych consult is appreciated and as above -History of chronic low back pain with acute exacerbation in the left side, no history of trauma, status post several back surgery. Continue with Flexeril and pain treatment. MRI of the lumbar on 11/18/2017 shows moderate spinal stenosis at L2-L3. orthopedic consult. Improving. Physical therapy is pending their final recommendation: possible [facility] as pt has significant pain , we will see how he progress -Hypertension and tachycardia, his blood pressure and heart rates are controlled currently. Mostly related to his alcohol withdrawal. Continue with the clonidine, Norvasc and hydralazine when necessary -Dehydration. Resolved. DC IV fluids -Urinary retention, UA is significant for infection. Patient has Lindsey catheter and he wanted to be DC'd. DC Lindsey and put him on the bladder scan DVT prophylaxis subcutaneous heparin GI prophylaxis Protonix PT/OT: Occupational therapy recommended home with home health care. Physical therapy: [facility] versus [facility], pending the final recommendation Prognosis is guarded given the severity and complex medical problems Patient informed me today he has an appointment with his pain/water pollution specialist. On 12/01/2017. However he is not sure about the date and he will check it up Discussed with staff States he has an appointment with his pain physician on 12/01 for possible epidural steroid injection
[2017-11-28] MEDS: amLODIPine 10 MG TAB PO SCH (07:30)
[2017-11-28] MEDS: TAMSULOSIN 0.4 MG CAP.ER.24H PO SCH (07:30)
[2017-11-28] MEDS: DULoxetine HCL 60 MG CAPSULE.DR PO SCH (07:31)
[2017-11-28] MEDS: HEPARIN SODIUM,PORCINE 5,000 UNIT/ML 1 ML VIAL SQ SCH ×2 (07:31→20:20)
[2017-11-28] MEDS: DEXAMETHASONE 4 MG TAB PO SCH ×4 (07:31→21:59)
[2017-11-28] MEDS: cloNIDine HCL 0.2 MG TAB PO SCH (07:31)
[2017-11-28] MEDS: LIDOCAINE 5% PATCH TOPICAL SCH (07:31)
[2017-11-28] MEDS: LORazepam 1 MG TAB PO PRN ×2 (07:32→17:44)
[2017-11-28] MEDS: HYDROcodone/APAP 10-325MG 1 EACH TAB PO PRN ×3 (08:26→21:59)
[2017-11-28 09:02] LABS: Anion Gap 12 mmol/L; Blood Urea Nitrogen 19 mg/dL (9-20); Carbon Dioxide 28 mmol/L (22-30); Chloride 92 mmol/L (98-107); Glucose 179 mg/dL (74-99); Potassium 3.9 mmol/L (3.5-5.1); Sodium 132 mmol/L (137-145)
[2017-11-28] MEDS: FOLIC ACID 1 MG TAB PO SCH (14:16)
[2017-11-28] MEDS: THIAMINE 100 MG TAB PO SCH ×2 (14:16→17:44)
--- NOTE | 2017-11-28 16:10 | P.PN ---
Subjective This is a pleasant 62 years old male with past medical history of hyperlipidemia , hypertension, musculoskeletal disorder, osteoarthritis, prostate disorder, alcoholism, bronchitis, ulcerative colitis, rectal bleed, gout in both feet, and unsteady gait and balance issue, BPH, status post several back surgeries and joint replacement and he follow-up with an orthopedic surgeon, who presents because of worsening pain of his left buttock area which has been going on for a year now, patient status 3 surgery of his lower back, he follow-up with Dr. Conde orthopedic for about a year, and he is in the process of going for further evaluation. He had MRI of his lower back about 1 week ago. However over the last 3 days he is pain on the left butt area become more excruciating and he had to come to emergency room as per patient he got steroid injection and gave him partial relief and he feels better now. Also patient complains from weakness of his lower extremity over 2 years and he stated to me at baseline he uses a walker which can go as far as one block. Patient depression got worse with his painful condition. He has history of depression on Cymbalta , however he denies any suicidal ideation as patient was talking about his symptoms he starts crying. Also patient states his drinking alcohol about fifth of liquor every day since his father had in 2002. Patient denies chest pain, no dyspnea, no change in urine or bowel habits. No fever 11/25/2017 Patient was lying in bed, still have severe low back pain that limits his movements and examination. We checked the bladder scan and he has some urinary retention. Lindsey catheter is placed. MRI of the lumbar spine without contrast from 11/18/[address] Conde is in the paper chart which shows he is a status post L3-L5 fixation and interbody spacer device placement at L3-L4. With patent canal. Also he has multiple moderate spinal stenosis is at L2-L3. Patient still on pain management. He has been evaluated by psychiatrist yesterday and he recommended to continue treatment of his alcohol withdrawal with CIWA protocol and outpatient follow-up with Alcoholics Anonymous and mental health, patient informed and he agrees 11/26/2017 Patient is still have low back pain, however is improving today from 10/10 to 7- 8/10, patient was able to walk with physical therapist, he still have some difficulty with pain however patient his gait is back to his baseline. His alcohol withdrawal symptoms is improving, no tremor however he had an episode of this with him this morning. He is still using IV pain medication morphine this morning, he was [place] last night. We are tapering down his IV pain medication. Patient dehydration is improved and he is eating well so stop IV fluids. Is less depressed looking today. No suicidal ideation. We started him on lidocaine patch patient states is not helping him much. He still on steroids. For his urinary retention patient doesn't want the Lindsey catheter so it going to the discontinue it and put the patient on the bladder scan ROS CONSTITUTIONAL: No fever, no malaise, no fatigue. HEENT: No recent visual problems or hearing problems. Denied any sore throat. CARDIOVASCULAR: No orthopnea, PND, no palpitations, no syncope. PULMONARY: No shortness of breath, no cough, no hemoptysis. GASTROINTESTINAL: No diarrhea, no nausea, no vomiting, no abdominal pain. Normoactive bowel sounds. NEUROLOGICAL: No headaches, no weakness, no numbness. HEMATOLOGICAL: Denies any bleeding or petechiae. GENITOURINARY: Denies any burning micturition, frequency, or urgency. MUSCULOSKELETAL/RHEUMATOLOGICAL: Denies any joint pain, swelling, or any muscle pain. ENDOCRINE: Denies any polyuria or polydipsia. Objective - Vital Signs Vital signs: Vital Signs Temp 98.1 F 11/28/17 05:17 Pulse 73 11/28/17 05:17 Resp 18 11/28/17 05:17 BP 176/99 11/28/17 05:17 Pulse Ox 97 11/28/17 05:17 Intake & Output 11/27/17 11/28/17 11/28/17 18:59 06:59 18:59 Output Total 250 267 Balance -250 -267 Weight 131.542 kg Output: Urine 250 Post Void Residual 267 Other: Voiding Method Toilet Toilet Urinal Urinal # Voids 2 - Exam GENERAL: The patient is alert and oriented x3, not in any acute distress. Well developed, well nourished. HEENT: Pupils are round and equally reacting to light. EOMI. No scleral icterus. No conjunctival pallor. Normocephalic, atraumatic. No pharyngeal erythema. No thyromegaly. CARDIOVASCULAR: S1 and S2 present. No murmurs, rubs, or gallops. PULMONARY: Chest is clear to auscultation, no wheezing or crackles. ABDOMEN: Soft, nontender, nondistended, normoactive bowel sounds. No palpable organomegaly. MUSCULOSKELETAL: No joint swelling or deformity. -Patient has mild tenderness on the left buttock area posterolaterally EXTREMITIES: No cyanosis, clubbing, or pedal edema. NEUROLOGICAL: Gross neurological examination did not reveal any focal deficits. He doesn't show have asymmetry or weakness in his left lower extremity, however his examination is limited by his pain SKIN: No rashes. - Labs CBC & Chem 7: 11/27/17 07:01 11/28/17 08:16 Labs: Abnormal Lab Results - Last 24 Hours (Table) 11/28/17 Range/Units 08:16 Sodium 132 L (137-145) mmol/L Chloride 92 L (98-107) mmol/L Glucose 179 H (74-99) mg/dL Assessment and Plan Plan: -Alcohol abuse and withdrawal, continue with folate, multivitamin and thiamin. Continue with CIWA protocol. DC IV fluids. psych consult is appreciated and they recommended outpatient alcohol anonymous and mental health follow-up. Discussed with the patient and he agreeable to do the follow-up -History of depression, no suicidal ideation, continue with Cymbalta. psych consult is appreciated and as above -History of chronic low back pain with acute exacerbation in the left side, no history of trauma, status post several back surgery. Continue with Flexeril and pain treatment. MRI of the lumbar on 11/18/2017 shows moderate spinal stenosis at L2-L3. orthopedic consult. Improving. Physical therapy is pending their final recommendation: possible [facility] as pt has significant pain , we will see how he progress -Hypertension and tachycardia, his blood pressure and heart rates are controlled currently. Mostly related to his alcohol withdrawal. Continue with the clonidine, Norvasc and hydralazine when necessary -Dehydration. Resolved. DC IV fluids -Urinary retention, UA is significant for infection. Patient has Lindsey catheter and he wanted to be DC'd. DC Lindsey and put him on the bladder scan DVT prophylaxis subcutaneous heparin GI prophylaxis Protonix PT/OT: Occupational therapy recommended home with home health care. Physical therapy: [facility] versus [facility], pending the final recommendation Prognosis is guarded given the severity and complex medical problems Patient informed me today he has an appointment with his pain/orthopedic technician. On 12/01/2017. However he is not sure about the date and he will check it up Discussed with staff States he has an appointment with his pain physician on 12/01 for possible epidural steroid injection
[2017-11-29] MEDS: DEXAMETHASONE 4 MG TAB PO SCH ×2 (07:53→14:12)
[2017-11-29] MEDS: TAMSULOSIN 0.4 MG CAP.ER.24H PO SCH (07:53)
[2017-11-29] MEDS: amLODIPine 10 MG TAB PO SCH (07:53)
[2017-11-29] MEDS: cloNIDine HCL 0.2 MG TAB PO SCH (07:53)
[2017-11-29] MEDS: HEPARIN SODIUM,PORCINE 5,000 UNIT/ML 1 ML VIAL SQ SCH (07:54)
[2017-11-29] MEDS: LIDOCAINE 5% PATCH TOPICAL SCH (07:54)
[2017-11-29] MEDS: LORazepam 1 MG TAB PO PRN (08:02)
[2017-11-29 09:43] LABS: Anion Gap 14 mmol/L; Blood Urea Nitrogen 21 mg/dL (9-20); Calcium 8.8 mg/dL (8.4-10.2); Carbon Dioxide 26 mmol/L (22-30); Chloride 91 mmol/L (98-107); Glucose 224 mg/dL (74-99); Potassium 4.2 mmol/L (3.5-5.1); Sodium 131 mmol/L (137-145)
[2017-11-29] MEDS: HYDROcodone/APAP 10-325MG 1 EACH TAB PO PRN (11:06)
[2017-11-29] MEDS: DULoxetine HCL 60 MG CAPSULE.DR PO SCH (11:07)
[2017-11-29] MEDS: THIAMINE 100 MG TAB PO SCH (11:08)
[2017-11-29] MEDS: FOLIC ACID 1 MG TAB PO SCH (11:08)
[2017-11-29 14:50] VITALS: BP 159/76; PULSE 75; RESP 18; TEMP 98.2
--- NOTE | 2017-11-29 15:16 | P.DS ---
Providers Date of admission: 11/23/17 19:41 Attending physician: Ethan Andrew MD Consults: 11/24/17 13:11 Consult Physician Urgent Consulting Provider: Hernandez Ernst Reason/Comments: Verbalizing increased depression. Do you want consulting provider notified?: Already Contacted Primary care physician: Stated None Hospital Course: This is a pleasant 62 years old male with past medical history of hyperlipidemia , hypertension, musculoskeletal disorder, osteoarthritis, prostate disorder, alcoholism, bronchitis, ulcerative colitis, rectal bleed, gout in both feet, and unsteady gait and balance issue, BPH, status post several back surgeries and joint replacement and he follow-up with an orthopedic surgeon, who presents because of worsening pain of his left buttock area which has been going on for a year now, patient status 3 surgery of his lower back, he follow-up with Dr. Conde orthopedic for about a year, and he is in the process of going for further evaluation. He had MRI of his lower back about 1 week ago. However over the last 3 days he is pain on the left butt area become more excruciating and he had to come to emergency room as per patient he got steroid injection and gave him partial relief and he feels better now. Also patient complains from weakness of his lower extremity over 2 years and he stated to me at baseline he uses a walker which can go as far as one block. Patient depression got worse with his painful condition. He has history of depression on Cymbalta , however he denies any suicidal ideation as patient was talking about his symptoms he starts crying. Also patient states his drinking alcohol about fifth of liquor every day since his father had in 2002. Patient denies chest pain, no dyspnea, no change in urine or bowel habits. No fever. Patient was admitted for pain control and physical therapy evaluation. Patient was treated with IV and oral pain medication and he showed interval improvement on the day of discharge his pain decreased from 10/10 to 5/10, his gait is back to baseline. And he is in physical therapy said he didn't need any JUNITO, and recommended discharging home with home health care. MRI of the lumbar spine without contrast from 11/18/[address] Conde is in the paper chart which shows he is a status post L3-L5 fixation and interbody spacer device placement at L3-L4. Orthopedic team kindly evaluated the patient and recommended brace for the patient which fitted him well, patient is happy with it, but he wants to try for some time. Patient on admissions was evaluated by psychiatrist and recommended to continue with CIWA protocol, continue with same treatment and follow-up as an outpatient basis, patient on admissions suffering from alcohol withdrawal signs and symptoms. He was treated with CIWA protocol and he showed interval improvement. His hospital stay was complicated with recurrent irritation. Patient was started on Flomax. Lindsey catheter inserted on admissions was discontinued, patient able to be with no problem on the day of discharge. He asked patient to follow-up with his PCP in one week and he agrees Patient was cleared for discharge by consultants or signed off the case, psychiatric and an orthopedic. Programs and management plan were discussed with the patient in details and he verbalized understanding and acceptance Patient was found stable and can be discharged home however he needs follow-up as an outpatient. Patient told me that he has an appointment with his pain specialist Dr. Conde for possible epidural injection for his pain management , he remembers the date is 12/01/2017. But he cannot remember the time. I encouraged him to call today and tomorrow to confirm the patient and he agrees. He also states that he has a PCP but he cannot remember his name, patient states that he has his name with the contact information at home. I instructed him to call his PCP office with make appointment within 1 week and patient verbalized understanding and acceptance. Patient didn't want dose to make appointments for him stating that he will call Appointment himself. Prescriptions provided for him for dexamethasone and Ativan taper, where he needed only a few more days. For pain and he didn't want any narcotics he said he had some at home. Patient doesn't look in severe pain would discharge him on NSAIDs for a few more days. GENERAL: The patient is alert and oriented x3, not in any acute distress. Well developed, well nourished. HEENT: Pupils are round and equally reacting to light. EOMI. No scleral icterus. No conjunctival pallor. Normocephalic, atraumatic. No pharyngeal erythema. No thyromegaly. CARDIOVASCULAR: S1 and S2 present. No murmurs, rubs, or gallops. PULMONARY: Chest is clear to auscultation, no wheezing or crackles. ABDOMEN: Soft, nontender, nondistended, normoactive bowel sounds. No palpable organomegaly. MUSCULOSKELETAL: No joint swelling or deformity. -Patient has mild tenderness on the left buttock area posterolaterally EXTREMITIES: No cyanosis, clubbing, or pedal edema. NEUROLOGICAL: Gross neurological examination did not reveal any focal deficits. He doesn't show have asymmetry or weakness in his left lower extremity, however his examination is limited by his pain SKIN: No rashes. Patient Condition at Discharge: Good Plan - Discharge Summary Discharge Rx Participant: No New Discharge Prescriptions: New Tamsulosin [Flomax] 0.4 mg PO PC-BRKFST #30 cap.er.24h Thiamine [Vitamin B-1] 100 mg PO BID@1200,1700 #30 tab Dexamethasone 2 mg PO DIRECTED #12 tablet LORazepam [Ativan] 1 mg PO DIRECTED PRN #6 tab PRN Reason: Anxiety, alcohol withdrawal Continue DULoxetine HCL [Cymbalta] 60 mg PO DAILY amLODIPine [Norvasc] 10 mg PO DAILY #30 tab Cyclobenzaprine [Flexeril] 5 mg PO TID PRN #60 tab PRN Reason: Muscle Spasm Folic Acid 1 mg PO DAILY@1200 #90 tab cloNIDine HCL [Catapres] 0.2 mg PO DAILY Naproxen [Naprosyn] 500 mg PO Q12HR PRN #6 tab PRN Reason: Pain Discontinued Thiamine [Vitamin B-1] 100 mg PO BID@1200,1700 #90 tab Discharge Medication List DULoxetine HCL [Cymbalta] 60 mg PO DAILY 09/28/17 [History] Cyclobenzaprine [Flexeril] 5 mg PO TID PRN #60 tab 10/04/17 [Rx] Folic Acid 1 mg PO DAILY@1200 #90 tab 10/04/17 [Rx] amLODIPine [Norvasc] 10 mg PO DAILY #30 tab 10/04/17 [Rx] cloNIDine HCL [Catapres] 0.2 mg PO DAILY 11/23/17 [History] Dexamethasone 2 mg PO DIRECTED #12 tablet 11/29/17 [Rx] LORazepam [Ativan] 1 mg PO DIRECTED PRN #6 tab 11/29/17 [Rx] Naproxen [Naprosyn] 500 mg PO Q12HR PRN #6 tab 11/29/17 [Rx] Tamsulosin [Flomax] 0.4 mg PO PC-BRKFST #30 cap.er.24h 11/29/17 [Rx] Thiamine [Vitamin B-1] 100 mg PO BID@1200,1700 #30 tab 11/29/17 [Rx] Follow up Appointment(s)/Referral(s): None,Stated [Primary Care Provider] - 1-2 days Adonay Del Valle MD [STAFF PHYSICIAN] - 1 Week Byron Conde DO [Doctor of Osteopathic Medicine] - 12/01/17 (please call [facility] to confirm the date and time of your appointmetn ) Activity/Diet/Wound Care/Special Instructions: Cardiac diet Activity is limited to follow-up with her doctor's Discharge Disposition: HOME WITH HOME HEALTH SERVICES
== END 2017-11-29 18:00 | disposition home health service (06) | DRG 897 ==
LOC: EC 12:57 → 5MS5E 19:41
PROVIDERS: ADMIT Internal Medicine; ATTEND Internal Medicine
DX: F10.239 Alcohol dependence with withdrawal, unspecified (principal); K51.90 Ulcerative colitis, unspecified, without complications; E78.5 Hyperlipidemia, unspecified; E86.0 Dehydration; F32.9 Major depressive disorder, single episode, unspecified; F41.0 Panic disorder [episodic paroxysmal anxiety]; G89.29 Other chronic pain; I10 Essential (primary) hypertension; M48.061 Spinal stenosis, lumbar region without neurogenic claudication; N40.1 Benign prostatic hyperplasia with lower urinary tract symptoms; R33.8 Other retention of urine; Z79.899 Other long term (current) drug therapy; Z81.1 Family history of alcohol abuse and dependence; Z81.8 Family history of other mental and behavioral disorders; Z96.652 Presence of left artificial knee joint; R26.81 Unsteadiness on feet
CPT/HCPCS: 36415; 80048; 80053; 80076; 80306; 81001; 82075; 82150; 83690; 83735; 84484; 85025; 93005; 96361; 96372; 96374; 96375; 96376; 99291

== ENCOUNTER 2018-02-02 16:45 | Inpatient (IN) | payer MEDICARE, BC ==
--- NOTE | 2018-02-02 17:16 | ED ---
General Adult HPI - General Chief complaint: Psychiatric Symptoms Stated complaint: Depression Time Seen by Provider: 02/02/18 17:08 Source: patient, RN notes reviewed Mode of arrival: ambulatory Limitations: no limitations - History of Present Illness Initial comments: Patient is a pleasant 62-year-old male presenting to the emergency department with complaints of depression. Patient does have chronic depression and is on disability for depression. Patient also has chronic unchanged back pain. Patient has had previous epidurals and 3 back surgeries. Patient admits to drinking daily. Patient states he drinks to control his back pain. No weakness. No incontinence or retention of bowel or bladder. No homicidal thoughts. Patient does have thoughts of self-harm with a plan of overdose with medications. No hallucinations. - Related Data Home Medications Medication Instructions Recorded Confirmed DULoxetine HCL [Cymbalta] 60 mg PO DIRECTED 09/28/17 02/02/18 Folic Acid 1 mg PO DAILY 02/02/18 02/02/18 Pregabalin [Lyrica] 75 mg PO BID 02/02/18 02/02/18 hydrOXYzine HCL [Atarax] 25 mg PO Q8H PRN 02/02/18 02/02/18 traZODone HCL 200 mg PO HS 02/02/18 02/02/18 Previous Rx's Medication Instructions Recorded Cyclobenzaprine [Flexeril] 5 mg PO TID PRN #60 tab 10/04/17 amLODIPine [Norvasc] 10 mg PO DAILY #30 tab 10/04/17 Allergies Allergy/AdvReac Type Severity Reaction Status Date / Time No Known Allergies Allergy Verified 02/02/18 17:32 Review of Systems ROS Statement: Those systems with pertinent positive or pertinent negative responses have been documented in the HPI. ROS Other: All systems not noted in ROS Statement are negative. Constitutional: Denies: fever Eyes: Denies: eye pain ENT: Denies: ear pain Respiratory: Denies: cough Cardiovascular: Denies: chest pain Endocrine: Denies: fatigue Gastrointestinal: Denies: abdominal pain Genitourinary: Denies: dysuria Musculoskeletal: Reports: back pain (Chronic) Skin: Denies: lesions Neurological: Denies: weakness Past Medical History Past Medical History: Hyperlipidemia, Hypertension, Musculoskeletal Disorder, Osteoarthritis (OA), Prostate Disorder Additional Past Medical History / Comment(s): Alcoholism, bronchitis, ulcerative colitis, rectal bleed, gout in bilateral feet, unsteady gait, balance issues, arthritis multiple joints, BPH. History of Any Multi-Drug Resistant Organisms: None Reported Past Surgical History: Back Surgery, Hernia Repair, Joint Replacement, Orthopedic Surgery, Tonsillectomy Additional Past Surgical History / Comment(s): Lumbar back surgery x 3, total L knee, hernia repair umbilical and left inguinal, colonoscopy. Past Anesthesia/Blood Transfusion Reactions: No Reported Reaction, Motion Sickness Additional Past Anesthesia/Blood Transfusion Reaction / Comment(s): Pt gets sea sick. Past Psychological History: Anxiety, Depression Smoking Status: Never smoker Past Alcohol Use History: Abuse, Daily Past Drug Use History: None Reported - Past Family History Mother Additional Family Medical History / Comment(s): Mother "battled" depression all of her life. She was 82 yrs old when she . Father Additional Family Medical History / Comment(s): Father was an alcoholic. He at the age of 72 yrs. General Exam Limitations: no limitations General appearance: alert, in no apparent distress Head exam: Present: atraumatic Eye exam: Present: normal appearance, PERRL ENT exam: Present: normal oropharynx Neck exam: Present: normal inspection Respiratory exam: Present: normal lung sounds bilaterally Cardiovascular Exam: Present: regular rate, normal rhythm Expanded Peripheral pulses: 2+: Dorsalis Pedis (R), Dorsalis Pedis (L) GI/Abdominal exam: Present: soft. Absent: tenderness, pulsatile mass Extremities exam: Present: normal inspection Back exam: Present: normal inspection. Absent: tenderness Neurological exam: Present: alert. Absent: motor sensory deficit Expanded Motor strength exam: RLE: 5, LLE: 5 Psychiatric exam: Present: depressed Skin exam: Present: normal color Course Vital Signs 02/02/18 02/02/18 02/02/18 16:56 17:34 19:07 Temperature 98.4 F Pulse Rate 87 89 82 Respiratory 18 20 20 Rate Blood Pressure 217/103 165/77 164/72 O2 Sat by Pulse 96 95 95 Oximetry Medical Decision Making - Medical Decision Making Patient was seen by mental health services who felt patient could benefit from psychiatric services however does have concerns secondary to alcohol problems. They state on previous admission patient did need to transferred to the floor secondary to alcohol withdrawal. Secondary to this case was discussed with Dr. Cleary, who will admit for Dr. Najera would. Disposition Clinical Impression: Alcohol withdrawal syndrome Disposition: ADMITTED IP TO THIS HOSP Is patient prescribed a controlled substance at d/c from ED?: No Referrals: None,Stated [REFERRING] - 1-2 days Decision Time: 21:51
[2018-02-02] MEDS ORDERED: cloNIDine HCL 0.2 MG TAB PO STA (17:17)
[2018-02-02] MEDS ORDERED: amLODIPine 10 MG TAB PO STA (17:17)
[2018-02-02] MEDS ORDERED: ONDANSETRON 4 MG/2 ML VIAL IVP STA (17:27)
[2018-02-02] MEDS ORDERED: SODIUM CHLORIDE 0.9% 1,000 ML IV STA (17:39)
[2018-02-02] MEDS ORDERED: NALOXONE 0.4 MG/ML 1 ML VIAL IV PRN (21:54)
[2018-02-02] MEDS ORDERED: LORazepam 1 MG TAB PO STA (21:55)
[2018-02-02] MEDS ORDERED: THIAMINE 100 MG/ML 2 ML VIAL IM STA (21:56)
[2018-02-02] MEDS ORDERED: LORazepam 2 MG/ML INJ IV PRN ×2 (21:56)
[2018-02-02] MEDS ORDERED: KETOROLAC 30 MG/ML 1 ML VIAL IVP STA (22:06)
[2018-02-02 22:33] LABS: Basophils # (A) 0.1 k/uL (0-0.2); Basophils % (A) 1 %; Eosinophils # (A) 0.4 k/uL (0-0.7); Eosinophils % (A) 6 %; HCT 44.4 % (39.0-53.0); HGB 14.4 gm/dL (13.0-17.5); Lymphocytes # (A) 1.5 k/uL (1.0-4.8); Lymphocytes % (A) 25 %; MCH 29.8 pg (25.0-35.0); MCHC 32.4 g/dL (31.0-37.0); MCV 91.9 fL (80.0-100.0); Mean Platelet Volume 6.6; Monocytes # (A) 0.3 k/uL (0-1.0); Monocytes % (A) 6 %; Neutrophils # (A) 3.6 k/uL (1.3-7.7); Neutrophils % (A) 59 %; Platelet Count 215 k/uL (150-450); RBC 4.84 m/uL (4.30-5.90); RDW 15.1 % (11.5-15.5); WBC 6.1 k/uL (3.8-10.6)
[2018-02-02 22:41] LABS: ALT 105 U/L (21-72); AST 92 U/L (17-59); Albumin 4.7 g/dL (3.5-5.0); Alkaline Phosphatase 69 U/L (38-126); Anion Gap 16 mmol/L; Blood Urea Nitrogen 4 mg/dL (9-20); Calcium 9.4 mg/dL (8.4-10.2); Carbon Dioxide 25 mmol/L (22-30); Chloride 99 mmol/L (98-107); Glucose 168 mg/dL (74-99); Potassium 3.6 mmol/L (3.5-5.1); Sodium 140 mmol/L (137-145); Total Bilirubin 1.2 mg/dL (0.2-1.3); Total Protein 7.3 g/dL (6.3-8.2)
[2018-02-02 23:41] LABS: Amphetamine Screen,Urine Not Detected (NotDetected); Barbiturate Screen,Urine Not Detected (NotDetected); Benzodiazepines Screen,Urine Not Detected (NotDetected); Cocaine Screen,Urine Not Detected (NotDetected); Methadone Screen, Urine Not Detected (NotDetected); Opiate Screen,Urine Not Detected (NotDetected); Oxycodone Screen, Urine Not Detected (NotDetected); Phencyclidine Screen,Urine Not Detected (NotDetected); Tricyclic Antidepressant,Urine Not Detected (NotDetected); Urn Cannabinoid Scrn Not Detected (NotDetected)
[2018-02-03] MEDS: SODIUM CHLORIDE 0.9% 1,000 ML IV SCH ×2 (01:25→20:27)
[2018-02-03] MEDS: LORazepam 2 MG/ML INJ IV PRN ×4 (02:22→22:40)
[2018-02-03] MEDS: traMADol 50 MG TAB PO PRN ×2 (02:24→10:59)
[2018-02-03] MEDS ORDERED: hydrALAZINE HCL 20 MG/ML 1 ML VIAL IVP PRN (06:46)
[2018-02-03] MEDS: THIAMINE 100 MG TAB PO SCH ×2 (08:57→17:57)
[2018-02-03] MEDS: MULTIVITAMINS, THERA 1 EACH TAB PO SCH (08:57)
[2018-02-03] MEDS: amLODIPine 10 MG TAB PO SCH (10:26)
[2018-02-03] MEDS ORDERED: CYCLOBENZAPRINE 5 MG TAB PO PRN (14:03)
--- NOTE | 2018-02-03 14:08 | P.HPIM ---
History of Present Illness H&P Date: 02/03/18 Chief Complaint: Alcohol intoxication with suicidal ideation impending DTs This is 62-year-old gentleman patient of Tee Phillips, at Dr. Okeefe's office. He has underlying history of alcohol-induced depressive disorder, along with hyperlipidemia, hypertension, lumbar disc disease with chronic back pain, ulcerative colitis and gout, unsteady gait, on disability secondary to depression and lumbar disc disease. Admitted to the emergency room as the patient has been binge eating and drinking a lot more to cover up his pain, patient was suicidal, and was thinking about overdosing with ascription medications. He did not attempt to do this, his last admission was from our facility 11/28/2017. She also had an MRI done at that time 11/18/2017, followed by Dr. Conde. MRI finding shows multiple spinal stenosis at L2-L3, status post L3 L5 fixation and interbody spacer device placement L3-L4. In the emergency room, he was admitted secondary to worries that he might go into active DTs, he drinks a fifth of whiskey daily basis, his last alcohol intake was 02/03/2018 needs to be medically stable before mental health admission.. He expressed hopelessness secondary to pain, left sciatica chronic , depression, patient denies any psychosis or auditory this will help his admission. Consult were made with mental health patient is on Librium 10 mg 4 times a day along with CIWA with Ativan labs in the ER shows sodium of 140, creatinine of 0.8, glucose of 168, urine tox screen was negative, no drug alcohol levels obtained. Review of Systems Constitutional: Reports as per HPI, Denies anorexia, Denies chills, Denies chronic headaches, Denies chronic pain, Denies daytime sleepiness, Denies fatigue, Denies fever, Denies lethargy, Denies malaise, Denies night sweats, Denies poor appetite, Denies sweats, Denies weakness, Denies weight gain, Denies weight loss Ears, nose, mouth and throat: Reports as per HPI, Denies ant. neck pain, Denies bleeding gums, Denies dental pain, Denies dysphagia, Denies epistaxis, Denies headache, Denies hoarseness, Denies mouth pain, Denies nasal congestion, Denies nasal discharge, Denies neck fullness/pressure, Denies neck lump, Denies nose pain, Denies odynophagia, Denies post-nasal drip, Denies sinus pain, Denies sinus pressure, Denies swelling in mouth, Denies swelling in throat, Denies sore throat, Denies vertigo, Denies voice changes Cardiovascular: Reports as per HPI, Denies chest pain, Denies claudication, Denies decreased exercise tolerance, Denies dyspnea on exertion, Denies edema, Denies high blood pressure, Denies irregular heart beat, Denies leg edema, Denies lightheadedness, Denies orthopnea, Denies palpitations, Denies paroxysmal nocturnal dyspnea, Denies phlebitis, Denies rapid heart beat, Denies shortness of breath, Denies syncope Respiratory: Reports as per HPI, Denies congestion, Denies cough, Denies cough with sputum, Denies dyspnea, Denies excessive sputum, Denies hemoptysis, Denies home oxygen, Denies pain, Denies pain on inspiration, Denies pleurisy, Denies respiratory infections, Denies sleep apnea, Denies snoring, Denies wheezing Gastrointestinal: Reports as per HPI, Denies abdominal pain, Denies belching, Denies bloating, Denies BRBPR, Denies change in bowel habits, Denies coffee ground emesis, Denies constipation, Denies diarrhea, Denies dyspepsia, Denies early satiety, Denies excessive gas, Denies heartburn, Denies hematemesis, Denies hematochezia, Denies indigestion, Denies jaundice, Denies lactose intolerance, Denies loss of appetite, Denies melena, Denies nausea, Denies vomiting Genitourinary: Reports as per HPI, Denies decreased libido, Denies difficulties fathering child, Denies discharge, Denies dysuria, Denies erectile dysfunction, Denies flank pain, Denies genital pain, Denies genital sores, Denies hematuria, Denies impotence, Denies incontinence, Denies kidney stones, Denies nocturia, Denies polyuria, Denies testicular lump, Denies testicular pain, Denies urinary frequency, Denies urinary hesitancy, Denies urinary retention Musculoskeletal: Reports as per HPI, Denies arm numbness/tingling, Denies atrophy, Denies fractures, Denies frequent falls, Denies gait dysfunction, Denies hot joints, Denies leg numbness/tingling, Denies limitation of motion, Denies loss of height, Denies low back pain, Denies morning stiffness, Denies muscle cramps, Denies muscle weakness, Denies myalgias, Denies neck pain, Denies neck stiffness, Denies prior amputations, Denies redness of joints, Denies shooting arm pain, Denies shooting leg pain Integumentary: Reports as per HPI Neurological: Reports as per HPI, Denies aphasia, Denies ataxia, Denies balance difficulties, Denies burning pain, Denies change in mentation, Denies change in smell/taste, Denies change in speech, Denies confusion, Denies convulsions, Denies double vision, Denies gait dysfunction, Denies head injury, Denies headaches, Denies hearing difficulties, Denies lack of coordination, Denies loss of vision, Denies memory loss, Denies migraines, Denies motor disturbance, Denies numbness, Denies paralysis, Denies paresthesias, Denies seizures, Denies sensory deficit, Denies spasticity, Denies syncope, Denies tic, Denies tingling , Denies transient paralysis, Denies tremors, Denies vertigo, Denies weakness, Denies visual changes Psychiatric: Reports as per HPI, Denies anhedonia, Denies anxiety, Denies anxiety attacks, Denies change in appetite, Denies change in libido, Denies change in sleep habits, Denies confusion, Denies depression, Denies difficulty concentrating, Denies disorientation, Denies hallucinations, Denies hopelessness , Denies hypersomnia, Denies insomnia, Denies irritability, Denies memory loss, Denies mood swings, Denies paranoia, Denies sadness/tearfulness, Denies sleep disturbances, Denies suicidal ideation Endocrine: Reports as per HPI Hematologic/Lymphatic: Reports as per HPI, Denies easy bleeding, Denies easy bruising, Denies lymphadenopathy, Denies lymphedema, Denies thrombophilia Allergic/Immunologic: Reports as per HPI, Denies allergic rhinitis, Denies anaphylaxis, Denies angioedema, Denies gluten intolerance, Denies persistent infections, Denies seasonal allergies, Denies urticaria, Denies wheezing Past Medical History Past Medical History: Hyperlipidemia, Hypertension, Musculoskeletal Disorder, Osteoarthritis (OA), Prostate Disorder Additional Past Medical History / Comment(s): Alcoholism, bronchitis, ulcerative colitis, rectal bleed, gout in bilateral feet, unsteady gait, balance issues, arthritis multiple joints, BPH. History of Any Multi-Drug Resistant Organisms: None Reported Past Surgical History: Back Surgery, Hernia Repair, Joint Replacement, Orthopedic Surgery, Tonsillectomy Additional Past Surgical History / Comment(s): Lumbar back surgery x 3, total L knee, hernia repair umbilical and left inguinal, colonoscopy. Past Anesthesia/Blood Transfusion Reactions: No Reported Reaction, Motion Sickness Additional Past Anesthesia/Blood Transfusion Reaction / Comment(s): Pt gets sea sick. Past Psychological History: Anxiety, Depression Additional Psychological History / Comment(s): t resides alone. He uses a walker to ambulate. He drives. He states he has hx of depression and it has been more severe over the past few weeks. He states he recently got after 33 yrs of marriage and his kids "won't talk to me." He stated that over the past two weeks he has had brief thoughts of suicide but no plan and states he is not suicidal at this time. " I want to live." He stated that when he is feeting this emotional, he stops taking his medication and drinks alcohol more. Smoking Status: Never smoker Past Alcohol Use History: Abuse, Daily Additional Past Alcohol Use History / Comment(s): Pt states he started smoking in 1968 and was a 3-4 ppd smoker. He quit smoking in 1978. He states he drinks 1/5 of whiskey mixed with coke each day. Past Drug Use History: None Reported - Past Family History Mother Additional Family Medical History / Comment(s): Mother "battled" depression all of her life. She was 82 yrs old when she . Father Additional Family Medical History / Comment(s): Father was an alcoholic. He at the age of 72 yrs. Medications and Allergies Home Medications Medication Instructions Recorded Confirmed Type DULoxetine HCL [Cymbalta] 60 mg PO DIRECTED 09/28/17 02/02/18 History Cyclobenzaprine [Flexeril] 5 mg PO TID PRN #60 tab 10/04/17 02/02/18 Rx amLODIPine [Norvasc] 10 mg PO DAILY #30 tab 10/04/17 02/02/18 Rx Folic Acid 1 mg PO DAILY 02/02/18 02/02/18 History Pregabalin [Lyrica] 75 mg PO BID 02/02/18 02/02/18 History hydrOXYzine HCL [Atarax] 25 mg PO Q8H PRN 02/02/18 02/02/18 History traZODone HCL 200 mg PO HS 02/02/18 02/02/18 History Allergies Allergy/AdvReac Type Severity Reaction Status Date / Time No Known Allergies Allergy Verified 02/03/18 09:28 Physical Exam Vitals: Vital Signs Temp Pulse Pulse Pulse Resp BP BP 02/03/18 10:24 106 H 02/03/18 07:00 98.5 F 82 18 180/98 02/03/18 05:29 98.5 F 82 18 02/03/18 02:20 16 02/03/18 00:00 98.0 F 93 18 190/87 02/02/18 23:00 98.1 F 92 18 178/73 02/02/18 21:40 90 21 196/91 02/02/18 19:07 82 20 164/72 02/02/18 17:34 89 20 165/77 02/02/18 16:56 98.4 F 87 18 217/103 BP BP Pulse Ox 02/03/18 10:24 187/85 02/03/18 07:00 97 02/03/18 05:29 180/98 96 02/03/18 02:20 02/03/18 00:00 96 02/02/18 23:00 95 02/02/18 21:40 94 L 02/02/18 19:07 95 02/02/18 17:34 95 02/02/18 16:56 96 Intake and Output 02/02/18 02/03/18 02/03/18 22:59 06:59 14:59 Intake Total 160 Balance 160 Intake: Intake, IV Titration 160 Amount Sodium Chloride 0.9% 1, 160 000 ml @ 20 mls/hr IV . Q24H [facility] Rx#:[id number] Other: Voiding Method Toilet Urinal Weight 127.006 kg 124 kg - Constitutional General appearance: cooperative, no acute distress, obese - EENT Eyes: anicteric sclerae, EOMI, PERRLA, dentition normal, normal appearance ENT: hearing grossly normal, NA/AT, normal oropharynx - Neck Neck: normal ROM - Respiratory Respiratory: bilateral: CTA, negative: diminished, dullness, rales - Gastrointestinal General gastrointestinal: distended, normal bowel sounds, soft - Integumentary Integumentary: decreased turgor, normal - Neurologic Neurologic: CNII-XII intact - Musculoskeletal Musculoskeletal: gait normal, strength equal bilaterally Results CBC & Chem 7: 02/02/18 22:25 02/02/18 22:25 Labs: Abnormal Lab Results - Last 24 Hours (Table) 02/02/18 Range/Units 22:25 BUN 4 L (9-20) mg/dL Glucose 168 H (74-99) mg/dL AST 92 H (17-59) U/L ALT 105 H (21-72) U/L Laboratory Results WBC 6.1 k/uL (3.8-10.6) 02/02/18 22: RBC 4.84 m/uL (4.30-5.90) 02/02/18 22:25 Hgb 14.4 gm/dL (13.0-17.5) 02/02/18 22:25 Hct 44.4 % (39.0-53.0) 02/02/18 22:25 MCV 91.9 fL (80.0-100.0) 02/02/18 22:25 MCH 29.8 pg (25.0-35.0) 02/02/18 22:25 MCHC 32.4 g/dL (31.0-37.0) 02/02/18 22:25 RDW 15.1 % (11.5-15.5) 02/02/18 22:25 Plt Count 215 k/uL (150-450) 02/02/18 22:25 Neutrophils % 59 % 02/02/18 22:25 Lymphocytes % 25 % 02/02/18 22:25 Monocytes % 6 % 02/02/18 22:25 Eosinophils % 6 % 02/02/18 22:25 Basophils % 1 % 02/02/18 22:25 Neutrophils # 3.6 k/uL (1.3-7.7) 02/02/18 22: Lymphocytes # 1.5 k/uL (1.0-4.8) 02/02/18 22: Monocytes # 0.3 k/uL (0-1.0) 02/02/18 22: Eosinophils # 0.4 k/uL (0-0.7) 02/02/18 22:25 Basophils # 0.1 k/uL (0-0.2) 02/02/18 22:25 Sodium 140 mmol/L (137-145) 02/02/18 22:25 Potassium 3.6 mmol/L (3.5-5.1) 02/02/18 22:25 Chloride 99 mmol/L (98-107) 02/02/18 22:25 Carbon Dioxide 25 mmol/L (22-30) 02/02/18 22:25 Anion Gap 16 mmol/L 02/02/18 22:25 BUN 4 mg/dL (9-20) L 02/02/18 22:25 Creatinine 0.80 mg/dL (0.66-1.25) 02/02/18 22:25 Est GFR (CKD-EPI)AfAm >90 (>60 ml/min/1.73 sqM) 02/02/18 22:25 Est GFR (CKD-EPI)NonAf >90 (>60 ml/min/1.73 sqM) 02/02/18 22:25 Glucose 168 mg/dL (74-99) H 02/02/18 22:25 Calcium 9.4 mg/dL (8.4-10.2) 02/02/18 22:25 Total Bilirubin 1.2 mg/dL (0.2-1.3) 02/02/18 22:25 AST 92 U/L (17-59) H 02/02/18 22:25 ALT 105 U/L (21-72) H 02/02/18 22:25 Alkaline Phosphatase 69 U/L (38-126) 02/02/18 22:25 Total Protein 7.3 g/dL (6.3-8.2) 02/02/18 22:25 Albumin 4.7 g/dL (3.5-5.0) 02/02/18 22:25 Urine Opiates Screen Not Detected (NotDetected) 02/02/18 23:24 Ur Oxycodone Screen Not Detected (NotDetected) 02/02/18 23:24 Urine Methadone Screen Not Detected (NotDetected) 02/02/18 23:24 Ur Propoxyphene Screen Not Detected (NotDetected) 02/02/18 23:24 Ur Barbiturates Screen Not Detected (NotDetected) 02/02/18 23:24 U Tricyclic Antidepress Not Detected (NotDetected) 02/02/18 23:24 Ur Phencyclidine Scrn Not Detected (NotDetected) 02/02/18 23:24 Ur Amphetamines Screen Not Detected (NotDetected) 02/02/18 23:24 U Methamphetamines Scrn Not Detected (NotDetected) 02/02/18 23:24 U Benzodiazepines Scrn Not Detected (NotDetected) 02/02/18 23:24 Urine Cocaine Screen Not Detected (NotDetected) 02/02/18 23:24 U Marijuana (THC) Screen Not Detected (NotDetected) 02/02/18 23:24 Thrombosis Risk Factor Assmnt - DVT/VTE Prophylaxis DVT/VTE Prophylaxis: Mechanical Prophylaxis ordered, Low risk, early ambulation encouraged - Choose All That Apply Any of the Below Risk Factors Present?: Yes Each Factor Represents 1 point: Obesity (BMI >25) Other Risk Factors: Yes Each Risk Factor Represents 2 Points: Age 61-74 years Thrombosis Risk Factor Assessment Total Risk Factor Score: 3 Thrombosis Risk Factor Assessment Level: Moderate Risk Assessment and Plan Plan: 1. Chronic alcoholism suspect acute alcohol intoxication on ER presentation however no alcohol blood levels were obtained by the ER with major depressive disorder, known history of alcohol withdrawal, we would monitor for impending DTs patient's drinking heavily with 1/5 of vodka daily, patient will be stabilized with Librium 10 mg 4 times a day, see Web protocol for DVT prophylaxis, thiamine to be given daily. Patient would be transferred to the mental health unit once stabilized, X 2. Suicidal ideation, secondary to major depressive disorder and chronic pain, patient is not on any opiates prior to admission, mental health to address psychotropics patient has health safety and environment manager at bedside at all times. Counseling, AA program as an outpatient 3. Chronic pain with lumbar disc disease and spinal stenosis, patient's on Lyrica 75 mg twice a day which would increase to 75 mg 3 times a day, continue duloxetine 60 mg twice a day trazodone 200 mg at bedtime patient to follow-up with Dr. James as an outpatient patient already had MRI imaging November 2016, follows with Dr. Mayte Abad as an outpatient. Ex 3. Lumbar disc surgery 3 in the past in [employer], with chronic pain 4. BMI of 38 5. BPH without any current L UTS, history of urinary retention in November 2017 admission 6. Impaired random blood sugars, hemoglobin A1c will be obtained along with Accu-Cheks before meals and at bedtime
--- NOTE | 2018-02-03 14:30 | P.CN ---
Psychiatric Consult - . Consult date: 02/03/18 Consult:: 02/03/18 14:17 Identification: Patient is a 62-year-old male who presented to the emergency room complaining of depression due to back pain. Patient also reported that suicidal ideation with thoughts of taking an overdose. Reason for Consult: Depression/suicidal ideation History of Present Illness: Patient's chart was reviewed, patient was seen and interviewed in his room no family members were present. Patient is known to me from a prior psychiatric admission in September of this year. Patient states that he has been using alcohol at home to control the pain in his hip. This was his prior complaint when I admitted him in September. Patient states that he started physical therapy and couldn't take the pain from physical therapy and quit a week early even though he was encouraged to continue. He states that he also had an epidural shot today give him some relief but doesn't is unaware of what the follow-up to that initial shot was supposed to be. Patient states he's been drinking up to a fifth a day to control his pain. Patient states that he has been prescribed Cymbalta, trazodone and Atarax by his primary care physician but does not take them on a consistent basis instead takes them occasionally. He said the trazodone was for her sleep and Atarax was for anxiety but he doesn't know how effective they've been doesn't take them regularly and he states that he still isn't sleeping nor is eating well. Patient states that he is depressed mostly related to his pain and the fact that no one will treated. Patient states that he had suicidal thoughts and doesn't want to and is suicidal thoughts are when the pain is uncontrollable or not well controlled. He states since he's been in the hospital and his pain has been better controlled he is no longer having any suicidal ideation. Patient has not gone for any inpatient rehab and declined referrals for this when I last saw him in September and when he was seen in psychiatric consultation in November of this year, when I saw him in September was because he wanted to resolve his hip pain first. Patient states that he's been at [facility] in the past for alcohol rehab, he states that he didn't like it there and doesn't want to return. He states he thinks he has been there 4 times in the past. Patient states his longest period of sobriety was 1 year in 1999. The patient states since 2001 he has been drinking at least a fifth a day. Patient does not endorse a history of psychotic symptoms, lashaun, no OCD symptoms and states he's never had any blackouts or seizures due to alcohol use or withdrawal. Past Psychiatric History: Patient has 2 prior psychiatric admissions here in the last one in September of this year and has been at [facility] in 4 prior occasions. Patient has been prescribed Cymbalta unknown dosage and frequency, trazodone 200 mg at bedtime and Atarax 25 mg every 8 hours as needed for anxiety. He is unaware of what he has been prescribed in the past. Past Medical/Surgical History: Ulcerative colitis, gout, arthritis, benign prostatic hypertrophy, patient has a history of megacolon status post back surgery 3, hernia repair, left knee replacement. Family History: Patient states that his mother was diagnosed with depression and his father alcohol use disorder. He has a maternal cousin who did complete suicide. Social History: Patient was born and raised in [place] both of his parents are he has 1 brother and 2 sisters. 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 Patient was and 10 years ago and has 3 daughters from that marriage with whom he has no contact. Patient lives alone in a house and does have some assistance with cleaning. Patient is not cooking for himself on a regular basis. Patient has fallen at home. Patient spends much of his time at home watching TV and still was driving to the bar. Patient denies any abuse history. Substance Use History: Patient began using alcohol the age of 13 and has consistently been drinking since that time with one year of sobriety in 1999. Since 1999 sandra been drinking heavily at least a fifth a day. He denies any current or prior drug use and no tobacco use. Legal History: Patient has a DUI from the age of 18 Mental status: Appearance/Attitude: Patient is dressed in a hospital gown, sitting at the edge of his bed in no acute distress making eye contact and is cooperative Behavior: Patient does not exhibit any psychomotor agitation or retardation. Speech/Language: Patient's speech is spontaneous and normal volume and rhythm and he is coherent. Thought Process: Patient is goal-directed there is evidence of loose associations or flight of ideas Thought Content: Patient denies any auditory or visual hallucinations, no evidence of delusions or paranoid ideation. Patient states that he's been feeling depressed secondary to the pain in his hip, he has been drinking to control the pain in his hip and quit physical therapy after 4 weeks because he thought it made the pain worse. Patient had 1 epidural injection which he said was beneficial but he is unaware of what the follow-up treatment that was. Patient states he has not been sleeping or eating well at home. Suicidal/Homicidal Ideation: Patient states that he is not currently suicidal and has no current plan or intent to act and does not want to . Patient denies any current homicidal ideation Sensorium/Cognition: Patient is alert and oriented to person, place, and time, patient's recent and remote memory are grossly intact Mood/Affect: Since mood is slightly depressed his affect is appropriate Insight/Judgment: Patient's insight and judgment are fair Assessment: Patient continues to use alcohol to target the pain in his hip, states that when the pain increases he becomes suicidal however the patient has not been compliant on a regular basis with his antidepressant medication. Patient had declined inpatient rehab referrals when I saw him in September and when he was again seen in November of this year. Patient has been in rehab in the past at [facility] and stated he did not like it there. Patient is drinking a fifth a day, he states to control the pain in his hip which also causes him to be suicidal. Patient is currently denying any suicidal ideations states that he has no plan and no intent to act and doesn't want to . Patient had begun physical therapy but stopped after 4 weeks because the pain was increasing, he had an epidural injection which she stated was somewhat beneficial but is unsure of what the follow-up to that was. Patient I'll long discussion regarding the complications of continued alcohol use. I also discussed with the patient that his antidepressant medication, medication for sleep and anxiety would not be effective while he continued to use alcohol as this will increase his anxiety, increase his depression, worsening his sleep and make the medications relatively ineffective. Patient was also instructed to not taking them regularly basis makes them ineffective. 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 Patient stated he doesn't want to go to [facility] and at [facility] does not accept his insurance. Patient has been started on Cymbalta at a dose of 60 mg twice a day to unsure to me what his prior dose was with the patient's unaware of this as well. I do not feel that the patient needs Atarax or trazodone at this time the patient is receiving Ativan for alcohol withdrawal symptoms. Patient is currently not suicidal and I will discontinue the one-to-one suicide precautions. Patient is also not psychotic, no symptoms of lashaun, he does not require any other psychotropic medication and does not require an inpatient psychiatric admission at this time. Patient was strongly encouraged to contact the numbers given to him by social work to set up an intake appointment for inpatient alcohol rehab. I again reviewed with the patient that continuing to drink would make his pain worse his medications ineffective his depression would increase, his sleep would worsen and his anxiety would also lead friends. I will sign off the case if there are any further questions or concerns please don't hesitate to contact me
[2018-02-03] MEDS: PREGABALIN 75 MG CAP PO SCH ×2 (15:02→20:26)
[2018-02-03] MEDS: FOLIC ACID 1 MG TAB PO SCH (15:02)
[2018-02-03 15:52] VITALS: RESP 16
[2018-02-03] MEDS: DULoxetine HCL 60 MG CAPSULE.DR PO SCH (20:26)
[2018-02-03 20:51] LABS: Glucose,Whole Blood 143 mg/dL (75-99)
[2018-02-03] MEDS ORDERED: traZODone HCL 100 MG TAB PO SCH (21:00)
[2018-02-03] MEDS ORDERED: PREGABALIN 75 MG CAP PO SCH (21:00)
[2018-02-04 07:28] LABS: Glucose,Whole Blood 121 mg/dL (75-99)
[2018-02-04 08:14] LABS: HCT 42.4 % (39.0-53.0); MCH 30.7 pg (25.0-35.0); MCHC 33.1 g/dL (31.0-37.0); MCV 92.7 fL (80.0-100.0); Mean Platelet Volume 6.9; Platelet Count 147 k/uL (150-450); RBC 4.57 m/uL (4.30-5.90); RDW 14.9 % (11.5-15.5); WBC 5.9 k/uL (3.8-10.6)
[2018-02-04 08:27] LABS: Glucose 126 mg/dL (74-99); Potassium 3.6 mmol/L (3.5-5.1); Sodium 137 mmol/L (137-145)
[2018-02-04 08:28] LABS: ALT 72 U/L (21-72); AST 63 U/L (17-59); Albumin 3.9 g/dL (3.5-5.0); Alkaline Phosphatase 58 U/L (38-126); Anion Gap 8 mmol/L; Blood Urea Nitrogen 9 mg/dL (9-20); Calcium 9.3 mg/dL (8.4-10.2); Carbon Dioxide 32 mmol/L (22-30); Chloride 97 mmol/L (98-107); Total Protein 6.4 g/dL (6.3-8.2)
[2018-02-04 09:19] LABS: Eosinophils # (M) 1.59 k/uL (0-0.7); Lymphocytes # (M) 0.83 k/uL (1.0-4.8); Neutrophils # (M) 3.48 k/uL (1.3-7.7); Neutrophils % (M) 59 %; Nucleated Red Blood Cells 0 /100 WBC (0-0); Total Cells Counted 100
[2018-02-04] MEDS: PREGABALIN 75 MG CAP PO SCH ×2 (09:25→15:06)
[2018-02-04] MEDS: FOLIC ACID 1 MG TAB PO SCH (09:25)
[2018-02-04] MEDS: MULTIVITAMINS, THERA 1 EACH TAB PO SCH (09:25)
[2018-02-04] MEDS: amLODIPine 10 MG TAB PO SCH (09:25)
[2018-02-04] MEDS: DULoxetine HCL 60 MG CAPSULE.DR PO SCH (09:25)
[2018-02-04] MEDS: THIAMINE 100 MG TAB PO SCH (09:25)
[2018-02-04] MEDS: LORazepam 2 MG/ML INJ IV PRN (11:11)
[2018-02-04] MEDS: traMADol 50 MG TAB PO PRN (11:11)
[2018-02-04 12:05] LABS: Glucose,Whole Blood 160 mg/dL (75-99)
--- NOTE | 2018-02-04 13:03 | P.DS ---
Providers Date of admission: 02/02/18 21:54 Expected date of discharge: 02/04/18 Attending physician: Kailee Cleary Consults: 02/02/18 21:55 Consult Physician Urgent Consulting Provider: Aby Clements Consult Reason/Comments: Depression and suicidal ideation Do you want consulting provider notified?: Yes Primary care physician: Corosey Keenan [facility] Course: This is 62-year-old gentleman patient of Tee Phillips, at Dr. Okeefe's office. He has underlying history of alcohol-induced depressive disorder, along with hyperlipidemia, hypertension, lumbar disc disease with chronic back pain, ulcerative colitis and gout, unsteady gait, on disability secondary to depression and lumbar disc disease. Admitted to the emergency room as the patient has been binge eating and drinking a lot more to cover up his pain, patient was suicidal, and was thinking about overdosing with ascription medications. He did not attempt to do this, his last admission was from our facility 11/28/2017. She also had an MRI done at that time 11/18/2017, followed by Dr. Conde. MRI finding shows multiple spinal stenosis at L2-L3, status post L3 L5 fixation and interbody spacer device placement L3-L4. In the emergency room, he was admitted secondary to worries that he might go into active DTs, he drinks a fifth of whiskey daily basis, his last alcohol intake was 02/03/2018 needs to be medically stable before mental health admission.. He expressed hopelessness secondary to pain, left sciatica chronic , depression, patient denies any psychosis or auditory this will help his admission. Consult were made with mental health patient is on Librium 10 mg 4 times a day along with CIWA with Ativan labs in the ER shows sodium of 140, creatinine of 0.8, glucose of 168, urine tox screen was negative, no drug alcohol levels obtained. 02/04: Patient has been seen by Dr. Clements from psychiatry with recommendations for inpatient alcohol rehab which patient has received the numbers to contact from social work. Patient will need to follow-up on his own. Patient is not currently suicidal and sitter has been discontinued. To continue Cymbalta at 60 mg twice daily is okay. No need for Atarax or trazodone at this time. Patient called [facility] yesterday and apparently information was to be faxed to [facility] for him to be admitted there. Patient will be transferred to [facility] today in stable condition. Discharge diagnoses: 1. Chronic alcoholism suspect acute alcohol intoxication 2. Suicidal ideation--resolved, secondary to major depressive disorder and chronic pain 3. Chronic pain with lumbar disc disease and spinal stenosis 3. Lumbar disc surgery 3 in the past in [place], with chronic pain 4. BMI of 38 5. BPH without any current L UTS, history of urinary retention in November 2017 admission 6. Impaired random blood sugars, hemoglobin A1c will be obtained along with Accu-Cheks before meals and at bedtime Discharge plan: Home Impression and plan of care have been directed as dictated by the signing physician. Elo Clark nurse practitioner acting as scribe for signing physician. Patient Condition at Discharge: Good Plan - Discharge Summary New Discharge Prescriptions: New DULoxetine HCL [Cymbalta] 60 mg PO BID #60 capsule. Multivpreeti Thera [Multivitamin (formulary)] 1 each PO DAILY@1200 tab Pregabalin [Lyrica] 75 mg PO TID #90 cap Thiamine [Vitamin B-1] 100 mg PO BID@1200,1700 tab chlordiazePOXIDE HCl [Librium] 10 mg PO QID #60 capsule Continue amLODIPine [Norvasc] 10 mg PO DAILY #30 tab Cyclobenzaprine [Flexeril] 5 mg PO TID PRN #60 tab PRN Reason: Muscle Spasm Folic Acid 1 mg PO DAILY Discontinued DULoxetine HCL [Cymbalta] 60 mg PO DIRECTED traZODone HCL 200 mg PO HS hydrOXYzine HCL [Atarax] 25 mg PO Q8H PRN PRN Reason: Anxiety Pregabalin [Lyrica] 75 mg PO BID Discharge Medication List Cyclobenzaprine [Flexeril] 5 mg PO TID PRN #60 tab 10/04/17 [Rx] amLODIPine [Norvasc] 10 mg PO DAILY #30 tab 10/04/17 [Rx] Folic Acid 1 mg PO DAILY 02/02/18 [History] DULoxetine HCL [Cymbalta] 60 mg PO BID #60 capsule. 02/04/18 [Rx] Multivitamins Thera [Multivitamin (formulary)] 1 each PO DAILY@1200 tab [Rx] Pregabalin [Lyrica] 75 mg PO TID #90 cap 02/04/18 [Rx] Thiamine [Vitamin B-1] 100 mg PO BID@1200,1700 tab 02/04/18 [Rx] chlordiazePOXIDE HCl [Librium] 10 mg PO QID #60 capsule 02/04/18 [Rx] Follow up Appointment(s)/Referral(s): Nel Okeefe MD [Primary Care Provider] - 1 Week Patient Instructions/Handouts: Depression (DC), Abuse of Alcohol (DC) Activity/Diet/Wound Care/Special Instructions: Cardiac diet. Activity as tolerated. Discharge Disposition: TRANSFER TO PSYCH HOSP/UNIT
[2018-02-04 15:52] VITALS: BP 144/69; PULSE 93; TEMP 98.5
[2018-02-04 15:58] LABS: Hemoglobin A1C 6.2 % (4.0-6.0)
== END 2018-02-04 16:12 | DRG 897 ==
LOC: EC 16:45 → 4MS4W 21:54
PROVIDERS: ADMIT Family Medicine; ATTEND Family Medicine
DX: F10.24 Alcohol dependence with alcohol-induced mood disorder (principal); R45.851 Suicidal ideations; K51.90 Ulcerative colitis, unspecified, without complications; F32.9 Major depressive disorder, single episode, unspecified; E78.5 Hyperlipidemia, unspecified; M51.9 Unspecified thoracic, thoracolumbar and lumbosacral intervertebral disc disorder; M10.9 Gout, unspecified; M48.061 Spinal stenosis, lumbar region without neurogenic claudication; E66.9 Obesity, unspecified; I10 Essential (primary) hypertension; M54.32 Sciatica, left side; F41.9 Anxiety disorder, unspecified; N40.0 Benign prostatic hyperplasia without lower urinary tract symptoms; M19.90 Unspecified osteoarthritis, unspecified site; R26.9 Unspecified abnormalities of gait and mobility; Z68.38 Body mass index [BMI] 38.0-38.9, adult; Z98.1 Arthrodesis status; Z79.899 Other long term (current) drug therapy; Z81.1 Family history of alcohol abuse and dependence; Z81.8 Family history of other mental and behavioral disorders; Z87.891 Personal history of nicotine dependence
CPT/HCPCS: 36415; 80053; 80306; 82075; 83036; 84443; 85025; 96361; 96372; 96374; 96375; 99285

== ENCOUNTER → 2018-05-03 | Outpatient (CLI) | payer MEDICARE, BC ==
[2018-05-03 17:20] LABS: Albumin 4.7 g/dL (3.80-4.90); Albumin/Globulin Ratio 2.61 (1.20-2.10); Anion Gap 8.2 mmol/L (4.00-12.00); Calcium 9.7 mg/dL (8.7-10.3); Carbon Dioxide 30.8 mmol/L (21.6-31.8); Globulin 1.8 g/dL (2.1-3.7); LDL Cholesterol,Calculated 121.8 mg/dL (0.0-131.0); Potassium 4.4 mmol/L (3.5-5.5); Total Bilirubin 0.7 mg/dL (0.2-1.2); Total Protein 6.5 g/dL (6.2-8.2); VLDL Calculation 40.2 mg/dL (5.00-40.00)
== END | disposition home or self-care (01) ==
LOC: LABWHC1 07:15
DX: E78.2 Mixed hyperlipidemia (principal); I10 Essential (primary) hypertension
CPT/HCPCS: 36415; 80053; 80061; 84443

== ENCOUNTER 2020-02-29 12:40 | Inpatient (IN) | payer MEDICARE, BC ==
[2020-02-29] MEDS ORDERED: SODIUM CHLORIDE 0.9% 1,000 ML IV ONE ×2 (13:02→14:16)
[2020-02-29] MEDS ORDERED: SODIUM CHLORIDE 0.9% 500 ML 500 ML IV ONE (13:02)
[2020-02-29] MEDS ORDERED: ACETAMINOPHEN TAB 500 MG TAB PO STA (13:03)
--- NOTE | 2020-02-29 13:13 | ED ---
General Adult HPI - General Chief complaint: Psychiatric Symptoms Stated complaint: EPS eval Time Seen by Provider: 02/29/20 12:55 Source: patient, EMS, RN notes reviewed, old records reviewed Mode of arrival: EMS Limitations: no limitations - History of Present Illness Initial comments: This a 64-year-old male who presents to the emergency department stating he has long-standing history of depression. Patient states lately been more depressed and he started drinking yesterday and today he felt suicidal told his doctor that saw his doctor called EMS and brought him in. Patient denies any physical complaints today. Patient states he is just upset that he was drinking again. Patient denies any headache patient denies numbness weakness. Patient denies chest pain palpitations difficulty breathing first breath per patient denies any recent fever chills or cough. Patient denies any abdominal pain patient denies any nausea vomiting diarrhea. His any injury or trauma. - Related Data Home Medications Medication Instructions Recorded Confirmed Folic Acid 1 mg PO DAILY 02/02/18 02/02/18 Previous Rx's Medication Instructions Recorded Cyclobenzaprine [Flexeril] 5 mg PO TID PRN #60 tab 10/04/17 amLODIPine [Norvasc] 10 mg PO DAILY #30 tab 10/04/17 DULoxetine HCL [Cymbalta] 60 mg PO BID #60 capsule. 02/04/18 Multivitamins, Thera [Multivitamin 1 each PO DAILY@1200 tab 02/04/18 (formulary)] Pregabalin [Lyrica] 75 mg PO TID #90 cap 02/04/18 Thiamine [Vitamin B-1] 100 mg PO BID@1200,1700 tab 02/04/18 chlordiazePOXIDE HCl [Librium] 10 mg PO QID #60 capsule 02/04/18 Allergies Allergy/AdvReac Type Severity Reaction Status Date / Time No Known Allergies Allergy Verified 02/03/18 09:28 Review of Systems ROS Statement: Those systems with pertinent positive or pertinent negative responses have been documented in the HPI. ROS Other: All systems not noted in ROS Statement are negative. Past Medical History Past Medical History: Hyperlipidemia, Hypertension, Musculoskeletal Disorder, Osteoarthritis (OA), Prostate Disorder Additional Past Medical History / Comment(s): Alcoholism, bronchitis, ulcerative colitis, rectal bleed, gout in bilateral feet, unsteady gait, balance issues, arthritis multiple joints, BPH. History of Any Multi-Drug Resistant Organisms: C-DIFF Past Surgical History: Back Surgery, Hernia Repair, Joint Replacement, Orthopedic Surgery, Tonsillectomy Additional Past Surgical History / Comment(s): Lumbar back surgery x 3, total L knee, hernia repair umbilical and left inguinal, colonoscopy. Past Anesthesia/Blood Transfusion Reactions: No Reported Reaction, Motion Sickness Additional Past Anesthesia/Blood Transfusion Reaction / Comment(s): Pt gets sea sick. Past Psychological History: Anxiety, Depression Smoking Status: Never smoker Past Alcohol Use History: Abuse, Daily Past Drug Use History: None Reported - Past Family History Mother Additional Family Medical History / Comment(s): Mother "battled" depression all of her life. She was 82 yrs old when she . Father Additional Family Medical History / Comment(s): Father was an alcoholic. He at the age of 72 yrs. General Exam - General Exam Comments Initial Comments: GENERAL: Patient is well-developed and well-nourished. Patient is nontoxic and well- hydrated and is in mild distress. ENT: Neck is soft and supple. No significant lymphadenopathy is noted. Oropharynx is clear. Moist mucous membranes. Neck has full range of motion without eliciting any pain. EYES: The sclera were anicteric and conjunctiva were pink and moist. Extraocular movements were intact and pupils were equal round and reactive to light. Eyelids were unremarkable. PULMONARY: Unlabored respirations. Good breath sounds bilaterally. No audible rales rhonchi or wheezing was noted. CARDIOVASCULAR: There is a regular rate and rhythm without any murmurs gallops or rubs. ABDOMEN: Soft and nontender with normal bowel sounds. SKIN: Skin is clear with no lesions or rashes and otherwise unremarkable. NEUROLOGIC: Patient is alert and oriented x3. Cranial nerves II through XII are grossly intact. Motor and sensory are also intact. Normal speech, volume and content. Symmetrical smile. MUSCULOSKELETAL: Normal extremities with adequate strength and full range of motion. LYMPHATICS: No significant lymphadenopathy is noted PSYCHIATRIC: Patient states she's been very depressed lately and he has been having suicidal thoughts. Patient understands alcohol does not make the situation better. Limitations: no limitations Course Vital Signs 02/29/20 12:56 Temperature 97.7 F Pulse Rate 95 Respiratory 16 Rate Blood Pressure 174/87 O2 Sat by Pulse 97 Oximetry Medical Decision Making - Medical Decision Making I spoke with Dr. Engel he agreed to admit the patient admitted the patient I wrote admitting orders - Lab Data Result diagrams: 02/29/20 13:34 02/29/20 13:34 Lab Results 02/29/20 02/29/20 02/29/20 Range/Units 13:34 13:34 13:38 WBC 9.6 (3.8-10.6) k/uL RBC 5.29 (4.30-5.90) m/uL Hgb 15.0 (13.0-17.5) gm/dL Hct 44.0 (39.0-53.0) % MCV 83.1 (80.0-100.0) fL MCH 28.4 (25.0-35.0) pg MCHC 34.1 (31.0-37.0) g/dL RDW 13.4 (11.5-15.5) % Plt Count 234 (150-450) k/uL Neutrophils % 73 % Lymphocytes % 17 % Monocytes % 4 % Eosinophils % 3 % Basophils % 1 % Neutrophils # 7.0 (1.3-7.7) k/uL Lymphocytes # 1.6 (1.0-4.8) k/uL Monocytes # 0.4 (0-1.0) k/uL Eosinophils # 0.3 (0-0.7) k/uL Basophils # 0.1 (0-0.2) k/uL Sodium 124 L (137-145) mmol/L Potassium 3.5 (3.5-5.1) mmol/L Chloride 89 L (98-107) mmol/L Carbon Dioxide 17 L (22-30) mmol/L Anion Gap 18 mmol/L BUN 5 L (9-20) mg/dL Creatinine 0.69 (0.66-1.25) mg/dL Est GFR (CKD-EPI)AfAm >90 (>60 ml/min/1.73 sqM) Est GFR (CKD-EPI)NonAf >90 (>60 ml/min/1.73 sqM) Glucose 126 H (74-99) mg/dL Calcium 8.6 (8.4-10.2) mg/dL Total Bilirubin 1.0 (0.2-1.3) mg/dL AST 41 (17-59) U/L ALT 33 (4-49) U/L Alkaline Phosphatase 81 (38-126) U/L Total Protein 7.5 (6.3-8.2) g/dL Albumin 5.0 (3.5-5.0) g/dL Urine Opiates Screen Not Detected (NotDetected) Ur Oxycodone Screen Not Detected (NotDetected) Urine Methadone Screen Not Detected (NotDetected) Ur Propoxyphene Screen Not Detected (NotDetected) Ur Barbiturates Screen Not Detected (NotDetected) U Tricyclic Antidepress Not Detected (NotDetected) Ur Phencyclidine Scrn Not Detected (NotDetected) Ur Amphetamines Screen Not Detected (NotDetected) U Methamphetamines Scrn Not Detected (NotDetected) U Benzodiazepines Scrn Not Detected (NotDetected) Urine Cocaine Screen Not Detected (NotDetected) U Marijuana (THC) Screen Not Detected (NotDetected) Disposition Clinical Impression: Hyponatremia, Depression, Suicidal ideations Disposition: ADMITTED IP TO THIS HOSP Referrals: Zachary Dexter MD [Primary Care Provider] - 1-2 days Time of Disposition: 14:16
[2020-02-29 13:52] LABS: Basophils % (A) 1 %; Eosinophils % (A) 3 %; Lymphocytes % (A) 17 %; MCH 28.4 pg (25.0-35.0); MCHC 34.1 g/dL (31.0-37.0); MCV 83.1 fL (80.0-100.0); Mean Platelet Volume 6.3; Monocytes % (A) 4 %; Neutrophils % (A) 73 %; Platelet Count 234 k/uL (150-450); RBC 5.29 m/uL (4.30-5.90); RDW 13.4 % (11.5-15.5); WBC 9.6 k/uL (3.8-10.6)
[2020-02-29 13:53] LABS: Basophils # (A) 0.1 k/uL (0-0.2); Eosinophils # (A) 0.3 k/uL (0-0.7); Lymphocytes # (A) 1.6 k/uL (1.0-4.8); Monocytes # (A) 0.4 k/uL (0-1.0)
[2020-02-29 14:04] LABS: ALT 33 U/L (4-49); AST 41 U/L (17-59); African American GFR (CKD) >90 (>60 ml/min/1.73 sqM); Alkaline Phosphatase 81 U/L (38-126); Anion Gap 18 mmol/L; Blood Urea Nitrogen 5 mg/dL (9-20); Calcium 8.6 mg/dL (8.4-10.2); Carbon Dioxide 17 mmol/L (22-30); Chloride 89 mmol/L (98-107); Glucose 126 mg/dL (74-99); Non-African American GFR(CKD) >90 (>60 ml/min/1.73 sqM); Potassium 3.5 mmol/L (3.5-5.1); Sodium 124 mmol/L (137-145); Total Protein 7.5 g/dL (6.3-8.2)
[2020-02-29 14:10] LABS: Amphetamine Screen,Urine Not Detected (NotDetected); Barbiturate Screen,Urine Not Detected (NotDetected); Benzodiazepines Screen,Urine Not Detected (NotDetected); Cocaine Screen,Urine Not Detected (NotDetected); Methadone Screen, Urine Not Detected (NotDetected); Opiate Screen,Urine Not Detected (NotDetected); Oxycodone Screen, Urine Not Detected (NotDetected); Phencyclidine Screen,Urine Not Detected (NotDetected); Tricyclic Antidepressant,Urine Not Detected (NotDetected); Urn Cannabinoid Scrn Not Detected (NotDetected)
[2020-02-29] MEDS ORDERED: THIAMINE 100 MG/ML 2 ML VIAL IM STA (14:18)
[2020-02-29] MEDS ORDERED: LORazepam 2 MG/ML INJ IV PRN (14:18)
[2020-02-29] MEDS ORDERED: hydrOXYzine pamoate 25 MG CAP PO PRN (14:59)
[2020-02-29] MEDS ORDERED: KETOROLAC 15 MG/ML 1 ML VIAL IVP STA (15:35)
[2020-02-29] MEDS: LORazepam 2 MG/ML INJ IV PRN ×2 (16:04→19:06)
[2020-02-29] MEDS: HYDROcodone/APAP 10-325MG 1 EACH TAB PO PRN ×2 (16:04→21:04)
[2020-02-29] MEDS: amLODIPine 10 MG TAB PO SCH (17:07)
[2020-02-29 17:17] LABS: Glucose,Whole Blood 123 mg/dL (75-99)
[2020-02-29] MEDS: INSULIN ASPART (NovoLOG) 100 UNIT/ML VIAL SQ SCH ×2 (17:44→20:58)
[2020-02-29] MEDS: metFORMIN 500 MG TAB PO SCH (17:59)
[2020-02-29 20:56] LABS: Glucose,Whole Blood 128 mg/dL (75-99)
[2020-02-29] MEDS ORDERED: traZODone HCL 100 MG TAB PO SCH (21:00)
[2020-02-29] MEDS: DULoxetine HCL 60 MG CAPSULE.DR PO SCH (21:05)
--- NOTE | 2020-02-29 22:58 | P.HPIM ---
History of Present Illness H&P Date: 02/29/20 Chief Complaint: Alcohol intoxication, severe depression and suicidal ideation, severe hypon 64-year-old morbidly obese male one of Dr. Olsen patient with past medical history of hypertension, hyperlipidemia, morbid obesity, alcoholism, with enlarged prostate also had severe depression and anxiety attacks with drinks alcohol on regular basis over fifth a day. Patient presented to the emergency department at [facility] today more depress and he has been drinking for the last 2 days very heavily he felt suicidal. Patient was seen and study to demurs department surprisingly his sodium was 124 blood sugar was mildly elevated his alcohol level was was high no abnormal liver function tests her blood cell was found. Patient was hospitalized the will consult psych and as soon as is clear medically will be able to be transferred to psych in the meanwhile will treat his hyponatremia as an SIADH and probably side effect from his alcoholism. Patient be continue on normal saline at 75 mL an hour continue diet and restrict any diuretics his medication. Review of Systems CONSTITUTIONAL: Well-developed no acute respiratory distress. Morbidly obese and quite confused EYES: No icterus sclerae, no conjunctivitis. EARS, NOSE, MOUTH, THROAT, and FACE: No sore throat, lymphadenopathy, carotid bruits or deformity. RESPIRATORY: No SOB cough or wheezes. CARDIOVASCULAR: No CP, Palpitation, PND, Orthopnea, or angina. GASTROINTESTINAL: No Abd pain, Nausea or vomiting, no Diarrhea or constipation, No GI Bleed, no distention or masses. GENITOURINARY: Negative for Hematuria or UTI, no kidney stones. INTEGUMENT/BREAST: Negative for any muscular injury with mild osteoarthritis.. HEMATOLOGIC/LYMPHATIC: Negative for bleed or purpura. MUSCULOSKELTAL: Negative for Myalgia or arthralgia. NEURLOGICAL: No LOC, Sz or syncope, blurred vision dizziness or abnormality.. Mild confusion BEHAVIORAL/PSYCH: Negative. ENDOCRINE: Negative. Past Medical History Past Medical History: Hyperlipidemia, Hypertension, Musculoskeletal Disorder, Osteoarthritis (OA), Prostate Disorder Additional Past Medical History / Comment(s): Alcoholism, bronchitis, ulcerative colitis, rectal bleed, gout in bilateral feet, unsteady gait, balance issues, arthritis multiple joints, BPH. History of Any Multi-Drug Resistant Organisms: C-DIFF Date of last positivie culture/infection: 02-13-2020 MDRO Source:: stool Past Surgical History: Back Surgery, Hernia Repair, Joint Replacement, Orthopedic Surgery, Tonsillectomy Additional Past Surgical History / Comment(s): Lumbar back surgery x 3, total L knee, hernia repair umbilical and left inguinal, colonoscopy. Past Anesthesia/Blood Transfusion Reactions: No Reported Reaction, Motion Sickness Additional Past Anesthesia/Blood Transfusion Reaction / Comment(s): Pt gets sea sick. Past Psychological History: Anxiety, Depression Additional Psychological History / Comment(s): t resides alone. He uses a walker to ambulate. He drives. He states he has hx of depression and it has been more severe over the past few weeks. He states he recently got after 33 yrs of marriage and his kids "won't talk to me." He stated that over the past two weeks he has had brief thoughts of suicide but no plan and states he is not suicidal at this time. " I want to live." He stated that when he is feeting this emotional, he stops taking his medication and drinks alcohol more. Smoking Status: Never smoker Past Alcohol Use History: Abuse, Daily Additional Past Alcohol Use History / Comment(s): Pt states he started smoking in 1968 and was a 3-4 ppd smoker. He quit smoking in 1978. Past Drug Use History: None Reported - Past Family History Mother Additional Family Medical History / Comment(s): Mother "battled" depression all of her life. She was 82 yrs old when she . Father Additional Family Medical History / Comment(s): Father was an alcoholic. He at the age of 72 yrs. Medications and Allergies Home Medications Medication Instructions Recorded Confirmed Type amLODIPine [Norvasc] 10 mg PO DAILY #30 tab 10/04/17 02/29/20 Rx Cholestyramine (with Sugar) 4 gm PO BID 02/29/20 02/29/20 History [Cholestyramine Packet] DULoxetine HCL [Cymbalta] 60 mg PO BID 02/29/20 02/29/20 History HYDROcodone/APAP 10-325MG [[place] 1 tab PO Q4HR PRN 02/29/20 02/29/20 History 10-325] Tamsulosin [Flomax] 0.4 mg PO DAILY 02/29/20 02/29/20 History hydrOXYzine pamoate [hydrOXYzine 25 mg PO Q8H PRN 02/29/20 02/29/20 History PAMOATE] metFORMIN HCL [Glucophage] 500 mg PO BID 02/29/20 02/29/20 History traZODone HCL [Desyrel] 100 mg PO HS 02/29/20 02/29/20 History Allergies Allergy/AdvReac Type Severity Reaction Status Date / Time No Known Allergies Allergy Verified 02/29/20 14:48 Physical Exam Vitals: Vital Signs Temp Pulse Pulse Resp BP BP Pulse Ox 02/29/20 20:00 98.7 F 95 20 154/81 96 02/29/20 18:01 98.2 F 95 16 167/83 96 02/29/20 16:00 90 16 146/65 98 02/29/20 12:56 97.7 F 95 16 174/87 97 Intake and Output 02/29/20 02/29/20 02/29/20 06:59 14:59 22:59 Other: Weight 133.81 kg 133.81 kg General Appearance: Alert, obese laying in bed he will wake up when asking questions full sleep easy does not look in any respiratory distress.. Neck HEENT: Supple, no lymphadenopathy, no thyroid enlargement, no carotid bruits. Lungs: Clear to auscultation without crackles or wheezes no rhonchi, no deformity. Chest Wall: Chest wall normal expansion with deep inspiration no tenderness and no deformity was found on exam, no costochondral pain or discomfort. Heart: Regular rate and rhythm, S1, S2 normal, positive systolic murmur positive JVD. Back: Symmetric, no curvature, ROM normal, no CVA tenderness. Abdomen: Soft, non-tender, bowel sounds active all four quadrants, slightly enlarged liver with mild ascites. Extremities: Extremities normal, atraumatic, no cyanosis or edema. Pulses: 2+ and symmetric. Skin: Skin color, texture, tugor normal, no rashes or lesions. Neurologic: Alert oriented x3 cranial nerves II through XII intact, no motor deficit, no abnormal balance or gait. Results CBC & Chem 7: 02/29/20 13:34 02/29/20 13:34 Labs: Abnormal Lab Results - Last 24 Hours (Table) 02/29/20 02/29/20 02/29/20 Range/Units 13:34 17:16 20:54 Sodium 124 L (137-145) mmol/L Chloride 89 L (98-107) mmol/L Carbon Dioxide 17 L (22-30) mmol/L BUN 5 L (9-20) mg/dL Glucose 126 H (74-99) mg/dL POC Glucose (mg/dL) 123 H 128 H (75-99) mg/dL Assessment and Plan Assessment: 1 alcohol intoxication: Continue patient on hydration recheck in the next 24 hours. The meanwhile continue magnesium continue folic acid multivitamins lorazepam as needed. 2 suicidal ideation: Patient will be hospitalized to his alcohol level is clear sodium is improved then will be transferred to psych service. 3 severe hyponatremia: Restrict hydrochlorothiazide continue to watch patient's fluid intake and urine output for now repeat CMP by tomorrow morning. 4 Type 2 diabetes: Has been on metformin continue Accu-Chek sliding scale coverage. 5 Chronic depression: Has been on Cymbalta and trazodone. 6 hypertension: Remain on amlodipine 10 mg a day. 7 BPH: Watch for any urinary retention. 8 chronic lower back pain and chronic pain management: Patient is on [place] every 6-4 a surgery as needed. 9 GI prophylaxis: Patient be started on Pepcid 20 mg daily. Admit patient to inpatient status for more than 2 night stay.
[2020-03-01] MEDS: HYDROcodone/APAP 10-325MG 1 EACH TAB PO PRN ×3 (03:08→16:57)
[2020-03-01] MEDS: LORazepam 2 MG/ML INJ IV PRN ×2 (03:45→10:42)
[2020-03-01 06:32] LABS: Basophils % (A) 1 %; Eosinophils # (A) 0.1 k/uL (0-0.7); Eosinophils % (A) 2 %; HCT 39.5 % (39.0-53.0); HGB 14.2 gm/dL (13.0-17.5); Lymphocytes # (A) 0.9 k/uL (1.0-4.8); Lymphocytes % (A) 11 %; MCV 83.4 fL (80.0-100.0); Mean Platelet Volume 6.3; Monocytes # (A) 0.5 k/uL (0-1.0); Monocytes % (A) 7 %; Neutrophils % (A) 79 %; Platelet Count 169 k/uL (150-450); RBC 4.74 m/uL (4.30-5.90); RDW 13.9 % (11.5-15.5); WBC 7.6 k/uL (3.8-10.6)
[2020-03-01 07:14] LABS: Glucose,Whole Blood 155 mg/dL (75-99)
[2020-03-01] MEDS: THIAMINE 100 MG TAB PO SCH ×2 (07:32→16:57)
[2020-03-01] MEDS: amLODIPine 10 MG TAB PO SCH (07:33)
[2020-03-01] MEDS: DULoxetine HCL 60 MG CAPSULE.DR PO SCH (07:33)
[2020-03-01] MEDS: metFORMIN 500 MG TAB PO SCH ×2 (07:33→16:58)
[2020-03-01] MEDS: INSULIN ASPART (NovoLOG) 100 UNIT/ML VIAL SQ SCH ×3 (08:02→18:04)
[2020-03-01] MEDS ORDERED: FAMOTIDINE 20 MG TAB PO SCH (09:00)
[2020-03-01] MEDS ORDERED: TAMSULOSIN 0.4 MG CAP.ER.24H PO SCH (09:00)
[2020-03-01 09:20] LABS: African American GFR (CKD) 114.8 (60.0-200.0); Albumin 4.4 g/dL (3.80-4.90); Albumin/Globulin Ratio 2.75 (1.60-3.17); Anion Gap 12.1 mmol/L (4.00-12.00); BUN/Creat Ratio 8.57 Ratio (12.00-20.00); Calcium 8.8 mg/dL (8.7-10.3); Carbon Dioxide 21.9 mmol/L (21.6-31.8); Globulin 1.6 g/dL (1.6-3.3); Potassium 3.4 mmol/L (3.5-5.5); Total Bilirubin 1.4 mg/dL (0.3-1.2)
[2020-03-01 11:45] LABS: Glucose,Whole Blood 121 mg/dL (75-99)
[2020-03-01] MEDS ORDERED: POTASSIUM CHLORIDE ER 20 MEQ TAB.ER PO STA (12:07)
--- NOTE | 2020-03-01 12:10 | P.PN ---
Subjective Progress Note Date: 03/01/20 HISTORY OF PRESENT ILLNESS 64-year-old morbidly obese male one of Dr. Olsen patient with past medical history of hypertension, hyperlipidemia, morbid obesity, alcoholism, with enlarg ed prostate also had severe depression and anxiety attacks with drinks alcohol on regular basis over fifth a day. Patient presented to the emergency department at [facility] today more depress and he has been drinking for the last 2 days very heavily he felt suicidal. Patient was seen and study to demurs department surprisingly his sodium was 124 blood sugar was mildly elevated his alcohol level was was high no abnormal liver function tests her blood cell was found. Patient was hospitalized the will consult psych and as soon as is clear medically will be able to be transferred to psych in the meanwhile will treat his hyponatremia as an SIADH and probably side effect from his alcoholism. Patient be continue on normal saline at 75 mL an hour continue diet and restrict any diuretics his medication. 03/01: Patient is awake and alert this morning. He does have a site safety manager at the bedside. He states he has been on the mental health unit about 5 years ago. He has been on disability due to depression. He states he only drinks occasionally but yesterday he was drinking heavily. Repeat blood work reveals normal CBC. Sodium 128, potassium 3.4, chloride 94 on the BUN 6 and creatinine 0.7. Blood sugars are running between 128 and 155. Patient is waiting for a psychiatric evaluation and anticipate that he will be transferred to the mental health unit. Patient is cleared medically to be transferred. REVIEW OF SYSTEMS CONSTITUTIONAL: Well-developed no acute respiratory distress. Morbidly obese. No fevers EYES: No icterus sclerae, no conjunctivitis. EARS, NOSE, MOUTH, THROAT, and FACE: No sore throat, lymphadenopathy, carotid bruits or deformity. RESPIRATORY: No SOB cough or wheezes. CARDIOVASCULAR: No CP, Palpitation, PND, Orthopnea, or angina. GASTROINTESTINAL: No Abd pain, Nausea or vomiting, no Diarrhea or constipation, No GI Bleed, no distention or masses. GENITOURINARY: Negative for Hematuria or UTI, no kidney stones. INTEGUMENT/BREAST: Negative for any muscular injury with mild osteoarthritis.. HEMATOLOGIC/LYMPHATIC: Negative for bleed or purpura. MUSCULOSKELTAL: Negative for Myalgia or arthralgia. NEURLOGICAL: No LOC, Sz or syncope, blurred vision dizziness or abnormality. BEHAVIORAL/PSYCH: Negative. ENDOCRINE: Negative. PHYSICAL EXAMINATION General Appearance: Alert, obese, resting in bed in no acute distress.. Neck HEENT: Supple, no lymphadenopathy, no thyroid enlargement, no carotid bruits. Lungs: Clear to auscultation without crackles or wheezes no rhonchi, no deformity. Chest Wall: Chest wall normal expansion with deep inspiration no tenderness and no deformity was found on exam, no costochondral pain or discomfort. Heart: Regular rate and rhythm, S1, S2 normal, positive systolic murmur positive JVD. Back: Symmetric, no curvature, ROM normal, no CVA tenderness. Abdomen: Soft, non-tender, bowel sounds active all four quadrants, slightly enlarged liver with mild ascites. Extremities: Extremities normal, atraumatic, no cyanosis or edema. Pulses: 2+ and symmetric. Skin: Skin color, texture, tugor normal, no rashes or lesions. Neurologic: Alert oriented x3 cranial nerves II through XII intact, no motor deficit, no abnormal balance or gait. ASSESSMENT AND PLAN 1. Alcohol intoxication. Continue IV fluids, folic acid, multivitamins, lorazepam as needed. 2. Suicidal ideation. Psychiatric evaluation planned. 3. Severe hyponatremia. Hold hydrochlorothiazide, increase oral intake, monitor urine output and recheck lab work. 4. Diabetes mellitus type 2. Continue metformin and NovoLog scale before meals and at bedtime. 5. Recurrent depression. Continue Cymbalta and trazodone. 6. Hypertension. Continue amlodipine 10 mg daily. 7. Benign prostatic hypertrophy. Monitor for urinary retention. 8. Chronic low back pain and pain management. Continue [place] as needed. 9. GI prophylaxis. Continue Pepcid. Discharge plan: Anticipate mental health unit transfer once evaluated by psychiatry. Patient is cleared medically for transfer to the mental health unit. Impression and plan of care have been directed as dictated by the signing physician. Elo Clark nurse practitioner acting as scribe for signing physician. Objective - Vital Signs Vital signs: Vital Signs Temp 98.1 F 03/01/20 05:00 Pulse 83 03/01/20 05:00 Resp 18 03/01/20 05:00 BP 156/84 03/01/20 05:00 Pulse Ox 96 03/01/20 05:00 Intake & Output 02/29/20 03/01/20 03/01/20 18:59 06:59 18:59 Intake Total 1075 Balance 1075 Weight 133.81 kg Intake: Intake, IV Titration 725 Amount Sodium Chloride 0.9% 1, 725 000 ml @ 75 mls/hr IV . [id number] ONE Rx#:[id number] Oral 350 Other: Voiding Method Toilet # Voids 1 - Labs CBC & Chem 7: 03/01/20 05:56 03/01/20 05:56 Labs: Abnormal Lab Results - Last 24 Hours (Table) 02/29/20 02/29/20 02/29/20 Range/Units 13:34 17:16 20:54 Lymphocytes # (1.0-4.8) k/uL Sodium 124 L (137-145) mmol/L Chloride 89 L (98-107) mmol/L Carbon Dioxide 17 L (22-30) mmol/L BUN 5 L (9-20) mg/dL Glucose 126 H (74-99) mg/dL POC Glucose (mg/dL) 123 H 128 H (75-99) mg/dL 03/01/20 03/01/20 Range/Units 05:56 07:13 Lymphocytes # 0.9 L (1.0-4.8) k/uL Sodium (137-145) mmol/L Chloride (98-107) mmol/L Carbon Dioxide (22-30) mmol/L BUN (9-20) mg/dL Glucose (74-99) mg/dL POC Glucose (mg/dL) 155 H (75-99) mg/dL
--- NOTE | 2020-03-01 12:14 | P.DS ---
Providers Date of admission: 02/29/20 14:16 Expected date of discharge: 03/01/20 Attending physician: Hernandez Engel Consults: 02/29/20 14:16 Consult Physician Urgent Consulting Provider: Devin More Consult Reason/Comments: Depression, suicidal ideations Do you want consulting provider notified?: Yes Primary care [facility] Course: HISTORY OF PRESENT ILLNESS 64-year-old morbidly obese male one of Dr. Olsen patient with past medical history of hypertension, hyperlipidemia, morbid obesity, alcoholism, with enlarged prostate also had severe depression and anxiety attacks with drinks alcohol on regular basis over fifth a day. Patient presented to the emergency department at [facility] today more depress and he has been drinking for the last 2 days very heavily he felt suicidal. [facility] surprisingly his sodium was 124 blood sugar was mildly elevated his alcohol level was was high no abnormal liver function tests her blood cell was found. Patient was hospitalized the will consult psych and as soon as is clear medically will be able to be transferred to psych in the [place] anwhile will treat his hyponatremia as an SIADH and probably side effect from his alcoholism. Patient be continue on normal saline at 75 mL an hour continue diet and restrict any diuretics his medication. 03/01: Patient is awake and alert this morning. He does have a product safety tester at the bedside. He states he has been on the mental health unit about 5 years ago. He has been on disability due to depression. He states he only drinks occasionally but yesterday he was drinking heavily. Repeat blood work reveals normal CBC. Sodium 128, potassium 3.4, chloride 94 on the BUN 6 and creatinine 0.7. Blood sugars are running between 128 and 155. Patient is waiting for a psychiatric evaluation and anticipate that he will be transferred to the mental health unit. Patient is cleared medically to be transferred. ASSESSMENT AND PLAN 1. Alcohol intoxication. 2. Suicidal ideation. 3. Severe hyponatremia. 4. Diabetes mellitus type 2. 5. Recurrent depression. 6. Hypertension. 7. Benign prostatic hypertrophy. 8. Chronic low back pain and pain management. Discharge plan: Anticipate mental health unit transfer once evaluated by psychiatry. Patient is cleared medically for transfer to the mental health unit. Impression and plan of care have been directed as dictated by the signing physician. Elo Clark nurse practitioner acting as scribe for signing physician. Patient Condition at Discharge: Stable Plan - Discharge Summary Discharge Rx Participant: No New Discharge Prescriptions: New Thiamine [Vitamin B-1] 100 mg PO BID-W/MEALS tab Continue amLODIPine [Norvasc] 10 mg PO DAILY #30 tab DULoxetine HCL [Cymbalta] 60 mg PO BID traZODone HCL [Desyrel] 100 mg PO HS metFORMIN HCL [Glucophage] 500 mg PO BID hydrOXYzine pamoate [hydrOXYzine PAMOATE] 25 mg PO Q8H PRN PRN Reason: Itching Tamsulosin [Flomax] 0.4 mg PO DAILY HYDROcodone/APAP 10-325MG [[place] 10-325] 1 tab PO Q4HR PRN PRN Reason: Pain Cholestyramine (with Sugar) [Cholestyramine Packet] 4 gm PO BID Discharge Medication List amLODIPine [Norvasc] 10 mg PO DAILY #30 tab 10/04/17 [Rx] Cholestyramine (with Sugar) [Cholestyramine Packet] 4 gm PO BID 02/29/20 [History] DULoxetine HCL [Cymbalta] 60 mg PO BID 02/29/20 [History] HYDROcodone/APAP 10-325MG [[place] 10-325] 1 tab PO Q4HR PRN 02/29/20 [History] Tamsulosin [Flomax] 0.4 mg PO DAILY 02/29/20 [History] hydrOXYzine pamoate [hydrOXYzine PAMOATE] 25 mg PO Q8H PRN 02/29/20 [History] metFORMIN HCL [Glucophage] 500 mg PO BID 02/29/20 [History] traZODone HCL [Desyrel] 100 mg PO HS 02/29/20 [History] Thiamine [Vitamin B-1] 100 mg PO BID-W/MEALS tab 03/01/20 [Rx] Follow up Appointment(s)/Referral(s): Zachary Dexter MD [Primary Care Provider] - 1 Week (after discharge from [facility]) Discharge Disposition: TRANSFER TO PSYCH HOSP/UNIT
[2020-03-01 12:24] VITALS: BP 146/83; PULSE 94; TEMP 98.7
--- NOTE | 2020-03-01 14:29 | P.CN ---
Psychiatric Consult - . Consult date: 03/01/20 Consult:: 03/01/20 13:13 IDENTIFYING DATA: This patient is a 64-year-old male who currently lives alone in house is has 3 kids and collects Social Security disability. REASON FOR REFERRAL: Psychiatry was consulted for depression and suicidal ideations. HISTORY OF PRESENT ILLNESS: The patient presented to the hospital with complaints of depression and claims that he started drinking the day before coming into the hospital. Patient apparently mentioned to ER staff suicidal thoughts. Patient was brought into the hospital by EMS. Patient sodium was 124 and UDS was negative for any drugs. Patient sodium improved to 128 today. He was on CIWA protocol with Ativan when necessary for alcohol withdrawal. Nursing here patient states that he has been anxious at times and is currently on the CIWA protocol receiving Ativan and has not mentioned any suicidal thoughts and was currently with a sitter when evaluated. Patient claims that he "let myself get down" referring to his depression. He states that he isn't struggling with that his "whole life". He claims that he is currently on Cymbalta and trazodone which she has been taking every day. He states that he should've reached out to his supports which are his sisters however did not. He claims that he ran out of pain medications and started drinking whiskey. He claims that he usually does not drink alcohol however relapsed briefly. He states that he was feeling "lousy" when he came in the hospital however now is feeling much better and denied any suicidal thoughts at that time and denies any suicidal thoughts currently. He claims that he was drinking a fifth of whiskey in the past couple of days and claims that he made "the wrong choice". He states that his sleep has been getting better approximately 6 hours a night. He mentioned protective factors including his family and wanting to lose weight and do a spinal procedure which is booked in the near future to relieve some pain in his back. Patient was future oriented. States his appetite is fair. At this time patient denies any suicidal or homical ideations, intent or plan. Patient denies any auditory, visual hallucinations and denies any paranoia or delusions. Patients admits to using alcohol as described above and denies any cigarette use or any other recreational drug use. Patient denies at the axis to guns or weapons. PAST PSYCHIATRIC HISTORY: Patient has a a history of anxiety and depression. Patient is on Cymbalta and trazodone. Patient claims that he was last admitted to the psychiatric hospital at [facility] in 2007 for suicidal thoughts. Patient denies any psychiatric outpatient follow-up. Patient denies any history of suicide attempts in the past. PAST MEDICAL HISTORY: Hyperlipidemia, obesity, diabetes mellitus, gout, BPH, osteoarthritis, hypertension. ALLERGIES: as per EMR. CHEMICAL DEPENDENCY HISTORY: as per HPI. FAMILY PSYCHIATRIC/SUBSTANCE USE HISTORY: States that his mother suffered from depression and father was an alcoholic. SOCIAL HISTORY: Patient was born and raised in [place], [place], denies any or legal history. He claims that he graduated high school. 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 He states that he has not worked for 12 years nonclinical extortions daily disability. He states that he lives alone in a house his divorce has 3 kids.. MENTAL STATUS EXAM: General Appearance: Patient appears to be overweight, stated age is alert, pleasant, and attempts to be cooperative. Patient appears to have fair hygiene and grooming wearing hospital gown with fair eye contact. Behavior: Patient is calmly lying in bed without any agitated behavior. Speech: Patient's speech is fluent and nonpressured. Mood/Affect: Patient reports their mood is "better", affect is congruent and constricted Suicidality/Homicidality: Patient denies having any suicidal or homicidal ideation intent or plan. Perceptions: Patient denies any visual hallucinations and denies any auditory hallucinations Though content/process: There is no evidence of any delusional thought content and thought process is linear and goal-directed. future oriented. Memory and concentration: AOX3, grossly intact for the purposes of this session. Can spell "WORLD" backwards Judgment and insight: Fair IMPRESSIONS: Major depressive disorder, mild Alcohol abuse PLAN: -Patient was offered voluntary psychiatric admission however patient declined at this time and states that he is more comfortable with outpatient follow-up. At this time patient DOES NOT meet criteria for involuntary inpatient psychiatric admission. -Patient claims that the majority of his depression is linked to his pain, please provide adequate pain control upon discharge and patient should follow up with pain clinic. -Would recommend the following medication changes/additions: Can continue with Cymbalta 60 mg twice a day for pain/anxiety/mood, trazodone 100 mg daily at bedtime for insomnia/mood. Patient was agreeable to take Wellbutrin 100 mg daily as a mood adjunct. -Can discontinue 1:1 sitter at this time as patient is not currently an imminent threat to themselves -flavor room worker to provide patient with outpatient mental health/psychiatry resources for appropriate follow up upon discharge -Stamping Operator spoke with patient about substance abuse and the harmful effects on medical and mental health, patient verbally understood and agreed. -flavor room worker to provide patient substance use treatment resources including AA/NA meetings in the community. -Communicated plan to patient's nurse -Psychiatry will sign off at this time -Please contact with any questions. 03/01/20 14:21
[2020-03-01] MEDS ORDERED: buPROPion SR 100 MG TABLET.ER PO SCH (14:30)
[2020-03-01 16:22] VITALS: RESP 18
== END 2020-03-01 18:30 | DRG 885 ==
LOC: EC 12:40 → 4SSUR 14:16 → 6NMEDSUR 17:22
PROVIDERS: ADMIT Internal Medicine Geriatric Medicine; ATTEND Internal Medicine Geriatric Medicine
DX: F33.0 Major depressive disorder, recurrent, mild (principal); Z68.41 Body mass index [BMI] 40.0-44.9, adult; E87.1 Hypo-osmolality and hyponatremia; R45.851 Suicidal ideations; K51.90 Ulcerative colitis, unspecified, without complications; F10.229 Alcohol dependence with intoxication, unspecified; E78.5 Hyperlipidemia, unspecified; E66.01 Morbid (severe) obesity due to excess calories; F41.1 Generalized anxiety disorder; F17.200 Nicotine dependence, unspecified, uncomplicated; G89.29 Other chronic pain; E11.9 Type 2 diabetes mellitus without complications; M54.5 Low back pain; I10 Essential (primary) hypertension; N40.0 Benign prostatic hyperplasia without lower urinary tract symptoms; M19.90 Unspecified osteoarthritis, unspecified site; Z86.19 Personal history of other infectious and parasitic diseases; Z79.84 Long term (current) use of oral hypoglycemic drugs; Z79.899 Other long term (current) drug therapy; Z90.89 Acquired absence of other organs; Z98.890 Other specified postprocedural states; Z81.8 Family history of other mental and behavioral disorders; Z81.1 Family history of alcohol abuse and dependence
CPT/HCPCS: 36415; 80053; 80306; 82075; 83036; 85025; 96361; 96372; 96374; 96375; 99285

== ENCOUNTER 2020-03-04 12:14 | Inpatient (IN) | payer MEDICARE, BC ==
--- NOTE | 2020-03-04 13:23 | ED ---
General Adult HPI - General Chief complaint: Psychiatric Symptoms Stated complaint: Mental Health Time Seen by Provider: 03/04/20 12:16 Source: patient, EMS, RN notes reviewed, old records reviewed Mode of arrival: EMS Limitations: no limitations - History of Present Illness Initial comments: 64 -year-old male presenting for evaluation of alcohol abuse, depression and suicidal ideation. Patient states he had increased thoughts of harming himself. He was petitioned by local police for psychiatric evaluation. He states he did drink alcohol this morning. He denies suicide attempt. No physical complaints. - Related Data Home Medications Medication Instructions Recorded Confirmed Cholestyramine (with Sugar) 4 gm PO BID 02/29/20 02/29/20 [Cholestyramine Packet] DULoxetine HCL [Cymbalta] 60 mg PO BID 02/29/20 02/29/20 HYDROcodone/APAP 10-325MG [[place] 1 tab PO Q4HR PRN 02/29/20 02/29/20 10-325] Tamsulosin [Flomax] 0.4 mg PO DAILY 02/29/20 02/29/20 hydrOXYzine pamoate [hydrOXYzine 25 mg PO Q8H PRN 02/29/20 02/29/20 PAMOATE] metFORMIN HCL [Glucophage] 500 mg PO BID 02/29/20 02/29/20 traZODone HCL [Desyrel] 100 mg PO HS 02/29/20 02/29/20 Previous Rx's Medication Instructions Recorded amLODIPine [Norvasc] 10 mg PO DAILY #30 tab 10/04/17 Thiamine [Vitamin B-1] 100 mg PO BID-W/MEALS tab 03/01/20 buPROPion SR [Wellbutrin SR] 100 mg PO DAILY #30 tablet.er 03/01/20 Allergies Allergy/AdvReac Type Severity Reaction Status Date / Time No Known Allergies Allergy Verified 02/29/20 14:48 Review of Systems ROS Statement: Those systems with pertinent positive or pertinent negative responses have been documented in the HPI. ROS Other: All systems not noted in ROS Statement are negative. Past Medical History Past Medical History: Hyperlipidemia, Hypertension, Musculoskeletal Disorder, Osteoarthritis (OA), Prostate Disorder Additional Past Medical History / Comment(s): Alcoholism, bronchitis, ulcerative colitis, rectal bleed, gout in bilateral feet, unsteady gait, balance issues, arthritis multiple joints, BPH. History of Any Multi-Drug Resistant Organisms: C-DIFF Date of last positivie culture/infection: 02-13-2020 MDRO Source:: stool Past Surgical History: Back Surgery, Hernia Repair, Joint Replacement, Orthopedic Surgery, Tonsillectomy Additional Past Surgical History / Comment(s): Lumbar back surgery x 3, total L knee, hernia repair umbilical and left inguinal, colonoscopy. Past Anesthesia/Blood Transfusion Reactions: No Reported Reaction, Motion Sickness Additional Past Anesthesia/Blood Transfusion Reaction / Comment(s): Pt gets sea sick. Past Psychological History: Anxiety, Depression Smoking Status: Never smoker Past Alcohol Use History: Abuse, Daily Past Drug Use History: None Reported - Past Family History Mother Additional Family Medical History / Comment(s): Mother "battled" depression all of her life. She was 82 yrs old when she . Father Additional Family Medical History / Comment(s): Father was an alcoholic. He at the age of 72 yrs. General Exam Limitations: no limitations General appearance: alert, in no apparent distress Head exam: Present: atraumatic, normocephalic Eye exam: Present: normal appearance, PERRL ENT exam: Present: mucous membranes dry Neck exam: Present: normal inspection. Absent: tenderness, meningismus Respiratory exam: Present: normal lung sounds bilaterally. Absent: respiratory distress, wheezes Cardiovascular Exam: Present: regular rate, normal rhythm GI/Abdominal exam: Present: soft. Absent: distended, tenderness Extremities exam: Present: normal inspection, normal capillary refill. Absent: pedal edema Neurological exam: Present: alert, oriented X3, CN II-XII intact. Absent: motor sensory deficit Psychiatric exam: Present: depressed, suicidal ideation Skin exam: Present: warm, dry, intact. Absent: cyanosis, diaphoretic Course Vital Signs 03/04/20 12:33 Temperature 98.2 F Pulse Rate 98 Respiratory 18 Rate Blood Pressure 150/79 O2 Sat by Pulse 96 Oximetry - Reevaluation(s) Reevaluation #1: 03/04/20 13:23 Patient cleared for EPS evaluation Medical Decision Making - Medical Decision Making pt will be admiited for SI and depression. Disposition Clinical Impression: Depression, Suicidal ideation Disposition: ADMITTED IP TO THIS HOSP Condition: Stable Is patient prescribed a controlled substance at d/c from ED?: No Referrals: Zachary Dexter MD [Primary Care Provider] - 1-2 days Decision to Admit Reason: Admit from EC Decision Date: 03/04/20 Decision Time: 15:27
[2020-03-04 16:26] LABS: Amphetamine Screen,Urine Not Detected (NotDetected); Barbiturate Screen,Urine Not Detected (NotDetected); Benzodiazepines Screen,Urine Not Detected (NotDetected); Cocaine Screen,Urine Not Detected (NotDetected); Methadone Screen, Urine Not Detected (NotDetected); Opiate Screen,Urine Not Detected (NotDetected); Oxycodone Screen, Urine Not Detected (NotDetected); Phencyclidine Screen,Urine Not Detected (NotDetected); Tricyclic Antidepressant,Urine Not Detected (NotDetected); Urn Cannabinoid Scrn Not Detected (NotDetected)
[2020-03-04] MEDS ORDERED: hydrOXYzine pamoate 25 MG CAP PO PRN (16:58)
[2020-03-04] MEDS ORDERED: MAG HYDROX/AL HYDROX/SIMETH 30 ML CUP PO PRN (16:59)
[2020-03-04] MEDS ORDERED: ZIPRASIDONE 20 MG VIAL IM PRN (16:59)
[2020-03-04] MEDS ORDERED: MAGNESIUM HYDROXIDE 2,400 MG/10 ML CUP PO PRN (16:59)
[2020-03-04] MEDS ORDERED: ACETAMINOPHEN TAB 325 MG TAB PO PRN (16:59)
[2020-03-04] MEDS ORDERED: LORazepam 2 MG/ML INJ IM PRN (17:11)
[2020-03-04] MEDS: THIAMINE 100 MG TAB PO SCH (18:20)
[2020-03-04] MEDS: LORazepam 1 MG TAB PO PRN (18:27)
[2020-03-04] MEDS: HYDROcodone/APAP 5-325MG 1 EACH TAB PO PRN (18:27)
[2020-03-04 19:54] LABS: Glucose,Whole Blood 125 mg/dL (75-99)
[2020-03-04] MEDS: DULoxetine HCL 60 MG CAPSULE.DR PO SCH (22:26)
[2020-03-04] MEDS: metFORMIN 500 MG TAB PO SCH (22:26)
[2020-03-04] MEDS: traZODone HCL 100 MG TAB PO SCH (22:26)
[2020-03-04] MEDS: CHOLESTYRAMINE (WITH SUGAR) 4 GM PACKET PO SCH (22:26)
[2020-03-05] MEDS: THIAMINE 100 MG TAB PO SCH ×2 (08:37→15:46)
[2020-03-05] MEDS: DULoxetine HCL 60 MG CAPSULE.DR PO SCH ×2 (08:37→20:41)
[2020-03-05] MEDS: amLODIPine 10 MG TAB PO SCH (08:37)
[2020-03-05] MEDS: TAMSULOSIN 0.4 MG CAP.ER.24H PO SCH (08:37)
[2020-03-05] MEDS: CHOLESTYRAMINE (WITH SUGAR) 4 GM PACKET PO SCH (08:37)
[2020-03-05] MEDS: metFORMIN 500 MG TAB PO SCH ×2 (08:37→20:41)
[2020-03-05] MEDS: LORazepam 1 MG TAB PO PRN ×2 (08:42→15:46)
[2020-03-05] MEDS: HYDROcodone/APAP 5-325MG 1 EACH TAB PO PRN ×2 (08:42→15:46)
[2020-03-05] MEDS ORDERED: buPROPion SR 100 MG TABLET.ER PO SCH (09:00)
--- NOTE | 2020-03-05 10:49 | P.HP ---
Psychiatric H&P - . H&P Date: 03/05/20 History & Physical: Allergies Allergy/AdvReac Type Severity Reaction Status Date / Time No Known Allergies Allergy Verified 03/04/20 19:39 Vital Signs Temp 98.2 F 03/05/20 02:07 Pulse 108 H 03/05/20 08:36 Resp 18 03/05/20 08:36 BP 168/79 03/05/20 08:36 Pulse Ox 96 03/05/20 02:07 Intake & Output 03/04/20 03/05/20 03/05/20 18:59 06:59 18:59 Weight 128.5 kg Laboratory Last Values POC Glucose (mg/dL) 125 mg/dL (75-99) H 03/04/20 19:41 POC Glu Anatomy Professor Elidia Eaton 03/04/20 19:41 Urine Opiates Screen Not Detected (NotDetected) 03/04/20 15:49 Ur Oxycodone Screen Not Detected (NotDetected) 03/04/20 15:49 Urine Methadone Screen Not Detected (NotDetected) 03/04/20 15:49 Ur Propoxyphene Screen Not Detected (NotDetected) 03/04/20 15:49 Ur Barbiturates Screen Not Detected (NotDetected) 03/04/20 15:49 U Tricyclic Antidepress Not Detected (NotDetected) 03/04/20 15:49 Ur Phencyclidine Scrn Not Detected (NotDetected) 03/04/20 15:49 Ur Amphetamines Screen Not Detected (NotDetected) 03/04/20 15:49 U Methamphetamines Scrn Not Detected (NotDetected) 03/04/20 15:49 U Benzodiazepines Scrn Not Detected (NotDetected) 03/04/20 15:49 Urine Cocaine Screen Not Detected (NotDetected) 03/04/20 15:49 U Marijuana (THC) Screen Not Detected (NotDetected) 03/04/20 15:49 C. difficile (EIA) Intrp Negative (Negative) 03/04/20 22:53 03/05/20 10:37 IDENTIFYING DATA: Patient is a 64-year-old male with a significant history of depression and alcohol use admitted voluntarily for suicidal ideation. HPI: Patient presented to the hospital on 03/04/2020 after he called emergency services after contemplating suicide while intoxicated. She reports that his mood has been increasingly low average since the pandemic started and he has been unable to attend his AA meetings. He expresses that for the last few months his depression has been increasingly worse culminated in him contemplating suicide. Patient reports that he was putting his muscle relaxing medications and his palm and contemplating overdose while he was intoxicated but stopped himself and called 911. Patient is endorsing significant symptoms of depression including hopelessness, helplessness, anhedonia, low energy, irregula r sleep and suicidal ideation. He does admit to prior suicide attempt after his him back in 2007. He does not endorse any significant symptoms of lashaun or hypomania. He does not report any racing thoughts, pressured speech, grandiosity, or periods of excessive energy. He denies any history of psychosis. He is currently denying any auditory or visual hallucinations. He denies any delusions. In regards to substance use, patient admits to relapsing back to alcohol use 3 months ago. He reports prior to these past 3 months he had maintained sobriety for a year and 8 months through the help of Alcoholics Anonymous. He states that when the pandemic started, he has been unable to go to the meetings. He reports a significant history of multiple alcohol rehab and detox admissions. He denies any history of seizure or delirium tremens. He states that he has been drinking a fifth of liquor almost daily with his last drink being yesterday. He has tried Antabuse in the past, but "drank through the medication." He denies any tobacco, marijuana, or any illicit drug use. PAST PSYCHIATRIC HISTORY: Patient states that he has a significant history of depression and alcohol use. He has had multiple medication trials in the past including: Paxil, Seroquel, and Antabuse. He is currently prescribed Cymbalta and Wellbutrin. He reports one prior inpatient psychiatric admission for depression with suicidal ideation 2-3 years ago. Patient denies any psychiatric outpatient follow-up. He reports one prior attempt at suicide after his him in 2007. He states that he had a shotgun in his car. PMH: Hyperlipidemia, hypertension, osteoarthritis, ulcerative colitis, lumbar back surgery 3 ALLERGIES: as per EMR CHEMICAL DEPENDENCY HISTORY: as per HPI FAMILY PSYCHIATRIC/SUBSTANCE USE HISTORY: Mother - Depression; Father - Alcoholism SOCIAL HISTORY: Patient was born and raised in [place], [place]. He currently resides in [place]. He lives alone. He was for 32 years prior to his divorce in 2007. He has 3 adult daughters with whom he is not in contact with. Highest level of education is graduating high school. He worked as a machinist outside. MENTAL STATUS EXAM: General Appearance: Patient appears to be stated age is alert, directable, and attempts to cooperate. Patient appears to have fair hygiene and grooming. Behavior: Patient is seated without any agitated behavior. Psychomotor activity is normal. Speech: Patient's speech is slightly slurred but nonpressured and spontaneous. Mood/Affect: Patient reports their mood is depressed, affect is congruent and constricted. Suicidality/Homicidality: Patient denies having any homicidal ideation intent or plan. He is currently denying any suicidal ideation, intent, or plan. Perceptions: Patient denies any visual hallucinations and denies any auditory hallucinations Though content/process: There is no evidence of any delusional thought content and thought process is linear and goal-directed. Memory and concentration: AOX3, grossly intact for the purposes of this session. Can spell "WORLD" backwards Judgment and insight: poor STRENGTHS/WEAKNESSES: strength is that patient is resilient. Weakness is that patient has significant alcohol use, unmanaged pain, and social isolation. INTELLECT: average IMPRESSIONS: Major depressive disorder, recurrent, severe, without psychotic features Alcohol use disorder, severe PLAN: -Patient is admitted under voluntary status to MHU for stabilization of psychiatric symptoms and safety. Patient signed adult voluntary form and medication consent and is placed in patient's chart. -Medications : Change patient's home Wellbutrin to Wellbutrin XR 150 mg by mouth daily for management of depression Continue Cymbalta 60 mg by mouth twice a day for depression/pain management Start Campral 333 mg by mouth 3 times a day for alcohol use disorder. Patient is a poor candidate for naltrexone as he is still receiving hydrocodone for pain management. -Ativan and Geodon PRN for agitation/aggression -Started thiamine, MVM for etoh use -WA protocol with Ativan PRN for ETOH withdrawal -Patient was counselled on substance abuse and desired to cut back on use. He is open to alcohol use rehab upon discharge. -Patient was informed of the risks, benefits and side effects of the medication and patient verbally consented to taking the medications. Patient signed med consent form and was placed in chart. -Internal Medicine consult to perform medical evaluation and physical. -SW on board for discharge planning. Encourage patient to participate in groups to work on coping skills.
[2020-03-05 12:17] LABS: ALT 31 U/L (4-49); AST 39 U/L (17-59); African American GFR (CKD) >90 (>60 ml/min/1.73 sqM); Albumin 4.9 g/dL (3.5-5.0); Alkaline Phosphatase 80 U/L (38-126); Anion Gap 10 mmol/L; Blood Urea Nitrogen 9 mg/dL (9-20); Calcium 9.6 mg/dL (8.4-10.2); Carbon Dioxide 30 mmol/L (22-30); Chloride 98 mmol/L (98-107); Cholesterol 227 mg/dL (<200); Glucose 113 mg/dL (74-99); HDL Cholesterol 77 mg/dL (40-60); LDL Cholesterol,Calculated 107 mg/dL (0-99); Non-African American GFR(CKD) >90 (>60 ml/min/1.73 sqM); Potassium 3.6 mmol/L (3.5-5.1); Sodium 138 mmol/L (137-145); Total Bilirubin 1.1 mg/dL (0.2-1.3); Total Protein 7.4 g/dL (6.3-8.2); Triglycerides 213 mg/dL (<150)
[2020-03-05 12:20] LABS: Basophils % (A) 0 %; Eosinophils # (A) 0.3 k/uL (0-0.7); Eosinophils % (A) 4 %; HCT 44.4 % (39.0-53.0); HGB 14.9 gm/dL (13.0-17.5); Lymphocytes # (A) 1.3 k/uL (1.0-4.8); Lymphocytes % (A) 15 %; MCH 28.8 pg (25.0-35.0); MCHC 33.6 g/dL (31.0-37.0); MCV 85.8 fL (80.0-100.0); Mean Platelet Volume 6.3; Monocytes # (A) 0.3 k/uL (0-1.0); Monocytes % (A) 4 %; Neutrophils # (A) 6.3 k/uL (1.3-7.7); Neutrophils % (A) 76 %; Platelet Count 210 k/uL (150-450); RBC 5.17 m/uL (4.30-5.90); RDW 14.5 % (11.5-15.5); WBC 8.4 k/uL (3.8-10.6)
[2020-03-05] MEDS: ACAMPROSATE CALCIUM 333 MG TABLET.DR PO SCH ×2 (15:45→20:41)
[2020-03-05] MEDS: traZODone HCL 100 MG TAB PO SCH (20:41)
[2020-03-05 21:51] LABS: Hemoglobin A1C 6.7 % (4.0-6.0)
--- NOTE | 2020-03-05 22:29 | P.CONS ---
History of Present Illness - History of Present Illness This is a pleasant 64 years old male with multiple medical problems as below. He was admitted to the mental health unit for signs and symptoms of severe depression associated with alcohol abuse. Patient states he drinks about the fifth day of liquor. Medical consult has been requested 14 medical management. Patient working comfortably in the [place] using a walker, he denies chest pain or dyspnea, no abdominal pain, no nausea vomiting, no change in urine or bowel habits. No fever. Patient denies smoking or illicit drugs Labs including CBC, BMP, never enzymes were reviewed and are unremarkable. Hemoglobin A1c is 6.7%. Triglycerides, cholesterol and LDL is slightly e levated. TSH is normal at 0.6 Review of Systems CONSTITUTIONAL: No fever, no malaise, no fatigue. HEENT: No recent visual problems or hearing problems. Denied any sore throat. CARDIOVASCULAR: No orthopnea, PND, no palpitations, no syncope. PULMONARY: No shortness of breath, no cough, no hemoptysis. GASTROINTESTINAL: No diarrhea, no nausea, no vomiting, no abdominal pain. Normoactive bowel sounds. NEUROLOGICAL: No headaches, no weakness, no numbness. HEMATOLOGICAL: Denies any bleeding or petechiae. GENITOURINARY: Denies any burning micturition, frequency, or urgency. MUSCULOSKELETAL/RHEUMATOLOGICAL: Denies any joint pain, swelling, or any muscle pain. ENDOCRINE: Denies any polyuria or polydipsia. Past Medical History Past Medical History: Hyperlipidemia, Hypertension, Musculoskeletal Disorder, Osteoarthritis (OA), Prostate Disorder Additional Past Medical History / Comment(s): Alcoholism, bronchitis, ulcerative colitis, rectal bleed, gout in bilateral feet, unsteady gait, balance issues, arthritis multiple joints, BPH. History of Any Multi-Drug Resistant Organisms: C-DIFF Year Discovered:: 02-13-2020 MDRO Source:: stool Past Surgical History: Back Surgery, Hernia Repair, Joint Replacement, Orthopedic Surgery, Tonsillectomy Additional Past Surgical History / Comment(s): Lumbar back surgery x 3, total L knee, hernia repair umbilical and left inguinal, colonoscopy. Past Anesthesia/Blood Transfusion Reactions: No Reported Reaction, Motion Sickness Additional Past Anesthesia/Blood Transfusion Reaction / Comm: Pt gets sea sick. Past Psychological History: Anxiety, Depression Additional Psychological History / Comment(s): t resides alone. He uses a walker to ambulate. He drives. He states he has hx of depression and it has been more severe over the past few weeks. He states he recently got after 33 yrs of marriage and his kids "won't talk to me." He stated that over the past two weeks he has had brief thoughts of suicide but no plan and states he is not suicidal at this time. " I want to live." He stated that when he is feeting this emotional, he stops taking his medication and drinks alcohol more. Smoking Status: Former smoker Past Alcohol Use History: Abuse, Daily Additional Past Alcohol Use History / Comment(s): Pt states he started smoking in 1968 and was a 3-4 ppd smoker. He quit smoking in 1978. Past Drug Use History: None Reported - Past Family History Mother Additional Family Medical History / Comment(s): Mother "battled" depression all of her life. She was 82 yrs old when she . Father History Unknown: Yes Additional Family Medical History / Comment(s): Father was an alcoholic. He at the age of 72 yrs. Medications and Allergies Home Medications Medication Instructions Recorded Confirmed Type amLODIPine [Norvasc] 10 mg PO DAILY #30 tab 10/04/17 03/04/20 Rx Cholestyramine (with Sugar) 4 gm PO BID 02/29/20 03/04/20 History [Cholestyramine Packet] DULoxetine HCL [Cymbalta] 60 mg PO BID 02/29/20 03/04/20 History HYDROcodone/APAP 10-325MG [Dongola 1 tab PO Q4HR PRN 02/29/20 03/04/20 History 10-325] Tamsulosin [Flomax] 0.4 mg PO DAILY 02/29/20 03/04/20 History hydrOXYzine pamoate [hydrOXYzine 25 mg PO Q8H PRN 02/29/20 03/04/20 History PAMOATE] metFORMIN HCL [Glucophage] 500 mg PO BID 02/29/20 03/04/20 History traZODone HCL [Desyrel] 100 mg PO HS 02/29/20 03/04/20 History Thiamine [Vitamin B-1] 100 mg PO BID-W/MEALS tab 03/01/20 03/04/20 Rx Allergies Allergy/AdvReac Type Severity Reaction Status Date / Time No Known Allergies Allergy Verified 03/04/20 19:39 Physical Exam Vitals: Vital Signs Temp Pulse Pulse Resp BP Pulse Ox 03/05/20 08:36 108 H 18 168/79 03/05/20 02:07 98.2 F 88 16 172/83 96 GENERAL: The patient is alert and oriented x3, not in any acute distress. Well developed, well nourished. HEENT: Pupils are round and equally reacting to light. EOMI. No scleral icterus. No conjunctival pallor. Normocephalic, atraumatic. No pharyngeal erythema. No thyromegaly. CARDIOVASCULAR: S1 and S2 present. No murmurs, rubs, or gallops. PULMONARY: Chest is clear to auscultation, no wheezing or crackles. ABDOMEN: Soft, nontender, nondistended, normoactive bowel sounds. No palpable organomegaly. MUSCULOSKELETAL: No joint swelling or deformity. EXTREMITIES: No cyanosis, clubbing, or pedal edema. NEUROLOGICAL: Gross neurological examination did not reveal any focal deficits. SKIN: No rashes. No petechiae Results CBC & Chem 7: 03/05/20 11:28 03/05/20 11:28 Labs: Abnormal Lab Results - Last 24 Hours (Table) 03/04/20 03/05/20 Range/Units 19:41 11:28 Glucose 113 H (74-99) mg/dL POC Glucose (mg/dL) 125 H (75-99) mg/dL Triglycerides 213 H (<150) mg/dL Cholesterol 227 H (<200) mg/dL LDL Cholesterol, Calc 107 H (0-99) mg/dL HDL Cholesterol 77 H (40-60) mg/dL Assessment and Plan Assessment: -Severe depression and other psychiatric illnesses, management as per psychiatric team -Alcohol abuse, patient consult. Consult social service assistant, continue with Ativan as needed and same -Dyslipidemia, start the patient on Lipitor -Type 2 diabetes mellitus, hemoglobin A1c is 6.7% which is acceptable -Hypertension, uncontrolled, given last time admitted to the general medical floor. He is on Norvasc 10 mg. And atenolol 12.5 mg daily -Benign prostatic hypertrophy -Chronic low back pain -Obesity DVT prophylaxis, patient is mobile and Norvasc for DVT, no need for anticoagulation GI prophylaxis: Not needed Recommend patient follow up with his PCP within one week after discharge, patient was instructed with same Thank you for consulting us and we will see the patient on as needed basis. Please feel free to contact us for any further question or clarification.
[2020-03-05] MEDS ORDERED: ATORVASTATIN 40 MG TAB PO SCH (22:30)
[2020-03-06 07:10] VITALS: TEMP 98.7
[2020-03-06] MEDS: CHOLESTYRAMINE (WITH SUGAR) 4 GM PACKET PO SCH ×2 (08:02→20:19)
[2020-03-06] MEDS: THIAMINE 100 MG TAB PO SCH ×2 (08:02→20:22)
[2020-03-06] MEDS: buPROPion XL 150 MG TAB.ER.24H PO SCH (08:03)
[2020-03-06] MEDS: metFORMIN 500 MG TAB PO SCH ×2 (08:03→20:23)
[2020-03-06] MEDS: ACAMPROSATE CALCIUM 333 MG TABLET.DR PO SCH ×2 (08:03→21:43)
[2020-03-06] MEDS: DULoxetine HCL 60 MG CAPSULE.DR PO SCH ×2 (08:03→20:21)
[2020-03-06] MEDS: amLODIPine 10 MG TAB PO SCH (08:03)
[2020-03-06] MEDS: TAMSULOSIN 0.4 MG CAP.ER.24H PO SCH (08:04)
[2020-03-06] MEDS: HYDROcodone/APAP 5-325MG 1 EACH TAB PO PRN ×3 (08:04→20:21)
--- NOTE | 2020-03-06 10:13 | P.PN ---
Progress Note - Text Progress Note Date: 03/06/20 Interval History: Patient was seen wandering the hallways and was directable and agreeable to speak with racebook writer in the office. Patient reports that overall he feels better. He states that he has been accepted to [facility] for rehab. He reports elevated anxiety but otherwise states that his mood is stable. At this time patient denies any suicidal or homicidal ideations, intent or plan. Patient denies any auditory, visual hallucinations and denies any paranoia or delusions. Patient denies any side effects from the medications and has been compliant with meds. Mental Status Exam: General Appearance: Patient appears to be stated age is alert, directable, and cooperative. Behavior: Patient is calmly seated without any agitated behavior. Speech: Patient's speech is fluent and nonpressured. Mood/Affect: Mood is improving mildly, affect is congruent and constricted. Suicidality/Homicidality: Patient denies having any suicidal or homicidal ideation intent or plan. Perceptions: Patient denies any visual hallucinations and denies any auditory hallucinations Though content/process: There is no evidence of any delusional thought content and thought process is linear and goal-directed. Memory and concentration: AOX3, grossly intact for the purposes of this session Judgment and insight: Improving mildly Assessment Major depressive disorder, recurrent, severe, without psychotic features Alcohol use disorder, severe Plan: -Patient continues to meet criteria for inpatient psychiatric admission for symptom stabilization and safety. Patient has signed adult voluntary form and medication consent and was placed in patient's chart. -Medications: Continue Wellbutrin XL arm 150 mg by mouth daily for depression Continue Cymbalta 60 mg by mouth twice a day for depression/pain management Increase Compro to 666 mg by mouth 3 times a day for alcohol use disorder -When necessary Ativan and Geodon for agitation/aggression. -SW on board for discharge planning. Encouraged the patient to participate in milieu.
[2020-03-06] MEDS: LORazepam 1 MG TAB PO PRN (14:34)
[2020-03-06] MEDS: traZODone HCL 100 MG TAB PO SCH (20:22)
[2020-03-07 02:37] VITALS: BP 145/76; PULSE 87; RESP 14
[2020-03-07] MEDS: CHOLESTYRAMINE (WITH SUGAR) 4 GM PACKET PO SCH (08:29)
[2020-03-07] MEDS: THIAMINE 100 MG TAB PO SCH (08:30)
[2020-03-07] MEDS: DULoxetine HCL 60 MG CAPSULE.DR PO SCH (08:30)
[2020-03-07] MEDS: buPROPion XL 150 MG TAB.ER.24H PO SCH (08:30)
[2020-03-07] MEDS: amLODIPine 10 MG TAB PO SCH (08:30)
[2020-03-07] MEDS: ACAMPROSATE CALCIUM 333 MG TABLET.DR PO SCH (08:30)
[2020-03-07] MEDS: metFORMIN 500 MG TAB PO SCH (08:31)
[2020-03-07] MEDS: HYDROcodone/APAP 5-325MG 1 EACH TAB PO PRN (08:31)
[2020-03-07] MEDS: LORazepam 1 MG TAB PO PRN (08:31)
[2020-03-07] MEDS: TAMSULOSIN 0.4 MG CAP.ER.24H PO SCH (08:31)
--- NOTE | 2020-03-07 10:18 | P.DS ---
Providers Date of admission: 03/04/20 16:46 Expected date of discharge: 03/07/20 Attending physician: Devin More MD Consults: 03/04/20 18:39 Consult Physician Routine Consulting Provider: Genevieve Caballero Consult Reason/Comments: H&P Do you want consulting provider notified?: Yes Primary care physician: Zachary Dexter - Discharge Diagnosis(es) (1) Major depressive disorder, recurrent severe without psychotic features Current Visit: Yes Status: Acute Priority: High (2) Alcohol use disorder, severe, dependence Current Visit: Yes Status: Chronic Priority: Medium Hospital Course: Admission HPI: Patient is a 64-year-old male with a significant history of depression and alcohol use admitted voluntarily for suicidal ideation. Patient presented to the hospital on 03/04/2020 after he called emergency services after contemplating suicide while intoxicated. She reports that his mood has been increasingly low average since the pandemic started and he has been unable to attend his AA meetings. He expresses that for the last few months his depression has been increasingly worse culminated in him contemplating suicide. Patient reports that he was putting his muscle relaxing medications and his palm and contemplating overdose while he was intoxicated but stopped himself and called 911. Patient is endorsing significant symptoms of depression including hopelessness, helplessness, anhedonia, low energy, irregular sleep and suicidal ideation. He does admit to prior suicide attempt after his him back in 2007. He does not endorse any significant symptoms of lashaun or hypomania. He does not report any racing thoughts, pressured speech, grandiosity, or periods of excessive energy. He denies any history of psychosis. He is currently denying any auditory or visual hallucinations. He denies any delusions. In regards to substance use, patient admits to relapsing back to alcohol use 3 months ago. He reports prior to these past 3 months he had maintained sobriety for a year and 8 months through the help of Alcoholics Anonymous. He states that when the pandemic started, he has been unable to go to the meetings. He reports a significant history of multiple alcohol rehab and detox admissions. He denies any history of seizure or delirium tremens. He states that he has been drinking a fifth of liquor almost daily with his last drink being yesterday. He has tried Antabuse in the past, but "drank through the medication." He denies any tobacco, marijuana, or any illicit drug use. Hospital course: Upon admission to the unit patient was initially very depressed and tearful. Patient was however directable and agreeable to commence treatment. Patient got along well with other patients on the unit and followed unit protocol. Patient was compliant with the medications and denied any side effects throughout hospital course. Patient was started on Cymbalta, Wellbutrin XL, and Campral for managment of alcohol use disorder and depression. Patient spoke of his stressors and engaged in therapy both group and individual. Patient was also seen by medical team for history and physical exam. Patient reported that he was doing well prior to the lockdown because he was regularly attending his AA meetings and seeing his sponsor. Patient felt that being in groups while admitted significantly helped his mood as he was no longer isolated. Throughout the course of the hospitalization patient gradually improved with regards to mood and sleep and became future oriented with improved insight and judgment. On the day of discharge patient denied any suicidal or homicidal ideations intent or plan denied any auditory or visual hallucinations. Patient endorsed wanting to live for his health and family. He strongly desires to quit alcohol. The patient denied any access to guns or weapons. Patient denied any paranoia and did not endorse any delusions. Patient does have a significant history of sub stance abuse however was counseled on abstaining from all substances including alcohol and marijuana. Patient was offered however accepted inpatient substance- abuse rehab. Patient was also counseled on the medications and need for regular compliance and was encouraged to follow-up with their outpatient appointment for mental health and also for primary care. Prior to discharge a family meeting wi ll be arranged by social media sr strategy manager to answer any questions and ensure safety upon discharge. Mental status exam: General Appearance: Patient appears to be stated age is alert, pleasant, and cooperative. Patient is in no acute distress and has fair hygiene and grooming Behavior: Patient is calmly seated without any agitated behavior. Speech: Patient's speech is fluent and nonpressured. Mood/Affect: Patient reports their mood is "much better", affect is congruent and euthymic. Suicidality/Homicidality: Patient denies having any suicidal or homicidal ideation intent or plan. Perceptions: Patient denies any auditory or visual hallucinations. Though content/process: There is no evidence of any delusional thought content and thought process is linear and goal-directed. more future oriented Memory and concentration: AOX3, grossly intact for the purposes of this session. Can spell "WORLD" backwards correctly. Judgment and insight: Improved with guarded prognosis Impression: Major depressive disorder, recurrent, severe, without psychotic features Alcohol use disorder, severe Plan: -Continue with discharge today as patient has improved and stabilized psychiatrically and is not currently an imminent threat to himself and/or others. Patient will remain at chronically elevated risk for harm to self and/or others due to his prior suicide attempts and polysubstance abuse. -Continue medications: Cymbalta 60 mg by mouth twice a day Wellbutrin XL 150 mg by mouth daily Acamprosate 666 mg by mouth 3 times a day -Patient was counseled on the need for medication compliance and appropriate follow-up at mental health and also primary care for medical issues. Patient verbalized understanding and agreed. -Social work to arrange for and conduct family meeting to ensure safety upon discharge and answer any questions/concerns. Patient will be discharged to inpatient substance use rehab in [place]. -Patient counseled on abstaining from recreational drugs and marijuana and alcohol. Was informed/educated on the adverse effects on their physical and mental health. Patient verbally agreed and understood. -Patient was instructed to return to the hospital or seek immediate medical care if their psychiatric or medical symptoms do worsen or reoccur. Vital Signs Temp 98.7 F 03/06/20 06:47 Pulse 87 03/07/20 02:35 Resp 14 03/07/20 02:35 BP 145/76 03/07/20 02:35 Pulse Ox 98 03/07/20 02:35 Allergies Allergy/AdvReac Type Severity Reaction Status Date / Time No Known Allergies Allergy Verified 03/04/20 19:39 Laboratory Results WBC 8.4 k/uL (3.8-10.6) 03/05/20 11:28 RBC 5.17 m/uL (4.30-5.90) 03/05/20 11:28 Hgb 14.9 gm/dL (13.0-17.5) 03/05/20 11:28 Hct 44.4 % (39.0-53.0) 03/05/20 11:28 MCV 85.8 fL (80.0-100.0) 03/05/20 11:28 MCH 28.8 pg (25.0-35.0) 03/05/20 11:28 MCHC 33.6 g/dL (31.0-37.0) 03/05/20 11:28 RDW 14.5 % (11.5-15.5) 03/05/20 11:28 Plt Count 210 k/uL (150-450) 03/05/20 11:28 Neutrophils % 76 % 03/05/20 11:28 Lymphocytes % 15 % 03/05/20 11:28 Monocytes % 4 % 03/05/20 11:28 Eosinophils % 4 % 03/05/20 11:28 Basophils % 0 % 03/05/20 11:28 Neutrophils # 6.3 k/uL (1.3-7.7) 03/05/20 11:28 Lymphocytes # 1.3 k/uL (1.0-4.8) 03/05/20 11:28 Monocytes # 0.3 k/uL (0-1.0) 03/05/20 11:28 Eosinophils # 0.3 k/uL (0-0.7) 03/05/20 11:28 Basophils # 0.0 k/uL (0-0.2) 03/05/20 11:28 Sodium 138 mmol/L (137-145) 03/05/20 11:28 Potassium 3.6 mmol/L (3.5-5.1) 03/05/20 11:28 Chloride 98 mmol/L (98-107) 03/05/20 11:28 Carbon Dioxide 30 mmol/L (22-30) 03/05/20 11:28 Anion Gap 10 mmol/L 03/05/20 11:28 BUN 9 mg/dL (9-20) 03/05/20 11:28 Creatinine 0.81 mg/dL (0.66-1.25) 03/05/20 11:28 Est GFR (CKD-EPI)AfAm >90 (>60 ml/min/1.73 sqM) 03/05/20 11:28 Est GFR (CKD-EPI)NonAf >90 (>60 ml/min/1.73 sqM) 03/05/20 11:28 Glucose 113 mg/dL (74-99) H 03/05/20 11:28 POC Glucose (mg/dL) 125 mg/dL (75-99) H 03/04/20 19:41 POC Glu Associate Dean ID Elidia Whitaker 03/04/20 19:[address] Glu mg/dL 146 03/05/20 11:28 Hemoglobin A1c 6.7 % (4.0-6.0) H 03/05/20 11:28 Calcium 9.6 mg/dL (8.4-10.2) 03/05/20 11:28 Total Bilirubin 1.1 mg/dL (0.2-1.3) 03/05/20 11:28 AST 39 U/L (17-59) 03/05/20 11:28 ALT 31 U/L (4-49) 03/05/20 11:28 Alkaline Phosphatase 80 U/L (38-126) 03/05/20 11:28 Total Protein 7.4 g/dL (6.3-8.2) 03/05/20 11:28 Albumin 4.9 g/dL (3.5-5.0) 03/05/20 11:28 Triglycerides 213 mg/dL (<150) H 03/05/20 11:28 Cholesterol 227 mg/dL (<200) H 03/05/20 11:28 LDL Cholesterol, Calc 107 mg/dL (0-99) H 03/05/20 11:28 HDL Cholesterol 77 mg/dL (40-60) H 03/05/20 11:28 TSH 0.678 mIU/L (0.465-4.680) 03/05/20 11:28 Urine Opiates Screen Not Detected (NotDetected) 03/04/20 15:49 Ur Oxycodone Screen Not Detected (NotDetected) 03/04/20 15:49 Urine Methadone Screen Not Detected (NotDetected) 03/04/20 15:49 Ur Propoxyphene Screen Not Detected (NotDetected) 03/04/20 15:49 Ur Barbiturates Screen Not Detected (NotDetected) 03/04/20 15:49 U Tricyclic Antidepress Not Detected (NotDetected) 03/04/20 15:49 Ur Phencyclidine Scrn Not Detected (NotDetected) 03/04/20 15:49 Ur Amphetamines Screen Not Detected (NotDetected) 03/04/20 15:49 U Methamphetamines Scrn Not Detected (NotDetected) 03/04/20 15:49 U Benzodiazepines Scrn Not Detected (NotDetected) 03/04/20 15:49 Urine Cocaine Screen Not Detected (NotDetected) 03/04/20 15:49 U Marijuana (THC) Screen Not Detected (NotDetected) 03/04/20 15:49 C. difficile (EIA) Intrp Negative (Negative) 03/04/20 22:53 Patient Condition at Discharge: Stable Plan - Discharge Summary Discharge Rx Participant: No New Discharge Prescriptions: New Acamprosate Calcium [Campral] 666 mg PO TID 30 Days tablet. DULoxetine HCL [Cymbalta] 60 mg PO BID 30 Days capsule. traZODone HCL [Desyrel] 100 mg PO HS 30 Days tab Tamsulosin [Flomax] 0.4 mg PO DAILY 30 Days cap.er.24h metFORMIN HCL [Glucophage] 500 mg PO BID 30 Days tab Atorvastatin [Lipitor] 40 mg PO HS 30 Days tab HYDROcodone/APAP 5-325MG [[place] 5-325] 1 each PO Q4HR PRN 30 Days tab PRN Reason: Moderate To Severe Pain amLODIPine [Norvasc] 10 mg PO DAILY 30 Days tab Cholestyramine (with Sugar) [Questran Packet] 4 gm PO BID 30 Days packet atenoloL [Tenormin] 12.5 mg PO DAILY 30 Days dose hydrOXYzine pamoate [Vistaril] 25 mg PO Q8H PRN 30 Days cap PRN Reason: Itching Thiamine [Vitamin B-1] 100 mg PO BID-W/MEALS 30 Days tab buPROPion XL [Wellbutrin XL] 150 mg PO DAILY 30 Days tab.er.24h Discontinued amLODIPine [Norvasc] 10 mg PO DAILY #30 tab DULoxetine HCL [Cymbalta] 60 mg PO BID traZODone HCL [Desyrel] 100 mg PO HS metFORMIN HCL [Glucophage] 500 mg PO BID hydrOXYzine pamoate [hydrOXYzine PAMOATE] 25 mg PO Q8H PRN PRN Reason: Itching Tamsulosin [Flomax] 0.4 mg PO DAILY HYDROcodone/APAP 10-325MG [[place] 10-325] 1 tab PO Q4HR PRN PRN Reason: Pain Cholestyramine (with Sugar) [Cholestyramine Packet] 4 gm PO BID Thiamine [Vitamin B-1] 100 mg PO BID-W/MEALS tab Discharge Medication List Acamprosate Calcium [Campral] 666 mg PO TID 30 Days tablet. 03/07/20 [Rx] Atorvastatin [Lipitor] 40 mg PO HS 30 Days tab 03/07/20 [Rx] Cholestyramine (with Sugar) [Questran Packet] 4 gm PO BID 30 Days packet 03/07/20 [Rx] DULoxetine HCL [Cymbalta] 60 mg PO BID 30 Days capsule. 03/07/20 [Rx] HYDROcodone/APAP 5-325MG [[place] 5-325] 1 each PO Q4HR PRN 30 Days tab 03/07/20 [Rx] Tamsulosin [Flomax] 0.4 mg PO DAILY 30 Days cap.er.24h 03/07/20 [Rx] Thiamine [Vitamin B-1] 100 mg PO BID-W/MEALS 30 Days tab 03/07/20 [Rx] amLODIPine [Norvasc] 10 mg PO DAILY 30 Days tab 03/07/20 [Rx] atenoloL [Tenormin] 12.5 mg PO DAILY 30 Days dose 03/07/20 [Rx] buPROPion XL [Wellbutrin XL] 150 mg PO DAILY 30 Days tab.er.24h 03/07/20 [Rx] hydrOXYzine pamoate [Vistaril] 25 mg PO Q8H PRN 30 Days cap 03/07/20 [Rx] metFORMIN HCL [Glucophage] 500 mg PO BID 30 Days tab 03/07/20 [Rx] traZODone HCL [Desyrel] 100 mg PO HS 30 Days tab 03/07/20 [Rx] Follow up Appointment(s)/Referral(s): intake,intake [Other] - 03/07/20 2:00 pm (Intake at [facility] 03/07/20 at 2 pm) Zachary Dexter MD [Primary Care Provider] - 1-2 days Activity/Diet/Wound Care/Special Instructions: Activity and diet as tolerated. Avoid the use of street drugs and alcohol. Take all medications as prescribed. When you are in need of refills on your medications please contact your medical provider and/or outpatient psychiatrist to have this done. Please go to scheduled outpatient appointment for aftercare treatment. If symptoms return or become worse, call the crisis line at and/or go to the nearest emergency room for evaluation. Discharge Disposition: OTHER INSTITUTION NOT DEFINED
== END 2020-03-07 11:15 | disposition home or self-care (01) | DRG 885 ==
LOC: EC 12:14 → 3MHU 16:46
PROVIDERS: ADMIT Psychiatry & Neurology Psychiatry; ATTEND Psychiatry & Neurology Psychiatry
DX: F33.2 Major depressive disorder, recurrent severe without psychotic features (principal); R45.851 Suicidal ideations; K51.90 Ulcerative colitis, unspecified, without complications; E11.9 Type 2 diabetes mellitus without complications; E66.9 Obesity, unspecified; E78.5 Hyperlipidemia, unspecified; F10.20 Alcohol dependence, uncomplicated; F41.9 Anxiety disorder, unspecified; G89.29 Other chronic pain; I10 Essential (primary) hypertension; N40.0 Benign prostatic hyperplasia without lower urinary tract symptoms; M10.9 Gout, unspecified; R26.81 Unsteadiness on feet; M54.5 Low back pain; M15.9 Polyosteoarthritis, unspecified; Z79.84 Long term (current) use of oral hypoglycemic drugs; Z79.899 Other long term (current) drug therapy; Z91.5 Personal history of self-harm; Z87.891 Personal history of nicotine dependence; Z68.39 Body mass index [BMI] 39.0-39.9, adult; Z86.19 Personal history of other infectious and parasitic diseases; Z98.890 Other specified postprocedural states; Z96.652 Presence of left artificial knee joint; Z90.89 Acquired absence of other organs; Z87.19 Personal history of other diseases of the digestive system; Z81.8 Family history of other mental and behavioral disorders
CPT/HCPCS: 80053; 80061; 80306; 82075; 83036; 84443; 85025; 87324; 99285

== ENCOUNTER 2020-10-07 20:18 | Emergency (ER) | payer MEDICARE, BC ==
[2020-10-07] MEDS ORDERED: SODIUM CHLORIDE 0.9% 1,000 ML IV ONE ×2 (21:16→23:32)
[2020-10-07] MEDS ORDERED: LORazepam 2 MG/ML INJ IV STA (21:53)
--- NOTE | 2020-10-07 21:53 | ED ---
Nausea/Vomiting/Diarrhea HPI - General Chief complaint: Nausea/Vomiting/Diarrhea Stated complaint: Vomiting Time Seen by Provider: 10/07/20 21:15 Source: patient Mode of arrival: wheelchair Limitations: no limitations - History of Present Illness MD complaint: nausea, vomiting, diarrhea Onset/Timin -: hour(s) Description of Vomiting: food contents Description of Diarrhea: water Associated Abdominal Pain: No Consistency: constant Improves with: none Worsens with: none Associated Symptoms: nausea/vomiting, other (Feeling anxious and shaky) - Related Data Home Medications Medication Instructions Recorded Confirmed Unable To Assess [Unable to Assess] 10/07/20 10/07/20 Allergies Allergy/AdvReac Type Severity Reaction Status Date / Time No Known Allergies Allergy Verified 10/07/20 23:10 Review of Systems ROS Statement: Those systems with pertinent positive or pertinent negative responses have been documented in the HPI. ROS Other: All systems not noted in ROS Statement are negative. Constitutional: Denies: fever, chills Respiratory: Denies: cough, dyspnea Cardiovascular: Denies: chest pain, palpitations, edema, syncope Gastrointestinal: Reports: nausea, vomiting, diarrhea. Denies: abdominal pain, hematemesis, melena, hematochezia Genitourinary: Denies: dysuria, hematuria Musculoskeletal: Denies: back pain Skin: Denies: rash Neurological: Denies: headache, weakness, numbness Psychiatric: Reports: anxiety Past Medical History Past Medical History: Hyperlipidemia, Hypertension, Musculoskeletal Disorder, Osteoarthritis (OA), Prostate Disorder Additional Past Medical History / Comment(s): Alcoholism, bronchitis, ulcerative colitis, rectal bleed, gout in bilateral feet, unsteady gait, balance issues, arthritis multiple joints, BPH. History of Any Multi-Drug Resistant Organisms: C-DIFF Date of last positivie culture/infection: 02-13-2020 MDRO Source:: stool Past Surgical History: Back Surgery, Hernia Repair, Joint Replacement, Orthopedic Surgery, Tonsillectomy Additional Past Surgical History / Comment(s): Lumbar back surgery x 3, total L knee, hernia repair umbilical and left inguinal, colonoscopy. Past Anesthesia/Blood Transfusion Reactions: No Reported Reaction, Motion Sickness Additional Past Anesthesia/Blood Transfusion Reaction / Comment(s): Pt gets sea sick. Past Psychological History: Anxiety, Depression Smoking Status: Former smoker Past Alcohol Use History: Abuse, Daily Past Drug Use History: None Reported - Past Family History Mother Additional Family Medical History / Comment(s): Mother "battled" depression all of her life. She was 82 yrs old when she . Father History Unknown: Yes Additional Family Medical History / Comment(s): Father was an alcoholic. He at the age of 72 yrs. General Exam Limitations: no limitations General appearance: alert, anxious Head exam: Present: atraumatic, normocephalic Eye exam: Present: normal appearance. Absent: scleral icterus, conjunctival injection ENT exam: Present: mucous membranes dry Neck exam: Present: normal inspection Respiratory exam: Present: normal lung sounds bilaterally. Absent: respiratory distress, wheezes, rales, rhonchi, stridor Cardiovascular Exam: Present: normal rhythm, tachycardia, normal heart sounds. Absent: systolic murmur, diastolic murmur, rubs, gallop GI/Abdominal exam: Present: soft. Absent: distended, tenderness, guarding, r ebound, rigid, mass, hernia Extremities exam: Present: normal inspection, normal capillary refill. Absent: pedal edema, calf tenderness Back exam: Present: normal inspection. Absent: CVA tenderness (R), CVA tenderness (L) Neurological exam: Present: alert Skin exam: Present: warm, dry, intact, normal color. Absent: rash Course Vital Signs 10/07/20 20:22 Temperature 97.4 F L Pulse Rate 111 H Respiratory 20 Rate Blood Pressure 155/84 O2 Sat by Pulse 98 Oximetry Medical Decision Making - Lab Data Result diagrams: 10/07/20 21:37 10/07/20 21:37 Lab Results 10/07/20 10/07/20 Range/Units 21:37 21:37 WBC 8.3 (3.8-10.6) k/uL RBC 5.31 (4.30-5.90) m/uL Hgb 16.6 (13.0-17.5) gm/dL Hct 47.3 (39.0-53.0) % MCV 88.9 (80.0-100.0) fL MCH 31.3 (25.0-35.0) pg MCHC 35.1 (31.0-37.0) g/dL RDW 15.1 (11.5-15.5) % Plt Count 141 L (150-450) k/uL MPV 6.8 Neutrophils % 87 % Lymphocytes % 6 % Monocytes % 4 % Eosinophils % 1 % Basophils % 1 % Neutrophils # 7.3 (1.3-7.7) k/uL Lymphocytes # 0.5 L (1.0-4.8) k/uL Monocytes # 0.4 (0-1.0) k/uL Eosinophils # 0.1 (0-0.7) k/uL Basophils # 0.1 (0-0.2) k/uL Sodium 137 (137-145) mmol/L Potassium 3.9 (3.5-5.1) mmol/L Chloride 96 L (98-107) mmol/L Carbon Dioxide 11 L (22-30) mmol/L Anion Gap 30 mmol/L BUN 11 (9-20) mg/dL Creatinine 0.99 (0.66-1.25) mg/dL Est GFR (CKD-EPI)AfAm >90 (>60 ml/min/1.73 sqM) Est GFR (CKD-EPI)NonAf 79 (>60 ml/min/1.73 sqM) Glucose 188 H (74-99) mg/dL Calcium 9.7 (8.4-10.2) mg/dL Magnesium 1.9 (1.6-2.3) mg/dL Total Bilirubin 2.8 H (0.2-1.3) mg/dL AST 56 (17-59) U/L ALT 44 (4-49) U/L Alkaline Phosphatase 93 (38-126) U/L Total Protein 8.5 H (6.3-8.2) g/dL Albumin 5.6 H (3.5-5.0) g/dL Serum Alcohol <10 mg/dL Disposition Clinical Impression: Dehydration, Diarrhea Disposition: HOME SELF-CARE Condition: Good Instructions (If sedation given, give patient instructions): Acute Diarrhea (ED), Dehydration (ED) Is patient prescribed a controlled substance at d/c from ED?: No Referrals: None,Stated [Primary Care Provider] - 1-2 days
[2020-10-07 22:08] LABS: Basophils # (A) 0.1 k/uL (0-0.2); Basophils % (A) 1 %; Eosinophils # (A) 0.1 k/uL (0-0.7); Eosinophils % (A) 1 %; HCT 47.3 % (39.0-53.0); HGB 16.6 gm/dL (13.0-17.5); Lymphocytes # (A) 0.5 k/uL (1.0-4.8); Lymphocytes % (A) 6 %; MCH 31.3 pg (25.0-35.0); MCHC 35.1 g/dL (31.0-37.0); MCV 88.9 fL (80.0-100.0); Mean Platelet Volume 6.8; Monocytes # (A) 0.4 k/uL (0-1.0); Monocytes % (A) 4 %; Neutrophils # (A) 7.3 k/uL (1.3-7.7); Neutrophils % (A) 87 %; Platelet Count 141 k/uL (150-450); RBC 5.31 m/uL (4.30-5.90); RDW 15.1 % (11.5-15.5); WBC 8.3 k/uL (3.8-10.6)
[2020-10-07 22:22] LABS: ALT 44 U/L (4-49); AST 56 U/L (17-59); African American GFR (CKD) >90 (>60 ml/min/1.73 sqM); Albumin 5.6 g/dL (3.5-5.0); Alcohol <10 mg/dL; Alkaline Phosphatase 93 U/L (38-126); Anion Gap 30 mmol/L; Blood Urea Nitrogen 11 mg/dL (9-20); Calcium 9.7 mg/dL (8.4-10.2); Carbon Dioxide 11 mmol/L (22-30); Chloride 96 mmol/L (98-107); Glucose 188 mg/dL (74-99); Magnesium 1.9 mg/dL (1.6-2.3); Non-African American GFR(CKD) 79 (>60 ml/min/1.73 sqM); Potassium 3.9 mmol/L (3.5-5.1); Sodium 137 mmol/L (137-145); Total Bilirubin 2.8 mg/dL (0.2-1.3); Total Protein 8.5 g/dL (6.3-8.2)
[2020-10-08 03:30] VITALS: BP 121/81; PULSE 98; RESP 16; TEMP 98
== END 2020-10-08 03:20 | disposition home or self-care (01) ==
LOC: EC 20:18
DX: E86.0 Dehydration (principal); R19.7 Diarrhea, unspecified; E78.5 Hyperlipidemia, unspecified; I10 Essential (primary) hypertension; M19.90 Unspecified osteoarthritis, unspecified site; N40.0 Benign prostatic hyperplasia without lower urinary tract symptoms; Z87.891 Personal history of nicotine dependence
CPT/HCPCS: 99284; 96374; 96361; 36415; 80053; 83735; 85025; G0480; J2060; 80320